=== PATIENT | female | born 1975 | race Caucasian/White ===

== ENCOUNTER → 2020-04-04 09:30 | Outpatient (BNVA) | payer MEDICAID, SELFPAY | PROVIDERS: Family Provider Family Medicine; Visit Provider Counselor Professional | DX: F41.1 Generalized anxiety disorder (principal); F33.2 Major depressive disorder, recurrent severe without psychotic features | CPT/HCPCS: 90834 ==

== ENCOUNTER → 2020-04-22 14:00 | Outpatient (BNVA) | payer MEDICAID, SELFPAY | PROVIDERS: Family Provider Family Medicine; Visit Provider Counselor Professional | DX: F41.1 Generalized anxiety disorder (principal); F43.12 Post-traumatic stress disorder, chronic; F33.2 Major depressive disorder, recurrent severe without psychotic features | CPT/HCPCS: 90834 ==

== ENCOUNTER → 2020-05-13 08:14 | Outpatient (BNVA) | payer MEDICAID, SELFPAY | PROVIDERS: Family Provider Family Medicine; Visit Provider Counselor Professional | DX: F41.1 Generalized anxiety disorder (principal); F43.12 Post-traumatic stress disorder, chronic; F33.2 Major depressive disorder, recurrent severe without psychotic features | CPT/HCPCS: 90834 ==

== ENCOUNTER 2020-05-15 14:03 | Outpatient (CLI) | payer MEDICAID, SELFPAY ==
--- NOTE | 2020-05-15 19:47 | ONC FU_ITS ---
Dr. Díaz Patient Follow-Up Note Patient: Carmen Richards Unit #: [id number]: 1975 Dicatated By: Pj Díaz M.D.Date of Visit:May 15, 2020 Onc Med Follow-up/Prog Note Chief Complaint: Suspected lung cancer. History of Present Illness: This is a 43-year-old woman who was referred from the [facility] because of suspected lung cancer. She had been incarcerated at the correctional facility in [place], [place] from August 2018 until December 2018. She had reported that while she was there she had undergone medical evaluation at a hospital in [place], and that she had been found to have lung cancer. She described having had CT scans and bronchoscopy, but she did not recall whether she may have had a PET/CT, and she did not recall the name of the hospital in [place]. I had seen her initially on 07/18/2019. At that time I did have a chest x-ray available for review, and I could see no evidence of the lung mass on that study. Following the visit, we did a fairly exhaustive search for medical information, now only from the correctional facility but also from hospitals in [place]. We could find no documentation of any evaluation or any suggestion of her having suspected lung cancer. She does have multiple medical illnesses including hypertension, dyslipidemia, type II diabetes, asthma/COPD, and depression. She also has known hepatitis C, diagnosed in 2014 and as yet not treated. She has a history of smoking for approximately 35 years, usually in the range of 1-1/2 pack of cigarettes daily. At time she had smoked up to his much as 4 packs/day. She has cut down, and she currently smokes about 5 cigarettes/day. She comes in now for a follow-up visit. She continues to complain that she is short of breath and that she has cough and wheezing. She brings up brown or green-colored sputum. She has pain in the chest area which is sometimes dull, but she also sometimes has sharp pain in the substernal area. She also has been having pain in her right side and she complains of being nauseated every day. Her energy level fluctuates. She is able to do some light work. Appetite also is variable. She has gained weight since her initial visit here. She does not have fever. She does report having hot flashes and sweating. She has been having a lot of heartburn. Bowel and bladder function have been okay. She reports having pain in her legs and in her right shoulder. She also complains of having a lot of swelling in her hands and feet. She has frequent headaches. She has neuropathy in her feet. Medications: hydrOXYzine HCl 1 Tablet (of 25 mg) Oral four times a day, Levothyroxine Sodium 1 Tablet (of 75 mcg) Oral daily, Lisinopril 1 Tablet (of 2.5 mg) Oral daily, ProAir HFA 1 puff(s) (of 108 (90 base) mcg/act) Aerosol, solution Inhalation four times a day PRN, Propranolol HCl 1 Tablet (of 20 mg) Oral t.i.d., PROzac 1 Capsule (of 40 mg) Oral daily, Symbicort 1 puff(s) (of 160-4.5 mcg/act) Aerosol Inhalation b.i.d. Allergies: No Known Allergies. Review of Systems: Constitutional - Her energy comes and goes. She is able to do light housework. Her appetite also comes and goes. Her weight is up about 8 pounds from last visit. No fevers. She is having frequent hot flahses with sweating. ECOG score is 1, ENMT - She has sinus congestion/drainage. No mouth sores. No sore throat or difficulty swallowing, Hematologic/Lymphatic - She bruises easily, Respiratory - She has shortness of breath and wheezing. She is using Pro-Air and Symbicort. She has a persistent cough, this produces green or dark colored sputum. No pleuritic pain or hemoptysis, Cardiovascular - No angina pain. No palpitations, Gastrointestinal - She has nausea, and she has been having pain in her right side. No vomiting. No heartburn or acid reflux. No diarrhea or constipation. No blood in the stool or black stools, Genitourinary (F) - No dysuria or hematuria. No urinary frequency. No urgency or incontinence, Musculoskeletal - She has pain in her legs, feet, hands, and shoulders, Integumentary - No skin complications, Neurologic - She reports constant headaches, this occurs weekly. No dizziness. She has neuropathy in her feet. No other focal neurologic symptoms, Psychiatric - She is taking ProZAC and hydroXYine foe her anxiety and depression. This is working well. No insomnia. Vital Signs: Performed on May 15, 2020 14:32 Height - 62.00 in Weight - 239.8 lbs (HIGH) BSA - 2.06 sq.m BMI - 43.86 (HIGH) Temperature - 97.9 F (LOW) Pulse - 78 /min Respiration - 22 /min O2 Sat - 98 % Pain - 0 Physical Examination: Constitutional - She does not appear acutely ill, Eyes - Sclerae nonicteric. Conjunctivae clear, ENMT - No lesions noted in the oral cavity, Hematologic/Lymphatic - No cervical, clavicular, or axillary adenopathy, Respiratory - Lungs sound clear with diminished air movement bilaterally, Cardiovascular - Heart rhythm is regular. There is no murmur, gallop, or rub noted, Abdomen - Moderately distended. Liver and spleen are not enlarged. There is no abdominal mass or ascites noted and there is no inguinal adenopathy, Extremities - No edema, Neurologic - No focal neurologic deficits noted. Impression: 1. Patient with self reported history of lung cancer. However, there was no identifiable mass on her chest x-ray, and we were not able to find documentation of any prior medical evaluation. 2. She has persistent cough and she has ongoing complaints of shortness of breath and wheezing. 3. She has persistent nausea and she also complains of pain in her right side. 4. She has untreated hepatitis C. Her other medical illnesses include: 5. Hypertension. 6. Dyslipidemia. 7. Type II diabetes. 8. Asthma/COPD. 9. Chronic headache. 10. Anxiety/depression. 11. She has history of IV drug use. Plan: She had recent laboratory studies with Dr. Mobley, and I will obtain those results. As she continues to have significant complaints, she will be scheduled for CT scans of the chest, abdomen, and pelvis. In the absence of any evidence of malignancy by CT scan, I think we can close the case on her suspected lung cancer, and in that case she can be referred for treatment of her hepatitis C. Signed By: Pj Díaz M.D. <<Signature on File>>
== END 2020-05-15 14:04 | disposition home or self-care (01) ==
LOC: ONCMED 14:06
PROVIDERS: PCP Family Medicine; Visit Provider Internal Medicine Medical Oncology
DX: R06.02 Shortness of breath (principal); R05 Cough; R06.2 Wheezing; R11.0 Nausea; B19.20 Unspecified viral hepatitis C without hepatic coma; I10 Essential (primary) hypertension; E78.5 Hyperlipidemia, unspecified; E11.9 Type 2 diabetes mellitus without complications; J44.9 Chronic obstructive pulmonary disease, unspecified; R51 Headache; F41.8 Other specified anxiety disorders; F19.21 Other psychoactive substance dependence, in remission
CPT/HCPCS: 99214

== ENCOUNTER → 2020-06-03 08:27 | Outpatient (BNVA) | payer MEDICAID, SELFPAY | PROVIDERS: PCP Family Medicine; Visit Provider Counselor Professional | DX: F33.2 Major depressive disorder, recurrent severe without psychotic features (principal) | CPT/HCPCS: 90832 ==

== ENCOUNTER 2020-06-04 11:11 | Outpatient (CLI) | payer MEDICAID, SELFPAY ==
--- NOTE | 2020-06-04 11:21 | CT_ITS ---
WS: [id number] CT scan of the chest With IV contrast, CT scan of the abdomen and pelvis with IV contrast and with oral contrast. Additional two-dimensional coronal and sagittal reconstruction was performed. 0 Clinical Data: SHORTNESS OF BREATH, COUGH, CHEST PAIN, NAUSEA, VOMITING Comparison: None. DLP: 2599.[address] scans at [facility] use at least one of these dose optimization techniques: automat ed exposure control; mA and/or kV adjustment per patient size (includes targeted exams where dose is matched to clinical indication); or iterative reconstruction. Findings: Chest: No nodules, masses or effusions are seen. The heart size is normal with no pericardial effusion. No pneumonia or pneumothorax is seen. The pulmonary arterial system and thoracic aorta demonstrate no abnormalities or dilatations. The tra ingrid bifurcates normally into the bronchi. The thyroid gland shows a probable cyst in the right lobe. There is no axillary or significant mediastinal adenopathy. Abdomen/pelvis: . The liver, gallbladder, spleen, adrenal glands and pancreas are normal. The kidneys show equal bilateral contrast excretion with no cyst or masses. No renal calculi or hydro nephrosis is noted. The abdominal aorta is normal in size with minimal calcification in the wall.. No appendicitis or diverticulitis is seen. Oral contrast is in the colon and there is no bowel dilata tion. No abscess, adenopathy, ascites, mass, obstruction or free air is seen. There is a small fat-co ntaining umbilical hernia. The bladder is unremarkable. The uterus is absent. No inguinal hernia is seen. The bones of the thorax, lumbar spine, pelvis and hips show only moderate vertebral body osteoarthrit is. CT/CT chest abd pel w con* Impression: 1. Negative for lung nodules or masses. 2. Negative for acute cardiopulmonary disease. 3. Negative for acute intra-abdominal or pelvic abnormalities.
[2020-06-04] MEDS: iohexol 300 mg/mL 50 mL Btl PO (13:48)
[2020-06-04] MEDS: iohexol 300 mg/mL 100 mL Btl IV (13:48)
== END 2020-06-04 11:12 | disposition home or self-care (01) ==
LOC: RADWPI 11:14
PROVIDERS: Family Provider Family Medicine; PCP Family Medicine; Visit Provider Internal Medicine Medical Oncology
DX: R06.02 Shortness of breath (principal); R07.9 Chest pain, unspecified; R05 Cough; R11.2 Nausea with vomiting, unspecified
CPT/HCPCS: 71260; 74177; Q9967

== ENCOUNTER → 2020-06-05 14:34 | Outpatient (BNVA) | payer MEDICAID, SELFPAY | PROVIDERS: Family Provider Family Medicine; PCP Family Medicine; Visit Provider Psychiatry & Neurology Psychiatry | DX: F33.2 Major depressive disorder, recurrent severe without psychotic features (principal) | CPT/HCPCS: 80061; 83036 ==

== ENCOUNTER 2020-09-23 10:33 | Outpatient (CLI) | payer OTHER, SELFPAY ==
[2020-07-26 15:54] VITALS: BP 129/79; BMI 43.1
--- NOTE | 2020-09-23 | XR_ITS ---
WS: [id number] LUMBAR SPINE TECHNIQUE: 3 views of the lumbar spine CLINICAL INFORMATION: CHRONIC LOW BACK PAIN, DISABILITY DETERMINATION COMPARISON: None. FINDINGS: Mild lumbar curve. Slight retrolisthesis L2 on L3 and L3 on L4. Mild disc space narrowing worse at L3 -4 and L4-5. Moderate facet arthropathy L4-L5 and L5-S1. Aortic calcification. XR/XR lumbar spine 2-3V* [id number] IMPRESSION: 1. Mild spondylitic changes lumbar spine. 2. Mild lumbar curve. No acute compression fractures. 3. Slight retrolisthesis L2 on L3 and L3 on L4. 4. Mild disc space narrowing L3-L4 L4-L5. 5. Moderate facet arthropathy L5-S1.
== END 2020-09-23 10:34 | disposition home or self-care (01) ==
LOC: RAD 10:36
PROVIDERS: PCP Family Medicine; Visit Provider Dermatology
DX: G89.29 Other chronic pain (principal); M47.817 Spondylosis without myelopathy or radiculopathy, lumbosacral region
CPT/HCPCS: 72100

== ENCOUNTER 2020-12-02 10:03 | Outpatient (CLI) | payer MEDICAID, SELFPAY ==
[2020-07-26 15:54] VITALS: BP 129/79; BMI 43.1
--- NOTE | 2020-12-02 10:12 | MR_ITS ---
WS: [id number] MRI LUMBAR SPINE NONCONTRAST HISTORY: CHRONIC LOW BACK PAIN COMPARISON: None available. TECHNIQUE: Sagittal and axial multisequence imaging is submitted. Mild spondylitic changes in the cervical spine. Suspect mild stenosis at C5-6. Increase in the thorac ic kyphosis without cord compression. 2 mm anterolisthesis of L4. No marrow edema or fracture. Disc space narrowing and mild desiccation from L3-4 to L5-S1. Conus terminates normally at L1-2 disc level. L1-L2: Mild facet arthritis. Very mild LEFT foraminal narrowing. L2-L3: Mild bilateral ligamentum flavum and facet joint arthritis. No significant stenosis. Very mild narrowing of the LEFT foramen. L3-L4: Mild annular disc bulging and osteophytic ridging. Mild to moderate bilateral facet joint arth ritis. No significant stenosis is appreciated. Very slight narrowing of the RIGHT foramen. L4-L5: Mild annular disc bulging and osteophytic ridging. Moderate to severe bilateral facet joint ar thritis. No significant stenosis. L5-S1: Very shallow central disc protrusion. Small disc osteophyte complex with very minimal contact on the RIGHT S1 nerve root does not appear to be displacing the nerve roots. Mass in the RIGHT adnexa measures 4.0 cm. Incompletely visualized. This may be a dermoid as the signa l decreases on the STIR sequence. On a prior CT from 06/04/2020 with a fat-containing mass in the RIGH T adnexa. MR/MR lumbar spine wo con* [id number] IMPRESSION: 1. No severe central or foraminal stenosis. 2. Very small disc osteophyte complex on the RIGHT with minimal contact and no displacement of the S1 nerve root. 3. Bilateral facet joint arthritis as described above. Most significant at the L4-5 level. No foraminal stenosis. 4. Fat-containing mass probably a dermoid in the RIGHT adnexa. Incompletely vi sualized. If further evaluation is clinically thought necessary consider follow -up with transvaginal ultrasound.
== END 2020-12-02 10:04 | disposition home or self-care (01) ==
LOC: RADWPI 10:06
PROVIDERS: PCP Family Medicine; Visit Provider Family Medicine
DX: M54.5 Low back pain (principal); M25.78 Osteophyte, vertebrae; M47.816 Spondylosis without myelopathy or radiculopathy, lumbar region
CPT/HCPCS: 72148

== ENCOUNTER 2022-06-11 13:32 | Inpatient (IN) | payer MEDICAID, SELFPAY ==
[2020-07-26 15:54] VITALS: BP 129/79; BMI 43.1
[2022-06-11 14:33] VITALS: BP 214/117; PULSE 90; RESP 16; TEMP 36.4; O2SAT 97; BMI 36.6
--- NOTE | 2022-06-11 18:28 | CTR_ITS ---
PROCEDURE INFORMATION: Exam: CT Head Without Contrast Exam date and time: 06/11/2022 7:25 PM Age: 46 years old Clinical indication: Dizziness and weakness, extremity; Patient HX: C/O dizziness with left sided weakness. ; Additional info: L sided weakness, sensory changes, dizzy 4 days TECHNIQUE: Imaging protocol: Computed tomography of the head without contrast. Sagittal and coronal reformatted images were created and reviewed. Radiation optimization: All CT scans at this facility use at least one of these dose optimization techniques: automated exposure control; mA and/or kV adjustment per patient size (includes targeted exams where dose is matched to clinical indication); or iterative reconstruction. COMPARISON: No relevant prior studies available. RADIATION DOSE METRICS: Total DLP (mGy-cm): 1009.68 FINDINGS: Brain: No acute intracranial hemorrhage. There is an area of decreased density extending from the right frontal lobe centrum semiovale extending inferiorly along the posterior limb of the right internal capsule to the right thalamus (series 3, images 20-29). No mass effect. No intra-axial or extra-axial masses. No midline shift. No extra-axial fluid collections. Hinds-white matter differentiation is unremarkable. Cerebral ventricles: No hydrocephalus. Mild asymmetry of the lateral ventricles. This is likely congenital in nature. Paranasal sinuses: Mild mucoperiosteal thickening in the posterior right ethmoid sinuses. Other visualized paranasal sinuses are clear. Mastoid air cells: Visualized mastoid air cells are clear. Orbital cavities: No acute abnormality in the visualized orbits. Dental: The patient is edentulous. Bones/joints: No acute fracture. Soft tissues: No acute abnormality of the extracranial soft tissues. CT/CT head wo con* [id number] IMPRESSION: Findings suspicious for an acute infarct extending from the right frontal lobe centrum semiovale extending inferiorly along the posterior limb of the right internal capsule to the right thalamus. No mass effect. No midline shift. No hydrocephalus. Further evaluation with MRI of the brain is recommended, if the patient has no contraindications. ASSESSMENT: ASPECTS ([place] Stroke Program Early CT Score) Score is 8.
--- NOTE | 2022-06-11 18:54 | XRR_ITS ---
PROCEDURE INFORMATION: Exam: XR Chest Exam date and time: 06/11/2022 7:01 PM Age: 46 years old Clinical indication: Chest wall pain; Additional info: Chest pain TECHNIQUE: Imaging protocol: Radiologic exam of the chest. Views: 1 view. COMPARISON: CT chest abd pel w con* 06/04/2020 1:44 PM FINDINGS: Lungs: Unremarkable. No consolidation. Pleural spaces: Unremarkable. No pleural effusion. No pneumothorax. Heart/Mediastinum: Unremarkable. No cardiomegaly. Bones/joints: Unremarkable. XR/XR chest 1V portable [id number] IMPRESSION: No acute findings.
--- NOTE | 2022-06-11 18:54 | ECG_ITS ---
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 Measurements Intervals [place] Rate: 88 P: 67 MI: 171 QRS: 42 QRSD: 93 T: 76 QT: 376 QTc: 455 Interpretive Statements SINUS RHYTHM No previous ECG available for comparison Electronically Signed On 06-11-2022 21:17:44 CDT by Jean-Paul Santana M.D. [email or web address]
--- NOTE | 2022-06-11 19:30 | W.ED.WEAKNES ---
HPI - Weakness General: Chief complaint: Weakness Stated complaint: Dizziness, numbness in left side Time Seen by Provider: 06/11/22 18:42 PFS ED PFSH: Family History (Updated 06/05/20 @ 11:04 by Latha Liriano RN) Other CAD (coronary artery disease) Cancer Diabetes Family history of premature coronary artery disease Hypertension Lung disease Stroke Social History (Updated 06/05/20 @ 11:42 by Latha Liriano RN) Smoking and tobacco status: current every day smoker cigarettes Packs smoked per day: 0.5 Years cigarettes smoked: 32 Second hand smoke exposure: No Smoking risk assessment/counseling performed?: Yes (No desire to quit at this time.) Tobacco counseling given: counseling >3 minutes Alcohol intake: former Desire information about alcohol rehabilitation?: No Desire information about substance/drug rehabilitation?: No Adopted: No Caregiver/support person: No Lives independently: Yes Household members: none Housing: Manufactured/Mobile home Marital status: Single Number of children: 2 Number of grandchildren: 4 Highest education level completed: GED or Equivalent service: No Current occupational status: disabled Current occupational exposures/hazards: No Pets and animals: Yes Pets & animals: dog(s) History of recent travel: No Leisure activites: exercise, art, music and reading Sexually active: No Current gender identity: Female Linda/Hinduism: Congregational Special linda needs: No Agree to transfusion: Yes Financial difficulty paying for basics: Hard Female Reproductive History: Para: 2 Spontaneous abortions: No Course Vital Signs: Vital signs: Vital Signs Temperature 97.6 F 06/11/22 14:33 Pulse Rate 90 06/11/22 14:33 Respiratory Rate 16 06/11/22 14:33 Blood Pressure 214/117 06/11/22 14:33 Pulse Oximetry 97 06/11/22 14:33 MDM - Weakness Lab Data : 06/11/22 19:20 06/11/22 19:20 Radiology Impressions Chest X-Ray 06/11/22 18:54 IMPRESSION: No acute findings. Discharge Plan Discharge Condition: Stable Prescriptions: No Action Symbicort 160-4.5 mcg/actuation HFA aerosol inhaler 2 puff INHALATION BID PRN0RF aspirin [Adult Low Dose Aspirin] 81 mg tablet,delayed release (DR/EC) 81 mg PO DAILY 0RF lisinopril 20 mg tablet 20 mg PO QDAY 0RF metformin 500 mg tablet 500 mg PO QDAY 0RF albuterol sulfate [ProAir HFA] 90 mcg/actuation HFA aerosol inhaler 2 puff INHALATION Q6H PRN0RF propranolol 20 mg tablet 20 mg PO TID PRN (Reason: anxiety) Qty: 90 2RF fluoxetine [Prozac] 40 mg capsule 40 mg PO DAILY Qty: 30 2RF hydroxyzine HCl 50 mg tablet 50 mg PO QID PRN (Reason: anxiety) Qty: 120 2RF Referrals: Sushil Mobley MD [Primary Care Provider] - Coding Level of Care Code ED Camera Technician for Chg Mary
[2022-06-11 19:35] LABS: Basophils # 0.1 10^3/uL (0.0-0.1); Basophils % 0.4 %; Eosinophils # 0.2 10^3/uL (0.0-0.8); Eosinophils % 1.8 %; Hematocrit 48.7 % (37.0-47.0); Hemoglobin 16.2 g/dL (11.5-15.3); Lymphocytes # 5.6 10^3/uL (0.8-4.8); Lymphocytes % 42.8 %; Mean Corpuscular HGB Conc 33.3 g/dL (30.0-36.0); Mean Corpuscular Hemoglobin 31.8 pg (28.0-34.0); Mean Corpuscular Volume 95.5 fl (81-99); Mean Platelet Volume 10.5 fL (7.4-10.4); Monocytes # 0.7 10^3/uL (0.2-0.9); Neutrophils # 6.46 10^3/uL (1.8-7.7); Neutrophils % 49.8 %; Nucleated Red Blood Cells % 0 %; Platelet Count 250 10^3/cmm (130-400); Red Cell Distribution Width 11.9 % (12.1-15.1)
[2022-06-11 19:41] LABS: INR 0.97 (0.8-1.2)
[2022-06-11 19:42] LABS: Partial Thromboplastin Time 34.5 SECONDS (23.9-36.7)
--- NOTE | 2022-06-11 19:47 | W.ED.GENADLT ---
HPI - General Adult General: Chief complaint: Weakness Stated complaint: Dizziness, numbness in left side Time Seen by Provider: 06/11/22 18:42 History of Present Illness: Patient is a 46-year-old female with history of COPD, hypertension, smoking presenting to the emergency room with left-sided numbness and weakness since 4 days ago. Patient was at rest when she noticed all the symptoms. Patient denies any chest pain, shortness with palpitation or nausea or vomiting, diarrhea, gait instability, vertigo, diplopia, double vision. Patient states that symptoms started all at once and has not improved. No prior history of strokes. Onset: 4 days ago Duration:4 days Location:home Severity:moderate/severe Associated symptoms: Deny chest pain, dyspnea, nausea, rash, palpitations or vomiting Review of Systems Const: Denies: fever(s) or chills Eyes: Denies: change in vision ENMT: Denies: mouth pain Card: Denies: chest pain or palpitations Resp: Denies: dyspnea or non-productive cough GI: Denies: abdominal pain, nausea, vomiting or diarrhea : Denies: dysuria Musc: Denies: extremity pain Skin/Breast: Denies: rash or new lesions Neuro: Reports: weakness in extremities (+L sided weakness x 4 days) and sensory changes (+L sided numbness x 4 days) Psych: Reports: other (Normal mood) Dick/Lymph: Denies: easy bruising PFSH ED PFSH: Medical History COPD (chronic obstructive pulmonary disease) Hypertension Smoking Family History Other CAD (coronary artery disease) Cancer Diabetes Family history of premature coronary artery disease Hypertension Lung disease Stroke Social History Smoking and tobacco status: current every day smoker cigarettes Packs smoked per day: 0.5 Years cigarettes smoked: 32 Second hand smoke exposure: No Smoking risk assessment/counseling performed?: Yes (No desire to quit at this time.) Tobacco counseling given: counseling >3 minutes Alcohol intake: former Desire information about alcohol rehabilitation?: No Desire information about substance/drug rehabilitation?: No Adopted: No Caregiver/support person: No Lives independently: Yes Household members: none Housing: Manufactured/Mobile home Marital status: Single Number of children: 2 Number of grandchildren: 4 Highest education level completed: GED or Equivalent service: No Current occupational status: disabled Current occupational exposures/hazards: No Pets and animals: Yes Pets & animals: dog(s) History of recent travel: No Leisure activites: exercise, art, music and reading Sexually active: No Current gender identity: Female Linda/Confucianist: Baptist Special linda needs: No Agree to transfusion: Yes Financial difficulty paying for basics: Hard Female Reproductive History: Para: 2 Spontaneous abortions: No Physical Exam Const: COMMON NORMALS: alert HENMT: COMMON NORMALS: atraumatic HEAD & SCALP: atraumatic MOUTH: moist mucous membranes not abnormal Eye: COMMON NORMALS: EOMs intact bilaterally and conjunctivae normal CONJUNCTIVA: Yes conjunctivae normal Neck/C-Spine: COMMON NORMALS: full ROM and supple Resp: COMMON NORMALS: normal respiratory effort and clear to auscultation bilaterally AUSCULTATION: clear to auscultation bilaterally Cardio: COMMON NORMALS: regular rate RATE: regular rate GI: COMMON NORMALS: Soft to palpation and non-tender PALPATION: Yes Soft to palpation Extremity: COMMON NORMALS: full ROM Neuro: SENSORIUM/ORIENTATION: Yes alert MOTOR EXAM: No Abnormal motor strength present and Other motor observations present (no focal motor deficits) OTHER: Mental status? Awake, alert, and oriented to self, year, month, location, and situation.? Following simple axial and appendicular commands.? Has appropriate fund of knowledge, comprehension, and insight.? Able to recall and understands pertinent aspects of medical history and current treatment status.? ? Language? Speech is fluent without word-finding difficulties.? Intact naming, expression, reception manager, and repetition.? ? Cranial nerves? 2,3,4,6: PERRL, EOMI with no nystagmus. 5: Intact sensation to light touch, symmetric? 7: Smile symmetrical, no facial droop.? 8: Hearing grossly intact.? 9,10: Normal palate movement.? 11: Normal strength in trapezius bilaterally 12: Tongue protrudes midline.? ? Motor examination? Normal bulk & tone. Strength as follows (R/L): Delts (5/4-5), Biceps (5/4-5), Triceps (5/4-5), Wrist ext (5/4-5), hip flexors (5/4-5), plantarflexors (5/4-5), dorsiflexors (5/4-5). ? Sensation? Light Touch: Mildly diminished strength in the L compared to R side Romberg: Negative.? Distal joint position sense intact ? Coordination? Zyxqzd-ap-aqum-finger movements intact without dysmetria or past-pointing.? Rapid fingertaps: preserved amplitude without decriment.? No tremor, myoclonus or truncal ataxia.? ? Gait/stance? Steady, normal narrow base gait with appropriate arm swing and turning.? Tandem gait without hesitation or loss of balance. Psych: COMMON NORMALS: speech normal SPEECH: Yes normal speech MOOD & AFFECT: Yes euthymic mood Course Vital Signs: Vital signs: Vital Signs Temperature 97.6 F 06/11/22 14:33 Pulse Rate 90 06/11/22 14:33 Respiratory Rate 16 06/11/22 14:33 Blood Pressure 214/117 06/11/22 14:33 Pulse Oximetry 97 06/11/22 14:33 MDM - General Adult Medical Decision Making 46-year-old female history of hypertension, smoking, COPD presents the emergency room with concerns of left-sided weakness and numbness. Symptoms been going on for 4 days. On neurological exam, patient may have minor left-sided weakness with mildly diminished left-sided sensation. CT scans showed a subacute stroke. Patient is currently outside of tPA or mechanical thrombectomy windows. Patient admitted to hospital for further subacute stroke work-up. Disposition: admisison Lab Data : 06/11/22 19:20 06/11/22 19:[address] 06/11/22 18:28 IMPRESSION: Findings suspicious for an acute infarct extending from the right frontal lobe centrum semiovale extending inferiorly along the posterior limb of the right internal capsule to the right thalamus. No mass effect. No midline shift. No hydrocephalus. Further evaluation with MRI of the brain is recommended, if the patient has no contraindications. ASSESSMENT: ASPECTS ([place] Stroke Program Early CT Score) Score is 8. ADDENDUM: 06/11/222022 THIS REPORT CONTAINS FINDINGS THAT MAY BE CRITICAL TO PATIENT CARE. The findings were verbally communicated via telephone conference with Vic Tubbs at 8:21 PM CDT on 06/11/2022. The findings were acknowledged and understood. Chest X-Ray 06/11/22 18:54 IMPRESSION: No acute findings. Laboratory Results WBC 13.0 10^3/uL (4.0-10.0) H 06/11/22 19:20 RBC 5.10 10^6/uL (4.1-5.3) 06/11/22 19:20 Hgb 16.2 g/dL (11.5-15.3) H 06/11/22 19:20 Hct 48.7 % (37.0-47.0) H 06/11/22 19:20 MCV 95.5 fl (81-99) 06/11/22 19:20 MCH 31.8 pg (28.0-34.0) 06/11/22 19:20 MCHC 33.3 g/dL (30.0-36.0) 06/11/22 19:20 RDW 11.9 % (12.1-15.1) L 06/11/22 19:20 Plt Count 250 10^3/cmm (130-400) 06/11/22 19:20 MPV 10.5 fL (7.4-10.4) H 06/11/22 19:20 Neut % (Auto) 49.8 % 06/11/22 19:20 Lymph % (Auto) 42.8 % 06/11/22 19:20 [place] % (Auto) 5.0 % 06/11/22 19:20 Eos % (Auto) 1.8 % 06/11/22 19:20 Baso % (Auto) 0.4 % 06/11/22 19:20 Neut # (Auto) 6.46 10^3/uL (1.8-7.7) 06/11/22 19:20 Lymph # (Auto) 5.6 10^3/uL (0.8-4.8) H 06/11/22 19:20 [place] # (Auto) 0.7 10^3/uL (0.2-0.9) 06/11/22 19:20 Eos # (Auto) 0.2 10^3/uL (0.0-0.8) 06/11/22 19:20 Baso # (Auto) 0.1 10^3/uL (0.0-0.1) 06/11/22 19:20 Nucleated RBC % (auto) 0 % 06/11/22 19:20 Nucleated RBCs # 0.0 /100WBC 06/11/22 19:20 PT 13.20 SECONDS (12.1-14.9) 06/11/22 19:20 INR 0.97 (0.8-1.2) 06/11/22 19:20 APTT 34.5 SECONDS (23.9-36.7) 06/11/22 19:20 Sodium 134 mmol/L (136-145) L 06/11/22 19:20 Potassium 4.4 mmol/L (3.5-5.1) 06/11/22 19:20 Chloride 97 mmol/L (98-107) L 06/11/22 19:20 Carbon Dioxide 25 mmol/L (22-29) 06/11/22 19:20 Anion Gap 16.4 (5-19) 06/11/22 19:20 BUN 7 mg/dL (6-20) 06/11/22 19:20 Creatinine 0.6 mg/dL (0.5-0.9) 06/11/22 19:20 GFR Calculation 106.7 mL/min (90-130) 06/11/22 19:20 Glucose 232 mg/dL (65-115) H 06/11/22 19:20 Calculated Osmolality 283 mOsm/kg (285-295) L 06/11/22 19:20 Calcium 10.0 mg/dL (8.5-10.5) 06/11/22 19:20 Total Bilirubin 0.5 mg/dL (0.15-1.2) 06/11/22 19:20 AST 29 U/L (0-32) 06/11/22 19:20 ALT 29 U/L (0-33) 06/11/22 19:20 Alkaline Phosphatase 101 IU/L (35-105) 06/11/22 19:20 Troponin T Baseline 10 ng/L (0-10) 06/11/22 19:20 Total Protein 8.0 g/dL (6.6-8.7) 06/11/22 19:20 Albumin 4.3 g/dL (3.5-5.2) 06/11/22 19:20 Globulin 3.7 g/dL (1.3-4.6) 06/11/22 19:20 Imaging Data Other Imaging: Radiologist's impression: [email or web address] [address] XRay Report Signed Patient: Carmen Richards Unit #: [id number] : 1975 Age/Sex: 46 / F ADM Date: 06/11/22 Loc: ER Room/Bed: Attending Dr: Ordering Provider/Ordering MD: Alex Velásquez MD Date of Service: 06/11/22 Procedure(s): XR chest 1V portable [id number] Accession Number(s): [id number] Report Number: [id number] PROCEDURE INFORMATION: Exam: XR Chest Exam date and time: 06/11/2022 7:01 PM Age: 46 years old Clinical indication: Chest wall pain; Additional info: Chest pain TECHNIQUE: Imaging protocol: Radiologic exam of the chest. Views: 1 view. COMPARISON: CT chest abd pel w con* 06/04/2020 1:44 PM FINDINGS: Lungs: Unremarkable. No consolidation. Pleural spaces: Unremarkable. No pleural effusion. No pneumothorax. Heart/Mediastinum: Unremarkable. No cardiomegaly. Bones/joints: Unremarkable. XR/XR chest 1V portable [id number] IMPRESSION: No acute findings. ? Dictated By: Murphy Paz DO Signed By: Murphy Paz DO Signed Date/Time: 06/11/221920 DD/ 00 Launch?[place] [address] CT Scan Report Signed with Addenda Patient: Carmen Richards Unit #: [id number] : 1975 Age/Sex: 46 / F ADM Date: 06/11/22 Loc: ER Room/Bed: Attending Dr: Ordering Provider/Ordering MD: Vic Eldridge MD Date of Service: 06/11/22 Procedure(s): CT head wo con* [id number] Accession Number(s): [id number] Report Number: [id number]/CT head wo con* [id number] THIS REPORT CONTAINS FINDINGS THAT MAY BE CRITICAL TO PATIENT CARE. The findings were verbally communicated via telephone conference with Vic Tubbs at 8:21 PM CDT on 06/11/2022. The findings were acknowledged and understood. ? Addendum Dictated By: ?Katie Louise MD Addendum Signed By: ?Katie Louise MD Signed Date/Time: 06/11/222022 Addendum Cosigned By: ? PROCEDURE INFORMATION: Exam: CT Head Without Contrast Exam date and time: 06/11/2022 7:25 PM Age: 46 years old Clinical indication: Dizziness and weakness, extremity; Patient HX: C/O dizziness with left sided weakness. ; Additional info: L sided weakness, sensory changes, dizzy 4 days TECHNIQUE: Imaging protocol: Computed tomography of the head without contrast. Sagittal and coronal reformatted images were created and reviewed. Radiation optimization: All CT scans at this facility use at least one of these dose optimization techniques: automated exposure control; mA and/or kV adjustment per patient size (includes targeted exams where dose is matched to clinical indication); or iterative reconstruction. COMPARISON: No relevant prior studies available. RADIATION DOSE METRICS: Total DLP (mGy-cm): 1009.68 FINDINGS: Brain: No acute intracranial hemorrhage. There is an area of decreased density extending from the right frontal lobe centrum semiovale extending inferiorly along the posterior limb of the right internal capsule to the right thalamus (series 3, images 20-29). No mass effect. No intra-axial or extra-axial masses. No midline shift. No extra-axial fluid collections. Hinds-white matter differentiation is unremarkable. Cerebral ventricles: No hydrocephalus. Mild asymmetry of the lateral ventricles. This is likely congenital in nature. Paranasal sinuses: Mild mucoperiosteal thickening in the posterior right ethmoid sinuses. Other visualized paranasal sinuses are clear. Mastoid air cells: Visualized mastoid air cells are clear. Orbital cavities: No acute abnormality in the visualized orbits. Dental: The patient is edentulous. Bones/joints: No acute fracture. Soft tissues: No acute abnormality of the extracranial soft tissues. CT/CT head wo con* [id number] IMPRESSION: Findings suspicious for an acute infarct extending from the right frontal lobe centrum semiovale extending inferiorly along the posterior limb of the right internal capsule to the right thalamus. No mass effect. No midline shift. No hydrocephalus. Further evaluation with MRI of the brain is recommended, if the patient has no contraindications. ? ASSESSMENT: ASPECTS ([place] Stroke Program Early CT Score) Score is 8. ? Dictated By: Katie Louise MD Signed By: Katie Louise MD Signed Date/Time: 06/11/222015 DD/ 24 Discharge Plan Discharge Patient Disposition: Admitted As Inpatient Clinical Impression: Left-sided weakness, Arm paresthesia, left, Left leg paresthesias, Acute ischemic stroke Condition: Stable Coding Level of Care Code ED After School Teacher for Chg Fwd Exam Comprehensive
[2022-06-11 20:11] LABS: Troponin(5th) Baseline 10 ng/L (0-10)
[2022-06-11 20:14] LABS: Alanine Aminotransferase 29 U/L (0-33); Albumin Level 4.3 g/dL (3.5-5.2); Alkaline Phosphatase 101 IU/L (35-105); Aspartate Amino Transferase 29 U/L (0-32); Blood Urea Nitrogen 7 mg/dL (6-20); Carbon Dioxide 25 mmol/L (22-29); Chloride 97 mmol/L (98-107); Globulin 3.7 g/dL (1.3-4.6); Glomerular Filtration Rate 106.7 mL/min (90-130); Glucose 232 mg/dL (65-115); Osmolality Calculated 283 mOsm/kg (285-295); Sodium 134 mmol/L (136-145); Total Bilirubin 0.5 mg/dL (0.15-1.2)
[2022-06-11 20:15] LABS: Anion Gap 16.4 (5-19); Potassium 4.4 mmol/L (3.5-5.1)
[2022-06-11 20:16] VITALS: BP 196/74; PULSE 0; PULSE 87; RESP 18; O2SAT 96
--- NOTE | 2022-06-11 20:54 | ECG_ITS ---
[facility] Test Date: 2022-06-11 Pat Name: Carmen Richards Department: Room: 250 Gender: Female Epic Manager: : 1975 Requested By: Alex Velásquez Order Number: [id number] Jeanine MD: Giovanni Rosas M.D. Measurements Intervals [place] Rate: 88 P: 70 TN: 185 QRS: 54 QRSD: 84 T: 75 QT: 366 QTc: 444 Interpretive Statements SINUS RHYTHM Compared to ECG 06/11/2022 19:37:18 No significant changes Electronically Signed On 06-12-2022 20:48:15 CDT by Giovanni Rosas M.D. [id number]
[2022-06-11 21:03] LABS: Add Urine Microscopic? YES; Bilirubin Urine Neg (Negative); Blood Urine 3+ (Negative); Glucose Urine UA Norm (Normal); Ketones Urine Negative (Negative); Leukocyte Esterase Urine 1+ (Negative); Nitrate Urine Positive (Negative); Protein Urine Trace (Negative); RBC Urine 0-4 /hpf (0-2); Specific Gravity, Urine 1.005 (1.005-1.030); Urine Appearance SL Hazy (CLEAR); Urine Color Yellow (Yellow); Urobilinogen Urine Norm (Negative); pH Urine 7 (5-7)
[2022-06-11 21:04] LABS: Add Urine Culture? Yes; Bacteria Urine 2+ /hpf; Fine Granular Casts Urine 0-4 /lpf
[2022-06-11 21:36] VITALS: BP 140/72; PULSE 90; RESP 18; O2SAT 94
[2022-06-11 21:49] VITALS: BP 140/72; PULSE 90; RESP 18; O2SAT 94
[2022-06-11 22:31] VITALS: BP 142/91; PULSE 96; RESP 18; TEMP 36.7; O2SAT 95
--- NOTE | 2022-06-11 23:26 | PM.HP ---
Providers/Chief Complaint Admitting Physician: Abdon Ace Primary Care Provider: Sushil Mobley MD Chief Complaint: Dizziness, numbness in left side History of Present Illness Pleasant 46-year-old lady with history of smoking, HTN, DM2, HLD, other comorbidities, presented due to starting about 4 days ago numbness of left side of the face, as well as upper and lower extremity, left side facial droop, as well as loss of coordination of left upper and lower extremity which are new. Denies any prior history of stroke. CT head in ER showed findings suspicious for acute infarct standing from right frontal lobe centrum semiovale extending inferiorly along the posterior limb of the right internal capsule to the right thalamus. No mass-effect. No midline shift. No hydrocephalus. Review of Systems Const: Denies: fever(s), chills, body aches or malaise Eyes: Denies: change in vision, eye discomfort or eye redness ENMT: Denies: throat pain, oral sores or ear or mastoid pain Card: Denies: chest pain, edema, pre-syncope or dyspnea on exertion Resp: Denies: dyspnea, productive cough, change in phlegm color or hemoptysis GI: Denies: abdominal pain, nausea, vomiting, diarrhea, constipation, hematochezia or melena : Denies: flank pain, urinary frequency or hematuria Musc: Reports: extremity pain (Chronic L shoulder/neck pain); Denies: back pain, joint swelling or joint redness Skin/Breast: Denies: rash or new lesions Neuro: Reports: numbness in extremities, weakness in extremities, lack of coordination and difficulty walking; Denies: headache(s), dizziness, vertigo, confusion or seizure-like activity Endo: Denies: polyuria or polydipsia Dick/Lymph: Denies: easy bleeding or tender lymph nodes All/Imm: Denies: urticaria or tongue swelling Medications/Allergies Home Medications Medication Instructions Recorded Confirmed Last Taken Type albuterol sulfate 90 mcg/actuation 2 puff INHALATION Q6H PRN 12/22/19 03/17/21 Unknown History aerosol inhaler (ProAir HFA) lisinopril 20 mg tablet 20 mg PO QDAY 12/22/19 03/17/21 Unknown History metformin 500 mg tablet 500 mg PO QDAY PRN 12/22/19 03/17/21 Unknown History aspirin 81 mg tablet,delayed 81 mg PO DAILY 02/16/20 03/17/21 Unknown History release (Adult Low Dose Aspirin) budesonide-formoterol HFA 160 2 puff INHALATION BID PRN 02/16/20 03/17/21 Unknown History mcg-4.5 mcg/actuation aerosol inhaler (Symbicort) fluoxetine 40 mg capsule (Prozac) 40 mg PO DAILY #30 cap 03/27/20 03/17/21 Unknown Rx hydroxyzine HCl 50 mg tablet 50 mg PO QID PRN #120 tab 03/27/20 03/17/21 Unknown Rx propranolol 20 mg tablet 20 mg PO TID PRN #90 tab 03/27/20 03/17/21 Unknown Rx levothyroxine 75 mcg tablet 75 mcg PO DAILY 06/11/22 06/11/22 06/11/22 History oxycodone 5 mg tablet 5 mg PO Q6H PRN 06/11/22 06/11/22 Unknown History Allergies Allergy/AdvReac Type Severity Reaction Status Date / Time No Known Allergies Allergy Verified 07/23/20 09:48 PFSH Acute PFSH: Medical History (Updated 06/11/22 @ 23:41 by Abdon Ace MD) Asthma COPD (chronic obstructive pulmonary disease) COPD (chronic obstructive pulmonary disease) Hepatitis C Hyperlipidemia Hypertension Hypertension Major depressive disorder, 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, recurrent severe without psychotic features Smoking Type II diabetes mellitus Surgical History (Updated 06/11/22 @ 23:37 by Abdon Ace MD) H/O: hysterectomy 1997 History of tonsillectomy Family History Other CAD (coronary artery disease) Cancer Diabetes Family history of premature coronary artery disease Hypertension Lung disease Stroke Social History Smoking and tobacco status: current every day smoker cigarettes Packs smoked per day: 0.5 Years cigarettes smoked: 32 Second hand smoke exposure: No Smoking risk assessment/counseling performed?: Yes (No desire to quit at this time.) Tobacco counseling given: counseling >3 minutes Alcohol intake: former Desire information about alcohol rehabilitation?: No Desire information about substance/drug rehabilitation?: No Adopted: No Caregiver/support person: No Lives independently: Yes Household members: none Housing: Manufactured/Mobile home Marital status: Single Number of children: 2 Number of grandchildren: 4 Highest education level completed: GED or Equivalent service: No Current occupational status: disabled Current occupational exposures/hazards: No Pets and animals: Yes Pets & animals: dog(s) History of recent travel: No Leisure activites: exercise, art, music and reading Sexually active: No Current gender identity: Female Linda/Jew: Denominational Special linda needs: No Agree to transfusion: Yes Financial difficulty paying for basics: Hard Female Reproductive History: Para: 2 Spontaneous abortions: No Vitals/I&O/Wt Last Vital Signs Temp 98.1 F 06/11/22 22:31 Pulse 96 06/11/22 22:31 Resp 18 06/11/22 22:31 BP 142/91 06/11/22 22:31 Pulse Ox 95 06/11/22 22:31 Weight last 48 hrs Weight 90.718 kg Physical Exam Const: COMMON NORMALS: alert GENERAL APPEARANCE: cooperative NUTRITIONAL APPEARANCE: obese ORIENTATION/CONSCIOUSNESS: Yes awake HENMT: COMMON NORMALS: normocephalic, EAC's normal, Normal external nose present and moist oral mucous membranes HEAD & SCALP: normocephalic NOSE: Normal external nose present EXTERNAL AUDITORY CANAL: EAC's normal Neck/C-Spine: COMMON NORMALS: no meningeal signs Chest: CHEST: Yes Symmetrical chest wall rise Resp: COMMON NORMALS: clear to auscultation bilaterally AUSCULTATION: clear to auscultation bilaterally Cardio: COMMON NORMALS: regular rate, regular rhythm and No murmurs present (Cardio) RATE: regular rate RHYTHM: regular rhythm GI: COMMON NORMALS: Normal to inspection, nondistended, normoactive bowel sounds present, Soft to palpation and non-tender PALPATION: Yes Soft to palpation Extremity: COMMON NORMALS: no pedal edema Neuro: COMMON NORMALS: moves all extremities SENSORIUM/ORIENTATION: Yes alert MENINGEAL SIGNS: Yes no meningeal signs COORDINATION/BALANCE: [id number] test normal SPEECH: speech normal and Other neuro speech findings (L side facial droop) SENSORY EXAM: Yes extremities (mod-sev diminished sensation L side) and Normal double simultaneous stimulation for sensation MOTOR EXAM: Pronator motor function not present and Other motor observations present (/5 L side) OTHER: She is awake, alert, following directions. Ultra tracking. Visual stokes full to confrontation. Psych: COMMON NORMALS: mental status grossly normal Skin: COMMON NORMALS: no wounds RASHES: no rashes Data : 06/11/22 19:20 06/11/22 19:20 A&P Assessment and plan (1) CVA (cerebral vascular accident): Subacute CVA, symptoms were restarted on 4 days ago, possibly some worsening yesterday which prompted her to go to ER. Noted infarction, reported) acute on CT head extending from right frontal lobe centrum semiovale extending inferiorly along the posterior limb of the right internal capsule to the right thalamus. Presented outside the window for intervention. Start aspirin, high intensity statin. Check A1c, lipid profile. Monitor on telemetry, consider cardiac monitoring. TTE with bubble study. Carotid Doppler. PT, OT, ST. Fall precautions. Bedside swallow evaluation. For now we will not treat blood pressures, monitor. Keep below 220/120. Will need control of risk factors for secondary prevention. Discussed with her need for smoking cessation, please encourage again. Will need optimization of blood pressure control, does not have a cuff. Encourage weight loss. Activity. Follow-up with PCP and neurology. Status: Acute (2) UTI (urinary tract infection): Possible UTI with 5-10 WBC, nitrate positive in urine. Ceftriaxone. Follow-up urine culture. Status: Acute (3) Smoking addiction: Discussed with her smoking cessation for 4 minutes, she understands she needs to quit. Discussed continued placement, she Giurgius COVID-19 patches. Lozenges as needed. Status: Acute Plan DM2 HTN Obesity Chronic back pain Attestations Medical Necessity Statement*: Admission of over 2 midnights is anticipated assessment of management of new CVA. Coding Level of Care Code Acute Set Up Mechanic Coating Machines for Isabel Hernandez Diagnoses CVA (cerebral vascular accident) I63.9 UTI (urinary tract infection) N39.0 Smoking addiction F17.200
[2022-06-11 23:58] LABS: Estmated Average Glucose 246; Hemoglobin A1C 10.2 % (4.0-6.0)
[2022-06-11 23:59] VITALS: BP 109/66; PULSE 88; RESP 15; TEMP 36.9; O2SAT 92
[2022-06-12] VITALS (11 sets, daily range): BP systolic 116–155; BP diastolic 78–94; PULSE 0–98; RESP 12–18; TEMP 36.5–36.8; O2SAT 91–95
[2022-06-12] MEDS: nicotine 4 mg lozenge MUCOUS MEM (00:07)
[2022-06-12] MEDS: nicotine 21 mg Patch 1 PATCH TRANSDERMA ×2 (00:07→10:14)
[2022-06-12] MEDS: heparin 5,000 unit/mL INJ 1 mL 5000 UNIT SUBCUT (00:09)
[2022-06-12] MEDS: oxyCODONE 5 mg IR Tab/Cap PO (00:12)
[2022-06-12] MEDS: aspirin 81 mg EC Tablet 162 MG PO ×2 (00:12→10:12)
[2022-06-12] MEDS: atorvastatin 40 mg Tablet 80 MG PO (00:15)
[2022-06-12] MEDS: cefTRIAXone 1,000 MG in sodium chloride 0.9% (plus) 50 ML 100 MG IV (00:16)
--- NOTE | 2022-06-12 00:54 | ECG_ITS ---
[facility] Test Date: 2022-06-12 Pat Name: Carmen Richards Department: Room: 251 Gender: Female Ending Machine Operator: : 1975 Requested By: Alex Velásquez Order Number: [id number] Jeanine MD: Giovanni Rosas M.D. Measurements Intervals [place] Rate: 86 P: 66 [place]: 185 QRS: 45 QRSD: 90 T: 70 QT: 376 QTc: 451 Interpretive Statements SINUS RHYTHM Compared to ECG 06/11/2022 22:11:37 No significant changes Electronically Signed On 06-12-2022 20:47:22 CDT by Giovanni Rosas M.D. [id number]
[2022-06-12] MEDS: albuterol 8 gm MDI 2 PUFF INHALATION ×2 (01:15→09:14)
[2022-06-12 02:34] LABS: Basophils # 0.1 10^3/uL (0.0-0.1); Basophils % 0.4 %; Eosinophils # 0.2 10^3/uL (0.0-0.8); Eosinophils % 1.8 %; Hematocrit 45.3 % (37.0-47.0); Hemoglobin 14.6 g/dL (11.5-15.3); Lymphocytes # 5.3 10^3/uL (0.8-4.8); Lymphocytes % 40.7 %; Mean Corpuscular HGB Conc 32.2 g/dL (30.0-36.0); Mean Corpuscular Hemoglobin 31.3 pg (28.0-34.0); Mean Corpuscular Volume 97.2 fl (81-99); Mean Platelet Volume 11.3 fL (7.4-10.4); Monocytes # 0.7 10^3/uL (0.2-0.9); Monocytes % 5.3 %; Neutrophils # 6.74 10^3/uL (1.8-7.7); Neutrophils % 51.5 %; Nucleated Red Blood Cells % 0 %; Platelet Count 209 10^3/cmm (130-400); Red Blood Count 4.66 10^6/uL (4.1-5.3); Red Cell Distribution Width 12.1 % (12.1-15.1); White Blood Count 13.1 10^3/uL (4.0-10.0)
[2022-06-12 02:59] LABS: Troponin 5 6HR 11.36 ng/L (0-10)
[2022-06-12 03:00] LABS: Alanine Aminotransferase 24 U/L (0-33); Albumin Level 3.4 g/dL (3.5-5.2); Alkaline Phosphatase 86 IU/L (35-105); Anion Gap 13.9 (5-19); Aspartate Amino Transferase 26 U/L (0-32); Blood Urea Nitrogen 9 mg/dL (6-20); Calcium 9.7 mg/dL (8.5-10.5); Carbon Dioxide 26 mmol/L (22-29); Chloride 101 mmol/L (98-107); Chol HDL Ratio 6.17 mg/dL (0.0-4.40); Cholesterol 185 mg/dL (0-200); Globulin 3.4 g/dL (1.3-4.6); Glomerular Filtration Rate 76.6 mL/min (90-130); Glucose 272 mg/dL (65-115); HDL Cholesterol 30 mg/dL (60-100); LDL Cholesterol Calculated 107 mg/dL (50-129); LDL HDL Ratio 3.57 RATIO (0.00-3.22); Osmolality Calculated 292 mOsm/kg (285-295); Potassium 3.9 mmol/L (3.5-5.1); Sodium 137 mmol/L (136-145); Total Bilirubin 0.3 mg/dL (0.15-1.2); Total Protein 6.8 g/dL (6.6-8.7); Triglycerides 241 mg/dL (0-150)
[2022-06-12 03:15] LABS: Troponin 5 6HR Delta 1.36 ng/L (0-12)
[2022-06-12 03:37] LABS: Slide Review Slide Review Perform
--- NOTE | 2022-06-12 06:00 | USCV_ITS ---
Richards Carmen Age: 46 Gender: F : 1975 Exam Date: 06/12/2022 01:46 Ordering Phys: Abdon Ace MD Technologist: SUZI Exam Location: [facility] Indication: CVA - LEFT hemiparesis and dysphasia. DM2. Long- term smoker, continues smoking. Risk Factors: CVA - LEFT hemiparesis and dysphasia. DM2. Long-term smoker, continues smoking. Previous Vascular Surgery: None Right Brachial BP: / Left Brachial BP: / Right Left Velocity (cm/s) Spectral Plaque Velocity (cm/s) Spectral Plaque Syst/Diast Broadening Syst/Diast Broadening 99.20/ 22.10 None Homo Prox CCA 78.60 / 18.80 None Homo 93.70/ 20.90 None Homo Mid CCA 90.60 / 24.80 None Homo 89.30/ 26.50 None Homo Distal CCA 94.80 / 29.10 None Homo 59.80/ 21.70 Min Homo Prox ICA 130.10/ 36.80 Min Homo 70.30/ 34.80 Min Homo Mid ICA 121.30/ 37.50 Min Homo 65.10/ 26.30 Min Homo Distal ICA 129.00/ 52.90 Min Homo 122.40 None Homo ECA 135.40 None Homo 0.71 ICA/CCA 1.37 Antegrade Vertebral Antegrade 46.00/ 21.00 cm/s 41.00/ 17.00 cm/s Tri Subclavian Tri 94.80 98.30 CONCLUSIONS Right ICA stenosis <50%. Mild atheromatous plaque right carotid bulb/ICA. Left ICA stenosis 50-69% at the lower end of the range. Moderate atheromatous plaque left carotid bulb/ICA. Normal antegrade Doppler flow noted in the right vertebral artery. Normal antegrade Doppler flow noted in the left vertebral artery. Maikol Cisse MD (Electronically Signed) Final Date: 12 June 2022 11:47 S
[2022-06-12 06:24] LABS: Glucose Point of Care 225 mg/dL (70-110)
[2022-06-12 06:30] LABS: Glucose Point of Care 237 mg/dL (70-110)
--- NOTE | 2022-06-12 09:00 | MR_ITS ---
WS: [id number] MRI BRAIN WITHOUT CONTRAST HISTORY: cva COMPARISON: Noncontrast CT 06/11/2022 TECHNIQUE: Diffusion imaging, multiplanar T1, T2 and FLAIR imaging obtained. Acute diffusion-weighted abnormality in the posterior RIGHT centrum semiovale and patton radiata. Inf arct abuts the RIGHT lateral ventricle. No additional diffusion-weighted abnormality. Prior lacunar infarct versus perivascular space along the inferior RIGHT basal ganglia. No hemorrhage . No mass effect. Ventricles and extra-axial spaces are normal. No inferior displacement of cerebellar tonsils. The sella turcica and pituitary gland are unremarkabl e. Dural venous sinuses and [place] of [place] demonstrate no abnormality on this unenhanced studies. Paranasal sinuses: Small amount mucoperiosteal thickening in the posterior RIGHT ethmoid air cell. Mastoid air cells: Normal. Calvarium and scalp: Intact. MR/MR head wo con* [id number] IMPRESSION: 1. Acute RIGHT cerebral infarct involving the centrum semiovale and patton rad iata. No hemorrhage. 2. Prior small lacunar infarct versus perivascular space along the inferior RI GHT basal ganglia.
[2022-06-12] MEDS: fluoxetine 20 mg Capsule 40 MG PO (10:13)
[2022-06-12] MEDS: levothyroxine 75 mcg Tablet PO (10:14)
--- NOTE | 2022-06-12 10:24 | P.DS_ITS ---
Discharge Providers Date of Admission: 06/11/22 20:33 Date of Discharge: June 12, 2022 Attending Provider at Admission: Abdon Ace Attending Provider at Discharge: Keven Davis MD Primary Care Provider: Sushil Mobley MD Diagnoses at Discharge Discharge Diagnosis (1) CVA (cerebral vascular accident): Status: Acute (2) UTI (urinary tract infection): Status: Resolved (3) Smoking addiction: Status: Acute Reason for Visit Reason for Visit: Dizziness, numbness in left side Hospital Course Hospital Course 46-year-old female who presented to the hospital after 4 days of left arm numbness, left leg paresthesia, she carries history of type 2 diabetes, hypertension and dyslipidemia, she decided to come to the hospital for worsening of left-sided facial droop and lack of coordination, CT head in the ER showed acute infarct right frontal lobe extending inferiorly along posterior limb of right internal capsule of right thalamic. At the time my evaluation patient was able to walk on her own she is eating without any difficulty. She does have good strength of upper and lower extremities no significant slurring of speech, she has mild dysarthria. No visual changes. Patient is wanted to go home, I will prescribe her event monitor, aspirin, Plavix, atorvastatin, continue lisinopril, add metformin plus Lantus, give her glucometer, her hemoglobin A1c is 10 She has remained in sinus rhythm. I will also give her outpatient physical therapy referral For her carotid artery disease we will give her a referral to see Dr. Forrester within next 4 to 7 days. MRI IMPRESSION: ? 1.? Acute RIGHT cerebral infarct involving the centrum semiovale and patton radiata. No hemorrhage. 2.? Prior small lacunar infarct versus perivascular space along the inferior RI GHT basal ganglia. Physical Exam Narrative: Patient is laying flat Awake and alert No visual deficit Good upper extremity strength Is able to eat on her own Able to walk independently Mild slurring of speech Able to comprehend and communicate appropriately Morbidly obese Sinus rhythm, satting well on room air Discharge Data Studies Completed and Pending Completed Studies During Hospitalization Category Date Time Status CT head wo con* [id number] Stat Cat Scan 06/11/22 18:28 Completed XR chest 1V portable [id number] Stat Exams 06/11/22 18:54 Completed Pending at discharge Category Date Time Status LILY Screen w/ Reflex Routine Lab 06/12/22 07:36 Ordered Anti Double Stranded DNA AB Routine Lab 06/12/22 07:36 Ordered PROTEIN C, ACTIVITY Routine Lab 06/12/22 07:36 Ordered PROTEIN S, ACTIVITY Routine Lab 06/12/22 07:36 Ordered Urine Culture Stat Lab 06/11/22 19:20 Received MR head wo con* [id number] Routine MRI 06/12/22 09:00 Ordered CV carotid duplex BI* [id number] Routine Ultrasound 06/12/22 06:00 Taken CV. echo w/w bubble cont [id number] Routine Ultrasound 06/12/22 23:29 Taken Radiology Impressions Head CT 06/11/22 18:28 IMPRESSION: Findings suspicious for an acute infarct extending from the right frontal lobe centrum semiovale extending inferiorly along the posterior limb of the right internal capsule to the right thalamus. No mass effect. No midline shift. No hydrocephalus. Further evaluation with MRI of the brain is recommended, if the patient has no contraindications. ASSESSMENT: ASPECTS (Margi Stroke Program Early CT Score) Score is 8. ADDENDUM: 06/11/222022 THIS REPORT CONTAINS FINDINGS THAT MAY BE CRITICAL TO PATIENT CARE. The findings were verbally communicated via telephone conference with Vic Tubbs at 8:21 PM CDT on 06/11/2022. The findings were acknowledged and understood. Chest X-Ray 06/11/22 18:54 IMPRESSION: No acute findings. Laboratory Results WBC 13.1 10^3/uL (4.0-10.0) H 06/12/22 01:19 RBC 4.66 10^6/uL (4.1-5.3) 06/12/22 01:19 Hgb 14.6 g/dL (11.5-15.3) 06/12/22 01:19 Hct 45.3 % (37.0-47.0) 06/12/22 01:19 MCV 97.2 fl (81-99) 06/12/22 01:19 MCH 31.3 pg (28.0-34.0) 06/12/22 01:19 MCHC 32.2 g/dL (30.0-36.0) 06/12/22 01:19 RDW 12.1 % (12.1-15.1) 06/12/22 01:19 Plt Count 209 10^3/cmm (130-400) 06/12/22 01:19 MPV 11.3 fL (7.4-10.4) H 06/12/22 01:19 Neut % (Auto) 51.5 % 06/12/22 01:19 Lymph % (Auto) 40.7 % 06/12/22 01:19 [place] % (Auto) 5.3 % 06/12/22 01:19 Eos % (Auto) 1.8 % 06/12/22 01:19 Baso % (Auto) 0.4 % 06/12/22 01:19 Neut # (Auto) 6.74 10^3/uL (1.8-7.7) 06/12/22 01:19 Lymph # (Auto) 5.3 10^3/uL (0.8-4.8) H 06/12/22 01:19 [place] # (Auto) 0.7 10^3/uL (0.2-0.9) 06/12/22 01:19 Eos # (Auto) 0.2 10^3/uL (0.0-0.8) 06/12/22 01:19 Baso # (Auto) 0.1 10^3/uL (0.0-0.1) 06/12/22 01:19 Nucleated RBC % (auto) 0 % 06/12/22 01:19 Nucleated RBCs # 0.0 /100WBC 06/12/22 01:19 PT 13.20 SECONDS (12.1-14.9) 06/11/22 19:20 INR 0.97 (0.8-1.2) 06/11/22 19:20 APTT 34.5 SECONDS (23.9-36.7) 06/11/22 19:20 Sodium 137 mmol/L (136-145) 06/12/22 01:19 Potassium 3.9 mmol/L (3.5-5.1) 06/12/22 01:19 Chloride 101 mmol/L (98-107) 06/12/22 01:19 Carbon Dioxide 26 mmol/L (22-29) 06/12/22 01:19 Anion Gap 13.9 (5-19) 06/12/22 01:19 BUN 9 mg/dL (6-20) 06/12/22 01:19 Creatinine 0.8 mg/dL (0.5-0.9) 06/12/22 01:19 GFR Calculation 76.6 mL/min (90-130) L 06/12/22 01:19 Glucose 272 mg/dL (65-115) H 06/12/22 01:19 POC Glucose 237 mg/dL (70-110) H 06/12/22 06:07 Estimat Average Glucose Cancelled 06/12/22 01:19 Hemoglobin A1c Cancelled 06/12/22 01:19 Calculated Osmolality 292 mOsm/kg (285-295) 06/12/22 01:19 Calcium 9.7 mg/dL (8.5-10.5) 06/12/22 01:19 Total Bilirubin 0.3 mg/dL (0.15-1.2) 06/12/22 01:19 AST 26 U/L (0-32) 06/12/22 01:19 ALT 24 U/L (0-33) 06/12/22 01:19 Alkaline Phosphatase 86 IU/L (35-105) 06/12/22 01:19 Troponin T Baseline 10 ng/L (0-10) 06/11/22 19:20 Troponin T Hi Sens 6Hr 11.36 ng/L (0-10) H 06/12/22 01:19 Troponin T Hi Sens 6Hr Delta 1.36 ng/L (0-12) 06/12/22 01:19 Total Protein 6.8 g/dL (6.6-8.7) 06/12/22 01:19 Albumin 3.4 g/dL (3.5-5.2) L 06/12/22 01:19 Globulin 3.4 g/dL (1.3-4.6) 06/12/22 01:19 Triglycerides 241 mg/dL (0-150) H 06/12/22 01:19 Cholesterol 185 mg/dL (0-200) 06/12/22 01:19 LDL Cholesterol, Calc 107 mg/dL (50-129) 06/12/22 01:19 HDL Cholesterol 30 mg/dL (60-100) L 06/12/22 01:19 LDL/HDL Ratio 3.57 RATIO (0.00-3.22) H 06/12/22 01:19 Cholesterol/HDL Ratio 6.17 mg/dL (0.0-4.40) H 06/12/22 01:19 Urine Color Yellow (Yellow) 06/11/22 19:20 Urine Appearance Sl hazy (CLEAR) 06/11/22 19:20 Urine pH 7 (5-7) 06/11/22 19:20 Ur Specific [place] 1.005 (1.005-1.030) 06/11/22 19:20 Urine Protein Trace (Negative) 06/11/22 19:20 Urine Glucose (UA) Norm (Normal) 06/11/22 19:20 Urine Ketones Negative (Negative) 06/11/22 19:20 Urine Blood 3+ (Negative) H 06/11/22 19:20 Urine Nitrate Positive (Negative) H 06/11/22 19:20 Urine Bilirubin Neg (Negative) 06/11/22 19:20 Urine Urobilinogen Norm mg/dL (Negative) 06/11/22 19:20 Ur Leukocyte Esterase 1+ (Negative) H 06/11/22 19:20 Urine RBC 0-4 /hpf (0-2) H 06/11/22 19:20 Urine WBC 5-10 /hpf (0-5) H 06/11/22 19:20 Ur Squamous Epith Cells 5-10 /hpf (0-5) H 06/11/22 19:20 Amorphous Sediment Not Reportable 06/11/22 19:20 Urine Bacteria 2+ /hpf (NONE) H 06/11/22 19:20 Fine Granular Casts 0-4 /lpf H 06/11/22 19:20 Vitals Last Vital Signs Temp 97.7 F 06/12/22 08:28 Pulse 95 06/12/22 08:28 Resp 18 06/12/22 08:28 BP 155/94 06/12/22 08:28 Pulse Ox 94 06/12/22 08:28 Discharge Plan Discharge Patient Disposition: Home Condition: Stable Prescriptions: New atorvastatin 40 mg Tablet 80 mg PO BEDTIME Qty: 90 2RF nicotine 21 mg/24 hr Patch 24 Hour 1 patch transdermal DAILY Qty: 42 0RF Plavix 75 mg tablet 75 mg PO DAILY Qty: 20 0RF Nicoderm CQ 14 mg/24 hr patch 24 hour 1 patch transdermal DAILY Qty: 14 0RF Rx Instructions: after 21 mg 6 wks 14-mg patch for 2 weeks, then 7-mg patch once daily for 2 weeks Nicoderm CQ 7 mg/24 hr patch 24 hour 1 patch transdermal DAILY Qty: 14 0RF Rx Instructions: after 14mg 2 wks take 7mg for 2 wks Lantus Solostar U-100 Insulin 100 unit/mL (3 mL) insulin pen 10 unit SUBCUT QPM Qty: 15 3RF metformin 500 mg tablet 500 mg PO DAILY Qty: 90 2RF (DME) Accu-Chek Christina Plus Meter Misc See Rx Instructions .Route Qty: 1 0RF Rx Instructions: As directed (DME) Accu-Chek Fastclix Lancet Drum Misc See Rx Instructions .Route Qty: 200 2RF Rx Instructions: As directed (DME) Accu-Chek Guide test strips Strip See Rx Instructions .Route Qty: 100 2RF Rx Instructions: As directed Continued Symbicort 160-4.5 mcg/actuation HFA aerosol inhaler 2 puff INHALATION BID PRN (Reason: Shortness Of Breath) 0RF lisinopril 20 mg tablet 20 mg PO QDAY 0RF metformin 500 mg tablet 500 mg PO QDAY PRN (Reason: blood sugar) 0RF albuterol sulfate [ProAir HFA] 90 mcg/actuation HFA aerosol inhaler 2 puff INHALATION Q6H PRN (Reason: Shortness Of Breath) 0RF propranolol 20 mg tablet 20 mg PO TID PRN (Reason: anxiety) Qty: 90 2RF fluoxetine [Prozac] 40 mg capsule 40 mg PO DAILY Qty: 30 2RF hydroxyzine HCl 50 mg tablet 50 mg PO QID PRN (Reason: anxiety) Qty: 120 2RF levothyroxine 75 mcg Tablet 75 mcg PO DAILY 0RF oxycodone 5 mg Tablet 5 mg PO Q6H PRN (Reason: Pain) 0RF Adult Low Dose Aspirin 81 mg tablet,delayed release (DR/EC) 81 mg PO DAILY Qty: 90 3RF Discharge Orders: Discharge Order (Routine); Ordered 06/12/22 Ordered By: Keven Davis Other Ambulatory Orders: MCT/Event Monitor 14 Days (Routine) Timeframe: 14 Day Facility: [facility] - Location: Radiology Ordered By: Keven Davis Physical Therapy Outpatient in Home Eval and Treat Other (Order) Timeframe: 2 Months Facility: [facility] - Location: Physical Therapy Ordered By: Keven Davis Referrals: Sushil Mobley MD [Primary Care Provider] - 06/22/22 2:00 pm Rigoberto Forrester MD [Physician] - 4-7 days Johanna Rodriguez FNP [Nurse Practitioner] - 06/22/22 10:45 am (For event monitor) Discharge Diet: Cardiac Discharge Activity: Increase activity as tolerated Patient Instructions: How to Stop Smoking (DC), Urinary Tract Infection in Women (DC), Stroke (DC), Opioid Safety Discharge Attestations Time Spent in Discharge Care*: less than 30 min Quality Metrics Clinical Quality Measures [ No reported AMI, CVA or VTE this stay] Coding Level of Care Code Acute Chg FW DC note Diagnoses CVA (cerebral vascular accident) I63.9 UTI (urinary tract infection) N39.0 Smoking addiction F17.200
[2022-06-12] MEDS: lisinopril 20 mg Tablet PO (12:44)
--- NOTE | 2022-06-12 12:53 | PC.CHAP ---
Pastoral Care Encounter/Spiritual Assessment Type of Contact [] Declined water treatment technician visit [] Patient/Family/Request visit [] Outpatient visit [] Follow-up visit [] Physician referral [] Code/Alert [x] Routine visit [] Staff referral [] Actively dying [] Patient sleeping [] Family support [] [] Out of room [] Palliative care [] [] Receiving care in room [] Pre-surgical visit [] Trauma [] Long length of stay [] ICU visit [] Other: Relational/Emotional Strength [x] Patient feels connected with others/family/visitors/staff [] Distress [] Loneliness/isolation [] Abandonment Spirituality of Patient [x] Person of Linda [x] Attends Amish of their Linda [x] Believes in Prayer [] Reads Bible or Confucianist materials [] There are Spiritual issues to be addressed Seam Taper Machine Interventions x] Prayer [x] Active listening [x] Non-anxious presence [] Spiritual/emotional support [] Crisis/trauma care [] Spiritual counseling [] Bereavement support [] Provided bereavement packet [] Provided Bible/devotional materials [] Provided toy/stuffed animal, coloring book to patient or family member [] Provided Communion [] Anointing/[place] [] Salvation [x] Completed spiritual assessment [] Other: Impact on Illness or Injury [] Angry [] Fearful [] Anxious [] Often cries [] Exhaustion [] Unable to work [] Unable to attend oriental orthodox [] Unable to walk/stand [] Unable to read [] Unable to drive [] Unable to eat/drink [] Unable to sleep [] Unable to be with family [] Patient intubated [] Other: Summary Time spent with patient 10 min
--- NOTE | 2022-06-12 23:29 | USCV_ITS ---
Carmen Richards Age: 46 Gender: F : 1975 Exam Date: 06/12/2022 02:16 Ordering Phys: Abdon Ace MD Technologist: SUZI [place] [facility] [place]: CVA -- LEFT hemiparesis and dysphasia. DM2. Long- term smoker, continues smoking. BUBBLE STUDY IS ORDERED. BP: 109 / 66 HR: 84 Rhythm: Sinus Technical Quality: Adequate MEASUREMENTS (Male / Female) Normal Values 2D ECHO LV Diastolic Diameter PLAX 3.7 cm 4.2 - 5.9 / 3.9 - 5.3 cm LV Systolic Diameter PLAX 2.6 cm IVS Diastolic Thickness 1.2 cm 0.6 - 1.0 / 0.6 - 0.9 cm IVS Systolic Thickness 1.4 cm LVPW Diastolic Thickness 1.3 cm 0.6 - 1.0 / 0.6 - 0.9 cm LVPW Systolic Thickness 1.6 cm LVOT Diameter 2.1 cm LV Ejection Fraction 2D Teich 59.7 % LV Ejection Fraction MOD 2C 68.3 % LV Ejection Fraction 2C AL 69.6 % LA Diameter 3.1 cm LA Width 2.5 cm LA Height 4.7 cm RA Width 2.6 cm RA Height 3.3 cm Aorta at Sinotubular Diameter 2.9 cm IVC Diameter 0.8 cm M-MODE Aortic Annulus Diameter 3.0 cm LA Ao Ratio MM 1.2 MV E Point Septal Separation 0.5 cm DOPPLER AV Peak Velocity 132.0 cm/s LVOT Peak Velocity 82.0 cm/s AV Area Cont Eq vti 2.6 cm squared AV Area Cont Eq pk 2.2 cm squared MV Peak Velocity 99.0 cm/s MV Area PHT 2.5 cm squared Mitral E to A Ratio 0.8 MV E' Velocity 35.5 cm/s Mitral E to MV E' Ratio 11.0 Mitral E to LV E' Lateral Ratio 10.3 Mitral E to LV E' Septal Ratio 12.0 TV Peak E Velocity 47.0 cm/s PV Peak Velocity 89.0 cm/s RV Acceleration Time 0.1 s RV Ejection Time 0.3 s RV AcT/ET 0.2 FINDINGS Left Ventricle Normal left ventricular size. LV systolic function is normal with EF of 55-60%. No regional wall motion abnormalities. Right Ventricle The right ventricle is normal in size and function. Right Atrium The right atrium is normal in size. Left Atrium The left atrium is normal in size. No intracardiac shunting noted on the bubble study Mitral Valve Structurally normal mitral valve without significant stenosis or prolapse. There is no mitral regurgitation. Aortic Valve Grossly normal. No significant stenosis. There is no aortic regurgitation. Tricuspid Valve Structurally normal tricuspid valve without significant stenosis. Trace tricuspid regurgitation. Insufficient TR jet to calculate RVSP Pulmonic Valve Not well visualized Pericardium Normal pericardium without effusion. Aorta Normal ascending aorta dimension. IVC CONCLUSIONS LV systolic function is normal with EF of 55-60% Trace tricuspid regurgitation No intracardiac shunting is seen No comparison studies are available Giovanni Rosas MD (Electronically Signed) Final Date: 12 June 2022 14:37 S
== END 2022-06-12 17:26 | disposition home or self-care (01) | DRG 65 ==
LOC: ER 19:42 → MEDSURG 21:23
PROVIDERS: Admitting Provider Internal Medicine; Emergency Provider Emergency Medicine; PCP Family Medicine; Visit Provider Internal Medicine
DX: I63.9 Cerebral infarction, unspecified (principal); G81.94 Hemiplegia, unspecified affecting left nondominant side; N39.0 Urinary tract infection, site not specified; R29.810 Facial weakness; R47.1 Dysarthria and anarthria; R29.701 NIHSS score 1; J44.9 Chronic obstructive pulmonary disease, unspecified; I10 Essential (primary) hypertension; F17.210 Nicotine dependence, cigarettes, uncomplicated; E11.9 Type 2 diabetes mellitus without complications; E78.5 Hyperlipidemia, unspecified; Z86.19 Personal history of other infectious and parasitic diseases; F32.9 Major depressive disorder, single episode, unspecified; Z79.51 Long term (current) use of inhaled steroids; Z79.891 Long term (current) use of opiate analgesic; Z79.82 Long term (current) use of aspirin
CPT/HCPCS: 36415; 36416; 70450; 70551; 71045; 80053; 80061; 81001; 82962; 83036; 84484; 85025; 85610; 85730; 87077; 87086; 87186; 92523; 92610; 93005; 93306; 93880; 94640; 96372; 97110; 97161; 97166; 99285; C8929; J0696; J1644; J3535; Q9956

== ENCOUNTER 2022-06-14 18:14 | Observation (INO) | payer MEDICAID, SELFPAY ==
[2020-07-26 15:54] VITALS: BP 129/79; BMI 43.1
[2022-06-14] VITALS (7 sets, daily range): BP systolic 122–211; BP diastolic 70–143; PULSE 74–98; RESP 16–22; TEMP 36.2–36.8; O2SAT 95–97; BMI 36.6
--- NOTE | 2022-06-14 18:19 | ECG_ITS ---
[facility] Test Date: 2022-06-14 Pat Name: Carmen Richards Department: Room: Gender: Female Medical Support Assistant: : 1975 Requested By: Armida Cadet Order Number: [id number] Jeanine MD: Jean-Paul Santana M.D. Measurements Intervals [place] Rate: 93 P: 67 PA: 186 QRS: 44 QRSD: 95 T: 69 QT: 369 QTc: 460 Interpretive Statements SINUS RHYTHM NONSPECIFIC T-WAVE ABNORMALITY Compared to ECG 06/12/2022 01:10:57 T-wave abnormality now present Electronically Signed On 06-14-2022 21:00:50 CDT by Jean-Paul Santana M.D. [email or web address]
--- NOTE | 2022-06-14 18:19 | CTR_ITS ---
PROCEDURE INFORMATION: Exam: CT Head Without Contrast Exam date and time: 06/14/2022 6:18 PM Age: 46 years old Clinical indication: Stroke-like symptoms; Speech disturbance and other: Chest pains, stuttering, shaking; Additional info: Symptoms of acute stroke TECHNIQUE: Imaging protocol: Computed tomography of the head without contrast. Radiation optimization: All CT scans at this facility use at least one of these dose optimization techniques: automated exposure control; mA and/or kV adjustment per patient size (includes targeted exams where dose is matched to clinical indication); or iterative reconstruction. Other technique: STROKE PROTOCOL was implemented. COMPARISON: MR head wo con* [id number] 06/12/2022 3:12 PM RADIATION DOSE METRICS: Total DLP (mGy-cm): 100.58 FINDINGS: Brain: Normal. No hemorrhage. Unremarkable white matter. No mass effect. Cerebral ventricles: No ventriculomegaly. Paranasal sinuses: Visualized sinuses are unremarkable. No fluid levels. Mastoid air cells: Visualized mastoid air cells are well aerated. Bones/joints: Unremarkable. No acute fracture. Soft tissues: Unremarkable. CT/CT head wo con* [id number] IMPRESSION: No acute intracranial abnormality. ASSESSMENT: ASPECTS (Margi Stroke Program Early CT Score) is 10.
--- NOTE | 2022-06-14 18:22 | ED_ITS ---
HPI - General Adult General: Chief complaint: Neuro Symptoms/Deficit Stated complaint: SLURRED SPEECH Time Seen by Provider: 06/14/22 18:19 Source: patient and EMS Mode of arrival: EMS Limitations: no limitations History of Present Illness: 46-year-old female who was admitted here earlier this week and had a CT that did show a right-sided stroke. Patient was discharged 2 days ago she states that today at 5 PM started to feel dizzy having had a mild headache states that she was having difficulty finding words and having some expressive aphasia. Patient states that improved she is able to talk clearly to me with some periods of some stuttering she denies any weakness denies any facial droop no vision changes Associated symptoms: Deny chest pain, dyspnea, nausea, rash or vomiting Review of Systems Const: Denies: fever(s), chills, body aches or change in appetite Eyes: Denies: blurry vision or eye discomfort ENMT: Denies: throat pain or dental pain Card: Denies: chest pain Resp: Denies: dyspnea GI: Denies: abdominal pain, nausea, vomiting or diarrhea : Denies: dysuria Musc: Denies: neck pain or back pain Skin/Breast: Denies: rash Neuro: Reports: Slurred speech present Psych: Denies: depression Dick/Lymph: Denies: easy bruising All/Imm: Denies: urticaria PFSH ED PFSH: Medical History Acute ischemic stroke Arm paresthesia, left Asthma COPD (chronic obstructive pulmonary disease) COPD (chronic obstructive pulmonary disease) Hepatitis C Hyperlipidemia Hypertension Hypertension Left leg paresthesias Left-sided weakness Major depressive disorder, 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, recurrent severe without psychotic features Smoking Type II diabetes mellitus Surgical History H/O: hysterectomy 1997 History of tonsillectomy Family History Other CAD (coronary artery disease) Cancer Diabetes Family history of premature coronary artery disease Hypertension Lung disease Stroke Social History Smoking and tobacco status: current every day smoker cigarettes Packs smoked per day: 0.5 Years cigarettes smoked: 32 Second hand smoke exposure: No Smoking risk assessment/counseling performed?: Yes (No desire to quit at this time.) Tobacco counseling given: counseling >3 minutes Alcohol intake: former Desire information about alcohol rehabilitation?: No Desire information about substance/drug rehabilitation?: No Adopted: No Caregiver/support person: No Lives independently: Yes Household members: none Housing: Manufactured/Mobile home Marital status: Single Number of children: 2 Number of grandchildren: 4 Highest education level completed: GED or Equivalent service: No Current occupational status: disabled Current occupational exposures/hazards: No Pets and animals: Yes Pets & animals: dog(s) History of recent travel: No Leisure activites: exercise, art, music and reading Sexually active: No Current gender identity: Female Linda/Advent: Restorationist Special linda needs: No Agree to transfusion: Yes Financial difficulty paying for basics: Hard Female Reproductive History: Para: 2 Spontaneous abortions: No Physical Exam Const: COMMON NORMALS: no acute distress, patient oriented x3 and healthy appearing HENMT: COMMON NORMALS: normocephalic and atraumatic HEAD & SCALP: normoc ephalic and atraumatic Eye: COMMON NORMALS: Equal, round and reactive pupils present and EOMs intact bilaterally PUPIL: Yes Equal, round and reactive pupils present Neck/C-Spine: COMMON NORMALS: full ROM and supple Chest: COMMONS NORMALS: normal inspection of the chest and normal palpation of entire chest wall Resp: COMMON NORMALS: normal respiratory effort, No retractions, No use of accessory muscles and clear to auscultation bilaterally AUSCULTATION: clear to auscultation bilaterally Cardio: COMMON NORMALS: regular rate, regular rhythm and No murmurs present (Cardio) RATE: regular rate RHYTHM: regular rhythm GI: COMMON NORMALS: Normal to inspection, nondistended, normoactive bowel sounds present, Soft to palpation, non-tender and no masses PALPATION: Yes Soft to palpation Extremity: COMMON NORMALS: normal to inspection and full ROM Neuro: COMMON NORMALS: patient oriented x3, moves all extremities and no focal motor deficits CRANIAL NERVES: Yes CN normal except as noted GAIT: Yes Normal gait present MOTOR EXAM: 5/5 motor strength present throughout Psych: COMMON NORMALS: mental status grossly normal, Normal thought process present and cooperative THOUGHT PROCESS: Normal thought process present Skin: COMMON NORMALS: no rashes or lesions noted and no wounds GENERAL SKIN EXAM: no rashes or lesions noted Course Vital Signs: Vital signs: Vital Signs Temperature 98.2 F 06/14/22 18:30 Pulse Rate 83 06/14/22 19:09 Respiratory Rate 19 H 06/14/22 19:09 Blood Pressure 160/92 06/14/22 19:09 Pulse Oximetry 95 06/14/22 19:09 MDM - General Adult Medical Decision Making Patient presents here with hypertension along with TIA-like symptoms. Her aphasia has completely resolved she is not a tPA candidate head CT here shows no acute abnormalities her blood pressure is improved after labetalol to 174/91 I spoke to hospitalist will admit for observation at this time. Lab Data : 06/14/22 18:25 06/14/22 18:[address] 06/14/22 18:19 IMPRESSION: No acute intracranial abnormality. ASSESSMENT: ASPECTS ([place] Stroke Program Early CT Score) is 10. Laboratory Results WBC 13.0 10^3/uL (4.0-10.0) H 06/14/22 18:25 RBC 4.83 10^6/uL (4.1-5.3) 06/14/22 18:25 Hgb 15.1 g/dL (11.5-15.3) 06/14/22 18:25 Hct 44.9 % (37.0-47.0) 06/14/22 18:25 MCV 93.0 fl (81-99) 06/14/22 18:25 MCH 31.3 pg (28.0-34.0) 06/14/22 18:25 MCHC 33.6 g/dL (30.0-36.0) 06/14/22 18:25 RDW 11.9 % (12.1-15.1) L 06/14/22 18:25 Plt Count 234 10^3/cmm (130-400) 06/14/22 18:25 MPV 10.8 fL (7.4-10.4) H 06/14/22 18:25 Neut % (Auto) 46.7 % 06/14/22 18:25 Lymph % (Auto) 45.0 % 06/14/22 18:25 [place] % (Auto) 5.9 % 06/14/22 18:25 Eos % (Auto) 1.7 % 06/14/22 18:25 Baso % (Auto) 0.4 % 06/14/22 18:25 Neut # (Auto) 6.08 10^3/uL (1.8-7.7) 06/14/22 18:25 Lymph # (Auto) 5.9 10^3/uL (0.8-4.8) H 06/14/22 18:25 [place] # (Auto) 0.8 10^3/uL (0.2-0.9) 06/14/22 18:25 Eos # (Auto) 0.2 10^3/uL (0.0-0.8) 06/14/22 18:25 Baso # (Auto) 0.1 10^3/uL (0.0-0.1) 06/14/22 18:25 Nucleated RBC % (auto) 0 % 06/14/22 18: Nucleated RBCs # 0.0 /100WBC 06/14/22 18:25 PT 13.40 SECONDS (12.1-14.9) 06/14/22 18:25 INR 0.99 (0.8-1.2) 06/14/22 18:25 APTT 31.3 SECONDS (23.9-36.7) 06/14/22 18:25 Sodium 134 mmol/L (136-145) L 06/14/22 18:25 Potassium 3.9 mmol/L (3.5-5.1) 06/14/22 18:25 Chloride 97 mmol/L (98-107) L 06/14/22 18:25 Carbon Dioxide 26 mmol/L (22-29) 06/14/22 18:25 Anion Gap 14.9 (5-19) 06/14/22 18:25 BUN 10 mg/dL (6-20) 06/14/22 18:25 Creatinine 0.7 mg/dL (0.5-0.9) 06/14/22 18:25 GFR Calculation 89.3 mL/min (90-130) L 06/14/22 18:25 Glucose 284 mg/dL (65-115) H 06/14/22 18:25 POC Glucose 305 mg/dL (70-110) H 06/14/22 18:40 Calculated Osmolality 287 mOsm/kg (285-295) 06/14/22 18:25 Calcium 9.5 mg/dL (8.5-10.5) 06/14/22 18:25 Total Bilirubin 0.2 mg/dL (0.15-1.2) 06/14/22 18:25 AST 32 U/L (0-32) 06/14/22 18:25 ALT 26 U/L (0-33) 06/14/22 18:25 Alkaline Phosphatase 95 IU/L (35-105) 06/14/22 18:25 Total Protein 7.8 g/dL (6.6-8.7) 06/14/22 18:25 Albumin 4.0 g/dL (3.5-5.2) 06/14/22 18:25 Globulin 3.8 g/dL (1.3-4.6) 06/14/22 18:25 EKG Data EKG 1: I personally reviewed and interpreted this EKG as follows: EKG interpretation date: 06/14/22 EKG interpretation time: 18:46 Interpretation: nsr hr [address] or t wave abnormalities qrs 95 qtc 420 Computer generated interpretation: Head CT 06/14/22 18:19 IMPRESSION: No acute intracranial abnormality. ASSESSMENT: ASPECTS ([place] Stroke Program Early CT Score) is 10. Discharge Plan Discharge Patient Disposition: Placed in Observation Clinical Impression: Transient cerebral ischemia, Hypertension Condition: Stable Prescriptions: No Action Symbicort 160-4.5 mcg/actuation HFA aerosol inhaler 2 puff INHALATION BID PRN (Reason: Shortness Of Breath) 0RF lisinopril 20 mg tablet 20 mg PO QDAY 0RF metformin 500 mg tablet 500 mg PO QDAY PRN (Reason: blood sugar) 0RF albuterol sulfate [ProAir HFA] 90 mcg/actuation HFA aerosol inhaler 2 puff INHALATION Q6H PRN (Reason: Shortness Of Breath) 0RF propranolol 20 mg tablet 20 mg PO TID PRN (Reason: anxiety) Qty: 90 2RF fluoxetine [Prozac] 40 mg capsule 40 mg PO DAILY Qty: 30 2RF hydroxyzine HCl 50 mg tablet 50 mg PO QID PRN (Reason: anxiety) Qty: 120 2RF levothyroxine 75 mcg Tablet 75 mcg PO DAILY 0RF oxycodone 5 mg Tablet 5 mg PO Q6H PRN (Reason: Pain) 0RF atorvastatin 40 mg Tablet 80 mg PO BEDTIME Qty: 90 2RF nicotine 21 mg/24 hr Patch 24 Hour 1 patch transdermal DAILY Qty: 42 0RF Plavix 75 mg tablet 75 mg PO DAILY Qty: 20 0RF Nicoderm CQ 14 mg/24 hr patch 24 hour 1 patch transdermal DAILY Qty: 14 0RF Rx Instructions: after 21 mg 6 wks 14-mg patch for 2 weeks, then 7-mg patch once daily for 2 weeks Nicoderm CQ 7 mg/24 hr patch 24 hour 1 patch transdermal DAILY Qty: 14 0RF Rx Instructions: after 14mg 2 wks take 7mg for 2 wks Adult Low Dose Aspirin 81 mg tablet,delayed release (DR/EC) 81 mg PO DAILY Qty: 90 3RF Lantus Solostar U-100 Insulin 100 unit/mL (3 mL) insulin pen 10 unit SUBCUT QPM Qty: 15 3RF metformin 500 mg tablet 500 mg PO DAILY Qty: 90 2RF (DME) Accu-Chek Christina Plus Meter Misc See Rx Instructions .Route Qty: 1 0RF Rx Instructions: As directed (DME) Accu-Chek Fastclix Lancet Drum Misc See Rx Instructions .Route Qty: 200 2RF Rx Instructions: As directed (DME) Accu-Chek Guide test strips Strip See Rx Instructions .Route Qty: 100 2RF Rx Instructions: As directed Referrals: Sushil Mobley MD [Primary Care Provider] - Coding Level of Care Code ED Supervisor Lace Tearing for g Fwd Exam Comprehensive NIH stroke score NIHSS Level Of Consciousness - 1a: 0 Level Of Consciousness Questions - 1b: Both Correct Level Of Consciousness Commands - 1c: Both Correct Best Gaze - 2: Normal Visual Reece - 3: No Visual Loss Facial Palsy - 4: Normal Motor Arm Right - 5: No Drift Motor Arm Left - 5: No Drift Motor Leg Right - 6: No Drift Motor Leg Left - 6: No Drift Limb Ataxia - 7: Absent Sensory - 8: Normal Best Language - 9: Mild/Moderate Aphasia Dysarthia - 10: Normal Extinction And Inattention - 11: 0 Score Total Score: 1
[2022-06-14 18:31] LABS: Basophils # 0.1 10^3/uL (0.0-0.1); Basophils % 0.4 %; Eosinophils # 0.2 10^3/uL (0.0-0.8); Eosinophils % 1.7 %; Hematocrit 44.9 % (37.0-47.0); Hemoglobin 15.1 g/dL (11.5-15.3); Lymphocytes # 5.9 10^3/uL (0.8-4.8); Mean Corpuscular HGB Conc 33.6 g/dL (30.0-36.0); Mean Corpuscular Hemoglobin 31.3 pg (28.0-34.0); Mean Platelet Volume 10.8 fL (7.4-10.4); Monocytes # 0.8 10^3/uL (0.2-0.9); Monocytes % 5.9 %; Neutrophils # 6.08 10^3/uL (1.8-7.7); Neutrophils % 46.7 %; Nucleated Red Blood Cells % 0 %; Platelet Count 234 10^3/cmm (130-400); Red Blood Count 4.83 10^6/uL (4.1-5.3); Red Cell Distribution Width 11.9 % (12.1-15.1)
[2022-06-14 18:45] LABS: INR 0.99 (0.8-1.2)
[2022-06-14 18:46] LABS: Partial Thromboplastin Time 31.3 SECONDS (23.9-36.7)
[2022-06-14 18:52] LABS: Alanine Aminotransferase 26 U/L (0-33); Alkaline Phosphatase 95 IU/L (35-105); Anion Gap 14.9 (5-19); Aspartate Amino Transferase 32 U/L (0-32); Blood Urea Nitrogen 10 mg/dL (6-20); Calcium 9.5 mg/dL (8.5-10.5); Carbon Dioxide 26 mmol/L (22-29); Chloride 97 mmol/L (98-107); Globulin 3.8 g/dL (1.3-4.6); Glomerular Filtration Rate 89.3 mL/min (90-130); Glucose 284 mg/dL (65-115); Osmolality Calculated 287 mOsm/kg (285-295); Potassium 3.9 mmol/L (3.5-5.1); Sodium 134 mmol/L (136-145); Total Bilirubin 0.2 mg/dL (0.15-1.2); Total Protein 7.8 g/dL (6.6-8.7)
[2022-06-14] MEDS: labetalol 5 mg/mL SDV 20mL 10 MG IVP (18:56)
--- NOTE | 2022-06-14 19:01 | PC.NURSE ---
PT PLACED ON CONTINUOUS NIBP, SPO2, AND CM
[2022-06-14 19:04] LABS: Glucose Point of Care 305 mg/dL (70-110)
--- NOTE | 2022-06-14 19:54 | P.HP_ITS ---
Providers/Chief Complaint Admitting Physician: Abdon Ace Primary Care Provider: Sushil Mobley MD Chief Complaint: SLURRED SPEECH History of Present Illness Pleasant 46-year-old lady recently admitted here for CVA, discharged on aspirin Plavix, and referral to cardiovascular surgery for carotid stenosis among other risk factors, returns to the hospital due to episode of aphasia, and she says her friend noticed that she was slurring his speech as well at home shortly a fter 5 PM. She tells me that after discharge from the hospital her blood pressure was good here, she otherwise has taken her medications, and has avoided salt apart from having some olives, however, she states that she had had her daughter staying with her, and there has been quite a bit of stress to the point that they had gotten into a shouting argument earlier. She reports that her symptoms were accompanied by a posterior headache. She felt like her head was bouncing . And she had a copper taste in her mouth. She was not sure if she was having a new stroke, so decided to come in. She also notes that at the same time she had some pain in the left shoulder radiating to the left upper arm. She was not sure if it was some arthritis or heart pain. She denies any other new developments. She was evaluated in ER, including with telestroke [facility] team. On presentation her blood pressure was measured to be 211/143. Her symptoms had begun improving already on the way to the hospital. In ER she additionally received 10 mg IV push labetalol. CT of the head showed no acute abnormality. She was not found to be a candidate for tPA. Monitoring in the hospital was recommended with permissive hypertension, but maintaining MAP under 120 mmHg. Review of Systems Const: Denies: fever(s), chills, body aches or malaise Eyes: Denies: change in vision, eye discomfort or eye redness ENMT: Denies: throat pain, oral sores or ear or mastoid pain Card: Reports: other (L arm pain); Denies: chest pain, edema, pre-syncope or dyspnea on exertion Resp: Denies: dyspnea, productive cough, change in phlegm color or hemoptysis GI: Denies: abdominal pain, nausea, vomiting, diarrhea, constipation, hematochezia or melena : Denies: flank pain, urinary frequency or hematuria Musc: Denies: back pain, joint swelling or joint redness Skin/Breast: Denies: rash or new lesions Neuro: Reports: headache(s), Slurred speech present and difficulty communicating thoughts; Denies: numbness in extremities, weakness in extremities, dizziness, confusion or seizure-like activity Endo: Denies: polyuria or polydipsia Dick/Lymph: Denies: easy bleeding or tender lymph nodes All/Imm: Denies: urticaria or tongue swelling Medications/Allergies Home Medications Medication Instructions Recorded Confirmed Last Taken Type albuterol sulfate 90 mcg/actuation 2 puff INHALATION Q6H PRN 12/22/19 06/11/22 Unknown History aerosol inhaler (ProAir HFA) lisinopril 20 mg tablet 20 mg PO QDAY 12/22/19 06/11/22 06/11/22 History metformin 500 mg tablet 500 mg PO QDAY PRN 12/22/19 06/11/22 06/11/22 History budesonide-formoterol HFA 160 2 puff INHALATION BID PRN 02/16/20 06/11/22 Unknown History mcg-4.5 mcg/actuation aerosol inhaler (Symbicort) fluoxetine 40 mg capsule (Prozac) 40 mg PO DAILY #30 cap 03/27/20 06/11/22 06/11/22 Rx hydroxyzine HCl 50 mg tablet 50 mg PO QID PRN #120 tab 03/27/20 06/11/22 Unknown Rx propranolol 20 mg tablet 20 mg PO TID PRN #90 tab 03/27/20 06/11/22 Unknown Rx levothyroxine 75 mcg tablet 75 mcg PO DAILY 06/11/22 06/11/22 06/11/22 History oxycodone 5 mg tablet 5 mg PO Q6H PRN 06/11/22 06/11/22 Unknown History aspirin 81 mg tablet,delayed 81 mg PO DAILY #90 tab 06/12/22 06/11/22 06/11/22 Rx release (Adult Low Dose Aspirin) atorvastatin 40 mg tablet 80 mg PO BEDTIME #90 tab 06/12/22 Unknown Rx blood sugar diagnostic (Accu-Chek #100 ea 06/12/22 Unknown Rx Guide test strips) blood-glucose meter (Accu-Chek #1 ea 06/12/22 Unknown Rx Christina Plus Meter) clopidogrel 75 mg tablet (Plavix) 75 mg PO DAILY #20 tab 06/12/22 Unknown Rx insulin glargine 100 unit/mL (3 10 unit (0.1 mL) SUBCUT QPM #15 ml 06/12/22 Unknown Rx mL) subcutaneous pen (Lantus Solostar U-100 Insulin) lancets (Accu-Chek Fastclix Lancet #200 ea 06/12/22 Unknown Rx Drum) metformin 500 mg tablet 500 mg PO DAILY #90 tab 06/12/22 Unknown Rx nicotine 14 mg/24 hr daily 1 patch TRANSDERMAL DAILY #14 ea 06/12/22 Unknown Rx transdermal patch (Nicoderm CQ) nicotine 21 mg/24 hr daily 1 patch TRANSDERMAL DAILY #42 ea 06/12/22 Unknown Rx transdermal patch nicotine 7 mg/24 hr daily 1 patch TRANSDERMAL DAILY #14 ea 06/12/22 Unknown Rx transdermal patch (Nicoderm CQ) Allergies Allergy/AdvReac Type Severity Reaction Status Date / Time No Known Allergies Allergy Verified 07/23/20 09:48 PFSH Acute PFSH: Medical History Acute ischemic stroke Arm paresthesia, left Asthma COPD (chronic obstructive pulmonary disease) COPD (chronic obstructive pulmonary disease) Hepatitis C Hyperlipidemia Hypertension Hypertension Left leg paresthesias Left-sided weakness Major depressive disorder, 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, recurrent severe without psychotic features Smoking Type II diabetes mellitus Surgical History H/O: hysterectomy 1997 History of tonsillectomy Family History Other CAD (coronary artery disease) Cancer Diabetes Family history of premature coronary artery disease Hypertension Lung disease Stroke Social History Smoking and tobacco status: current every day smoker cigarettes Packs smoked per day: 0.5 Years cigarettes smoked: 32 Second hand smoke exposure: No Smoking risk assessment/counseling performed?: Yes (No desire to quit at this time.) Tobacco counseling given: counseling >3 minutes Alcohol intake: former Desire information about alcohol rehabilitation?: No Desire information about substance/drug rehabilitation?: No Adopted: No Caregiver/support person: No Lives independently: Yes Household members: none Housing: Manufactured/Mobile home Marital status: Single Number of children: 2 Number of grandchildren: 4 Highest education level completed: GED or Equivalent service: No Current occupational status: disabled Current occupational exposures/hazards: No Pets and animals: Yes Pets & animals: dog(s) History of recent travel: No Leisure activites: exercise, art, music and reading Sexually active: No Current gender identity: Female Linda/Adventism: Pentecostalism Special linda needs: No Agree to transfusion: Yes Financial difficulty paying for basics: Hard Female Reproductive History: Para: 2 Spontaneous abortions: No Vitals/I&O/Wt Last Vital Signs Temp 98.2 F 06/14/22 18:30 Pulse 83 06/14/22 19:09 Resp 19 H 06/14/22 19:09 BP 160/92 06/14/22 19:09 Pulse Ox 95 06/14/22 19:09 Weight last 48 hrs Weight 90.718 kg Physical Exam Const: COMMON NORMALS: alert GENERAL APPEARANCE: cooperative NUTRITIONAL APPEARANCE: obese ORIENTATION/CONSCIOUSNESS: Yes awake HENMT: COMMON NORMALS: normocephalic, EAC's normal, Normal external nose present and moist oral mucous membranes HEAD & SCALP: normocephalic NOSE: Normal external nose present EXTERNAL AUDITORY CANAL: EAC's normal Neck/C-Spine: COMMON NORMALS: no meningeal signs Chest: CHEST: Yes Symmetrical chest wall rise Resp: COMMON NORMALS: clear to auscultation bilaterally AUSCULTATION: clear to auscultation bilaterally Cardio: COMMON NORMALS: regular rate, regular rhythm and No murmurs present (Cardio) RATE: regular rate RHYTHM: regular rhythm GI: COMMON NORMALS: Normal to inspection, nondistended, normoactive bowel sounds present, Soft to palpation and non-tender PALPATION: Yes Soft to palpation Extremity: COMMON NORMALS: no pedal edema Neuro: COMMON NORMALS: moves all extremities SENSORIUM/ORIENTATION: Yes alert MENINGEAL SIGNS: Yes no meningeal signs COORDINATION/BALANCE: [id number] test normal and other (Mild ataxia LLE) SPEECH: speech normal SENSORY EXAM: Yes extremities (diminished sensation L side) and Normal double simultaneous stimulation for sensation OTHER: Keenly alert and responsive. No trouble with horizontal tracking. Visual stokes full to confrontation. Psych: COMMON NORMALS: mental status grossly normal Skin: COMMON NORMALS: no wounds RASHES: no rashes Data : 06/14/22 18:25 06/14/22 18:25 A&P Assessment and plan (1) Transient cerebral ischemia: Shortly after 5 PM trouble speaking and her friend noticed slurred speech. Blood pressure noted very elevated on presentation. Symptoms started resolving on the way to the hospital, and the new symptoms now have resolved. She continues to have residual symptoms from prior CVA with diminished sensation in the left side, mild ataxia of left lower extremity, minute if any ataxia in the left upper arm as she did well on FNF. Was not found a candidate for tPA. Recommendation is for additional observation in hospital. Permissive hypertension for now but only up to MAP 120 mmHg. Long-term will need optimization of blood pressure control. Stress management strategies will be helpful as well. Please also refer her for follow-up with neurology. Status: Acute (2) Hypertension: She reports blood pressure was well controlled at discharge, and she had taken her medications, try to avoid salt, although did have some always, but seems stress has been a major contributing factor. Attention at home with her daughter, to the point of getting a shouting argument earlier today. Subsequently progressive symptoms including headache, and focal neurologic symptoms as above. Possible hypertensive emergency. Symptoms improving on the way here, so far have resolved. Has received 1 dose of 10 mg IV push labetalol. Continue to monitor blood pressures. Permissive hypertension for now but up to only 120 mmHg as per telestroke neurology. At discharge consider additional as needed antihypertensive she could take in case of blood pressure elevation at home. Discussed with her about please remind her again to make sure to measure blood pressures often, and to proceed to ER in case blood pressure remains uncontrolled despite taking medications. Status: Acute (3) Left arm pain: Reports during episode also was having left arm pain. Was not sure if it was arthritis or heart pain. He did not radiate anywhere. He did not really feel it getting worse with movement. With cardiovascular risk factors we will additionally assess troponin and EKG series. Echocardiogram during prior admission showed normal ejection fraction no RWMA. EKG currently with some nonspecific T wave abnormalities. Monitor on telemetry. Monitor for changes in symptoms, follow-up troponin EKG trend. In case remains asymptomatic and without suggestion of acute NM, consider additional risk stratification with stress testing after discharge. Status: Acute (4) CVA (cerebral vascular accident): Recent CVA, discharged on aspirin and Plavix, with follow-up with cardiovascular surgery due to carotid disease. Additional risk factors including hypertension, diabetes, A1c was 10. Metabolic syndrome and smoking addiction. Continue to optimize risk factors, follow-up as per previous discharge. Please also refer her for follow-up with neurology. Status: Acute Plan DM2 HTN Obesity Chronic back pain Hepatitis C Attestations Medical Necessity Statement*: Place in observation for additional assessment and management after transient focal neurologic abnormalities, transient TIA, possible hypertensive emergency, permissive hypertension for now and then optimization of blood pressure control. Coding Level of Care Code Acute Supervisor Special Effects for Isabel Hernandez Diagnoses Transient cerebral ischemia G45.9 Hypertension I10 CVA (cerebral vascular accident) I63.9 Left arm pain M79.602
--- NOTE | 2022-06-14 19:56 | ECG_ITS ---
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 Measurements Intervals [place] Rate: 76 P: 65 PA: 190 QRS: 45 QRSD: 98 T: 71 QT: 390 QTc: 441 Interpretive Statements SINUS RHYTHM NONSPECIFIC T-WAVE ABNORMALITY Compared to ECG 06/14/2022 18:46:32 No significant changes Electronically Signed On 06-15-2022 20:44:13 CDT by Jean-Paul Santana M.D. [email or web address]
[2022-06-14 20:39] LABS: Troponin(5th) Baseline 10 ng/L (0-10)
[2022-06-14 21:35] LABS: Troponin 5 2HR 10.26 ng/L (0-10); Troponin 5 2HR Delta 0.26 ABS# (0-10)
[2022-06-14 21:38] LABS: Add Urine Microscopic? YES; Bilirubin Urine Neg (Negative); Blood Urine 2+ (Negative); Glucose Urine UA 4+ (Normal); Ketones Urine Negative (Negative); Leukocyte Esterase Urine Negative (Negative); Nitrate Urine Negative (Negative); Protein Urine Neg (Negative); Specific Gravity, Urine 1.015 (1.005-1.030); Squamous Epithelial Cell Urine 0-4 /hpf (0-5); Urine Appearance Clear (CLEAR); Urine Color Yellow (Yellow); Urobilinogen Urine Neg (Negative); WBC Urine 0-4 /hpf (0-5); pH Urine 6.5 (5-7)
[2022-06-14 21:39] LABS: Add Urine Culture? Yes; Bacteria Urine TRACE /hpf
[2022-06-14 21:43] LABS: Amphetamines Screen Urine Negative (Negative); Barbiturates Screen Urine Negative (Negative); Benzodiazepines Screen Urine Negative (Negative); Cocaine Screen Urine Negative (Negative); Opiate Screen Urine Negative (Negative); PCP Screen Urine Negative (Negative); THC Screen Urine Negative (Negative)
--- NOTE | 2022-06-14 21:56 | ECG_ITS ---
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 Measurements Intervals [place] Rate: 77 P: 62 ID: [id number] QRS: 40 QRSD: 94 T: 64 QT: 406 QTc: 460 Interpretive Statements SINUS RHYTHM Compared to ECG 06/14/2022 20:02:35 T-wave abnormality no longer present Electronically Signed On 06-15-2022 21:01:12 CDT by Jean-Paul Santana M.D. [id number]
[2022-06-14 22:02] LABS: Glucose Point of Care 216 mg/dL (70-110)
[2022-06-14] MEDS: heparin 5,000 unit/mL INJ 1 mL 5000 UNIT SUBCUT (22:07)
[2022-06-14] MEDS: insulin lispro 100 unit/1 mL SUBCUT (22:08)
[2022-06-14] MEDS: atorvastatin 40 mg Tablet 80 MG PO (22:08)
[2022-06-14] MEDS: oxyCODONE 5 mg IR Tab/Cap PO (22:11)
[2022-06-15 01:46] LABS: Chol HDL Ratio 4.36 mg/dL (0.0-4.40); Cholesterol 144 mg/dL (0-200); Estmated Average Glucose 255; HDL Cholesterol 33 mg/dL (60-100); Hemoglobin A1C 10.5 % (4.0-6.0); LDL Cholesterol Calculated 84 mg/dL (50-129); LDL HDL Ratio 2.55 RATIO (0.00-3.22); Triglycerides 137 mg/dL (0-150)
[2022-06-15 01:47] LABS: Troponin 5 6HR 11.65 ng/L (0-10)
[2022-06-15 01:51] LABS: Troponin 5 6HR Delta 1.65 ng/L (0-12)
--- NOTE | 2022-06-15 01:56 | ECG_ITS ---
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 Measurements Intervals [place] Rate: 74 P: 68 AR: 194 QRS: 43 QRSD: 94 T: 65 QT: 413 QTc: 459 Interpretive Statements SINUS RHYTHM Compared to ECG 06/15/2022 00:02:38 No significant changes Electronically Signed On 06-15-2022 21:02:01 CDT by Jean-Paul Santana M.D. [id number]
[2022-06-15 04:00] VITALS: BP 144/84; PULSE 84; RESP 17; TEMP 36.1; O2SAT 97
[2022-06-15 06:28] LABS: Glucose Point of Care 187 mg/dL (70-110)
--- NOTE | 2022-06-15 07:49 | PC.NURSE ---
Patient called me to her room from the hallway. Patient states, I accidentally pulled this IV out and I have no patience so just take it out. This nurse would have been able to save the IV but the patient states, I want you to take it out and if you don't I will. IV removed intact at patient's request.
[2022-06-15 07:55] VITALS: BP 142/88; PULSE 83; RESP 15; TEMP 36.7; O2SAT 96
[2022-06-15] MEDS: clopidogrel 75 mg Tablet PO (08:08)
[2022-06-15] MEDS: aspirin 81 mg EC Tablet PO (08:08)
[2022-06-15] MEDS: fluoxetine 20 mg Capsule 40 MG PO (08:09)
[2022-06-15] MEDS: levothyroxine 75 mcg Tablet PO (08:10)
[2022-06-15] MEDS: nicotine 14 mg Patch 1 PATCH TRANSDERMA (08:11)
[2022-06-15] MEDS: heparin 5,000 unit/mL INJ 1 mL 5000 UNIT SUBCUT (08:12)
[2022-06-15 08:32] VITALS: PULSE 84; RESP 18; O2SAT 95
[2022-06-15] MEDS: lisinopril 20 mg Tablet PO (09:11)
--- NOTE | 2022-06-15 09:52 | PC.CHAP ---
Pastoral Care Encounter/Spiritual Assessment Type of Contact [] Declined operations lead visit [] Patient/Family/Request visit [] Outpatient visit [] Follow-up visit [] Physician referral [] Code/Alert [x] Routine visit [] Staff referral [] Actively dying [] Patient sleeping [] Family support [] [] Out of room [] Palliative care [] [] Receiving care in room [] Pre-surgical visit [] Trauma [] Long length of stay [] ICU visit [] Other: Relational/Emotional Strength [x] Patient feels connected with others/family/visitors/staff [] Distress [] Loneliness/isolation [] Abandonment Spirituality of Patient [x] Person of Linda [] Attends Muslim of their Linda [x] Believes in Prayer [] Reads Bible or Judaism materials [] There are Spiritual issues to be addressed Employee Communications Specialist Interventions [x] Prayer [x] Active listening [] Non-anxious presence [] Spiritual/emotional support [] Crisis/trauma care [] Spiritual counseling [] Bereavement support [] Provided bereavement packet [] Provided Bible/devotional materials [] Provided toy/stuffed animal, coloring book to patient or family member [] Provided Communion [] Anointing/Loop [] Salvation [x Impact on Illness or Injury [] Angry [] Fearful [] Anxious [] Often cries [] Exhaustion [] Unable to work [] Unable to attend roman catholic [] Unable to walk/stand [] Unable to read [] Unable to drive [] Unable to eat/drink [] Unable to sleep [] Unable to be with family [] Patient intubated [] Other: Summary Time spent with patient 10 min
[2022-06-15 10:34] VITALS: BP 142/88; PULSE 84; RESP 18; TEMP 36.7
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
[2022-06-15 12:51] VITALS: BP 142/88; PULSE 84; RESP 18; TEMP 36.7; O2SAT 100
[2022-06-15 13:11] LABS: Glucose Point of Care 313 mg/dL (70-110)
== END 2022-06-15 13:06 | disposition home or self-care (01) ==
LOC: ER 19:21 → MEDSURG 19:46
PROVIDERS: Admitting Provider Internal Medicine; Emergency Provider Emergency Medicine; PCP Family Medicine; Visit Provider Internal Medicine
DX: G45.9 Transient cerebral ischemic attack, unspecified (principal); I63.9 Cerebral infarction, unspecified; R29.701 NIHSS score 1; I10 Essential (primary) hypertension; M79.602 Pain in left arm; Z79.82 Long term (current) use of aspirin; J44.9 Chronic obstructive pulmonary disease, unspecified; Z86.19 Personal history of other infectious and parasitic diseases; E78.5 Hyperlipidemia, unspecified; E11.9 Type 2 diabetes mellitus without complications; Z79.84 Long term (current) use of oral hypoglycemic drugs; Z79.4 Long term (current) use of insulin; E66.9 Obesity, unspecified; Z68.36 Body mass index [BMI] 36.0-36.9, adult
CPT/HCPCS: 36415; 36416; 70450; 80053; 80061; 80306; 81001; 82962; 83036; 84484; 85025; 85610; 85730; 87086; 92523; 92610; 93005; 94760; 96372; 96374; 97161; 97165; 99285; G0378; J1644; J1815; J3490

== ENCOUNTER → 2022-06-22 10:49 | Outpatient (BNVA) | payer MEDICAID, SELFPAY ==
[2020-07-26 15:54] VITALS: BP 129/79; BMI 43.1
== END ==
PROVIDERS: PCP Family Medicine; Visit Provider Internal Medicine Cardiovascular Disease
DX: I63.9 Cerebral infarction, unspecified (principal)
CPT/HCPCS: 93270

== ENCOUNTER → 2022-07-10 10:24 | Outpatient (BNVA) | payer MEDICAID, SELFPAY ==
[2020-07-26 15:54] VITALS: BP 129/79; BMI 43.1
== END ==
PROVIDERS: PCP Family Medicine; Referring Provider Internal Medicine; Visit Provider Specialist
DX: I69.322 Dysarthria following cerebral infarction (principal); I69.398 Other sequelae of cerebral infarction; R26.89 Other abnormalities of gait and mobility; E11.65 Type 2 diabetes mellitus with hyperglycemia; Z79.4 Long term (current) use of insulin; F17.210 Nicotine dependence, cigarettes, uncomplicated; J44.9 Chronic obstructive pulmonary disease, unspecified
CPT/HCPCS: 99205

== ENCOUNTER 2022-09-23 07:52 | Outpatient (CLI) | payer MEDICAID, SELFPAY ==
[2020-07-26 15:54] VITALS: BP 129/79; BMI 43.1
--- NOTE | 2022-09-23 08:00 | CT_ITS ---
WS: [id number] CTA HEAD AND NECK TECHNIQUE: Contrast enhanced CTA of the head and neck with coronal and sagittal reformatted images an d maximum intensity projection (MIP) images. NASCET criteria utilized. CLINICAL INFORMATION: I63.9 - Cerebral infarction, unspecified COMPARISON: None. DLP: 585.[address] scans at [facility] use at least one of these dose optimization techniques: automated e xposure control; mA and/or kV adjustment per patient size (includes targeted exams where dose is matc hed to clinical indication); or iterative reconstruction. FINDINGS: RIGHT: RIGHT common carotid artery is patent. Mild atheromatous plaque RIGHT carotid bulb extending i nto the ICA. No significant RIGHT ICA stenosis. RIGHT ICA is patent to the skull base. Retropharyngea l course to the cervical ICA. LEFT: LEFT common carotid artery is patent. Calcified atheromatous plaque LEFT carotid bulb extending into the ICA. LEFT ICA stenosis measures 71%. LEFT ICA is patent to the skull base. Retropharyngeal course to the cervical ICA. Codominant and patent vertebral arteries bilaterally. RIGHT dominant vertebral artery. Vertebral gabriella senthil patent to the basilar junction. Basilar artery is patent. Normal vascularity to the FINE PATCHER territor y bilaterally. Both ICAs are patent at the skull base. Mild cavernous carotid calcification. Small RIGHT A1 segment. Normal vascularity to the [place] territory. Normal vascularity to the MCA territories bilaterally. Chronic infarct with encephalomalacia in the RIGHT posterior patton radiata. Chronic lacunar infarcts in the RIGHT internal capsule and RIGHT thalamus as seen on the prior head CT. Mastoid air cells and paranasal sinuses are well aerated. Normal posterior nasopharynx. Normal parapharyngeal fat. No evid ence of supraglottic or glottic mass. Moderate chronic emphysematous changes in the lung apices. No c ervical lymphadenopathy. Mild spondylitic changes cervical spine. Moderate central canal stenosis C5- C6 with RIGHT pericentral disc osteophyte complex and slight indentation on the RIGHT ventral cervica l cord.. INTRACRANIAL CTA: CT/CT angio headneck* [id number] IMPRESSION: 1. No significant RIGHT ICA stenosis. 2. Calcified atheromatous plaque LEFT carotid bulb extending into the ICA with 71% stenosis. 3. RIGHT dominant vertebral artery. Both vertebral arteries are patent. 4. No flow-limiting intracranial stenosis. 5. Chronic infarcts described above. 6. Retropharyngeal course noted to both cervical ICAs. 7. Moderate central canal stenosis C5-C6 with RIGHT pericentral disc osteophyt e complex and slight indentation on the RIGHT ventral cervical cord. Recommend MRI in further evaluation.
[2022-09-23] MEDS: iohexol 350 mg/mL 100 mL Btl IV (08:30)
== END 2022-09-23 07:53 | disposition home or self-care (01) ==
LOC: RAD 07:53
PROVIDERS: PCP Family Medicine; Visit Provider Specialist
DX: I65.22 Occlusion and stenosis of left carotid artery (principal); I63.89 Other cerebral infarction
CPT/HCPCS: 70496; 70498

== ENCOUNTER → 2022-12-10 08:21 | Outpatient (BNVA) | payer MEDICAID, SELFPAY ==
[2020-07-26 15:54] VITALS: BP 129/79; BMI 43.1
== END ==
PROVIDERS: PCP Family Medicine; Visit Provider Thoracic Surgery (Cardiothoracic Vascular Surgery)
DX: I65.22 Occlusion and stenosis of left carotid artery (principal); F17.210 Nicotine dependence, cigarettes, uncomplicated; I10 Essential (primary) hypertension
CPT/HCPCS: 99203

== ENCOUNTER → 2023-05-03 08:23 | Outpatient (BNVA) | payer MEDICAID, SELFPAY ==
[2020-07-26 15:54] VITALS: BP 129/79; BMI 43.1
== END ==
PROVIDERS: PCP Family Medicine; Visit Provider Specialist
DX: I65.22 Occlusion and stenosis of left carotid artery (principal); E11.9 Type 2 diabetes mellitus without complications; J44.9 Chronic obstructive pulmonary disease, unspecified; I10 Essential (primary) hypertension; Z86.73 Personal history of transient ischemic attack (TIA), and cerebral infarction without residual deficits; Z79.84 Long term (current) use of oral hypoglycemic drugs; F17.210 Nicotine dependence, cigarettes, uncomplicated
CPT/HCPCS: 99214

== ENCOUNTER 2023-06-08 06:58 | Outpatient (CLI) | payer MEDICAID, SELFPAY ==
[2020-07-26 15:54] VITALS: BP 129/79; BMI 43.1
--- NOTE | 2023-06-08 07:09 | CT_ITS ---
WS: [id number] CTA NECK TECHNIQUE: Contrast enhanced CTA of the neck with coronal and sagittal reformatted images and maximum intensity projection (MIP) images. NASCET criteria utilized. CLINICAL INFORMATION: CAROTID STENOSIS COMPARISON: None. DLP: 773.[address] scans at [facility] use at least one of these dose optimization techniques: automated e xposure control; mA and/or kV adjustment per patient size (includes targeted exams where dose is matc hed to clinical indication); or iterative reconstruction. FINDINGS: RIGHT: RIGHT common carotid artery is patent. Retropharyngeal course RIGHT cervical ICA. No significa nt RIGHT ICA stenosis. ICA is patent to the skull base. Mild carotid bulb calcification. LEFT: LEFT common carotid artery is patent. Moderate calcified atheromatous plaque LEFT carotid bulb extending into the ICA. LEFT proximal ICA stenosis measures 85% slightly progressed compared to previ ous. Retropharyngeal course to the LEFT cervical ICA. LEFT ICA is patent to the skull base. RIGHT dominant vertebral artery is patent. Smaller and patent LEFT vertebral artery. Mastoid air cells are well aerated. Mild mucosal thickening in the paranasal sinuses. Normal paraphar yngeal fat. Prominent lymphoid tissue in the posterior nasopharynx likely reactive. Moderate chronic emphysematous changes in the lung apices. Straightening of the normal cervical lordosis. Moderate spo ndylitic changes cervical spine. CT/CT angio neck [id number] IMPRESSION: 1. No significant RIGHT ICA stenosis. 2. LEFT ICA stenosis measures 85% slightly progressed compared to previous wit h calcified atheromatous plaque. 3. RIGHT dominant vertebral artery. Both vertebral arteries are patent. 4. Retropharyngeal course to both cervical ICAs.
[2023-06-08] MEDS: iohexol 350 mg/mL 500 mL Btl (per mL) IV (07:43)
== END 2023-06-08 06:59 | disposition home or self-care (01) ==
LOC: RAD 07:00
PROVIDERS: PCP Family Medicine; Visit Provider Specialist
DX: I65.22 Occlusion and stenosis of left carotid artery (principal)
CPT/HCPCS: 70498; Q9967

== ENCOUNTER → 2024-07-26 11:00 | Outpatient (BNVA) | payer MEDICAID, SELFPAY ==
[2024-07-26 12:01] VITALS: BP 129/79; BMI 43.1
== END ==
PROVIDERS: PCP Family Medicine; Visit Provider Internal Medicine
DX: E11.9 Type 2 diabetes mellitus without complications (principal); E78.5 Hyperlipidemia, unspecified; Z79.84 Long term (current) use of oral hypoglycemic drugs; Z79.4 Long term (current) use of insulin
CPT/HCPCS: 99204

== ENCOUNTER → 2024-10-17 13:11 | Outpatient (BNVA) | payer MEDICAID, SELFPAY ==
[2024-07-26 12:01] VITALS: BP 129/79; BMI 43.1
== END ==
PROVIDERS: PCP Family Medicine
DX: J44.9 Chronic obstructive pulmonary disease, unspecified (principal)
CPT/HCPCS: 71046

== ENCOUNTER 2024-11-17 21:04 | Emergency (ER) | payer MEDICAID, SELFPAY ==
[2024-07-26 12:01] VITALS: BP 129/79; BMI 43.1
[2024-11-17 21:38] VITALS: BP 164/94; PULSE 99; RESP 24; TEMP 36.7; O2SAT 90; BMI 25.2
--- NOTE | 2024-11-17 21:48 | XRR_ITS ---
PROCEDURE INFORMATION: Exam: XR Chest Exam date and time: 11/17/2024 10:36 PM Age: 49 years old Clinical indication: Shortness of breath; Patient HX: SOB; Pleuritic pain TECHNIQUE: Imaging protocol: Radiologic exam of the chest. Views: 1 view. COMPARISON: CR XR chest 2V* [id number] 10/17/2024 1:14 PM FINDINGS: Lungs: Nonspecific prominence of the interstitium. This may be related to edema versus infectious/inflammatory. No lobar consolidation. Pleural spaces: Unremarkable. No pleural effusion. No pneumothorax. Heart/Mediastinum: Unremarkable. No cardiomegaly. Bones/joints: Unremarkable. XR/XR chest 1V portable [id number] IMPRESSION: As above.
--- NOTE | 2024-11-17 21:54 | W.ED.SOB ---
HPI - SOB/Dyspnea General: Chief Complaint: Shortness of Breath/Dyspnea Stated Complaint: cant Breathe Time Seen by Provider: 11/17/24 21:47 History of Present Illness: HPI Narrative: Patient presents to the ER with complaints of shortness of breath over the last month. Patient says has been on 3 rounds of antibiotics and 1 round of steroids with no relief. She says she has had an x-ray that showed fluid around her heart and fluid around her lungs. Patient is not currently on any diuretics. Patient had does have diuretics and potassium at home but she has been off of them for about 2 months. Patient denies any fevers. Does use inhalers as directed which they usually help but they have not been helping very much here lately. Patient does admit to having some bilateral lower extremity edema. Related Data Home Medications Medication Instructions Recorded Confirmed albuterol sulfate 90 mcg/actuation 2 puff inhalation Q6H PRN 12/22/19 10/27/24 aerosol inhaler (ProAir HFA) Shortness Of Breath budesonide-formoterol HFA 160 2 puff inhalation BID 02/16/20 10/27/24 mcg-4.5 mcg/actuation aerosol inhaler (Symbicort) levothyroxine 75 mcg tablet 75 mcg PO DAILY 06/11/22 10/27/24 oxycodone 5 mg tablet 5 mg PO Q6H PRN Pain 06/11/22 10/27/24 omeprazole 20 mg capsule,delayed 20 mg PO BID 05/03/23 10/27/24 release potassium chloride 10 mEq 10 meq PO DAILY 05/03/23 10/27/24 tablet,extended release tiotropium bromide 2.5 1 inh inhalation DAILY 05/03/23 10/27/24 mcg/actuation mist for inhalation (Spiriva Respimat) venlafaxine 150 mg 150 mg PO ONCE 05/03/23 10/27/24 capsule,extended release 24 hr lisinopril 40 mg tablet 40 mg PO DAILY 10/17/24 10/27/24 Previous Rx's Medication Instructions Recorded fluoxetine 40 mg capsule (Prozac) 40 mg PO DAILY #30 caps 03/27/20 aspirin 81 mg tablet,delayed 81 mg PO DAILY #90 tabs 06/12/22 release (Adult Low Dose Aspirin) atorvastatin 40 mg tablet 80 mg (2 x 40 mg) PO BEDTIME #90 06/12/22 tabs blood sugar diagnostic (Accu-Chek #100 ea 06/12/22 Guide test strips) blood-glucose meter (Accu-Chek #1 ea 06/12/22 Christina Plus Meter) lancets (Accu-Chek Fastclix Lancet #200 ea 06/12/22 Drum) varenicline 1 mg tablet 1 mg PO BID #56 tabs 07/10/22 blood-glucose meter,continuous #1 ea 07/26/24 (Dexcom G7 Evaluator) blood-glucose sensor (Dexcom G7 #3 ea 07/26/24 Sensor device) insulin glargine 100 unit/mL (3 60 unit (0.6 mL) SUBCUT QAM #60 mL 07/26/24 mL) subcutaneous pen (Lantus Solostar U-100 Insulin) levofloxacin 500 mg tablet 500 mg PO Q24H 10 days #10 tabs 10/17/24 Allergies Allergy/AdvReac Type Severity Reaction Status Date / Time No Known Allergies Allergy Verified 10/27/24 07:36 Review of Systems General: Reports: 10 or more systems reviewed and unremarkable except in HPI and below PFSH ED PFSH: Medical History Left arm pain Hypertension Transient cerebral ischemia Smoking addiction CVA (cerebral vascular accident) Major depressive disorder, 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, recurrent severe without psychotic features Hyperlipidemia Hypertension Type II diabetes mellitus Asthma COPD (chronic obstructive pulmonary disease) Hepatitis C Acute ischemic stroke COPD (chronic obstructive pulmonary disease) Smoking Hypertension Left leg paresthesias Arm paresthesia, left Left-sided weakness Surgical History H/O: hysterectomy 1996 History of tonsillectomy Family History Other CAD (coronary artery disease) Cancer Diabetes Family history of premature coronary artery disease Hypertension Lung disease Stroke Social History Smoking and tobacco/nicotine status: never used tobacco/nicotine Second hand smoke exposure: No Alcohol intake: former Substance/Drug Use: former Date of last use: 20 years ago Adopted: No Caregiver/support person: No Lives independently: Yes Household members: none Housing: Manufactured/Mobile home Marital status: Single Number of children: 2 Number of grandchildren: 4 Highest education level completed: GED or Equivalent service: No Current occupational status: disabled Current occupational exposures/hazards: No Pets and animals: Yes Pets & animals: dog(s) Leisure activites: exercise, art, music and reading Sexually active: No Do you think of yourself as: Straight/Heterosexual Current gender identity: Female Linda/Adventism: Taoism Special linda needs: No Agree to transfusion: Yes Female Reproductive History: Para: 2 Spontaneous abortions: No Physical Exam Const: COMMON NORMALS: no acute distress, average body habitus, patient oriented x3, no limitations, healthy appearing, alert and well nourished HENMT: COMMON NORMALS: normocephalic, atraumatic, hearing grossly normal bilaterally, external ears normal, Normal external nose present and moist oral mucous membranes HEAD & SCALP: normocephalic and atraumatic NOSE: Normal external nose present EXTERNAL EAR: Yes external ears normal Neck/C-Spine: COMMON NORMALS: no JVD Chest: COMMONS NORMALS: normal inspection of the chest and normal palpation of entire chest wall Resp: COMMON NORMALS: normal respiratory effort, No retractions and No use of accessory muscles; negative for clear to auscultation bilaterally (Decreased breath sounds bilaterally) AUSCULTATION: not clear to auscultation bilaterally (Decreased breath sounds bilaterally) Cardio: COMMON NORMALS: no JVD, regular rate, regular rhythm, S1 normal heart sound present, S2 normal heart sound present, No gallops present (Cardio), No clicks present (Cardio), No murmurs present (Cardio) and No rub (Cardio) RATE: regular rate RHYTHM: regular rhythm HEART SOUNDS: S1 normal heart sound present and S2 normal heart sound present GI: COMMON NORMALS: Normal to inspection, nondistended, normoactive bowel sounds present, Soft to palpation, non-tender, No hepatosplenomegaly present and no masses PALPATION: Yes Soft to palpation and Yes No hepatosplenomegaly present Extremity: NARRATIVE EXTREMITY EXAM: 1+ bilateral lower extremity pitting edema Neuro: COMMON NORMALS: patient oriented x3 SENSORIUM/ORIENTATION: Yes alert Course Vital Signs: Vital signs: Vital Signs Temperature 98.1 F 11/17/24 21:38 Pulse Rate 99 11/17/24 21:38 Respiratory Rate 24 H 11/17/24 21:38 Blood Pressure 164/94 11/17/24 21:38 Pulse Oximetry 90 11/17/24 21:38 Oxygen Delivery Me thod Room Air 11/17/24 21:38 MDM - SOB/Dyspnea Medical Decision Making Chest x-ray showed mild pulmonary edema, elevated BNP, patient given the option given 40 Lasix tonight or starting in the morning. Patient shows started the morning. Patient should be already on Lasix 40 mg a day but stopped taking it about 2 months ago. Patient restarted back for at least the next 5 days. Patient is to keep her appointment with a education spec on November 27. Medical Records I reviewed the patient's medical records. Lab Data I reviewed the patient's lab results. 11/17/24 22:11 11/17/24 22:11 Labs/Radiology: Laboratory Results WBC 10.15 10^3/uL (3.29-11.43) 11/17/24 22:11 RBC 4.62 10^6/uL (3.85-5.65) 11/17/24 22:11 Hgb 14.70 g/dL (11.27-16.99) 11/17/24 22:11 Hct 46.0 % (36-47) 11/17/24 22:11 MCV 99.6 fl (85-98) H 11/17/24 22:11 MCH 31.8 pg (27-33) 11/17/24 22:11 MCHC 32.0 g/dL (30-55) 11/17/24 22:11 RDW 12.3 % (12.1-15.1) 11/17/24 22:11 Plt Count 176 10^3/cmm (157-399) 11/17/24 22:11 MPV 10.9 fL (7.4-10.4) H 11/17/24 22:11 Neut % (Auto) 59.7 % 11/17/24 22:11 Lymph % (Auto) 31.8 % 11/17/24 22:11 Dooly % (Auto) 6.0 % 11/17/24 22:11 Eos % (Auto) 1.6 % 11/17/24 22:11 Baso % (Auto) 0.7 % 11/17/24 22:11 Neut # (Auto) 6.06 10^3/uL (1.8-7.7) 11/17/24 22:11 Lymph # (Auto) 3.2 10^3/uL (0.8-4.8) 11/17/24 22:11 [place]y # (Auto) 0.6 10^3/uL (0.2-0.9) 11/17/24 22:11 Eos # (Auto) 0.2 10^3/uL (0.0-0.8) 11/17/24 22:11 Baso # (Auto) 0.1 10^3/uL (0.0-0.1) 11/17/24 22:11 Nucleated RBC % (auto) 0 % 11/17/24 22:11 Nucleated RBCs # 0.0 /100WBC 11/17/24 22:11 Sodium 135 mmol/L (136-145) L 11/17/24 22:11 Potassium 4.0 mmol/L (3.5-5.1) 11/17/24 22:11 Chloride 100 mmol/L (98-107) 11/17/24 22:11 Carbon Dioxide 27 mmol/L (22-29) 11/17/24 22:11 Anion Gap 12.0 (5-19) 11/17/24 22:11 BUN 9 mg/dL (6-20) 11/17/24 22:11 Creatinine 0.7 mg/dL (0.5-0.9) 11/17/24 22:11 GFR Calculation 88.2 mL/min (90-130) L 11/17/24 22:11 Glucose 308 mg/dL (65-115) H 11/17/24 22:11 Calculated Osmolality 290 mOsm/kg (285-295) 11/17/24 22:11 Calcium 9.2 mg/dL (8.5-10.5) 11/17/24 22:11 Total Bilirubin 0.3 mg/dL (0.15-1.2) 11/17/24 22:11 AST 22 U/L (0-32) 11/17/24 22:11 ALT 21 U/L (0-33) 11/17/24 22:11 Alkaline Phosphatase 112 U/L (35-105) H 11/17/24 22:11 NT-Pro-B Natriuret Pep 2271 pg/mL (0-125) H 11/17/24 22:11 Total Protein 6.8 g/dL (6.6-8.7) 11/17/24 22:11 Albumin 3.3 g/dL (3.5-5.2) L 11/17/24 22:11 Globulin 3.5 g/dL (1.3-4.6) 11/17/24 22:11 Coronavirus (PCR) Negative (Negative) 11/17/24 22:20 Influenza A (PCR) Negative (Negative) 11/17/24 22:20 Influenza Type B (PCR) Negative (Negative) 11/17/24 22:20 RSV (PCR) Negative (Negative) 11/17/24 22:20 All radiology interpretation(s) finalized by discharge Discharge Plan Discharge Patient Disposition: Home Clinical Impression: Congestive heart failure Qualifiers: Heart failure type: unspecified Heart failure chronicity: unspecified Qualified Code(s): I50.9 - Heart failure, unspecified Condition: Stable Prescriptions: No Action Symbicort 160-4.5 mcg/actuation HFA aerosol inhaler 2 puff INHALATION BID albuterol sulfate [ProAir HFA] 90 mcg/actuation HFA aerosol inhaler 2 puff INHALATION Q6H PRN (Reason: Shortness Of Breath) fluoxetine [Prozac] 40 mg capsule 40 mg PO DAILY Qty: 30 2RF insulin glargine [Lantus Solostar U-100 Insulin] 100 unit/mL (3 mL) insulin pen 60 unit SUBCUT QAM Qty: 60 1RF (DME) Dexcom G7 Sensor Device See Rx Instructions .Route Qty: 3 3RF Rx Instructions: As directed (DME) Dexcom G7 Evaluator Misc See Rx Instructions .Route Qty: 1 0RF Rx Instructions: As directed lisinopril 40 mg tablet 40 mg PO DAILY levofloxacin 500 mg tablet 500 mg PO Q24H 10 Days Qty: 10 0RF varenicline 1 mg tablet 1 mg PO BID Qty: 56 0RF Rx Instructions: Take 1/2 tab with breakfast for 7 days, then 1 tab with breakfast for 7 days, then 1 tab with breakfast & 1 tab in the evening thereafter. venlafaxine 150 mg capsule,extended release 24hr 150 mg PO ONCE potassium chloride 10 mEq tablet extended release 10 meq PO DAILY omeprazole 20 mg capsule,delayed release(DR/EC) 20 mg PO BID Spiriva Respimat 2.5 mcg/actuation mist 1 inh inhalation DAILY levothyroxine 75 mcg Tablet 75 mcg PO DAILY oxycodone 5 mg Tablet 5 mg PO Q6H PRN (Reason: Pain) atorvastatin 40 mg Tablet 80 mg PO BEDTIME Qty: 90 2RF aspirin [Adult Low Dose Aspirin] 81 mg tablet,delayed release (DR/EC) 81 mg PO DAILY Qty: 90 3RF (DME) blood-glucose meter [Accu-Chek Christina Plus Meter] Misc See Rx Instructions .Route Qty: 1 0RF Rx Instructions: As directed (DME) lancets [Accu-Chek Fastclix Lancet Drum] Misc See Rx Instructions .Route Qty: 200 2RF Rx Instructions: As directed (DME) Accu-Chek Guide test strips Strip See Rx Instructions .Route Qty: 100 2RF Rx Instructions: As directed Discharge Orders: Discharge ED (Routine); Ordered 11/17/24 Ordered By: Ar Alcantara Referrals: Sushil Mobley MD [Primary Care Provider] - 1 week Patient Instructions: Heart Failure (ED) Activity Restrictions/Additional Instructions: Please restart back on your Lasix 40 mg daily for at least the next 5 days then reassess. Please follow-up with your family practitioner within the next 7 days for further evaluation treatment. Please keep your cardiology appointment on November 27 as previously scheduled. If your symptoms worsen please feel free to return to the ER. Coding Level of Care Code ED Staff [employer] Officer for Isabel Hernandez
[2024-11-17 22:18] LABS: Basophils # 0.1 10^3/uL (0.0-0.1); Basophils % 0.7 %; Eosinophils # 0.2 10^3/uL (0.0-0.8); Eosinophils % 1.6 %; Lymphocytes # 3.2 10^3/uL (0.8-4.8); Lymphocytes % 31.8 %; Mean Corpuscular Hemoglobin 31.8 pg (27-33); Mean Corpuscular Volume 99.6 fl (85-98); Mean Platelet Volume 10.9 fL (7.4-10.4); Monocytes # 0.6 10^3/uL (0.2-0.9); Neutrophils # 6.06 10^3/uL (1.8-7.7); Neutrophils % 59.7 %; Nucleated Red Blood Cells % 0 %; Platelet Count 176 10^3/cmm (157-399); Red Blood Count 4.62 10^6/uL (3.85-5.65); Red Cell Distribution Width 12.3 % (12.1-15.1); White Blood Count 10.15 10^3/uL (3.29-11.43)
[2024-11-17 22:41] LABS: Alanine Aminotransferase 21 U/L (0-33); Albumin Level 3.3 g/dL (3.5-5.2); Alkaline Phosphatase 112 U/L (35-105); Aspartate Amino Transferase 22 U/L (0-32); Blood Urea Nitrogen 9 mg/dL (6-20); Calcium 9.2 mg/dL (8.5-10.5); Carbon Dioxide 27 mmol/L (22-29); Chloride 100 mmol/L (98-107); Creatinine Clr Calc Pharmacy 82.7023; Globulin 3.5 g/dL (1.3-4.6); Glomerular Filtration Rate 88.2 mL/min (90-130); Glucose 308 mg/dL (65-115); Osmolality Calculated 290 mOsm/kg (285-295); Sodium 135 mmol/L (136-145); Total Bilirubin 0.3 mg/dL (0.15-1.2); Total Protein 6.8 g/dL (6.6-8.7)
[2024-11-17 22:50] LABS: NT Pro B Type Natriuretic Pept 2271 pg/mL (0-125)
[2024-11-17 23:03] LABS: Covid PCR NEGATIVE (Negative); Influenza A NEGATIVE (Negative); Influenza B NEGATIVE (Negative); Respiratory Syncytial Virus Ce NEGATIVE (Negative)
[2024-11-17 23:26] VITALS: BP 150/84; PULSE 95; RESP 24; O2SAT 93
== END 2024-11-17 23:27 | disposition home or self-care (01) ==
PROVIDERS: Emergency Provider Emergency Medicine; PCP Family Medicine
DX: I11.0 Hypertensive heart disease with heart failure (principal); I50.9 Heart failure, unspecified; E11.9 Type 2 diabetes mellitus without complications; Z11.52 Encounter for screening for COVID-19; Z79.82 Long term (current) use of aspirin; Z86.73 Personal history of transient ischemic attack (TIA), and cerebral infarction without residual deficits; E78.5 Hyperlipidemia, unspecified; J44.9 Chronic obstructive pulmonary disease, unspecified
CPT/HCPCS: 36415; 71045; 80053; 83880; 85025; 87637; 99284

== ENCOUNTER → 2024-11-27 13:38 | Outpatient (BNVA) | payer MEDICAID, SELFPAY ==
[2024-07-26 12:01] VITALS: BP 129/79; BMI 43.1
== END ==
PROVIDERS: PCP Family Medicine; Visit Provider Internal Medicine
DX: R07.9 Chest pain, unspecified (principal)
CPT/HCPCS: 93005; 99204

== ENCOUNTER 2024-12-02 19:15 | Emergency (ER) | payer MEDICAID, SELFPAY ==
[2024-07-26 12:01] VITALS: BP 129/79; BMI 43.1
[2024-12-02] VITALS (7 sets, daily range): BP systolic 123–175; BP diastolic 66–105; PULSE 99–121; RESP 16–21; O2SAT 91–98; BMI 36.6
--- NOTE | 2024-12-02 19:30 | XRR_ITS ---
PROCEDURE INFORMATION: Exam: XR Chest Exam date and time: 12/02/2024 7:31 PM Age: 49 years old Clinical indication: Chest pressure; Patient HX: Chest pain; SOB; Pleuritic pain; Additional info: Cp TECHNIQUE: Imaging protocol: Radiologic exam of the chest. Views: 1 view. COMPARISON: CR (CHEST, ) 11/17/2024 10:36 PM FINDINGS: Lungs: Unremarkable. No consolidation. Pleural spaces: Unremarkable. No pleural effusion. No pneumothorax. Heart/Mediastinum: Unremarkable. No cardiomegaly. Bones/joints: Unremarkable. XR/XR chest 1V portable [id number] IMPRESSION: No acute findings.
--- NOTE | 2024-12-02 19:34 | ED_ITS ---
HPI - Chest Pain 2 General: Chief Complaint: Chest Pain Stated Complaint: CP SOB Time Seen by Provider: 12/02/24 19:25 History of Present Illness: 49-year-old female patient with a histor y of COPD, diabetes, and carotid disease. She presents with chest discomfort radiating into her back. Started couple hours prior to arrival, before she got in the shower. She still having some discomfort, she rates it as a 5. No diaphoresis. She is mildly short of breath. She does not use oxygen. She has no history of coronary disease prior. She states she saw cardiology last week, as she has been having discomfort, and they wanted to do a chemical stress test as well as an echo on the patient as an outpatient. She does not have these test scheduled yet. Related Data Home Medications Medication Instructions Recorded Confirmed albuterol sulfate 90 mcg/actuation 2 puff inhalation Q6H PRN 12/22/19 11/27/24 aerosol inhaler (ProAir HFA) Shortness Of Breath budesonide-formoterol HFA 160 2 puff inhalation BID 02/16/20 11/27/24 mcg-4.5 mcg/actuation aerosol inhaler (Symbicort) levothyroxine 75 mcg tablet 75 mcg PO DAILY 06/11/22 11/27/24 oxycodone 5 mg tablet 5 mg PO Q6H PRN Pain 06/11/22 11/27/24 omeprazole 20 mg capsule,delayed 20 mg PO BID 05/03/23 11/27/24 release potassium chloride 10 mEq 10 meq PO DAILY 05/03/23 11/27/24 tablet,extended release tiotropium bromide 2.5 1 inh inhalation DAILY 05/03/23 11/27/24 mcg/actuation mist for inhalation (Spiriva Respimat) furosemide 40 mg tablet 40 mg PO DAILY 11/27/24 11/27/24 losartan 100 mg tablet 100 mg PO DAILY 11/27/24 11/27/24 venlafaxine 150 mg 225 mg PO DAILY 11/27/24 11/27/24 capsule,extended release 24 hr Previous Rx's Medication Instructions Recorded aspirin 81 mg tablet,delayed 81 mg PO DAILY #90 tabs 06/12/22 release (Adult Low Dose Aspirin) atorvastatin 40 mg tablet 80 mg (2 x 40 mg) PO BEDTIME #90 06/12/22 tabs blood sugar diagnostic (Accu-Chek #100 ea 06/12/22 Guide test strips) blood-glucose meter (Accu-Chek #1 ea 06/12/22 Christina Plus Meter) lancets (Accu-Chek Fastclix Lancet #200 ea 06/12/22 Drum) blood-glucose meter,continuous #1 ea 07/26/24 (Dexcom G7 Registered Respiratory Therapist) insulin glargine 100 unit/mL (3 60 unit (0.6 mL) SUBCUT QAM #60 mL 07/26/24 mL) subcutaneous pen (Lantus Solostar U-100 Insulin) blood-glucose sensor (Dexcom G7 #3 ea 11/24/24 Sensor device) Allergies Allergy/AdvReac Type Severity Reaction Status Date / Time pregabalin [From Lyrica] Allergy hallucinati Verified 11/27/24 13:50 ons PFSH ED 2 PFSH: Medical History Left arm pain Hypertension Transient cerebral ischemia Smoking addiction CVA (cerebral vascular accident) Major depressive disorder, 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, recurrent severe without psychotic features Hyperlipidemia Hypertension Type II diabetes mellitus Asthma COPD (chronic obstructive pulmonary disease) Hepatitis C Acute ischemic stroke COPD (chronic obstructive pulmonary disease) Smoking Hypertension Left leg paresthesias Arm paresthesia, left Left-sided weakness Surgical History H/O: hysterectomy 1996 History of tonsillectomy Family History Other CAD (coronary artery disease) Cancer Diabetes Family history of premature coronary artery disease Hypertension Lung disease Stroke Social History Smoking and tobacco/nicotine status: current every day tobacco/nicotine user cigarettes Packs smoked per day: 0.5 Years cigarettes smoked: 32 Second hand smoke exposure: No Alcohol intake: former Substance/Drug Use: former Date of last use: 20 years ago Adopted: No Caregiver/support person: No Lives independently: Yes Household members: none Housing: Manufactured/Mobile home Marital status: Single Number of children: 2 Number of grandchildren: 4 Highest education level completed: GED or Equivalent service: No Current occupational status: disabled Current occupational exposures/hazards: No Pets and animals: Yes Pets & animals: dog(s) Leisure activites: exercise, art, music and reading Sexually active: No Do you think of yourself as: Straight/Heterosexual Current gender identity: Female Linda/Yazdanism: Evangelical Special linda needs: No Agree to transfusion: Yes Female Reproductive History: Para: 2 Spontaneous abortions: No Physical Exam 2 Const: GENERAL APPEARANCE: cooperative and ill appearing (Mildly); not frail appearing HENMT: COMMON NORMALS: normocephalic, atraumatic and Normal external nose present HEAD & SCALP: normocephalic and atraumatic FACE & SINUS: normal facial exam and face symmetric NOSE: Normal external nose present Eye: COMMON NORMALS: Equal, round and reactive pupils present and EOMs intact bilaterally PUPIL: Yes Equal, round and reactive pupils present Neck/C-Spine: GENERAL: Yes trachea midline Chest: CHEST: Yes Symmetrical chest wall rise Resp: COMMON NORMALS: normal respiratory effort, No retractions, No use of accessory muscles and clear to auscultation bilaterally AUSCULTATION: clear to auscultation bilaterally Cardio: COMMON NORMALS: regular rhythm RATE: tachycardic RHYTHM: regular rhythm GI: COMMON NORMALS: Normal to inspection, nondistended, normoactive bowel sounds present Extremity: COMMON NORMALS: no pedal edema Neuro: SAMY COMA SCALE: document GCS findings Dawson coma scale eye opening: Spontaneous Dawson coma scale verbal response: Orientated Samy coma scale motor response: Obey commands Dawson coma scale total score: 15 S ENSORY EXAM: Yes extremities (intact) Psych: COMMON NORMALS: speech normal SPEECH: Yes normal speech Skin: COMMON NORMALS: no rashes or lesions noted GENERAL SKIN EXAM: no rashes or lesions noted Course 2 Vital Signs: Vital signs: Vital Signs Pulse Rate 99 12/02/24 21:39 Respiratory Rate 17 12/02/24 21:39 Blood Pressure 123/66 12/02/24 21:39 Pulse Oximetry 96 12/02/24 21:39 Oxygen Delivery Me thod Nasal Cannula 12/02/24 21:00 Oxygen Flow Rate 2 12/02/24 21:00 MDM - Chest Pain Medical Decision Making Consulted cardiology on the patient's arrival, following an EKG initially done here. It shows a large left bundle branch block, with significant ST wave changes including ST depression that is significant in V2 and V3. On reviewing the EKG, cardiology recommendations are to slow the patient's rate using diltiazem, with another EKG. She is having pain, so we will use morphine and Zofran. Her pressures not elevated, so we will not use nitroglycerin at this point due to the inferior EKG changes and risk of hypotension. Diltiazem did slow the rate to 100. Cardiology came to see the patient. R We do not have cardiac Mobile Phone Salesperson availability currently. We are not able to perform PCI. Cardiology's recommendations at the bedside initially are heparin, Plavix, aspirin, nitroglycerin drip at low dosage. Her pain is essentially gone now. Initial recommendation was to transfer the patient emergently because of EKG changes for cardiac catheterization. Helicopter lifted. Because of timely transfer, cardiology recommended that we do not lyse the patient with thrombolytics. Upon helicopter arrival, they have noticed ice on the rotors, and had to go back. We are at least 1.5 hours by ground transfer from a cardiac catheterization facility. At that point, cardiology recommendations, because of increased transfer time, to give tenecteplase at appropriate STEMI dosage, which we did. Blood sugar is 529, with a gap of 25. She is started on insulin drip. She is not bolused with fluid, she is normotensive at this point, and we did not want to increase risk of heart failure. has accepted to their ER as a STEMI. She is going by ground emergently. She is stable at time of transfer currently, awake and talking. Lab Data 12/02/24 19:34 12/02/24 19:34 Radiology Impressions Chest X-Ray 12/02/24 19:30 IMPRESSION: No acute findings. Laboratory Results WBC 10.43 10^3/uL (3.29-11.43) 12/02/24 19:34 RBC 5.60 10^6/uL (3.85-5.65) 12/02/24 19:34 Hgb 18.00 g/dL (11.27-16.99) H 12/02/24 19:34 Hct 56.7 % (36-47) H 12/02/24 19:34 MCV 101.3 fl (85-98) H 12/02/24 19:34 MCH 32.1 pg (27-33) 12/02/24 19:34 MCHC 31.7 g/dL (30-55) 12/02/24 19:34 RDW 12.1 % (12.1-15.1) 12/02/24 19:34 Plt Count 206 10^3/cmm (157-399) 12/02/24 19:34 MPV 11.3 fL (7.4-10.4) H 12/02/24 19:34 Neut % (Auto) 76.5 % 12/02/24 19:34 Lymph % (Auto) 19.4 % 12/02/24 19:34 Ellis % (Auto) 3.2 % 12/02/24 19:34 Eos % (Auto) 0.0 % 12/02/24 19:34 Baso % (Auto) 0.6 % 12/02/24 19:34 Neut # (Auto) 7.99 10^3/uL (1.8-7.7) H 12/02/24 19:34 Lymph # (Auto) 2.0 10^3/uL (0.8-4.8) 12/02/24 19:34 Ellis # (Auto) 0.3 10^3/uL (0.2-0.9) 12/02/24 19:34 Eos # (Auto) 0.0 10^3/uL (0.0-0.8) 12/02/24 19:34 Baso # (Auto) 0.1 10^3/uL (0.0-0.1) 12/02/24 19:34 Nucleated RBC % (auto) 0 % 12/02/24 19:34 Nucleated RBCs # 0.0 /100WBC 12/02/24 19:34 PT 14.50 SECONDS (12.1-14.9) 12/02/24 20:54 INR 1.06 (0.8-1.2) 12/02/24 20:54 APTT 118.1 SECONDS (23.9-36.7) H 12/02/24 20:54 Sodium 128 mmol/L (136-145) L 12/02/24 19:34 Potassium 4.9 mmol/L (3.5-5.1) 12/02/24 19:34 Chloride 92 mmol/L (98-107) L 12/02/24 19:34 Carbon Dioxide 16 mmol/L (22-29) L 12/02/24 19:34 Anion Gap 24.9 (5-19) H 12/02/24 19:34 BUN 15 mg/dL (6-20) 12/02/24 19:34 Creatinine 1.1 mg/dL (0.5-0.9) H 12/02/24 19:34 GFR Calculation 52.4 mL/min (90-130) L 12/02/24 19:34 Glucose 529 mg/dL (65-115) H* 12/02/24 19:34 Calculated Osmolality 291 mOsm/kg (285-295) 12/02/24 19:34 Calcium 10.6 mg/dL (8.5-10.5) H 12/02/24 19:34 Total Bilirubin 0.8 mg/dL (0.15-1.2) 12/02/24 19:34 AST 44 U/L (0-32) H 12/02/24 19:34 ALT 26 U/L (0-33) 12/02/24 19:34 Alkaline Phosphatase 154 U/L (35-105) H 12/02/24 19:34 Creatine Kinase 807 U/L (26-192) H* 12/02/24 20:54 Troponin T Baseline 96 ng/L (0-10) H 12/02/24 19:34 NT-Pro-B Natriuret Pep 1426 pg/mL (0-125) H 12/02/24 19:34 Total Protein 8.6 g/dL (6.6-8.7) 12/02/24 19:34 Albumin 3.7 g/dL (3.5-5.2) 12/02/24 19:34 Globulin 4.9 g/dL (1.3-4.6) H 12/02/24 19:34 All radiology interpretation(s) finalized by discharge Critical Care Time 2 Critical Care Time: Critical Care Time: Yes Total Critical Care Time: 60 Attestation: This case had a high probability of a clinically significant, sudden, or life threatening deterioration of this patient's condition which required my full and direct attention, intervention and personal management. Time is independent of any procedures performed. Discharge Plan Discharge Patient Disposition: Xfer Short-Term Hosp Clinical Impression: ST elevation myocardial infarction (STEMI) Condition: Critical Referrals: Sushil Mobley MD [Primary Care Provider] - Coding Level of Care Code ED Machine Operator Picker for Isabel Hernandez
[2024-12-02] MEDS: dilTIAZem 5 mg/mL SDV 5 mL 10 MG IVP (19:39)
--- NOTE | 2024-12-02 19:41 | ECG_ITS ---
[facility] Test Date: 2024-12-02 Pat Name: Carmen Richards Department: Room: Gender: Female Real Estate Underwriter: : 1975 Requested By: Armida Cadet Order Number: [id number] Jeanine MD: Jean-Paul Santana M.D. Measurements Intervals [place] Rate: 100 P: 58 DE: 192 QRS: 58 QRSD: 170 T: 208 QT: 423 QTc: 547 Interpretive Statements SINUS TACHYCARDIA WITH OCCASIONAL VENTRICULAR PREMATURE COMPLEXES POSSIBLE LEFT ATRIAL ENLARGEMENT [-0.1mV P-WAVE IN V1/V2] LEFT BUNDLE BRANCH BLOCK [120+ ms QRS DURATION, 80+ ms Q/S IN V1/V2, 85+ ms R IN I/aVL/V5/V6]. MARKED ST ELEVATION, CONSIDER INFERIOR INJURY [MARKED ST ELEVATION W/O NORMALLY INFLECTED T-WAVE IN II/aVF] ACUTE PA Compared to ECG 11/27/2024 13:59:09 Ventricular premature complex(es) now present.ST (T wave) deviation now present Myocardial infarct finding now present.Sinus rhythm no longer present Electronically Signed On 12-05-2024 23:46:30 CODING SPEC by Jean-Paul Santana M.D. [email or web address]
[2024-12-02 19:44] LABS: Basophils # 0.1 10^3/uL (0.0-0.1); Basophils % 0.6 %; Hematocrit 56.7 % (36-47); Lymphocytes % 19.4 %; Mean Corpuscular HGB Conc 31.7 g/dL (30-55); Mean Corpuscular Hemoglobin 32.1 pg (27-33); Mean Corpuscular Volume 101.3 fl (85-98); Mean Platelet Volume 11.3 fL (7.4-10.4); Monocytes # 0.3 10^3/uL (0.2-0.9); Monocytes % 3.2 %; Neutrophils # 7.99 10^3/uL (1.8-7.7); Neutrophils % 76.5 %; Nucleated Red Blood Cells % 0 %; Platelet Count 206 10^3/cmm (157-399); Red Cell Distribution Width 12.1 % (12.1-15.1); White Blood Count 10.43 10^3/uL (3.29-11.43)
[2024-12-02] MEDS: ondansetron 2 mg/ML SDV 2 mL 4 MG IVP (19:46)
[2024-12-02] MEDS: morphine 4 mg/mL SDV 1 mL IVP (19:46)
[2024-12-02 20:02] LABS: Troponin(5th) Baseline 96 ng/L (0-10)
[2024-12-02 20:04] LABS: Alanine Aminotransferase 26 U/L (0-33); Albumin Level 3.7 g/dL (3.5-5.2); Alkaline Phosphatase 154 U/L (35-105); Blood Urea Nitrogen 15 mg/dL (6-20); Calcium 10.6 mg/dL (8.5-10.5); Carbon Dioxide 16 mmol/L (22-29); Chloride 92 mmol/L (98-107); Creatinine Clr Calc Pharmacy 63.3733; Globulin 4.9 g/dL (1.3-4.6); Glomerular Filtration Rate 52.4 mL/min (90-130); Osmolality Calculated 291 mOsm/kg (285-295); Sodium 128 mmol/L (136-145); Total Bilirubin 0.8 mg/dL (0.15-1.2); Total Protein 8.6 g/dL (6.6-8.7)
[2024-12-02 20:05] LABS: Anion Gap 24.9 (5-19); Aspartate Amino Transferase 44 U/L (0-32); Glucose 529 mg/dL (65-115); Potassium 4.9 mmol/L (3.5-5.1)
[2024-12-02] MEDS: clopidogrel 300 mg Tablet 600 MG PO (20:12)
[2024-12-02] MEDS: aspirin 81 mg Chew Tablet 324 MG PO (20:13)
[2024-12-02] MEDS: heparin 5,000 unit/mL INJ 1 mL 4000 UNIT IVP (20:14)
[2024-12-02] MEDS: LORazepam 2 mg/mL INJ 1 mL 1 MG IVP (20:15)
[2024-12-02] MEDS: nitroglycerin drip 50 MG/250 ML PREMIX IV (20:22)
[2024-12-02] MEDS: heparin drip 25,000 UNIT/500 ML PREMIX 21.77 UNIT IV (20:24)
[2024-12-02 20:30] LABS: NT Pro B Type Natriuretic Pept 1426 pg/mL (0-125)
--- NOTE | 2024-12-02 20:43 | PC.NURSE ---
PT BP IS 123/82. LET DR KNOW AND THAT NITRO DRIP WAS AT [address], DR SAID TO LEAVE DRIP WHERE IT WAS AND NOT CHANGE DOSAGE.
[2024-12-02] MEDS: insulin regular-human 100 units/1 mL 14 UNIT IVP (20:50)
[2024-12-02] MEDS: tenecteplase 50mg Box (ACUTE MYOCARIDAL INFARCTION) 50 MG IVP (21:04)
--- NOTE | 2024-12-02 21:08 | PC.NURSE ---
When scanning the TNKase for AMI it populates as the TNKase for stroke. Jacquard Loom Weaver Erika PANG and Charge Nurse Fareed PANG both notified of the discrepancy about scanning the medication. The boxed medication removed from the pyxis is labeled AMI use for STEMI.
[2024-12-02 21:13] LABS: INR 1.06 (0.8-1.2)
[2024-12-02 21:24] LABS: Creatine Phosphokinase 807 U/L (26-192); Partial Thromboplastin Time 118.1 SECONDS (23.9-36.7)
== END 2024-12-02 21:10 | disposition short-term general hospital (02) ==
PROVIDERS: Emergency Medicine; Emergency Provider Emergency Medicine; PCP Family Medicine
DX: I21.3 ST elevation (STEMI) myocardial infarction of unspecified site (principal); F17.210 Nicotine dependence, cigarettes, uncomplicated; J44.9 Chronic obstructive pulmonary disease, unspecified; Z86.73 Personal history of transient ischemic attack (TIA), and cerebral infarction without residual deficits; E11.9 Type 2 diabetes mellitus without complications; I10 Essential (primary) hypertension
CPT/HCPCS: 36415; 71045; 80053; 82550; 83880; 84484; 85025; 85610; 85730; 93005; 96374; 96375; 99291; J1644; J1815; J2060; J2270; J2405; J3101; J3490

== ENCOUNTER 2024-12-13 15:29 | Emergency (ER) | payer MEDICAID, SELFPAY ==
[2024-07-26 12:01] VITALS: BP 129/79; BMI 43.1
--- NOTE | 2024-12-13 15:30 | XR_ITS ---
WS: [id number] Portable AP upright chest, 12/13/2024 Clinical Data: sob Comparison: Portable chest, 12/02/2024 Findings: No nodules, masses or effusions are seen. The heart is normal. The pulmonary vascularity is not increased. No pneumonia or pneumothorax is seen. XR/XR chest 1V portable [id number] Impression: Negative chest.
[2024-12-13 15:33] VITALS: BP 128/80; PULSE 104; RESP 20; TEMP 36.6; O2SAT 96; BMI 34.0
--- NOTE | 2024-12-13 15:35 | ECG_ITS ---
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 Measurements Intervals [place] Rate: 104 P: 22 [place]: 128 QRS: 55 QRSD: 157 T: -22 QT: 388 QTc: 513 Interpretive Statements SINUS TACHYCARDIA POSSIBLE LEFT ATRIAL ENLARGEMENT [-0.1mV P-WAVE IN V1/V2] LEFT BUNDLE BRANCH BLOCK [120+ ms QRS DURATION, 80+ ms Q/S IN V1/V2, 85+ ms R IN I/aVL/V5/V6] Compared to ECG 12/02/2024 19:41:36 Ventricular premature complex(es) no longer present ST (T wave) deviation no longer present Myocardial infarct finding no longer present Electronically Signed On 12-16-2024 23:13:19 NURSE ORTHO by Giovanni Rosas M.D. [id number]
[2024-12-13 15:55] LABS: Basophils % 0.4 %; Eosinophils # 0.2 10^3/uL (0.0-0.8); Eosinophils % 1.6 %; Hematocrit 43.6 % (36-47); Lymphocytes # 2.6 10^3/uL (0.8-4.8); Lymphocytes % 26.2 %; Mean Corpuscular HGB Conc 32.1 g/dL (30-55); Mean Corpuscular Hemoglobin 31.3 pg (27-33); Mean Corpuscular Volume 97.5 fl (85-98); Mean Platelet Volume 10.5 fL (7.4-10.4); Monocytes # 0.6 10^3/uL (0.2-0.9); Monocytes % 6.1 %; Neutrophils # 6.41 10^3/uL (1.8-7.7); Neutrophils % 65.4 %; Nucleated Red Blood Cells % 0 %; Platelet Count 264 10^3/cmm (157-399); Red Blood Count 4.47 10^6/uL (3.85-5.65); Red Cell Distribution Width 12.1 % (12.1-15.1); White Blood Count 9.81 10^3/uL (3.29-11.43)
[2024-12-13 16:22] LABS: Alanine Aminotransferase 30 U/L (0-33); Albumin Level 3.2 g/dL (3.5-5.2); Alkaline Phosphatase 128 U/L (35-105); Anion Gap 14.1 (5-19); Aspartate Amino Transferase 39 U/L (0-32); Blood Urea Nitrogen 9 mg/dL (6-20); Calcium 9.5 mg/dL (8.5-10.5); Carbon Dioxide 29 mmol/L (22-29); Chloride 94 mmol/L (98-107); Creatinine Clr Calc Pharmacy 67.0419; Glomerular Filtration Rate 58.5 mL/min (90-130); Glucose 415 mg/dL (65-115); NT Pro B Type Natriuretic Pept 7663 pg/mL (0-125); Osmolality Calculated 292 mOsm/kg (285-295); Potassium 4.1 mmol/L (3.5-5.1); Sodium 133 mmol/L (136-145); Total Bilirubin 0.3 mg/dL (0.15-1.2); Total Protein 7.2 g/dL (6.6-8.7)
== END 2024-12-13 17:24 | disposition left against medical advice (07) ==
LOC: ER 15:32
PROVIDERS: Emergency Medicine; Emergency Provider Family Medicine; PCP Family Medicine
DX: Z53.21 Procedure and treatment not carried out due to patient leaving prior to being seen by health care provider (principal)
CPT/HCPCS: 71045; 80053; 83880; 85025; 93005; 99285

== ENCOUNTER 2024-12-14 15:58 | Emergency (ER) | payer MEDICAID, SELFPAY ==
[2024-07-26 12:01] VITALS: BP 129/79; BMI 43.1
--- NOTE | 2024-12-14 15:59 | XRR_ITS ---
PROCEDURE INFORMATION: Exam: XR Chest Exam date and time: 12/14/2024 4:16 PM Age: 49 years old Clinical indication: Shortness of breath; Additional info: SOB TECHNIQUE: Imaging protocol: Radiologic exam of the chest. Views: 1 view. COMPARISON: CR XR chest 1V portable [id number] 12/13/2024 3:38 PM FINDINGS: Lungs: Unremarkable. No consolidation. Pleural spaces: Unremarkable. No pleural effusion. No pneumothorax. Heart/Mediastinum: Unremarkable. No cardiomegaly. Bones/joints: Unremarkable. XR/XR chest 1V portable [id number] IMPRESSION: No acute findings.
[2024-12-14 16:06] VITALS: BP 147/88; PULSE 104; RESP 30; TEMP 36.6; O2SAT 91; BMI 34.0
--- NOTE | 2024-12-14 16:14 | ECG_ITS ---
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 Measurements Intervals [place] Rate: 101 P: 68 [place]: 176 QRS: 34 QRSD: 163 T: -60 QT: 360 QTc: 468 Interpretive Statements SINUS TACHYCARDIA WITH FREQUENT VENTRICULAR PREMATURE COMPLEXES POSSIBLE LEFT ATRIAL ENLARGEMENT [-0.1mV P-WAVE IN V1/V2] LEFT BUNDLE BRANCH BLOCK [120+ ms QRS DURATION, 80+ ms Q/S IN V1/V2, 85+ ms R IN I/aVL/V5/V6] Compared to ECG 12/13/2024 15:35:17 Ventricular premature complex(es) now present Electronically Signed On 12-15-2024 08:59:58 MACHINE MAINTENANCE MECHANIC by Giovanni Rosas M.D. [id number]
--- NOTE | 2024-12-14 17:00 | ED_ITS ---
HPI - SOB/Dyspnea 2 General: Chief Complaint: Shortness of Breath/Dyspnea Stated Complaint: sob Time Seen by Provider: 12/14/24 16:26 History of Present Illness: HPI Narrative: 49-year-old female presents with chronic shortness of breath and cough has been going on since September. She reports that she feels like she got something going on with her CHF. She was recently seen at [facility] and had stents placed. She went to her primary care provider yesterday who told her she would like her to come to the ER and get checked out. She came in yesterday but left because she was tired of waiting. She does not have any chest pain at this time. She continues to have kind of a wet cough. Associated symptoms: Deny abdominal pain, chest pain, fever(s), nausea, palpitations or vomiting Related Data Home Medications Medication Instructions Recorded Confirmed budesonide-formoterol HFA 160 2 puff inhalation BID 02/16/20 12/14/24 mcg-4.5 mcg/actuation aerosol inhaler (Symbicort) levothyroxine 75 mcg tablet 75 mcg PO DAILY 06/11/22 12/14/24 potassium chloride 10 mEq 10 meq PO DAILY 05/03/23 12/14/24 tablet,extended release tiotropium bromide 2.5 1 inh inhalation DAILY 05/03/23 12/14/24 mcg/actuation mist for inhalation (Spiriva Respimat) losartan 100 mg tablet 100 mg PO DAILY 11/27/24 12/14/24 venlafaxine 150 mg 225 mg PO DAILY 11/27/24 12/14/24 capsule,extended release 24 hr acyclovir 400 mg tablet 400 mg PO BID 12/14/24 12/14/24 albuterol sulfate 2.5 mg/3 mL 2.5 mg continuous nebulization QID 12/14/24 12/14/24 (0.083 %) solution for nebulization albuterol sulfate 90 mcg/actuation 2 puff inhalation QID 12/14/24 12/14/24 aerosol inhaler (Ventolin HFA) atorvastatin 40 mg tablet 40 mg PO BEDTIME 12/14/24 12/14/24 clopidogrel 75 mg tablet 75 mg PO DAILY 12/14/24 12/14/24 furosemide 20 mg tablet 20 mg PO DAILY 12/14/24 12/14/24 nitroglycerin 0.4 mg sublingual 0.4 mg sublingual PRN PRN Chest 12/14/24 12/14/24 tablet Pain oxycodone 10 mg tablet 10 mg PO TID 12/14/24 12/14/24 pantoprazole 40 mg tablet,delayed 40 mg PO DAILY 12/14/24 12/14/24 release prednisone 10 mg tablet See Rx Instructions .Route .COMPLEX 12/14/24 12/14/24 spironolactone 50 mg tablet 50 mg PO DAILY 12/14/24 12/14/24 venlafaxine 75 mg capsule,extended 75 mg PO DAILY 12/14/24 12/14/24 release 24 hr Previous Rx's Medication Instructions Recorded aspirin 81 mg tablet,delayed 81 mg PO DAILY #90 tabs 06/12/22 release (Adult Low Dose Aspirin) insulin glargine 100 unit/mL (3 60 unit (0.6 mL) SUBCUT QAM #60 mL 07/26/24 mL) subcutaneous pen (Lantus Solostar U-100 Insulin) Allergies Allergy/AdvReac Type Severity Reaction Status Date / Time pregabalin [From Lyrica] Allergy hallucinati Verified 12/14/24 16:12 ons Review of Systems 2 Const: Denies: fever(s) or chills Card: Denies: chest pain or palpitations Resp: Reports: dyspnea and productive cough; Denies: wheezing GI: Denies: abdominal pain, nausea or vomiting : Denies: flank pain Skin/Breast: Denies: rash or pruritus PFSH ED 2 PFSH: Medical History Left arm pain Hypertension Transient cerebral ischemia Smoking addiction CVA (cerebral vascular accident) Major depressive disorder, 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, recurrent severe without psychotic features Hyperlipidemia Hypertension Type II diabetes mellitus Asthma COPD (chronic obstructive pulmonary disease) Hepatitis C Acute ischemic stroke COPD (chronic obstructive pulmonary disease) Smoking Hypertension Left leg paresthesias Arm paresthesia, left Left-sided weakness Surgical History H/O: hysterectomy 1996 History of tonsillectomy Family History Other CAD (coronary artery disease) Cancer Diabetes Family history of premature coronary artery disease Hypertension Lung disease Stroke Social History Smoking and tobacco/nicotine status: current every day tobacco/nicotine user cigarettes Packs smoked per day: 0.5 Years cigarettes smoked: 32 Second hand smoke exposure: No Alcohol intake: former Substance/Drug Use: former Date of last use: 20 years ago Adopted: No Caregiver/support person: No Lives independently: Yes Household members: none Housing: Manufactured/Mobile home Marital status: Single Number of children: 2 Number of grandchildren: 4 Highest education level completed: GED or Equivalent service: No Current occupational status: disabled Current occupational exposures/hazards: No Pets and animals: Yes Pets & animals: dog(s) Leisure activites: exercise, art, music and reading Sexually active: No Do you think of yourself as: Straight/Heterosexual Current gender identity: Female Linda/Gnosticism: Jehovah'S Witness Special linda needs: No Agree to transfusion: Yes Female Reproductive History: Para: 2 Spontaneous abortions: No Physical Exam 2 Const: COMMON NORMALS: no acute distress and patient oriented x3 Resp: COMMON NORMALS: normal respiratory effort AUSCULTATION: rales (Minimal) and diminished lung sounds Cardio: COMMON NORMALS: regular rhythm RATE: tachycardic RHYTHM: regular rhythm Neuro: COMMON NORMALS: patient oriented x3, moves all extremities and no focal motor deficits Psych: APPEARANCE: Yes grossly normal Course 2 Vital Signs: Vital signs: Vital Signs Temperature 97.9 F 12/14/24 16:06 Pulse Rate 105 H 12/14/24 17:30 Respiratory Rate 19 H 12/14/24 17:30 Blood Pressure 130/91 12/14/24 17:30 Pulse Oximetry 94 12/14/24 17:30 Oxygen Delivery Me thod Room Air 12/14/24 17:30 MDM - SOB/Dyspnea Medical Decision Making Patient left AMA. Patient with significantly elevated blood sugar as well as BNP. I went to discussed findings with patient and told her labs and give her some insulin to help bring her blood sugar down and was still awaiting some results. Patient seems to be little bit anxious and short of breath so I did offer her a DuoNeb which she said would be good if she takes them at home. I walked out and put in orders and then nurses say patient got up screamed and yelled and ran out of the ER leaving AMA. She did not provide a reason why. I did discuss with patient that there was a good possibility I might need to admit her based on her blood sugars and I am not sure if this made her distressed. Patient is at significant increased morbidity and mortality based on her underlying medical conditions as well as her untreated diabetes. Lab Data 12/14/24 16:56 12/14/24 16:56 Labs/Radiology: Radiology Impressions Chest X-Ray 12/14/24 15:59 IMPRESSION: No acute findings. Laboratory Results WBC 9.60 10^3/uL (3.29-11.43) 12/14/24 16:56 RBC 4.26 10^6/uL (3.85-5.65) 12/14/24 16:56 Hgb 13.50 g/dL (11.27-16.99) 12/14/24 16:56 Hct 41.7 % (36-47) 12/14/24 16:56 MCV 97.9 fl (85-98) 12/14/24 16:56 MCH 31.7 pg (27-33) 12/14/24 16:56 MCHC 32.4 g/dL (30-55) 12/14/24 16:56 RDW 12.3 % (12.1-15.1) 12/14/24 16:56 Plt Count 260 10^3/cmm (157-399) 12/14/24 16:56 MPV 10.8 fL (7.4-10.4) H 12/14/24 16:56 Neut % (Auto) 88.2 % 12/14/24 16:56 Lymph % (Auto) 9.0 % 12/14/24 16:56 Collin % (Auto) 2.1 % 12/14/24 16:56 Eos % (Auto) 0.2 % 12/14/24 16:56 Baso % (Auto) 0.2 % 12/14/24 16:56 Neut # (Auto) 8.47 10^3/uL (1.8-7.7) H 12/14/24 16:56 Lymph # (Auto) 0.9 10^3/uL (0.8-4.8) 12/14/24 16:56 Collin # (Auto) 0.2 10^3/uL (0.2-0.9) 12/14/24 16:56 Eos # (Auto) 0.0 10^3/uL (0.0-0.8) 12/14/24 16:56 Baso # (Auto) 0.0 10^3/uL (0.0-0.1) 12/14/24 16:56 Nucleated RBC % (auto) 0 % 12/14/24 16:56 Nucleated RBCs # 0.0 /100WBC 12/14/24 16:56 PT 13.50 SECONDS (12.1-14.9) 12/14/24 16:56 INR 0.96 (0.8-1.2) 12/14/24 16:56 Sodium 131 mmol/L (136-145) L 12/14/24 16:56 Potassium 4.1 mmol/L (3.5-5.1) 12/14/24 16:56 Chloride 92 mmol/L (98-107) L 12/14/24 16:56 Carbon Dioxide 27 mmol/L (22-29) 12/14/24 16:56 Anion Gap 16.1 (5-19) 12/14/24 16:56 BUN 9 mg/dL (6-20) 12/14/24 16:56 Creatinine 0.8 mg/dL (0.5-0.9) 12/14/24 16:56 GFR Calculation 75.6 mL/min (90-130) L 12/14/24 16:56 Glucose 744 mg/dL (65-115) H* 12/14/24 16:56 Calculated Osmolality 307 mOsm/kg (285-295) H 12/14/24 16:56 Calcium 9.2 mg/dL (8.5-10.5) 12/14/24 16:56 Total Bilirubin 0.4 mg/dL (0.15-1.2) 12/14/24 16:56 AST 50 U/L (0-32) H 12/14/24 16:56 ALT 40 U/L (0-33) H 12/14/24 16:56 Alkaline Phosphatase 136 U/L (35-105) H 12/14/24 16:56 NT-Pro-B Natriuret Pep 8171 pg/mL (0-125) H 12/14/24 16:56 Total Protein 7.9 g/dL (6.6-8.7) 12/14/24 16:56 Albumin 3.4 g/dL (3.5-5.2) L 12/14/24 16:56 Globulin 4.5 g/dL (1.3-4.6) 12/14/24 16:56 All radiology interpretation(s) finalized by discharge Discharge Plan Discharge Patient Disposition: Left Against Medical Advice Clinical Impression: Dyspnea on exertion, Congestive heart failure, Hyperglycemia due to diabetes mellitus Condition: Stable Prescriptions: No Action Symbicort 160-4.5 mcg/actuation HFA aerosol inhaler 2 puff INHALATION BID insulin glargine [Lantus Solostar U-100 Insulin] 100 unit/mL (3 mL) insulin pen 60 unit SUBCUT QAM Qty: 60 1RF losartan 100 mg tablet 100 mg PO DAILY potassium chloride 10 mEq tablet extended release 10 meq PO DAILY Spiriva Respimat 2.5 mcg/actuation mist 1 inh inhalation DAILY venlafaxine 150 mg capsule,extended release 24hr 225 mg PO DAILY levothyroxine 75 mcg Tablet 75 mcg PO DAILY aspirin [Adult Low Dose Aspirin] 81 mg tablet,delayed release (DR/EC) 81 mg PO DAILY Qty: 90 3RF prednisone 10 mg tablet See Rx Instructions .ROUTE .COMPLEX Rx Instructions: TAKE 2 TABLETS BY MOUTH EVERY DAY FOR SEVEN DAYS THEN ONE tab daily venlafaxine 75 mg capsule,extended release 24hr 75 mg PO DAILY clopidogrel 75 mg tablet 75 mg PO DAILY pantoprazole 40 mg tablet,delayed release (DR/EC) 40 mg PO DAILY nitroglycerin 0.4 mg tablet, sublingual 0.4 mg sublingual PRN PRN (Reason: Chest Pain) furosemide 20 mg tablet 20 mg PO DAILY spironolactone 50 mg tablet 50 mg PO DAILY oxycodone 10 mg tablet 10 mg PO TID atorvastatin 40 mg tablet 40 mg PO BEDTIME albuterol sulfate 2.5 mg /3 mL (0.083 %) solution for nebulization 2.5 mg continuous nebulization QID acyclovir 400 mg tablet 400 mg PO BID albuterol sulfate [Ventolin HFA] 90 mcg/actuation HFA aerosol inhaler 2 puff INHALATION QID Referrals: Sushil Mobley MD [Primary Care Provider] - Coding Level of Care Code ED Medical Radiation Dosimetrist for Chg Fwd
[2024-12-14 17:17] LABS: Basophils % 0.2 %; Eosinophils % 0.2 %; Hematocrit 41.7 % (36-47); Lymphocytes # 0.9 10^3/uL (0.8-4.8); Mean Corpuscular HGB Conc 32.4 g/dL (30-55); Mean Corpuscular Hemoglobin 31.7 pg (27-33); Mean Corpuscular Volume 97.9 fl (85-98); Mean Platelet Volume 10.8 fL (7.4-10.4); Monocytes # 0.2 10^3/uL (0.2-0.9); Monocytes % 2.1 %; Neutrophils # 8.47 10^3/uL (1.8-7.7); Neutrophils % 88.2 %; Nucleated Red Blood Cells % 0 %; Platelet Count 260 10^3/cmm (157-399); Red Blood Count 4.26 10^6/uL (3.85-5.65); Red Cell Distribution Width 12.3 % (12.1-15.1)
[2024-12-14 17:29] LABS: INR 0.96 (0.8-1.2)
[2024-12-14 17:30] VITALS: BP 130/91; PULSE 105; RESP 19; O2SAT 94
[2024-12-14 17:47] LABS: Alanine Aminotransferase 40 U/L (0-33); Albumin Level 3.4 g/dL (3.5-5.2); Alkaline Phosphatase 136 U/L (35-105); Anion Gap 16.1 (5-19); Aspartate Amino Transferase 50 U/L (0-32); Blood Urea Nitrogen 9 mg/dL (6-20); Calcium 9.2 mg/dL (8.5-10.5); Carbon Dioxide 27 mmol/L (22-29); Chloride 92 mmol/L (98-107); Creatinine Clr Calc Pharmacy 83.8023; Globulin 4.5 g/dL (1.3-4.6); Glomerular Filtration Rate 75.6 mL/min (90-130); NT Pro B Type Natriuretic Pept 8171 pg/mL (0-125); Osmolality Calculated 307 mOsm/kg (285-295); Potassium 4.1 mmol/L (3.5-5.1); Sodium 131 mmol/L (136-145); Total Bilirubin 0.4 mg/dL (0.15-1.2); Total Protein 7.9 g/dL (6.6-8.7)
[2024-12-14 17:49] LABS: Glucose 744 mg/dL (65-115)
[2024-12-14 18:19] LABS: Covid PCR NEGATIVE (Negative); Influenza A NEGATIVE (Negative); Influenza B NEGATIVE (Negative); Respiratory Syncytial Virus Ce NEGATIVE (Negative)
== END 2024-12-14 18:10 | disposition left against medical advice (07) ==
PROVIDERS: Emergency Medicine; Emergency Provider Student in an Organized Health Care Education/Training Program; PCP Family Medicine
DX: R06.09 Other forms of dyspnea (principal); I11.0 Hypertensive heart disease with heart failure; I50.9 Heart failure, unspecified; E11.65 Type 2 diabetes mellitus with hyperglycemia; J44.9 Chronic obstructive pulmonary disease, unspecified; E78.5 Hyperlipidemia, unspecified; Z86.73 Personal history of transient ischemic attack (TIA), and cerebral infarction without residual deficits
CPT/HCPCS: 36415; 71045; 80053; 83880; 85025; 85610; 87637; 93005; 99285

== ENCOUNTER 2024-12-17 16:28 | Inpatient (IN) | payer MEDICAID, SELFPAY ==
[2024-07-26 12:01] VITALS: BP 129/79; BMI 43.1
[2024-12-17] VITALS (11 sets, daily range): BP systolic 91–146; BP diastolic 59–87; PULSE 88–113; RESP 18–26; TEMP 36.5; O2SAT 85–96; BMI 34.0
--- NOTE | 2024-12-17 16:36 | ECG_ITS ---
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 Measurements Intervals [place] Rate: 102 P: 55 [place]: 189 QRS: 48 QRSD: 148 T: -29 QT: 384 QTc: 500 Interpretive Statements SINUS TACHYCARDIA LEFT BUNDLE BRANCH BLOCK [120+ ms QRS DURATION, 80+ ms Q/S IN V1/V2, 85+ ms R IN I/aVL/V5/V6] Compared to ECG 12/14/2024 16:14:46 Ventricular premature complex(es) no longer present Electronically Signed On 12-23-2024 13:24:41 WOOL BRUSHER by Giovanni Rosas M.D. [id number]
--- NOTE | 2024-12-17 16:43 | XRR_ITS ---
PROCEDURE INFORMATION: Exam: XR Chest Exam date and time: 12/17/2024 4:47 PM Age: 49 years old Clinical indication: Shortness of breath; Prior surgery; Surgery date: <1 month; Patient HX: Chf; Hypoxia; Fluid retention; Stemi with cardiac stent placement x 2 weeks ago; Additional info: Heart failure, hypoxia TECHNIQUE: Imaging protocol: Radiologic exam of the chest. Views: 1 view. COMPARISON: CR XR chest 1V portable [id number] 12/14/2024 4:16 PM FINDINGS: Lungs: Mild prominence of the interstitium. No focal consolidation. Pleural spaces: Unremarkable. No pleural effusion. No pneumothorax. Heart/Mediastinum: Cardiomegaly. Bones/joints: Unremarkable. XR/XR chest 1V portable [id number] IMPRESSION: Interstitial edema in the cardiomegaly.
--- NOTE | 2024-12-17 16:46 | ED_ITS ---
HPI - SOB/Dyspnea 2 General: Chief Complaint: Shortness of Breath/Dyspnea Stated Complaint: sob Time Seen by Provider: 12/17/24 16:32 History of Present Illness: HPI Narrative: 49-year-old female presents emergency de partment with shortness of breath. The patient was found to have a STEMI on December 02. Interventional cardiology was not available here at that time. Patient was transferred to [facility] in [place]. She reports she had 3 stents placed. She was in the hospital for 4 days. She was discharged with 20 mg of Lasix daily. She reports she has been short of breath ever since she left the hospital. It is particularly bad with exertion or with laying flat. She has had to prop her head up. Patient reports that her doctor knew about this and put her on 40 mg of Lasix daily. Patient reports she has been taking that as well as some spironolactone and is still short of breath. She came in by ambulance today requiring 2 L of oxygen by nasal cannula. She was hypoxic without it. She does have a history of obstructive lung disease and uses albuterol and budesonide with formoterol. Patient reports a whitish sort of bubbly sputum production. No fever or chills. She has felt a little bit of swelling in her ankles and face. Associated symptoms: Deny abdominal pain, chest pain, extremity pain, fever(s), nausea, syncope or vomiting Related Data Home Medications Medication Instructions Recorded Confirmed budesonide-formoterol HFA 160 2 puff inhalation BID 02/16/20 12/14/24 mcg-4.5 mcg/actuation aerosol inhaler (Symbicort) levothyroxine 75 mcg tablet 75 mcg PO DAILY 06/11/22 12/14/24 potassium chloride 10 mEq 10 meq PO DAILY 05/03/23 12/14/24 tablet,extended release tiotropium bromide 2.5 1 inh inhalation DAILY 05/03/23 12/14/24 mcg/actuation mist for inhalation (Spiriva Respimat) losartan 100 mg tablet 100 mg PO DAILY 11/27/24 12/14/24 venlafaxine 150 mg 225 mg PO DAILY 11/27/24 12/14/24 capsule,extended release 24 hr acyclovir 400 mg tablet 400 mg PO BID 12/14/24 12/14/24 albuterol sulfate 2.5 mg/3 mL 2.5 mg continuous nebulization QID 12/14/24 12/14/24 (0.083 %) solution for nebulization albuterol sulfate 90 mcg/actuation 2 puff inhalation QID 12/14/24 12/14/24 aerosol inhaler (Ventolin HFA) atorvastatin 40 mg tablet 40 mg PO BEDTIME 12/14/24 12/14/24 clopidogrel 75 mg tablet 75 mg PO DAILY 12/14/24 12/14/24 furosemide 20 mg tablet 20 mg PO DAILY 12/14/24 12/14/24 nitroglycerin 0.4 mg sublingual 0.4 mg sublingual PRN PRN Chest 12/14/24 12/14/24 tablet Pain oxycodone 10 mg tablet 10 mg PO TID 12/14/24 12/14/24 pantoprazole 40 mg tablet,delayed 40 mg PO DAILY 12/14/24 12/14/24 release prednisone 10 mg tablet See Rx Instructions .Route .COMPLEX 12/14/24 12/14/24 spironolactone 50 mg tablet 50 mg PO DAILY 12/14/24 12/14/24 venlafaxine 75 mg capsule,extended 75 mg PO DAILY 12/14/24 12/14/24 release 24 hr Previous Rx's Medication Instructions Recorded aspirin 81 mg tablet,delayed 81 mg PO DAILY #90 tabs 06/12/22 release (Adult Low Dose Aspirin) insulin glargine 100 unit/mL (3 60 unit (0.6 mL) SUBCUT QAM #60 mL 07/26/24 mL) subcutaneous pen (Lantus Solostar U-100 Insulin) Allergies Allergy/AdvReac Type Severity Reaction Status Date / Time pregabalin [From Lyrica] Allergy hallucinati Verified 12/14/24 16:12 ons Review of Systems 2 General: Reports: 10 or more systems reviewed and unremarkable except in HPI and below Const: Denies: fever(s), chills or body aches Eyes: Denies: change in vision ENMT: Denies: throat pain Card: Denies: chest pain or syncope GI: Denies: abdominal pain, nausea, vomiting or diarrhea : Denies: flank pain, dysuria or urinary frequency Musc: Denies: neck pain, back pain or extremity pain Skin/Breast: Denies: rash or erythema Neuro: Denies: headache(s), numbness in extremities, weakness in extremities, lack of coordination or difficulty walking PFSH ED 2 PFSH: Medical History (Updated 12/17/24 @ 18:50 by Shiv Barry MD) Left arm pain Transient cerebral ischemia Smoking addiction CVA (cerebral vascular accident) Major depressive disorder, 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, recurrent severe without psychotic features Hyperlipidemia Hypertension Type II diabetes mellitus Asthma COPD (chronic obstructive pulmonary disease) Hepatitis C Acute ischemic stroke COPD (chronic obstructive pulmonary disease) Smoking Left leg paresthesias Arm paresthesia, left Left-sided weakness Surgical History H/O: hysterectomy 1996 History of tonsillectomy Family History Other CAD (coronary artery disease) Cancer Diabetes Family history of premature coronary artery disease Hypertension Lung disease Stroke Social History Smoking and tobacco/nicotine status: current every day tobacco/nicotine user cigarettes Packs smoked per day: 0.5 Years cigarettes smoked: 32 Second hand smoke exposure: No Alcohol intake: former Substance/Drug Use: former Date of last use: 20 years ago Adopted: No Caregiver/support person: No Lives independently: Yes Household members: none Housing: Manufactured/Mobile home Marital status: Single Number of children: 2 Number of grandchildren: 4 Highest education level completed: GED or Equivalent service: No Current occupational status: disabled Current occupational exposures/hazards: No Pets and animals: Yes Pets & animals: dog(s) Leisure activites: exercise, art, music and reading Sexually active: No Do you think of yourself as: Straight/Heterosexual Current gender identity: Female Linda/Restorationist: Taoism Special linda needs: No Agree to transfusion: Yes Female Reproductive History: Para: 2 Spontaneous abortions: No Physical Exam 2 Narrative: EXAM NARRATIVE: Patient is tachypneic, rales are present, decreased breath sounds also. She is using some accessory muscles. Slight end expiratory wheezes present. Her heart rate is around 100 bpm. Radial pulses 2+. She is using 2 L of oxygen by nasal cannula which is new. Chest pain is not present with palpation. She has trace edema in her ankles. No calf asymmetry or tenderness. Const: COMMON NORMALS: no limitations, alert and well nourished EXAM LIMITATIONS: no altered mental status HENMT: COMMON NORMALS: normocephalic, atraumatic and external ears normal H EAD & SCALP: normocephalic and atraumatic EXTERNAL EAR: Yes external ears normal MOUTH: no muffled voice Eye: COMMON NORMALS: EOMs intact bilaterally, conjunctivae normal and no scleral icterus CONJUNCTIVA: Yes conjunctivae normal Neck/C-Spine: GENERAL: Yes normal visual inspection and Yes trachea midline GI: COMMON NORMALS: Soft to palpation and non-tender PALPATION: Yes Soft to palpation and No Guarding due to palpation present (GI) Neuro: COMMON NORMALS: moves all extremities, no focal motor deficits and no sensory deficits noted SENSORIUM/ORIENTATION: Yes alert SPEECH: speech normal Psych: COMMON NORMALS: mental status grossly normal, Normal thought process present, cooperative, normal affect and speech normal SPEECH: Yes normal speech THOUGHT PROCESS: Normal thought process present Skin: COMMON NORMALS: no rashes or lesions noted, turgor normal and no jaundice GENERAL SKIN EXAM: no rashes or lesions noted and turgor normal Course 2 Vital Signs: Vital signs: Vital Signs Temperature 97.7 F 12/17/24 16:31 Pulse Rate 102 H 12/17/24 18:31 Respiratory Rate 20 H 12/17/24 18:25 Blood Pressure 91/76 12/17/24 18:13 Pulse Oximetry 92 12/17/24 18:25 Oxygen Delivery Me thod Nasal Cannula 12/17/24 18:25 Oxygen Flow Rate 2 12/17/24 18:25 MDM - SOB/Dyspnea Medical Decision Making Suspected congestive heart failure. Patient reports she has not had an echocardiogram since her myocardial infarction. She was seen in the emergency department and diagnosed with suspected heart failure but reports that she was under a lot of stress and her monitor was ringing and tingling incessantly. She got upset that it could not be turned off despite asking for help and left AGAINST MEDICAL ADVICE. Now, several days later, she is continue to experience the symptoms and they seem to be slightly worse. She is not endorsing any infectious symptoms such as fever or chills or discolored sputum. Update Chest x-ray 1 view. EP interpretation Patient has interstitial infiltrate on her chest x-ray consistent with suspected pulmonary edema. Troponin is significantly elevated. It is unclear whether this is coming down or not because her coronary care was provided at [facility]. We are going to get records for this. Discussed with Dr. Rosas, cardiology Patient was given 40 mg of Lasix for her congestive heart failure with pulmonary edema. Patient's glucose is elevated without any evidence of DKA. This will be managed by hospitalist EKG was obtained at 1632. Shows a sinus rhythm, rate 102 consistent with tachycardia, QRS duration of 148 ms, left bundle branch block morphology, nonspecific T wave changes, some mild J-point depressions laterally. Some small discordant ST changes in the precordial leads. Lab Data 12/17/24 17:15 12/17/24 17:15 Labs/Radiology: Radiology Impressions Chest X-Ray 12/17/24 16:43 IMPRESSION: Interstitial edema in the cardiomegaly. Laboratory Results WBC 10.82 10^3/uL (3.29-11.43) 12/17/24 17:15 RBC 4.23 10^6/uL (3.85-5.65) 12/17/24 17:15 Hgb 13.30 g/dL (11.27-16.99) 12/17/24 17:15 Hct 41.0 % (36-47) 12/17/24 17:15 MCV 96.9 fl (85-98) 12/17/24 17:15 MCH 31.4 pg (27-33) 12/17/24 17:15 MCHC 32.4 g/dL (30-55) 12/17/24 17:15 RDW 12.6 % (12.1-15.1) 12/17/24 17:15 Plt Count 281 10^3/cmm (157-399) 12/17/24 17:15 MPV 10.4 fL (7.4-10.4) 12/17/24 17:15 Neut % (Auto) 83.7 % 12/17/24 17:15 Lymph % (Auto) 13.3 % 12/17/24 17:15 Andrew % (Auto) 1.6 % 12/17/24 17:15 Eos % (Auto) 0.5 % 12/17/24 17:15 Baso % (Auto) 0.3 % 12/17/24 17:15 Neut # (Auto) 9.07 10^3/uL (1.8-7.7) H 12/17/24 17:15 Lymph # (Auto) 1.4 10^3/uL (0.8-4.8) 12/17/24 17:15 Andrew # (Auto) 0.2 10^3/uL (0.2-0.9) 12/17/24 17:15 Eos # (Auto) 0.1 10^3/uL (0.0-0.8) 12/17/24 17:15 Baso # (Auto) 0.0 10^3/uL (0.0-0.1) 12/17/24 17:15 Nucleated RBC % (auto) 0 % 12/17/24 17:15 Nucleated RBCs # 0.0 /100WBC 12/17/24 17:15 Sodium 132 mmol/L (136-145) L 12/17/24 17:15 Potassium 4.7 mmol/L (3.5-5.1) 12/17/24 17:15 Chloride 95 mmol/L (98-107) L 12/17/24 17:15 Carbon Dioxide 25 mmol/L (22-29) 12/17/24 17:15 Anion Gap 16.7 (5-19) 12/17/24 17:15 BUN 12 mg/dL (6-20) 12/17/24 17:15 Creatinine 0.7 mg/dL (0.5-0.9) 12/17/24 17:15 GFR Calculation 88.2 mL/min (90-130) L 12/17/24 17:15 Glucose 513 mg/dL (65-115) H* 12/17/24 17:15 Estimat Average Glucose 301 12/17/24 17:15 Hemoglobin A1c 12.1 % (4.0-6.0) H 12/17/24 17:15 Calculated Osmolality 297 mOsm/kg (285-295) H 12/17/24 17:15 Lactic Acid 2.2 mmol/L (0.5-2.2) 12/17/24 17:15 Calcium 9.4 mg/dL (8.5-10.5) 12/17/24 17:15 Total Bilirubin 0.4 mg/dL (0.15-1.2) 12/17/24 17:15 AST 57 U/L (0-32) H 12/17/24 17:15 ALT 41 U/L (0-33) H 12/17/24 17:15 Alkaline Phosphatase 130 U/L (35-105) H 12/17/24 17:15 Troponin T Baseline 441 ng/L (0-10) H* 12/17/24 17:15 NT-Pro-B Natriuret Pep 6529 pg/mL (0-125) H 12/17/24 17:15 Total Protein 7.4 g/dL (6.6-8.7) 12/17/24 17:15 Albumin 3.5 g/dL (3.5-5.2) 12/17/24 17:15 Globulin 3.9 g/dL (1.3-4.6) 12/17/24 17:15 XR interpretation done by ED provider, pending radiology final review Discharge Plan Discharge Patient Disposition: Admitted As Inpatient Admit Provider: Delio Lackey Clinical Impression: CHF (congestive heart failure), Elevated troponin, Acute hypoxemic respiratory failure Condition: Stable Coding Level of Care Code ED [employer] Inside for Isabel Hernandez
[2024-12-17] MEDS: ipratropium-albuterol 3 mL Neb INHALATION ×2 (17:15→17:59)
[2024-12-17 17:25] LABS: Basophils % 0.3 %; Eosinophils # 0.1 10^3/uL (0.0-0.8); Eosinophils % 0.5 %; Lymphocytes # 1.4 10^3/uL (0.8-4.8); Lymphocytes % 13.3 %; Mean Corpuscular HGB Conc 32.4 g/dL (30-55); Mean Corpuscular Hemoglobin 31.4 pg (27-33); Mean Corpuscular Volume 96.9 fl (85-98); Mean Platelet Volume 10.4 fL (7.4-10.4); Monocytes # 0.2 10^3/uL (0.2-0.9); Monocytes % 1.6 %; Neutrophils # 9.07 10^3/uL (1.8-7.7); Neutrophils % 83.7 %; Nucleated Red Blood Cells % 0 %; Platelet Count 281 10^3/cmm (157-399); Red Blood Count 4.23 10^6/uL (3.85-5.65); Red Cell Distribution Width 12.6 % (12.1-15.1); White Blood Count 10.82 10^3/uL (3.29-11.43)
[2024-12-17] MEDS: nitroglycerin 1 gm/inch oint Pkt 1 INCH TOPICAL (17:28)
[2024-12-17 17:49] LABS: Troponin(5th) Baseline 441 ng/L (0-10)
[2024-12-17 17:53] LABS: Alanine Aminotransferase 41 U/L (0-33); Albumin Level 3.5 g/dL (3.5-5.2); Alkaline Phosphatase 130 U/L (35-105); Anion Gap 16.7 (5-19); Aspartate Amino Transferase 57 U/L (0-32); Blood Urea Nitrogen 12 mg/dL (6-20); Calcium 9.4 mg/dL (8.5-10.5); Carbon Dioxide 25 mmol/L (22-29); Chloride 95 mmol/L (98-107); Creatinine Clr Calc Pharmacy 95.7741; Globulin 3.9 g/dL (1.3-4.6); Glomerular Filtration Rate 88.2 mL/min (90-130); NT Pro B Type Natriuretic Pept 6529 pg/mL (0-125); Osmolality Calculated 297 mOsm/kg (285-295); Potassium 4.7 mmol/L (3.5-5.1); Sodium 132 mmol/L (136-145); Total Bilirubin 0.4 mg/dL (0.15-1.2); Total Protein 7.4 g/dL (6.6-8.7)
[2024-12-17] MEDS: FUROsemide 10 mg/mL SDV 4mL 40 MG IVP (17:54)
[2024-12-17 17:55] LABS: Glucose 513 mg/dL (65-115)
--- NOTE | 2024-12-17 18:23 | P.HP_ITS ---
Providers/Chief Complaint 2 Primary Care Provider: Sushil Mobley MD Chief Complaint: sob History of Present Illness Carmen Richards is a 49 year old female with past medical history of type 2 diabetes mellitus, hypothyroidism, hypertension, recent history of ST elevation CT for which she was transferred from [facility] to [facility] around 2 weeks ago where apparently she had 3 stents placed. She was told that she possibly has an EF of around 35%(documents from outside hospital currently not available). She was discharged from the hospital and after around 4 days. She been having difficulty in breathing since then but has been getting worse. She has been experiencing chest heaviness, tightness with feeling of elephant sitting on her chest for last 3 to 4 days and she presented to the ER. Difficulty in breathing gets worse on minimal exertion and laying down. Complaining of orthopnea and PND and waking up every night because of difficulty in breathing since then. In the ER she was found to have hypoxia with concerns of congestive heart failure. She received 40 of IV Lasix and a Nitropatch was placed after which her systolic blood pressure dropped from 1 40-90. Nitropatch has so far been removed. On examination she is awake and alert with a systolic blood pressure of 91 complaining of difficulty in breathing on 2 L complaining of chest heaviness. Review of Systems 2 General: Reports: 10 or more systems reviewed and unremarkable except in HPI and below Const: Denies: fever(s), chills, body aches, change in appetite, change in weight, malaise, night sweats, diaphoresis, change in sleep pattern, daytime sleepiness or snoring Eyes: Denies: change in vision, blurry vision, photophobia, eye discomfort or eye discharge ENMT: Denies: throat pain, enlarged tonsils, hoarseness, mouth pain, oral sores, dry mouth, tinnitus, nasal congestion or post nasal drip Card: Denies: chest pain, palpitations, irregular heart rhythm, edema, swelling of feet/ankles, lightheadedness, syncope, pre-syncope, dyspnea on exertion, orthopnea, leg pain with exertion or acrocyanosis Resp: Denies: dyspnea, productive cough, non-productive cough, wheezing, stridor, pain on inspiration, change in phlegm color, hemoptysis or chest congestion GI: Denies: abdominal pain, nausea, vomiting, hematemesis, coffee ground emesis, dysphagia, heartburn, diarrhea, constipation, bloating, GI cramping, change in bowel habits, pain on defecation, hematochezia or melena : Denies: flank pain, dysuria, urinary frequency, urinary urgency, urinary hesitancy, nocturia or hematuria Musc: Denies: neck pain, back pain, extremity pain, joint pain, joint swelling, joint redness, joint stiffness or limited range of motion Neuro: Denies: headache(s), numbness in extremities, weakness in extremities, sensory changes, lack of coordination, difficulty walking, frequent falls, dizziness, vertigo, confusion, Slurred speech present, difficulty communicating thoughts or seizure-like activity Psych: Denies: anxiety, depression, mood swings, panic attacks, hopelessness or irritability Endo: Denies: polyuria, polydipsia, tired all the time, cold intolerance, excessive sweating, flushing or heat intolerance Dick/Lymph: Denies: easy bruising or easy bleeding All/Imm: Denies: tongue swelling, facial swelling or acute wheezing Medications/Allergies Home Medications Medication Instructions Recorded Confirmed Last Taken Type budesonide-formoterol HFA 160 2 puff inhalation BID 02/16/20 12/14/24 Unknown History mcg-4.5 mcg/actuation aerosol inhaler (Symbicort) levothyroxine 75 mcg tablet 75 mcg PO DAILY 06/11/22 12/14/24 06/11/22 History aspirin 81 mg tablet,delayed 81 mg PO DAILY #90 tabs 06/12/22 12/14/24 06/11/22 Rx release (Adult Low Dose Aspirin) potassium chloride 10 mEq 10 meq PO DAILY 05/03/23 12/14/24 Unknown History tablet,extended release tiotropium bromide 2.5 1 inh inhalation DAILY 05/03/23 12/14/24 Unknown History mcg/actuation mist for inhalation (Spiriva Respimat) insulin glargine 100 unit/mL (3 60 unit (0.6 mL) SUBCUT QAM #60 mL 07/26/24 12/14/24 Unknown Rx mL) subcutaneous pen (Lantus Solostar U-100 Insulin) losartan 100 mg tablet 100 mg PO DAILY 11/27/24 12/14/24 Unknown History venlafaxine 150 mg 225 mg PO DAILY 11/27/24 12/14/24 Unknown History capsule,extended release 24 hr acyclovir 400 mg tablet 400 mg PO BID 12/14/24 12/14/24 Unknown History albuterol sulfate 2.5 mg/3 mL 2.5 mg continuous nebulization QID 12/14/24 12/14/24 Unknown History (0.083 %) solution for nebulization albuterol sulfate 90 mcg/actuation 2 puff inhalation QID 12/14/24 12/14/24 Unknown History aerosol inhaler (Ventolin HFA) atorvastatin 40 mg tablet 40 mg PO BEDTIME 12/14/24 12/14/24 Unknown History clopidogrel 75 mg tablet 75 mg PO DAILY 12/14/24 12/14/24 Unknown History furosemide 20 mg tablet 20 mg PO DAILY 12/14/24 12/14/24 Unknown History nitroglycerin 0.4 mg sublingual 0.4 mg sublingual PRN PRN Chest 12/14/24 12/14/24 Unknown History tablet Pain oxycodone 10 mg tablet 10 mg PO TID 12/14/24 12/14/24 Unknown History pantoprazole 40 mg tablet,delayed 40 mg PO DAILY 12/14/24 12/14/24 Unknown History release prednisone 10 mg tablet See Rx Instructions .Route .COMPLEX 12/14/24 12/14/24 Unknown History spironolactone 50 mg tablet 50 mg PO DAILY 12/14/24 12/14/24 Unknown History venlafaxine 75 mg capsule,extended 75 mg PO DAILY 12/14/24 12/14/24 Unknown History release 24 hr Allergies Allergy/AdvReac Type Severity Reaction Status Date / Time pregabalin [From Lyrica] Allergy hallucinati Verified 12/14/24 16:12 ons PFSH Acute 2 PFSH: Medical History (Updated 12/17/24 @ 18:26 by Delio Lackey MD) Left arm pain Transient cerebral ischemia Smoking addiction CVA (cerebral vascular accident) Major depressive disorder, 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, recurrent severe without psychotic features Hyperlipidemia Hypertension Type II diabetes mellitus Asthma COPD (chronic obstructive pulmonary disease) Hepatitis C Acute ischemic stroke COPD (chronic obstructive pulmonary disease) Smoking Left leg paresthesias Arm paresthesia, left Left-sided weakness Surgical History H/O: hysterectomy 1997 History of tonsillectomy Family History Other CAD (coronary artery disease) Cancer Diabetes Family history of premature coronary artery disease Hypertension Lung disease Stroke Social History Smoking and tobacco/nicotine status: current every day tobacco/nicotine user cigarettes Packs smoked per day: 0.5 Years cigarettes smoked: 32 Second hand smoke exposure: No Alcohol intake: former Substance/Drug Use: former Date of last use: 20 years ago Adopted: No Caregiver/support person: No Lives independently: Yes Household members: none Housing: Manufactured/Mobile home Marital status: Single Number of children: 2 Number of grandchildren: 4 Highest education level completed: GED or Equivalent service: No Current occupational status: disabled Current occupational exposures/hazards: No Pets and animals: Yes Pets & animals: dog(s) Leisure activites: exercise, art, music and reading Sexually active: No Do you think of yourself as: Straight/Heterosexual Current gender identity: Female Linda/Faith: Worship Special linda needs: No Agree to transfusion: Yes Female Reproductive History: Para: 2 Spontaneous abortions: No Vitals/I&O/Wt Last Vital Signs Temp 97.7 F 12/17/24 16:31 Pulse 113 H 12/17/24 18:13 Resp 20 H 12/17/24 18:13 BP 91/76 12/17/24 18:13 Pulse Ox 94 12/17/24 18:13 O2 Del Method Nasal Cannula 12/17/24 17:16 O2 Flow Rate 2 12/17/24 17:16 Weight last 48 hrs Weight 84.368 kg Physical Exam 2 Narrative: General: In distress with difficulty in breathing, AO x 3 on nasal cannula, using accessory muscles HEENT: PERRLA, pupils bilaterally equal and reactive Chest: Normal vesicular breath sounds, fine crackles present both lung stokes and mid chest, equal good air entry bilaterally CVS: S1-S2 regular, pansystolic murmur at apex radiating to midaxillary line 2/6, no tachycardia, S3 gallop present, JVD elevated, no rubs Abdomen: Soft, nontender, no organomegaly, bowel sounds present Neuro: No focal deficits, no facial deformity, AO x3, power 5/5 in all limbs Data 12/17/24 17:15 12/17/24 17:15 A&P Assessment and plan (1) Hypoxic respiratory failure: In setting of congestive heart failure. Possible EF of 35% from recent hospitalization at [place]. Oxygen supplementation keeping saturation 90%. BiPAP as tolerated. Check sputum culture, respiratory viral panel, D-dimer. (2) Congestive heart failure: Echocardiogram stat IV Lasix 80 mg one-time. Will try to maintain mean artery pressure between 65-70. Dave catheterization. Fluid restriction to less than 1500 cc. Strict input output charting, daily weights. If needed will start patient on Levophed. (3) CAD (coronary artery disease): Recent PCI for STEMI. Cath results not available from other hospital. Will try to request documents. Complaining of mild chest heaviness. Baseline troponin over 400. Cycle troponins. Cannot rule out type II CT versus non-ST elevation CT. Has baseline LBBB Consult cardiology. Start on heparin drip. Continue with aspirin, Plavix, statin. (4) LBBB (left bundle branch block): (5) Type II diabetes mellitus: Uncontrolled blood sugar on presentation. No concerns for DKA. Lantus 40 units nightly Insulin sliding scale before meals and at bedtime at low-dose protocol. Check A1c. (6) COPD (chronic obstructive pulmonary disease): Start on Pulmicort twice daily, ipratropium, Xopenex every 6 hour. No need for steroids for now. No concerns for COPD exacerbation. Qualifiers: COPD type: COPD with acute exacerbation Qualified Code(s): J44.1 - Chronic obstructive pulmonary disease with (acute) exacerbation Plan CODE STATUS: Patient lives with her granddaughter. Granddaughter currently living with her best friends. DPOA will be her son. Will request for phone number. Full code. N.p.o. for now. Protonix OPD prophylaxis Heparin will be sufficient for DVT prophylaxis Admit to ICU. Guarded prognosis. Attestations 2 Medical Necessity Statement*: Admit for more than 2 midnights for management of congestive heart failure, non- ST elevation CT, hypoxic respiratory failure Critical Care Time: The high probability of a clinically significant, sudden or life threatening deterioration of the patient's cardiac, pulmonary system(s) required my full and direct attention, intervention and personal management. The critical care time is as shown. This time is in addition to time spent performing any reported procedures but includes the following: [x] Data and vital sign review and interpretation [x] Patient assessment, examination and intervention [x] Documentation [x] Medication orders and management Critical Care Time (min): 90 Coding Level of Care Code Critical Care >/= 30 minutes Critical care time (in minutes): 90 The high probability of a clinically significant, sudden or life threatening deterioration, as referenced in this documentation, required my full and direct attention, intervention and personal management. The critical care time shown is in addition to time spent performing any reported separately billable procedures and includes the following: [x] Data and vital sign review and interpretation [x ] Patient assessment, examination and intervention [x] Medication orders and management [x] Patient/Family updates as able [x] Care Coordination and Documentation. Other Coding Information This patient has a high probability of clinically significant, sudden or life threatening deterioration of the patient's (neurological/pulmonary/cardiac/renal/ID/endocrine) systems required my full, direct attention, the highest level of physician preparedness for urgent intervention and personal management. I managed/supervised life or organ supporting interventions that required frequent physician assessment. I devoted my full attention in the ICU to the direct care of this patient for the period of time indicated above. Time I spent with family or surrogate(s) is included only if the patient was incapable of providing necessary information or participating in decision making. This time includes the following services provided: Telemetry review Hemodynamic interpretation, assessment and management Review and interpretation of CXR Review and interpretation of lab values Review and interpretation of microbiologic data and culture results Review of medications and administration Review and interpretation of Nutrition requirements and management Discussion of management with other consultants and services Clinical update to family members Diagnoses Hypoxic respiratory failure J96.91 Congestive heart failure I50.9 CAD (coronary artery disease) I25.10 LBBB (left bundle branch block) I44.7 Type II diabetes mellitus E11.9 Chronic obstructive pulmonary disease with acute exacerbation J44.1 COPD type: COPD with acute exacerbation
--- NOTE | 2024-12-17 18:31 | USCV_ITS ---
Carmen Richards Age: 49 Gender: F : 1975 Exam Date: 12/17/2024 20:29 Ordering Phys: Delio Lackey MD Technologist: Pavel Mcelroy [place] [facility] [place]: chf BP: 91 / 76 HR: 94 Rhythm: Sinus Technical Quality: Adequate MEASUREMENTS (Male / Female) Normal Values 2D ECHO LV Diastolic Diameter PLAX 5.8 cm 4.2 - 5.9 / 3.9 - 5.3 cm IVS Diastolic Thickness 1.2 cm 0.6 - 1.0 / 0.6 - 0.9 cm IVS Systolic Thickness 1.4 cm LVPW Diastolic Thickness 1.5 cm 0.6 - 1.0 / 0.6 - 0.9 cm LVPW Systolic Thickness 2.2 cm LVOT Diameter 2.0 cm LV Ejection Fraction 2D Teich 18.4 % LV Ejection Fraction MOD 4C 21.0 % LV Ejection Fraction MOD 2C 31.7 % LV Ejection Fraction 2C AL 35.1 % LA Diameter 3.5 cm RA Systolic Volume 4C AL 42.8 ml RA Systolic Volume 4C MOD 43.2 ml LA Sys Volume AL 59.3 cm cubed LA Sys Volume Index AL 30.3 cm cubed/m squared Aorta at Sinotubular Diameter 2.1 cm IVC Diameter 1.7 cm M-MODE LA Ao Ratio MM 1.1 AV Cusp Separation MM 1.5 cm DOPPLER AV Peak Velocity 146.0 cm/s LVOT Peak Velocity 88.0 cm/s AV Area Cont Eq vti 2.0 cm squared AV Area Cont Eq pk 1.9 cm squared MV Peak Velocity 135.0 cm/s MV Area PHT 8.5 cm squared Mitral E to A Ratio 1.5 TV Peak Velocity 227.0 cm/s TR Peak Velocity 311.0 cm/s TR Peak Gradient 38.7 mmHg TR Mean Velocity 236.0 cm/s TR Mean Gradient 24.8 mmHg TR Velocity Time Integral 75.6 cm PV Peak Velocity 122.0 cm/s RV Ejection Time 0.3 s FINDINGS Left Ventricle Left ventricle is dilated. LV systolic function is severely reduced with EF of 30-35%. Severe global hypokinesis. Right Ventricle RV is mildly hypokinetic Right Atrium Normal in size Left Atrium Normal in size Mitral Valve Structurally normal. Mild mitral regurgitation Aortic Valve Aortic valve is thickened. No significant stenosis. Tricuspid Valve Mild tricuspid regurgitation. Insufficient TR jet to calculate RVSP Pulmonic Valve Not well visualized Pericardium Normal Aorta Normal in size IVC Appears to be normal CONCLUSIONS Left ventricle is dilated. LV systolic function is severely reduced with EF of 30-35% RV is mildly hypokinetic Mild mitral regurgitation Mild tricuspid regurgitation Compared to prior echocardiogram from 2021, LV systolic function has decreased significantly. Giovanni Rosas MD (Electronically Signed) Final Date: 17 December 2024 22:00 S
[2024-12-17 18:39] LABS: Lactic Sepsis W/Reflex 2.2 mmol/L (0.5-2.2)
[2024-12-17 18:44] LABS: Estmated Average Glucose 301; Hemoglobin A1C 12.1 % (4.0-6.0)
[2024-12-17 18:54] LABS: Procalcitonin 0.05 ng/mL (0-0.5); Thyroid Stimulating Hormone 1.09 uIU/mL (0.27-4.20)
[2024-12-17] MEDS: FUROsemide 10 mg/mL SDV 10mL 80 MG IVP (19:15)
[2024-12-17] MEDS: pantoprazole 40 mg SDV IVP (19:15)
[2024-12-17] MEDS: insulin regular-human 100 units/1 mL 10 UNIT IVP (19:32)
[2024-12-17] MEDS: heparin 5,000 unit/mL INJ 1 mL IVP (19:32)
[2024-12-17] MEDS: heparin drip 25,000 UNIT/500 ML PREMIX 24 UNIT IV (19:32)
[2024-12-17 19:57] LABS: Reflex Lactate Order REFLEX LACTIC ORDERD
[2024-12-17 20:01] LABS: Troponin 5 2HR 407.8 ng/L (0-10); Troponin 5 2HR Delta -33.2 ABS# (0-10)
--- NOTE | 2024-12-17 20:13 | PC.NURSE ---
NOTIFIED DR. CONTE OF PATIENT TAKING BIPAP OFF. PATIENT STATES SHE WILL PUT IT BACK ON WHEN SHE SEES HER GRANDDAUGHTER. DR. CONTE GAVE VERBAL ORDER FOR MORPHINE 2MG IVP ONCE AND XANAX 0.5MG PO Q8H PRN ANXIETY.
[2024-12-17 21:10] LABS: Glucose Point of Care 443 mg/dL (70-110)
[2024-12-17] MEDS: atorvastatin 40 mg Tablet PO (21:14)
[2024-12-17] MEDS: insulin lispro 100 unit/1 mL SUBCUT (21:16)
[2024-12-17] MEDS: insulin glargine 100 units/1 mL 40 UNIT SUBCUT (21:16)
[2024-12-17] MEDS: ALPRAZolam 0.5 mg Tablet PO (23:29)
[2024-12-18] VITALS (52 sets, daily range): BP systolic 93–139; BP diastolic 56–99; PULSE 84–110; RESP 16–26; TEMP 36.3–36.6; O2SAT 88–97; BMI 34.4
[2024-12-18] LABS: Troponin 5 6HR Delta -62.4 ng/L (0-12)
[2024-12-18 00:02] LABS: Troponin 5 6HR 378.6 ng/L (0-10)
[2024-12-18 04:05] LABS: Basophils # 0.1 10^3/uL (0.0-0.1); Basophils % 0.4 %; Eosinophils # 0.1 10^3/uL (0.0-0.8); Eosinophils % 0.5 %; Lymphocytes # 3.5 10^3/uL (0.8-4.8); Lymphocytes % 26.8 %; Mean Corpuscular HGB Conc 32.6 g/dL (30-55); Mean Corpuscular Hemoglobin 31.6 pg (27-33); Mean Platelet Volume 9.9 fL (7.4-10.4); Monocytes # 0.6 10^3/uL (0.2-0.9); Monocytes % 4.9 %; Neutrophils # 8.78 10^3/uL (1.8-7.7); Nucleated Red Blood Cells % 0 %; Platelet Count 264 10^3/cmm (157-399); Red Blood Count 4.02 10^6/uL (3.85-5.65); Red Cell Distribution Width 12.6 % (12.1-15.1); White Blood Count 13.09 10^3/uL (3.29-11.43)
[2024-12-18 04:29] LABS: Partial Thromboplastin Time 54.4 SECONDS (23.9-36.7)
[2024-12-18 04:34] LABS: Alanine Aminotransferase 30 U/L (0-33); Albumin Level 2.9 g/dL (3.5-5.2); Alkaline Phosphatase 107 U/L (35-105); Anion Gap 15.4 (5-19); Aspartate Amino Transferase 25 U/L (0-32); Blood Urea Nitrogen 12 mg/dL (6-20); Calcium 9.1 mg/dL (8.5-10.5); Carbon Dioxide 28 mmol/L (22-29); Chloride 96 mmol/L (98-107); Creatinine Clr Calc Pharmacy 96.4538; Globulin 3.8 g/dL (1.3-4.6); Glomerular Filtration Rate 88.2 mL/min (90-130); Glucose 230 mg/dL (65-115); Magnesium 1.6 mg/dL (1.7-2.3); Osmolality Calculated 289 mOsm/kg (285-295); Phosphorus 3.6 mg/dL (2.5-4.5); Potassium 3.4 mmol/L (3.5-5.1); Sodium 136 mmol/L (136-145); Total Bilirubin 0.5 mg/dL (0.15-1.2); Total Protein 6.7 g/dL (6.6-8.7)
[2024-12-18] MEDS: levothyroxine 75 mcg Tablet PO (05:43)
[2024-12-18 06:44] LABS: Chol HDL Ratio 3.02 mg/dL (0.0-4.40); Cholesterol 142 mg/dL (0-200); HDL Cholesterol 47 mg/dL (60-100); LDL Cholesterol Calculated 82 mg/dL (50-129); LDL HDL Ratio 1.74 RATIO (0.00-3.22); Triglycerides 63 mg/dL (0-150)
[2024-12-18 06:51] LABS: Procalcitonin 0.06 ng/mL (0-0.5)
[2024-12-18 08:26] LABS: Glucose Point of Care 166 mg/dL (70-110)
[2024-12-18] MEDS: budesonide 0.5 mg/2 mL Neb INHALATION ×2 (08:34→19:41)
[2024-12-18] MEDS: ipratropium-albuterol 3 mL Neb INHALATION ×4 (08:34→19:40)
[2024-12-18] MEDS: potassium chloride ER 20 mEq Tablet 40 MEQ PO (09:26)
[2024-12-18] MEDS: insulin lispro 100 unit/1 mL SUBCUT ×4 (09:27→20:44)
[2024-12-18] MEDS: FUROsemide 10 mg/mL SDV 10mL 80 MG IVP (09:27)
[2024-12-18] MEDS: clopidogrel 75 mg Tablet PO (09:31)
[2024-12-18] MEDS: venlafaxine ER (24HR) 75 mg Capsule 225 MG PO (09:31)
[2024-12-18] MEDS: aspirin 81 mg EC Tablet PO (09:31)
[2024-12-18] MEDS: docusate sodium 100 mg Capsule PO ×2 (09:31→18:24)
--- NOTE | 2024-12-18 10:11 | P.CONIM_ITS ---
<Statement entered by Giovanni Rosas M.D - 12/18/24 20:52> Patient was evaluated and cared for in conjunction with an advanced practice practitioner. I personally examined the patient and reviewed the chart and all pertinent data including imaging, telemetry, and laboratory results. I discussed the patient in detail with the advanced practice practitioner. Please see their note for complete consult note, results and agreed upon plan of care for the patient. Patient feeling better. Still short of breath. Getting diuresis. Echo shows LV systolic function is severely reduced with EF of 30-35%. We will continue IV diuresis. Close I and Os. Monitor renal function. GENERAL: Patient is alert and oriented HEART: Regular S1 and S2 LUNGS: Diminished air entry bilaterally EXTREMITIES: Lower extremities with 1+ edema Providers/Reason For Consult 2 Consulting Physician/Specialty*: Dr Rosas, cardiology Reason for Consult*: CHF exacerbation, systolic CHF, recent STEMI Requesting Physician: Dr Barry Attending Physician: Delio Lackey MD Primary Care Provider: Sushil Mobley MD History of Present Illness History of Present Illness Carmen Richards is a 49 year old female with past medical history of COPD, diabetes, carotid disease, presented to this facility 12/02/2024 as a STEMI, transferred to [place] emergently, coronary angiogram on 12/03/24, PCI of prox to mid RCA with 3 stents. LVEF at discharge on 12/05/24 was 36%. She had been developing worsening shortness of breath with orthopnea over the last few days. Echocardiogram obtained yesterday shows LVEF 30 to 35%, severe global hypokinesis, mildly hypokinetic RV, mild mitral regurgitation, mild tricuspid regurgitation. She has been receiving diuresis with Lasix 80 mg twice daily, creatinine this morning 0.7. She still appears somewhat volume overloaded. No chest pain today. Review of Systems 2 Const: Denies: fever(s), chills, change in weight, fatigue or diaphoresis Eyes: Denies: change in vision ENMT: Denies: epistaxis Card: Reports: dyspnea on exertion and orthopnea; Denies: chest pain, palpitations, irregular heart rhythm, edema, syncope, pre- syncope or leg pain with exertion Resp: Denies: dyspnea, productive cough or wheezing GI: Denies: nausea, vomiting, hematemesis, hematochezia or melena : Denies: hematuria Musc: Denies: extremity swelling Dick/Lymph: Denies: easy bruising or easy bleeding Medications/Allergies Home Medications Medication Instructions Recorded Confirmed Last Taken Type budesonide-formoterol HFA 160 2 puff inhalation BID 02/16/20 12/18/24 12/17/24 08:00 History mcg-4.5 mcg/actuation aerosol inhaler (Symbicort) levothyroxine 75 mcg tablet 75 mcg PO DAILY 06/11/22 12/18/24 12/18/24 05:45 History aspirin 81 mg tablet,delayed 81 mg PO DAILY #90 tabs 06/12/22 12/18/24 12/17/24 08:00 Rx release (Adult Low Dose Aspirin) potassium chloride 10 mEq 10 meq PO DAILY 05/03/23 12/18/24 12/18/24 History tablet,extended release tiotropium bromide 2.5 1 inh inhalation DAILY 05/03/23 12/18/24 12/17/24 History mcg/actuation mist for inhalation (Spiriva Respimat) insulin glargine 100 unit/mL (3 60 unit (0.6 mL) SUBCUT QAM #60 mL 07/26/24 12/18/24 12/17/24 Rx mL) subcutaneous pen (Lantus Solostar U-100 Insulin) losartan 100 mg tablet 100 mg PO DAILY 11/27/24 12/18/24 12/17/24 07:00 History venlafaxine 150 mg See Rx Instructions .Route .COMPLEX 11/27/24 12/18/24 12/17/24 History capsule,extended release 24 hr acyclovir 400 mg tablet 400 mg PO BID 12/14/24 12/18/24 12/17/24 08:00 History albuterol sulfate 2.5 mg/3 mL 2.5 mg continuous nebulization QID 12/14/24 12/18/24 Unknown History (0.083 %) solution for nebulization albuterol sulfate 90 mcg/actuation 2 puff inhalation QID 12/14/24 12/18/24 Unknown History aerosol inhaler (Ventolin HFA) atorvastatin 40 mg tablet 40 mg PO BEDTIME 12/14/24 12/18/24 12/17/24 21:10 History clopidogrel 75 mg tablet 75 mg PO DAILY 12/14/24 12/18/2412/17/25 History furosemide 20 mg tablet 20 mg PO DAILY 12/14/24 12/18/24 Unknown History nitroglycerin 0.4 mg sublingual 0.4 mg sublingual PRN PRN Chest 12/14/24 12/18/24 Unknown History tablet Pain oxycodone 10 mg tablet 10 mg PO TID 12/14/24 12/18/24 12/17/24 History pantoprazole 40 mg tablet,delayed 40 mg PO DAILY 12/14/24 12/18/24 12/17/24 History release prednisone 10 mg tablet See Rx Instructions .Route .COMPLEX 12/14/24 12/18/24 12/17/24 History spironolactone 50 mg tablet 50 mg PO DAILY 12/14/24 12/18/24 12/17/24 History venlafaxine 75 mg capsule,extended 75 mg PO DAILY 12/14/24 12/18/24 12/17/24 History release 24 hr acetaminophen 500 mg tablet 1,000 mg PO Q6H PRN Pain 12/18/24 12/18/24 Unknown History (Tylenol Extra Strength) furosemide 40 mg tablet 40 mg PO DAILY 12/18/24 12/18/24 12/17/24 History ibuprofen 200 mg tablet (Advil) 800 mg PO Q6H PRN Fever Or Pain 12/18/24 12/18/24 Unknown History venlafaxine 75 mg capsule,extended See Rx Instructions .Route .COMPLEX 12/18/24 12/18/24 12/17/24 History release 24 hr Allergies Allergy/AdvReac Type Severity Reaction Status Date / Time pregabalin [From Lyrica] Allergy hallucinati Verified 12/14/24 16:12 ons Current Medications Generic Name Dose Route Start Last Admin Trade Name Freq PRN Reason Stop Dose Admin Albuterol/Ipratropium 3 ml 12/18/24 08:00 12/18/24 08:34 Ipratropium-Albuterol 3 Ml Neb INHALATION 3 ml QID.RESPIRATORY ALLISON Administration Alprazolam 0.5 mg 12/17/24 20:14 12/17/24 23:29 Alprazolam 0.5 Mg Tablet PO 0.5 mg TID PRN Administration AGITATION Atorvastatin Calcium 40 mg 12/17/24 21:00 12/17/24 21:14 Atorvastatin 40 Mg Tablet PO 40 mg BEDTIME ALLISON Administration Budesonide 0.5 mg 12/18/24 08:00 12/18/24 08:34 Budesonide 0.5 Mg/2 Ml Neb INHALATION 0.5 mg BID.RESPIRATORY ALLISON Administration Heparin Sodium/Sodium Chloride 25,000 unit in 500 mls @ 0 mls/hr 12/17/24 18:19 12/18/24 05:40 Heparin Drip IV 15.41 unit/kg/hr CONT ALLISON 26 mls/hr Titration Protocol Per Protocol Insulin Glargine 40 unit 12/17/24 21:00 12/17/24 21:16 Insulin Glargine 100 Units/1 Ml SUBCUT 40 unit BEDTIME ALLISON Administration Insulin Human Lispro 0 unit 12/17/24 21:00 12/17/24 21:16 Insulin Lispro 100 Unit/1 Ml SUBCUT 14 unit WM&BEDTIME ALLISON Administration Protocol Levothyroxine Sodium 75 mcg 12/18/24 06:00 12/18/24 05:43 Levothyroxine 75 Mcg Tablet PO 75 mcg DAILY@0600 ALLISON Administration Pantoprazole Sodium 40 mg 12/17/24 18:30 12/17/24 19:15 Pantoprazole 40 Mg Sdv IVP 40 mg Q24H ALLISON Administration PFSH Acute 2 PFSH: Medical History Left arm pain Transient cerebral ischemia Smoking addiction CVA (cerebral vascular accident) Major depressive disorder, 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, recurrent severe without psychotic features Hyperlipidemia Hypertension Type II diabetes mellitus Asthma COPD (chronic obstructive pulmonary disease) Hepatitis C Acute ischemic stroke COPD (chronic obstructive pulmonary disease) Smoking Left leg paresthesias Arm paresthesia, left Left-sided weakness Surgical History H/O: hysterectomy 1997 History of tonsillectomy Family History Other CAD (coronary artery disease) Cancer Diabetes Family history of premature coronary artery disease Hypertension Lung disease Stroke Social History Smoking and tobacco/nicotine status: current every day tobacco/nicotine user cigarettes Packs smoked per day: 0.5 Years cigarettes smoked: 32 Second hand smoke exposure: No Alcohol intake: former Substance/Drug Use: former Date of last use: 20 years ago Adopted: No Caregiver/support person: No Lives independently: Yes Household members: none Housing: Manufactured/Mobile home Marital status: Single Number of children: 2 Number of grandchildren: 4 Highest education level completed: GED or Equivalent service: No Current occupational status: disabled Current occupational exposures/hazards: No Pets and animals: Yes Pets & animals: dog(s) Leisure activites: exercise, art, music and reading Sexually active: No Do you think of yourself as: Straight/Heterosexual Current gender identity: Female Linda/Sikhism: Sikh Special linda needs: No Agree to transfusion: Yes Female Reproductive History: Para: 2 Spontaneous abortions: No Vitals/I&O/Wt Last Vital Signs Temp 97.6 F 12/18/24 02:45 Pulse 88 12/18/24 08:34 Resp 18 12/18/24 08:34 BP 121/79 12/18/24 07:00 Pulse Ox 94 12/18/24 08:34 O2 Del Method Nasal Cannula 12/18/24 08:34 O2 Flow Rate 3 12/18/24 08:34 FiO2 35 12/17/24 19:31 12/17/24 12/18/24 12/18/24 22:59 06:59 14:59 Intake Total 243.2 / 243.2 Output Total 550 / 550 Balance -306.8 / -306.8 Weight last 48 hrs Weight 188 lb 7.924 oz Weight 188 lb 7.924 oz Weight 186 lb Physical Exam 2 Const: COMMON NORMALS: no acute distress and patient oriented x3 GENERAL APPEARANCE: cooperative and comfortable ORIENTATION/CONSCIOUSNESS: Yes awake, Yes oriented to person, Yes oriented to place and Yes oriented to time Chest: COMMONS NORMALS: normal inspection of the chest and normal palpation of entire chest wall CHEST: Yes Symmetrical chest wall rise Resp: COMMON NORMALS: normal respiratory effort, No retractions and No use of accessory muscles EFFORT & INSPECTION: Yes symmetric chest movement A USCULTATION: crackles Laterality: bilateral and posterior Cardio: COMMON NORMALS: regular rate, regular rhythm, S1 normal heart sound present, S2 normal heart sound present, No gallops present (Cardio), No clicks present (Cardio), No murmurs present (Cardio) and No rub (Cardio) RATE: r egular rate RHYTHM: regular rhythm HEART SOUNDS: S1 normal heart sound present and S2 normal heart sound present PERIPHERAL PULSES: radial pulses present Extremity: COMMON NORMALS: no pedal edema Neuro: COMMON NORMALS: patient oriented x3 and moves all extremities S ENSORIUM/ORIENTATION: Yes oriented to person, Yes oriented to place and Yes oriented to time Urinary Catheter Management: Dave: Cath Placed During This Visit: yes Reason for Continuing Indwelling Catheter: Accurate Measurement of Urinary Output in Critically Ill Patients Urinary Catheter Date of Insertion: 12/17/24 Data 12/18/24 03:55 12/18/24 03:55 A&P Assessment and plan (1) CAD (coronary artery disease): (2) CHF (congestive heart failure): (3) Elevated troponin: (4) COPD (chronic obstructive pulmonary disease): Qualifiers: COPD type: COPD with acute exacerbation Qualified Code(s): J44.1 - Chronic obstructive pulmonary disease with (acute) exacerbation Plan Troponin has been trending down, was 4500 when admitted to [facility]. No chest pain. She still appears volume overloaded, will continue Lasix 80 mg IV twice daily for now. Good renal function. Currently 300mL negative. When it is time for discharge will order a LifeVest for her. Coding Level of Care Code Acute Code for [facility] Diagnoses CAD (coronary artery disease) I25.10 CHF (congestive heart failure) I50.9 Elevated troponin R79.89 Chronic obstructive pulmonary disease with acute exacerbation J44.1 COPD type: COPD with acute exacerbation
[2024-12-18 12:00] LABS: Glucose Point of Care 367 mg/dL (70-110)
[2024-12-18] MEDS: magnesium sulfate premix 1 GM/100 ML PIGGYBACK IV (12:00)
[2024-12-18] MEDS: ALPRAZolam 0.5 mg Tablet PO (13:18)
[2024-12-18] MEDS: heparin drip 25,000 UNIT/500 ML PREMIX 31.06 UNIT IV (14:16)
--- NOTE | 2024-12-18 15:29 | P.PN_ITS ---
Subjective 2 Subjective: Acute events overnight. Patient seems very comfortable today morning. On 3 L of oxygen supplementation. Has remained hemodynamically stable and afebrile. Appreciate urine documentation. Seems to be inaccurate as patient did have over 1500 cc of urine output in the ER after Lasix. Denies any chest pain. Vitals/I&O/Wt Last Vital Signs Temp 97.8 F 12/18/24 14:00 Pulse 104 H 12/18/24 15:03 Resp 18 12/18/24 15:03 BP 103/56 12/18/24 14:00 Pulse Ox 94 12/18/24 15:03 O2 Del Method Nasal Cannula 12/18/24 15:03 O2 Flow Rate 3 12/18/24 15:03 FiO2 35 12/17/24 19:31 12/18/24 12/18/24 12/18/24 06:59 14:59 22:59 Intake Total 243.2 / 243.2 230.010 / 230.010 Output Total 550 / 550 Balance -306.8 / -306.8 230.010 / 230.010 Weight last 48 hrs Weight 85.5 kg Weight 85.5 kg Weight 84.368 kg Physical Exam 2 Narrative: General: In no acute distress AO x 3 on nasal cannula, HEENT: PERRLA, pupils bilaterally equal and reactive Chest: Normal vesicular breath sounds, fine crackles present both lung stokes and mid chest, equal good air entry bilaterally CVS: S1-S2 regular, pansystolic murmur at apex radiating to midaxillary line 2/6, no tachycardia, S3 gallop present, JVD elevated, no rubs Abdomen: Soft, nontender, no organomegaly, bowel sounds present Neuro: No focal deficits, no facial deformity, AO x3, power 5/5 in all limbs Urinary Catheter Management: Dave: Cath Placed During This Visit: yes Reason for Continuing Indwelling Catheter: Accurate Measurement of Urinary Output in Critically Ill Patients Urinary Catheter Date of Insertion: 12/17/24 Data 12/18/24 03:55 12/18/24 03:55 A&P Assessment and plan (1) Hypoxic respiratory failure: In setting of congestive heart failure. Oxygen supplementation keeping saturation 90%. BiPAP as tolerated. Check sputum culture, respiratory viral panel, D-dimer. (2) Congestive heart failure: Patient documentation from outside hospital. Repeat echocardiogram done shows EF of 30 to 35%, dilated and hypokinetic RV, mild MR, mild TR. Strict input output charting, daily weights. Fluid restriction to less than 1500 cc. IV Lasix 40 mg twice daily. Appreciate normal appearing IVC on echocardiogram. If needed will start patient on Levophed. (3) CAD (coronary artery disease): Recent PCI for STEMI. Cath results not available from other hospital. Appreciate documentation from recent STEMI. Troponin cycled trending down. For now continue with heparin drip. Baseline LBBB. Continue with DAPT, statin. Appreciate cardiology recommendations. Would most likely need LifeVest at the time of discharge. (4) LBBB (left bundle branch block): (5) Type II diabetes mellitus: Uncontrolled blood sugar on presentation. No concerns for DKA. A1c of 12.1. Lantus 40 units nightly Insulin sliding scale before meals and at bedtime at low-dose protocol. Patient most likely will need to be discharged on Lantus and Humalog. (6) COPD (chronic obstructive pulmonary disease): Start on Pulmicort twice daily, ipratropium, Xopenex every 6 hour. No need for steroids for now. No concerns for COPD exacerbation. Qualifiers: COPD type: COPD with acute exacerbation Qualified Code(s): J44.1 - Chronic obstructive pulmonary disease with (acute) exacerbation Plan CODE STATUS: Confirm DPOA again with the patient today there is a DPOA will be her friend Mr. Vignesh Stacy. Patient would like to remain full code. Carb consistent cardiac diet Protonix OPD prophylaxis Heparin will be sufficient for DVT prophylaxis Patient can be transferred to [facility]. Attestations 2 Medical Necessity Statement*: Requires further hospitalization for management of hypoxic respiratory failure in setting of congestive heart failure in a patient with recent history of STEMI, uncontrolled diabetes, LBBB Diagnoses Hypoxic respiratory failure J96.91 Congestive heart failure I50.9 CAD (coronary artery disease) I25.10 LBBB (left bundle branch block) I44.7 Type II diabetes mellitus E11.9 Chronic obstructive pulmonary disease with acute exacerbation J44.1 COPD type: COPD with acute exacerbation
[2024-12-18 17:35] LABS: Anion Gap 14.1 (5-19); Blood Urea Nitrogen 14 mg/dL (6-20); Calcium 9.3 mg/dL (8.5-10.5); Carbon Dioxide 30 mmol/L (22-29); Chloride 96 mmol/L (98-107); Glomerular Filtration Rate 75.6 mL/min (90-130); Glucose 346 mg/dL (65-115); Osmolality Calculated 296 mOsm/kg (285-295); Potassium 4.1 mmol/L (3.5-5.1); Sodium 136 mmol/L (136-145)
[2024-12-18 17:40] LABS: Glucose Point of Care 289 mg/dL (70-110)
[2024-12-18] MEDS: FUROsemide 10 mg/mL SDV 4mL 40 MG IVP (18:23)
[2024-12-18] MEDS: pantoprazole 40 mg SDV IVP (18:23)
[2024-12-18 19:20] LABS: Adenovirus Not Detected (NOT DETECT); Chlamydia Pneumoniae Not Detected (NOT DETECT); Coronavirus 229E,HKU1,NL63,OC4 Not Detected (NOT DETECT); Human Metapneumovirus Not Detected (NOT DETECT); Human Rhinovirus/Enterovirus Not Detected (NOT DETECT); Influenza A Not Detected (NOT DETECT); Influenza A H1 Not Detected (NOT DETECT); Influenza A H1-2009 Not Detected (NOT DETECT); Influenza A H3 Not Detected (NOT DETECT); Influenza B Not Detected (NOT DETECT); Mycoplasma Pneumoniae Not Detected (NOT DETECT); Parainfluenza Virus Type 1 Not Detected (NOT DETECT); Parainfluenza Virus Type 2 Not Detected (NOT DETECT); Parainfluenza Virus Type 3 Not Detected (NOT DETECT); Parainfluenza Virus Type 4 Not Detected (NOT DETECT); Respiratory Syncytial Virus A Not Detected (NOT DETECT); Respiratory Syncytial Virus B Not Detected (NOT DETECT); SARS-COV-2 Not Detected (NOT DETECT)
[2024-12-18 19:27] LABS: Partial Thromboplastin Time 72.6 SECONDS (23.9-36.7)
[2024-12-18 20:39] LABS: Glucose Point of Care 378 mg/dL (70-110)
[2024-12-18] MEDS: atorvastatin 40 mg Tablet PO (20:44)
[2024-12-18] MEDS: insulin glargine 100 units/1 mL 40 UNIT SUBCUT (20:45)
[2024-12-18 23:29] LABS: Bilirubin Urine Negative (Negative); Blood Urine 2+ (Negative); Glucose Urine UA Negative (Normal); Ketones Urine Negative (Negative); Leukocyte Esterase Urine 1+ (Negative); Nitrate Urine Negative (Negative); Protein Urine Negative (Negative); Specific Gravity, Urine 1.012 (1.005-1.030); Urine Appearance Clear (CLEAR); Urine Color Yellow (Yellow)
[2024-12-18 23:34] LABS: Add Urine Microscopic? YES; Bacteria Urine 4+ /hpf; Hyaline Casts Urine 18.18 /lpf; RBC Urine 21-50 /hpf (0-2); Squamous Epithelial Cell Urine 0-5 /hpf (0-5); WBC Urine 21-50 /hpf (0-5)
[2024-12-18 23:59] LABS: Add Urine Culture? Yes; UA Slide Review UA Slide Review Perf
[2024-12-19] VITALS (34 sets, daily range): BP systolic 84–127; BP diastolic 57–88; PULSE 85–100; RESP 13–23; TEMP 36.3–36.7; O2SAT 87–96; BMI 34.9
[2024-12-19 00:43] LABS: Partial Thromboplastin Time 111.6 SECONDS (23.9-36.7)
[2024-12-19] MEDS: levothyroxine 75 mcg Tablet PO (05:51)
[2024-12-19] MEDS: FUROsemide 10 mg/mL SDV 4mL 40 MG IVP ×2 (05:51→17:37)
--- NOTE | 2024-12-19 06:21 | XRR_ITS ---
PROCEDURE INFORMATION: Exam: XR Chest Exam date and time: 12/19/2024 7:01 AM Age: 49 years old Clinical indication: Device placement; Picc; Additional info: Post picc insertion, vijay placing in icu 5. Should be ready at 0700 TECHNIQUE: Imaging protocol: Radiologic exam of the chest. Views: 1 view. COMPARISON: CR (CHEST, ) 12/17/2024 4:47 PM FINDINGS: Tubes, catheters and devices: The right PICC line terminates near the atriocaval junction. Lungs: Vascular engorgement with interstitial infiltrates, mild congestive heart failure is probably present. Pleural spaces: Unremarkable. No pleural effusion. No pneumothorax. Heart/Mediastinum: See Vasculature finding. Vasculature: Mild cardiomegaly and uncoiling of the thoracic aorta. Bones/joints: Unremarkable. XR/XR chest 1V portable [id number] IMPRESSION: PICC line terminates near the atriocaval junction. Likely mild CHF. Superimposed right lower lobe infiltrate not excluded.
[2024-12-19] MEDS: heparin drip 25,000 UNIT/500 ML PREMIX 26 UNIT IV (07:19)
--- NOTE | 2024-12-19 07:46 | PICC.NOTE ---
Triple lumen PICC placed to right basilic vein. Referred to vascular access nurse for PICC placement due to pt poor access and heparin drip with frequent lab draws. Risks and benefits discussed and informed consent obtained from pt. Right arm assessed with right basilic vein measuring 6.0 mm, straight, and apparent best choice for placement. Using sterile technique and MST, right basilic vein accessed x 1 stick. Mid-arm circumference measured 10 cm from right AC 32 cm. Trimmed cath 38 cm with 0 cm external length noted. CXR shows tip in cavoatrial junction, in good position for use per radiologist. Line secured with stat-lock. Insertion site covered with Biopatch, Secureport IV and TSM. Report given to bedside nurse, POLY Gomez.
[2024-12-19 08:03] LABS: Glucose Point of Care 106 mg/dL (70-110)
[2024-12-19] MEDS: clopidogrel 75 mg Tablet PO (08:04)
[2024-12-19] MEDS: venlafaxine ER (24HR) 75 mg Capsule 225 MG PO (08:04)
[2024-12-19] MEDS: docusate sodium 100 mg Capsule PO ×2 (08:04→17:37)
[2024-12-19] MEDS: cefTRIAXone 1,000 mg SDV 1000 MG IVP (08:04)
[2024-12-19] MEDS: aspirin 81 mg EC Tablet PO (08:04)
[2024-12-19 08:44] LABS: Basophils # 0.1 10^3/uL (0.0-0.1); Basophils % 0.4 %; Eosinophils # 0.1 10^3/uL (0.0-0.8); Eosinophils % 0.8 %; Hematocrit 40.8 % (36-47); Lymphocytes # 2.9 10^3/uL (0.8-4.8); Lymphocytes % 21.4 %; Mean Corpuscular HGB Conc 32.4 g/dL (30-55); Mean Corpuscular Hemoglobin 31.4 pg (27-33); Mean Corpuscular Volume 96.9 fl (85-98); Mean Platelet Volume 10.5 fL (7.4-10.4); Monocytes # 0.8 10^3/uL (0.2-0.9); Monocytes % 5.9 %; Neutrophils # 9.63 10^3/uL (1.8-7.7); Neutrophils % 71.2 %; Nucleated Red Blood Cells % 0 %; Platelet Count 249 10^3/cmm (157-399); Red Blood Count 4.21 10^6/uL (3.85-5.65); White Blood Count 13.53 10^3/uL (3.29-11.43)
[2024-12-19 08:58] LABS: Partial Thromboplastin Time 69.6 SECONDS (23.9-36.7)
[2024-12-19 09:20] LABS: Alanine Aminotransferase 28 U/L (0-33); Albumin Level 3.4 g/dL (3.5-5.2); Alkaline Phosphatase 129 U/L (35-105); Aspartate Amino Transferase 24 U/L (0-32); Blood Urea Nitrogen 14 mg/dL (6-20); Calcium 9.1 mg/dL (8.5-10.5); Carbon Dioxide 32 mmol/L (22-29); Chloride 94 mmol/L (98-107); Creatinine Clr Calc Pharmacy 84.9224; Globulin 3.6 g/dL (1.3-4.6); Glomerular Filtration Rate 75.6 mL/min (90-130); Glucose 103 mg/dL (65-115); Magnesium 1.7 mg/dL (1.7-2.3); Osmolality Calculated 285 mOsm/kg (285-295); Phosphorus 4.7 mg/dL (2.5-4.5); Sodium 137 mmol/L (136-145); Total Bilirubin 0.6 mg/dL (0.15-1.2)
--- NOTE | 2024-12-19 10:47 | P.PN_ITS ---
<Statement entered by Giovanni Rosas M.D - 12/20/24 19:38> Patient was evaluated and cared for in conjunction with an advanced practice practitioner. I personally examined the patient and reviewed the chart and all pertinent data including imaging, telemetry, and laboratory results. I discussed the patient in detail with the advanced practice practitioner. Please see their note for complete progress note, results and agreed upon plan of care for the patient. Patient feeling better. Still short of breath. We will continue IV diuresis. Close I and Os. Monitor renal function GENERAL: Patient is alert and oriented HEART: Regular S1 and S2 LUNGS: Diminished air entry bilterally EXTREMITIES: Lower extremities with 1+ edema Subjective 2 Subjective: She is sleepy this morning but does not have any chest pain or shortness of breath. Labs this morning showed WBC slightly increased 13.5, BUN 14, creatinine 0.8. Blood sugar control better. She is 1 L negative this morning, cumulative she is 1400 mL negative. Lasix was reduced to 40 mg IV twice daily yesterday. Continue diuresis as she still seems slightly volume overloaded. Vitals/I&O/Wt Last Vital Signs Temp 98.0 F 12/19/24 08:00 Pulse 99 12/19/24 10:00 Resp 17 12/19/24 10:00 BP 108/73 12/19/24 10:00 Pulse Ox 92 12/19/24 10:00 O2 Del Method Nasal Cannula 12/19/24 07:49 O2 Flow Rate 3 12/19/24 07:49 FiO2 35 12/17/24 19:31 12/18/24 12/19/24 12/19/24 22:59 06:59 14:59 Intake Total 100 / 662.352 332.342 / 662.352 165.1 / 165.1 Output Total 900 / 900 1100 / 1100 Balance 100 / -237.648 -567.658 / -237.648 -934.9 / -934.9 Weight last 48 hrs Weight 190 lb 11.198 oz Weight 190 lb 11.198 oz Weight 188 lb 7.924 oz Weight 188 lb 7.924 oz Weight 186 lb Physical Exam 2 Const: COMMON NORMALS: no acute distress and patient oriented x3 GENERAL APPEARANCE: cooperative and comfortable ORIENTATION/CONSCIOUSNESS: Yes awake, Yes oriented to person, Yes oriented to place and Yes oriented to time Chest: COMMONS NORMALS: normal inspection of the chest and normal palpation of entire chest wall CHEST: Yes Symmetrical chest wall rise Resp: COMMON NORMALS: normal respiratory effort, No retractions, No use of accessory muscles and clear to auscultation bilaterally EFFORT & INSPECTION: Yes symmetric chest movement AUSCULTATION: clear to auscultation bilaterally Cardio: COMMON NORMALS: regular rate, regular rhythm, S1 normal heart sound present, S2 normal heart sound present, No gallops present (Cardio), No clicks present (Cardio), No murmurs present (Cardio) and No rub (Cardio) RATE: r egular rate RHYTHM: regular rhythm HEART SOUNDS: S1 normal heart sound present and S2 normal heart sound present PERIPHERAL PULSES: radial pulses present Extremity: COMMON NORMALS: no pedal edema Neuro: COMMON NORMALS: patient oriented x3 and moves all extremities S ENSORIUM/ORIENTATION: Yes oriented to person, Yes oriented to place and Yes oriented to time Urinary Catheter Management: Dave: Cath Placed During This Visit: yes Reason for Continuing Indwelling Catheter: Accurate Measurement of Urinary Output in Critically Ill Patients Urinary Catheter Date of Insertion: 12/17/24 Data 12/19/24 08:19 12/19/24 08:19 Micro: Microbiology 12/18/24 23:00 Bacterial Antigens - Final Urine Kidney A&P Assessment and plan (1) CAD (coronary artery disease): (2) CHF (congestive heart failure): (3) Elevated troponin: Plan She is looking much better today. Continue IV diuresis, may be close to euvolemia tomorrow. Plan for LifeVest Attestations 2 Medical Necessity Statement*: Systolic CHF, IV diuresis Coding Level of Care Code Acute Code for [facility] Diagnoses CAD (coronary artery disease) I25.10 CHF (congestive heart failure) I50.9 Elevated troponin R79.89
[2024-12-19] MEDS: ipratropium-albuterol 3 mL Neb INHALATION ×2 (11:08→19:18)
[2024-12-19 11:25] LABS: Glucose Point of Care 238 mg/dL (70-110)
[2024-12-19] MEDS: insulin lispro 100 unit/1 mL SUBCUT ×3 (11:37→20:59)
--- NOTE | 2024-12-19 13:10 | PM.PN ---
Subjective Subjective: Patient reports continued shortness of breath but improved from presentation. She endorses generalized weakness and states that she is only been up to the commode. I encouraged her to start mobilization today with assistance. She denies nausea or vomiting. Reports appetite is okay. Medications: Reviewed: Yes Vitals/I&O/Wt Last Vital Signs Temp 98.0 F 12/19/24 08:00 Pulse 95 12/19/24 12:00 Resp 16 12/19/24 12:00 BP 86/69 12/19/24 12:00 Pulse Ox 93 12/19/24 12:00 O2 Del Method Nasal Cannula 12/19/24 11:08 O2 Flow Rate 3 12/19/24 11:08 FiO2 35 12/17/24 19:31 12/18/24 12/19/24 12/19/24 22:59 06:59 14:59 Intake Total 100 / 330.010 332.342 / 662.352 165.1 / 165.1 Output Total 900 / 900 1100 / 1100 Balance 100 / 330.010 -567.658 / -237.648 -934.9 / -934.9 Weight last 48 hrs Weight 86.5 kg Weight 86.5 kg Weight 85.5 kg Weight 85.5 kg Weight 84.368 kg Physical Exam Narrative: General: Patient is awake. Ill-appearing. Head: Normocephalic. Atraumatic. EOM intact. Neck: No JVD. Cardiovascular: RRR. No gallops. No murmurs. Lungs: Breath sounds are slightly diminished, no use of accessory muscles, no crackles or wheezes. Conversational dyspnea. On supplemental oxygen support. Skin: No jaundice. No rashes. Abdomen: Normal bowel sounds, abdomen soft and nontender. Genito Urinary: Genital exam not performed since complaints not related. Rectal: Rectal exam not performed since no symptoms indicated blood loss. Extremities: No cyanosis or clubbing. Musculoskeletal: No swollen or erythematous joints. Neurological: Moves all 4 extremities. No myoclonus. Urinary Catheter Management: Dave: Cath Placed During This Visit: yes Reason for Continuing Indwelling Catheter: Accurate Measurement of Urinary Output in Critically Ill Patients Urinary Catheter Date of Insertion: 12/17/24 Data 12/19/24 08:19 12/19/24 08:19 Micro: Microbiology 12/18/24 23:00 Bacterial Antigens - Final Urine Kidney A&P Assessment and plan (1) Congestive heart failure: Acute on chronic heart failure with reduced ejection fraction exacerbation Ischemic cardiomyopathy Continuous telemetry monitoring Strict I's and O's Fluid restriction Daily weights Continue IV Lasix for net negative diuresis goal Cardiology team following, appreciate recommendations (2) Acute hypoxemic respiratory failure: Continue diuresing Attempt to wean oxygen, may need home walk study tomorrow Encourage pulmonary toilet Encourage out of bed and mobilization today (3) Elevated troponin: Troponin elevated with recent STEMI requiring PCI and stents at outside hospital Cardiology team following Currently on heparin drip, okay to continue therapeutic anticoagulation 48 hours (4) CAD (coronary artery disease): Continue DAPT with aspirin and Plavix Continue high intensity statin (5) COPD (chronic obstructive pulmonary disease): COPD without current exacerbation Continue current respiratory medications Qualifiers: COPD type: COPD with acute exacerbation Qualified Code(s): J44.1 - Chronic obstructive pulmonary disease with (acute) exacerbation (6) Type II diabetes mellitus: Type 2 diabetes mellitus, uncontrolled with hyperglycemia Continue Lantus 40 units nightly Sliding-scale insulin correction (7) UTI (urinary tract infection): Start ceftriaxone Plan DVT prophylaxis: Lovenox Attestations Medical Necessity Statement*: Patient requires ongoing hospitalization for IV diuresis, IV antibiotics, titration of cardiac medications, supplemental oxygen support, and supportive care. Coding Level of Care Code Acute Code for [facility] Diagnoses Congestive heart failure I50.9 Acute hypoxemic respiratory failure J96.01 Elevated troponin R79.89 CAD (coronary artery disease) I25.10 Chronic obstructive pulmonary disease with acute exacerbation J44.1 COPD type: COPD with acute exacerbation Type II diabetes mellitus E11.9 UTI (urinary tract infection) N39.0
[2024-12-19 16:57] LABS: Glucose Point of Care 278 mg/dL (70-110)
[2024-12-19] MEDS: budesonide 0.5 mg/2 mL Neb INHALATION (19:18)
[2024-12-19] MEDS: enoxaparin 40 mg/0.4 mL Syringe SUBCUT (20:59)
[2024-12-19] MEDS: atorvastatin 40 mg Tablet PO (20:59)
[2024-12-19 21:02] LABS: Glucose Point of Care 157 mg/dL (70-110)
[2024-12-19] MEDS: insulin glargine 100 units/1 mL 40 UNIT SUBCUT (22:02)
[2024-12-20] VITALS (7 sets, daily range): BP systolic 87–95; BP diastolic 64–67; PULSE 85–94; RESP 16–17; TEMP 36.3–36.5; O2SAT 87–96
[2024-12-20] MEDS: FUROsemide 10 mg/mL SDV 4mL 40 MG IVP (05:29)
[2024-12-20] MEDS: levothyroxine 75 mcg Tablet PO (05:29)
[2024-12-20 05:44] LABS: Basophils # 0.1 10^3/uL (0.0-0.1); Basophils % 0.5 %; Eosinophils # 0.2 10^3/uL (0.0-0.8); Eosinophils % 1.7 %; Hematocrit 40.9 % (36-47); Lymphocytes # 2.8 10^3/uL (0.8-4.8); Lymphocytes % 26.1 %; Mean Corpuscular HGB Conc 31.3 g/dL (30-55); Mean Corpuscular Hemoglobin 31.1 pg (27-33); Mean Corpuscular Volume 99.3 fl (85-98); Mean Platelet Volume 10.6 fL (7.4-10.4); Monocytes # 0.7 10^3/uL (0.2-0.9); Monocytes % 6.1 %; Neutrophils # 7.11 10^3/uL (1.8-7.7); Neutrophils % 65.3 %; Nucleated Red Blood Cells % 0 %; Platelet Count 228 10^3/cmm (157-399); Red Blood Count 4.12 10^6/uL (3.85-5.65); Red Cell Distribution Width 13.1 % (12.1-15.1); White Blood Count 10.88 10^3/uL (3.29-11.43)
[2024-12-20 06:13] LABS: Alanine Aminotransferase 21 U/L (0-33); Alkaline Phosphatase 122 U/L (35-105); Anion Gap 12.9 (5-19); Aspartate Amino Transferase 21 U/L (0-32); Blood Urea Nitrogen 16 mg/dL (6-20); Calcium 9.1 mg/dL (8.5-10.5); Carbon Dioxide 32 mmol/L (22-29); Chloride 94 mmol/L (98-107); Creatinine Clr Calc Pharmacy 84.5888; Globulin 3.7 g/dL (1.3-4.6); Glomerular Filtration Rate 75.6 mL/min (90-130); Glucose 87 mg/dL (65-115); Magnesium 1.8 mg/dL (1.7-2.3); Osmolality Calculated 281 mOsm/kg (285-295); Phosphorus 4.5 mg/dL (2.5-4.5); Potassium 3.9 mmol/L (3.5-5.1); Sodium 135 mmol/L (136-145); Total Bilirubin 0.6 mg/dL (0.15-1.2); Total Protein 6.7 g/dL (6.6-8.7)
[2024-12-20 06:35] LABS: Glucose Point of Care 96 mg/dL (70-110)
[2024-12-20] MEDS: ipratropium-albuterol 3 mL Neb INHALATION (07:58)
[2024-12-20] MEDS: budesonide 0.5 mg/2 mL Neb INHALATION (07:58)
[2024-12-20] MEDS: FUROsemide 10 mg/mL SDV 10mL 60 MG IVP (08:42)
--- NOTE | 2024-12-20 09:18 | PC.CHAP ---
Pastoral Care Encounter/Spiritual Assessment Type of Contact [] Declined custom designer visit [] Patient/Family/Request visit [] Outpatient visit [] Follow-up visit [] Physician referral [] Code/Alert [x] Routine visit [] Staff referral [] Actively dying [] Patient sleeping [] Family support [] [] Out of room [] Palliative care [] [] Receiving care in room [] Pre-surgical visit [] Trauma [] Long length of stay [] ICU visit [] Other: Relational/Emotional Strength [x] Patient feels connected with others/family/visitors/staff [] Distress [] Loneliness/isolation [] Abandonment Spirituality of Patient [x] Person of Linda [] Attends Yarsanism of their Linda [x] Believes in Prayer [] Reads Bible or Jainism materials [] There are Spiritual issues to be addressed Music Executive Interventions [x] Prayer [x] Active listening [] Non-anxious presence [x] Spiritual/emotional support [] Crisis/trauma care [] Spiritual counseling [] Bereavement support [] Provided bereavement packet [] Provided Bible/devotional materials [] Provided toy/stuffed animal, coloring book to patient or family member [] Provided Communion [] Anointing/[place] [] Salvation [x] Completed spiritual assessment [] Other: Impact on Illness or Injury [] Angry [] Fearful [] Anxious [] Often cries [] Exhaustion [] Unable to work [] Unable to attend rastafari [] Unable to walk/stand [] Unable to read [] Unable to drive [] Unable to eat/drink [] Unable to sleep [] Unable to be with family [] Patient intubated [] Other: Summary Time spent with patient 5 min
[2024-12-20 09:33] LABS: NT Pro B Type Natriuretic Pept 5425 pg/mL (0-125)
[2024-12-20] MEDS: cefTRIAXone 1,000 mg SDV 1000 MG IVP (09:33)
[2024-12-20] MEDS: clopidogrel 75 mg Tablet PO (09:33)
[2024-12-20] MEDS: aspirin 81 mg EC Tablet PO (09:33)
[2024-12-20] MEDS: venlafaxine ER (24HR) 75 mg Capsule 225 MG PO (09:33)
[2024-12-20] MEDS: pantoprazole DR 40 mg Tablet PO (09:33)
--- NOTE | 2024-12-20 10:43 | P.PN_ITS ---
<Statement entered by Giovanni Rosas M.D - 12/20/24 20:48> Patient was evaluated and cared for in conjunction with an advanced practice practitioner. I personally reviewed the chart and all pertinent data including imaging, telemetry, and laboratory results. I discussed the patient in detail with the advanced practice practitioner. Please see their note for complete progress note, results and agreed upon plan of care for the patient. Subjective 2 Subjective: She was volume overloaded still overnight, was only 1 L negative for entire hospital stay. Received 1 dose of Lasix 60 mg this morning. Will hold off any further doses of Lasix as lungs are now clear and she has orthostatic hypotension. She was able to ambulate with physical therapy this morning however oxygen levels decreased with ambulation. BUN this morning 16, creatinine 0.8 Vitals/I&O/Wt Last Vital Signs Temp 97.6 F 12/20/24 07:54 Pulse 86 12/20/24 07:58 Resp 16 12/20/24 07:58 BP 87/64 12/20/24 07:54 Pulse Ox 87 L 12/20/24 10:26 O2 Del Method Nasal Cannula 12/20/24 07:58 O2 Flow Rate 3 12/20/24 10:26 FiO2 35 12/17/24 19:31 12/19/24 12/20/24 12/20/24 22:59 06:59 14:59 Intake Total 480 / 918.933 120 / 918.933 120 / 120 Output Total 400 / 1800 300 / 1800 2100 / 2100 Balance 80 / -881.067 -180 / -881.067 -1979 / Weight last 48 hrs Weight 189 lb 4.8 oz Weight 190 lb 11.198 oz Weight 190 lb 11.198 oz Physical Exam 2 Const: COMMON NORMALS: no acute distress and patient oriented x3 GENERAL APPEARANCE: cooperative and comfortable ORIENTATION/CONSCIOUSNESS: Yes awake, Yes oriented to person, Yes oriented to place and Yes oriented to time Chest: COMMONS NORMALS: normal inspection of the chest and normal palpation of entire chest wall CHEST: Yes Symmetrical chest wall rise Resp: COMMON NORMALS: normal respiratory effort, No retractions, No use of accessory muscles and clear to auscultation bilaterally EFFORT & INSPECTION: Yes symmetric chest movement AUSCULTATION: clear to auscultation bilaterally Cardio: COMMON NORMALS: regular rate, regular rhythm, S1 normal heart sound present, S2 normal heart sound present, No gallops present (Cardio), No clicks present (Cardio), No murmurs present (Cardio) and No rub (Cardio) RATE: r egular rate RHYTHM: regular rhythm HEART SOUNDS: S1 normal heart sound present and S2 normal heart sound present PERIPHERAL PULSES: radial pulses present Extremity: COMMON NORMALS: no pedal edema Neuro: COMMON NORMALS: patient oriented x3 and moves all extremities S ENSORIUM/ORIENTATION: Yes oriented to person, Yes oriented to place and Yes oriented to time Urinary Catheter Management: Dave: Cath Placed During This Visit: yes Reason for Continuing Indwelling Catheter: Accurate Measurement of Urinary Output in Critically Ill Patients Urinary Catheter Date of Insertion: 12/17/24 Data 12/20/24 04:43 12/20/24 04:43 Micro: Microbiology 12/18/24 23:00 Bacterial Antigens - Final Urine Kidney A&P Assessment and plan (1) CAD (coronary artery disease): (2) Congestive heart failure: (3) Elevated troponin: Plan She now appears euvolemic, will have to observe blood pressures closely due to orthostatic hypotension, advised her to change positions slowly. She was fatigued but otherwise asymptomatic with ambulation. She will need a LifeVest prior to discharge. Continue atorvastatin 40 mg daily, Plavix, aspirin. Will hold off Entresto for now due to soft blood pressures. She was previously on spironolactone-hold for now. We may be able to reintroduce these as an outpatient. She does need a beta-phoebe as well, may be able to add on metoprolol tartrate 12.5 mg twice daily if blood pressure improves over the day. Attestations 2 Medical Necessity Statement*: GDMT for heart failure Coding Level of Care Code Acute Code for [facility] Fwd Diagnoses CAD (coronary artery disease) I25.10 Congestive heart failure I50.9 Elevated troponin R79.89
[2024-12-20 11:30] LABS: Glucose Point of Care 233 mg/dL (70-110)
--- NOTE | 2024-12-20 12:07 | PM.DCS ---
Discharge Providers Date of Admission: 12/17/24 18:05 Date of Discharge: December 20, 2024 Attending Provider at Admission: Delio Lackey MD Attending Provider at Discharge: Jay Lamar MD Primary Care Provider: Sushil Mobley MD Diagnoses at Discharge Discharge Diagnosis (1) CAD (coronary artery disease): Status: Acute (2) Congestive heart failure: Status: Acute (3) Elevated troponin: Status: Acute Reason for Visit Reason for Visit: sob Hospital Course Hospital Course Carmen Richards is a 49-year-old female with a past medical history significant for uncontrolled type 2 diabetes mellitus, hypothyroidism, hypertension, coronary artery disease with recent STEMI, and ischemic cardiomyopathy with left ventricular dysfunction who presented with shortness of breath, found to have acute on chronic heart failure with reduced ejection fraction exacerbation resulting in acute hypoxic respiratory failure and elevated troponins. Cardiology consulted and followed. She was treated with IV diuresis, continued antiplatelet agents, statin, and heparin drip. Her symptoms largely improved. Her volume status improved. She is being rotated to increase home loop diuretic dosing at discharge. She will need continued goal-directed management of congestive heart failure after discharge. Her hemodynamics currently will not tolerate initiation of beta-phoebe or Entresto. She will be discharged on Lasix for volume control. Her ARB and Aldactone are being discontinued as her current hemodynamics will not tolerate. She is to keep a weight and vitals log and follow-up with cardiology clinic in approximately 1 week for review. At that time further goal directed medical therapy may be initiated pending on her hemodynamic. Patient also found to have acute complicated urinary tract infection treated with ceftriaxone and transition to cefdinir at discharge. Physical Exam Narrative: General: Patient is awake. Alert. Appears fatigued but pleasant. Head: Normocephalic. Atraumatic. EOM intact. Neck: No JVD. Cardiovascular: RRR. No gallops. No murmurs. Lungs: Improved breath sounds. No use of accessory muscles, no crackles or wheezes. Skin: No jaundice. No rashes. Abdomen: Normal bowel sounds, abdomen soft and nontender. Extremities: No cyanosis or clubbing. Musculoskeletal: No swollen or erythematous joints. Neurological: Moves all 4 extremities. No myoclonus. Urinary Catheter Management: Dave: Cath Placed During This Visit: yes, but has since been removed by the nurse Reason for Continuing Indwelling Catheter: Decision to DC Catheter Urinary Catheter Date of Insertion: 12/17/24 Date Urinary Catheter Removed: 12/20/24 Time Urinary Catheter Discontinued: 12:04 Discharge Data Studies Completed and Pending Completed Studies During Hospitalization Category Date Time Status CXRP [XR chest 1V portable [id number]] Routine Exams 12/19/24 06:21 Completed XR chest 1V portable [id number] Stat Exams 12/17/24 16:43 Completed CV. echo complete* [id number] Stat Ultrasound 12/17/24 18:31 Completed Pending at discharge Category Date Time Status Sputum Culture and Gram Stain Stat Lab 12/18/24 15:32 Uncollected Urine Culture Stat Lab 12/18/24 23:00 Received Radiology Impressions Chest X-Ray 12/19/24 06:21 IMPRESSION: PICC line terminates near the atriocaval junction. Likely mild CHF. Superimposed right lower lobe infiltrate not excluded. Laboratory Results WBC 10.88 10^3/uL (3.29-11.43) 12/20/24 04:43 RBC 4.12 10^6/uL (3.85-5.65) 12/20/24 04:43 Hgb 12.80 g/dL (11.27-16.99) 12/20/24 04:43 Hct 40.9 % (36-47) 12/20/24 04:43 MCV 99.3 fl (85-98) H 12/20/24 04:43 MCH 31.1 pg (27-33) 12/20/24 04:43 MCHC 31.3 g/dL (30-55) 12/20/24 04:43 RDW 13.1 % (12.1-15.1) 12/20/24 04:43 Plt Count 228 10^3/cmm (157-399) 12/20/24 04:43 MPV 10.6 fL (7.4-10.4) H 12/20/24 04:43 Neut % (Auto) 65.3 % 12/20/24 04:43 Lymph % (Auto) 26.1 % 12/20/24 04:43 [place] % (Auto) 6.1 % 12/20/24 04:43 Eos % (Auto) 1.7 % 12/20/24 04:43 Baso % (Auto) 0.5 % 12/20/24 04:43 Neut # (Auto) 7.11 10^3/uL (1.8-7.7) 12/20/24 04:43 Lymph # (Auto) 2.8 10^3/uL (0.8-4.8) 12/20/24 04:43 [place] # (Auto) 0.7 10^3/uL (0.2-0.9) 12/20/24 04:43 Eos # (Auto) 0.2 10^3/uL (0.0-0.8) 12/20/24 04:43 Baso # (Auto) 0.1 10^3/uL (0.0-0.1) 12/20/24 04:43 Nucleated RBC % (auto) 0 % 12/20/24 04:43 Nucleated RBCs # 0.0 /100WBC 12/20/24 04:43 APTT 69.6 SECONDS (23.9-36.7) H 12/19/24 08:19 D-Dimer 0.60 ug/mLFEU (0-0.59) H 12/18/24 16:20 Sodium 135 mmol/L (136-145) L 12/20/24 04:43 Potassium 3.9 mmol/L (3.5-5.1) 12/20/24 04:43 Chloride 94 mmol/L (98-107) L 12/20/24 04:43 Carbon Dioxide 32 mmol/L (22-29) H 12/20/24 04:43 Anion Gap 12.9 (5-19) 12/20/24 04:43 BUN 16 mg/dL (6-20) 12/20/24 04:43 Creatinine 0.8 mg/dL (0.5-0.9) 12/20/24 04:43 GFR Calculation 75.6 mL/min (90-130) L 12/20/24 04:43 Glucose 87 mg/dL (65-115) 12/20/24 04:43 POC Glucose 233 mg/dL (70-110) H 12/20/24 11:28 Estimat Average Glucose 301 12/17/24 17:15 Hemoglobin A1c 12.1 % (4.0-6.0) H 12/17/24 17:15 Calculated Osmolality 281 mOsm/kg (285-295) L 12/20/24 04:43 Lactic Acid 2.2 mmol/L (0.5-2.2) 12/17/24 17:15 Lactic Acid (Sepsis) 4.0 mmol/L (0.5-2.2) H 12/17/24 23:18 Calcium 9.1 mg/dL (8.5-10.5) 12/20/24 04:43 Phosphorus 4.5 mg/dL (2.5-4.5) 12/20/24 04:43 Magnesium 1.8 mg/dL (1.7-2.3) 12/20/24 04:43 Total Bilirubin 0.6 mg/dL (0.15-1.2) 12/20/24 04:43 AST 21 U/L (0-32) 12/20/24 04:43 ALT 21 U/L (0-33) 12/20/24 04:43 Alkaline Phosphatase 122 U/L (35-105) H 12/20/24 04:43 Troponin T Baseline 441 ng/L (0-10) H* 12/17/24 17:15 Troponin T 120 Minute 407.8 ng/L (0-10) H 12/17/24 19:29 Delta Troponin T -33.2 ABS# (0-10) L 12/17/24 19:29 Troponin T Hi Sens 6Hr 378.6 ng/L (0-10) H 12/17/24 23:18 Troponin T Hi Sens 6Hr Delta -62.4 ng/L (0-12) L 12/17/24 23:18 NT-Pro-B Natriuret Pep 5425 pg/mL (0-125) H 12/20/24 04:43 Total Protein 6.7 g/dL (6.6-8.7) 12/20/24 04:43 Albumin 3.0 g/dL (3.5-5.2) L 12/20/24 04:43 Globulin 3.7 g/dL (1.3-4.6) 12/20/24 04:43 Triglycerides 63 mg/dL (0-150) 12/18/24 03:55 Cholesterol 142 mg/dL (0-200) 12/18/24 03:55 LDL Cholesterol, Calc 82 mg/dL (50-129) 12/18/24 03:55 HDL Cholesterol 47 mg/dL (60-100) L 12/18/24 03:55 LDL/HDL Ratio 1.74 RATIO (0.00-3.22) 12/18/24 03:55 Cholesterol/HDL Ratio 3.02 mg/dL (0.0-4.40) 12/18/24 03:55 Procalcitonin 0.06 ng/mL (0-0.5) 12/18/24 03:55 TSH 1.09 uIU/mL (0.27-4.20) 12/17/24 17:15 Urine Color Yellow (Yellow) 12/18/24 23:00 Urine Appearance Clear (CLEAR) 12/18/24 23:00 Urine pH 5.0 (5-7) 12/18/24 23:00 Ur Specific [place] 1.012 (1.005-1.030) 12/18/24 23:00 Urine Protein Negative (Negative) 12/18/24 23:00 Urine Glucose (UA) Negative (Normal) 12/18/24 23:00 Urine Ketones Negative (Negative) 12/18/24 23:00 Urine Blood 2+ (Negative) A 12/18/24 23:00 Urine Nitrate Negative (Negative) 12/18/24 23:00 Urine Bilirubin Negative (Negative) 12/18/24 23:00 Urine Urobilinogen 1.0 mg/dL (Negative) 12/18/24 23:00 Ur Leukocyte Esterase 1+ (Negative) A 12/18/24 23:00 Urine RBC 21-50 /hpf (0-2) H 12/18/24 23:00 Urine WBC 21-50 /hpf (0-5) H 12/18/24 23:00 Ur Squamous Epith Cells 0-5 /hpf (0-5) 12/18/24 23:00 Amorphous Sediment Not Reportable 12/18/24 23:00 Urine Bacteria 4+ /hpf (NONE) H 12/18/24 23:00 Hyaline Casts 18.18 /lpf 12/18/24 23:00 Adenovirus (PCR) Not detected (NOT DETECT) 12/18/24 16:50 C. pneumoniae DNA (PCR) Not detected (NOT DETECT) 12/18/24 16:50 Coronavirus 229E (PCR) Not detected (NOT DETECT) 12/18/24 16:50 Human Metapneumovir PCR Not detected (NOT DETECT) 12/18/24 16:50 Influenza A (H1) PCR Not detected (NOT DETECT) 12/18/24 16:50 Influ A (H1/09) PCR Not detected (NOT DETECT) 12/18/24 16:50 Influenza A (H3) PCR Not detected (NOT DETECT) 12/18/24 16:50 Influenza Type A (PCR) Not detected (NOT DETECT) 12/18/24 16:50 Influenza Type B (PCR) Not detected (NOT DETECT) 12/18/24 16:50 M. pneumoniae (PCR) Not detected (NOT DETECT) 12/18/24 16:50 Parainfluenza 1 (PCR) Not detected (NOT DETECT) 12/18/24 16:50 Parainfluenza 2 (PCR) Not detected (NOT DETECT) 12/18/24 16:50 Parainfluenza 3 (PCR) Not detected (NOT DETECT) 12/18/24 16:50 Parainfluenza 4 (PCR) Not detected (NOT DETECT) 12/18/24 16:50 RSV Type A (PCR) Not detected (NOT DETECT) 12/18/24 16:50 RSV Type B (PCR) Not detected (NOT DETECT) 12/18/24 16:50 Entero/Rhino (PCR) Not detected (NOT DETECT) 12/18/24 16:50 SARS-CoV-2 (PCR) Not detected (NOT DETECT) 12/18/24 16:50 Vitals Last Vital Signs Temp 97.7 F 12/20/24 11:54 Pulse 94 12/20/24 11:54 Resp 16 12/20/24 11:54 BP 95/67 12/20/24 11:54 Pulse Ox 96 12/20/24 11:54 O2 Del Method Nasal Cannula 12/20/24 11:54 O2 Flow Rate 2 12/20/24 11:10 FiO2 35 12/17/24 19:31 Discharge Plan Discharge Patient Disposition: Home Condition: Stable Prescriptions: New cefdinir 300 mg capsule 300 mg PO BID 5 Days Qty: 10 0RF insulin lispro [Humalog U-100 Insulin] 100 unit/mL Solution 0 unit SUBCUT WM&BEDTIME 30 Days Qty: 12 0RF Continued Symbicort 160-4.5 mcg/actuation HFA aerosol inhaler 2 puff INHALATION BID insulin glargine [Lantus Solostar U-100 Insulin] 100 unit/mL (3 mL) insulin pen 60 unit SUBCUT QAM Qty: 60 1RF potassium chloride 10 mEq tablet extended release 10 meq PO DAILY Spiriva Respimat 2.5 mcg/actuation mist 1 inh inhalation DAILY venlafaxine 150 mg capsule,extended release 24hr See Rx Instructions .ROUTE .COMPLEX Rx Instructions: TAKE ONE CAPSULE BY MOUTH EVERY DAY with 75mg capsule. venlafaxine 75 mg capsule,extended release 24hr See Rx Instructions .ROUTE .COMPLEX Rx Instructions: TAKE ONE CAPSULE BY MOUTH EVERY DAY with 150mg capsule acetaminophen [Tylenol Extra Strength] 500 mg Tablet 1,000 mg PO Q6H PRN (Reason: Pain) nitroglycerin 0.4 mg tablet, sublingual 0.4 mg buccal PRN PRN (Reason: Chest Pain) tiotropium bromide [Spiriva with HandiHaler] 18 mcg Capsule, W/Inhalation Device 1 cap INHALATION DAILY Rx Instructions: puncture 1 cap using device; one dose = 2 inhalations insulin glargine-yfgn 25 100 ml SUBCUT 1XD levothyroxine 75 mcg Tablet 75 mcg PO DAILY aspirin [Adult Low Dose Aspirin] 81 mg tablet,delayed release (DR/EC) 81 mg PO DAILY Qty: 90 3RF prednisone 10 mg tablet See Rx Instructions .ROUTE .COMPLEX Rx Instructions: TAKE 2 TABLETS BY MOUTH EVERY DAY FOR SEVEN DAYS THEN ONE tab daily venlafaxine 75 mg capsule,extended release 24hr 75 mg PO DAILY clopidogrel 75 mg tablet 75 mg PO DAILY pantoprazole 40 mg tablet,delayed release (DR/EC) 40 mg PO DAILY nitroglycerin 0.4 mg tablet, sublingual 0.4 mg sublingual PRN PRN (Reason: Chest Pain) furosemide 20 mg tablet 20 mg PO DAILY oxycodone 10 mg tablet 10 mg PO TID atorvastatin 40 mg tablet 40 mg PO BEDTIME albuterol sulfate 2.5 mg /3 mL (0.083 %) solution for nebulization 2.5 mg continuous nebulization QID acyclovir 400 mg tablet 400 mg PO BID albuterol sulfate [Ventolin HFA] 90 mcg/actuation HFA aerosol inhaler 2 puff INHALATION QID Changed furosemide 40 mg tablet 40 mg PO BIDWMEAL 30 Days Qty: 60 0RF Discontinued losartan 100 mg tablet 100 mg PO DAILY ibuprofen [Advil] 200 mg Tablet 800 mg PO Q6H PRN (Reason: Fever Or Pain) spironolactone 50 mg tablet 50 mg PO DAILY Discharge Orders: Discharge Order (Routine); Ordered 12/20/24 Ordered By: Jay Lamar Other Ambulatory Orders: DME: Oxygen (Order) Location: None Selected Ordered By: Jay Lamar DME: Walker (Order) Location: None Selected Ordered By: Jay Lamar Referrals: Sushil Mobley MD [Primary Care Provider] - 12/26/24 1:00 pm (seeing [employer]ODUCTION MANAGER, Nanda Kendall) Johanna Rodriguez FNP [Nurse Practitioner] - 1 week (We have notified your physician's clinic of the need for a follow-up appointment to be scheduled. If you have not heard from them within the next 2 business days, please call them directly. ) Veronica Still MD [Physician] - 2 weeks (We have notified your physician's clinic of the need for a follow-up appointment to be scheduled. If you have not heard from them within the next 2 business days, please call them directly. ) Discharge Diet: Advance as tolerated, Cardiac, Diabetic and Low Salt Discharge Activity: Resume usual activity and Increase activity as tolerated Patient Instructions: Cefdinir (By mouth), Heart Failure (DC), Urinary Tract Infection in Women (GEN), Using Oxygen at Home (GEN), CHF Stoplight, Opioid Safety Activity Restrictions/Additional Instructions: 1. Increase activity as tolerated 2. Keep daily weights. Recommend weighing yourself after using the restroom every morning and recording. If you gain more than 2 pounds over any 3 days, contact your vehicle sales professional or PCP clinic immediately. 3. Take medications as prescribed. 4. Follow salt restricted diet to low more than 2 g of sodium per day. Recommend fluid restriction of no more than 2 L of total fluid intake per day. 5. Follow-up with your outpatient providers as recommended above. 6. Cardiology managing LifeVest. Low Dose Sliding Scale 141-180 2 units 181-220 4 units 221-260 6 units 261-300 8 units 301-350 10 units 351-400 12 units Greater than 400 14 units. Discharge Attestations Time Spent in Discharge Care*: greater than 30 min Quality Metrics Clinical Quality Measures [ No reported AMI, CVA or VTE this stay] Coding Level of Care Code Acute Code for g Fwd Diagnoses CAD (coronary artery disease) I25.10 Congestive heart failure I50.9 Elevated troponin R79.89
[2024-12-20] MEDS: insulin lispro 100 unit/1 mL SUBCUT (13:16)
--- NOTE | 2024-12-20 16:31 | PC.NURSE ---
brittney child ordered, but unable to apply in the hospital d/t insurance issues. Will work with Anat to get this done outpatient.
--- NOTE | 2024-12-20 16:32 | PC.NURSE ---
Discharge Note Patient discharged to home via private vehicle accompanied by son. Discharge instructions reviewed with patient and/or patient account representative. Mobile pharmacy medications and/or prescriptions provided. Belongings/home medications returned.
== END 2024-12-20 16:36 | disposition home or self-care (01) | DRG 280 ==
LOC: ER 17:39 → ER IP 18:23 → ICU 12-18 01:39 → MEDSURG 12-19 12:31
PROVIDERS: Internal Medicine; Nurse Practitioner Family; Admitting Provider Student in an Organized Health Care Education/Training Program; Emergency Provider Emergency Medicine; PCP Family Medicine; Visit Provider Internal Medicine
DX: I11.0 Hypertensive heart disease with heart failure (principal); I50.23 Acute on chronic systolic (congestive) heart failure; I21.3 ST elevation (STEMI) myocardial infarction of unspecified site; J96.01 Acute respiratory failure with hypoxia; N39.0 Urinary tract infection, site not specified; J44.1 Chronic obstructive pulmonary disease with (acute) exacerbation; F33.9 Major depressive disorder, recurrent, unspecified; I69.954 Hemiplegia and hemiparesis following unspecified cerebrovascular disease affecting left non-dominant side; I25.10 Atherosclerotic heart disease of native coronary artery without angina pectoris; Z95.5 Presence of coronary angioplasty implant and graft; E11.65 Type 2 diabetes mellitus with hyperglycemia; E03.9 Hypothyroidism, unspecified; I25.5 Ischemic cardiomyopathy; R79.89 Other specified abnormal findings of blood chemistry; Z79.51 Long term (current) use of inhaled steroids; Z79.4 Long term (current) use of insulin; Z79.82 Long term (current) use of aspirin; Z79.02 Long term (current) use of antithrombotics/antiplatelets; Z79.891 Long term (current) use of opiate analgesic; I44.7 Left bundle-branch block, unspecified; F17.210 Nicotine dependence, cigarettes, uncomplicated; Z86.19 Personal history of other infectious and parasitic diseases; E78.5 Hyperlipidemia, unspecified
CPT/HCPCS: 36415; 36416; 36573; 36592; 51702; 71045; 80048; 80053; 80061; 81001; 82962; 83036; 83605; 83735; 83880; 84100; 84145; 84443; 84484; 85025; 85378; 85730; 86403; 87077; 87086; 87186; 87486; 87581; 87633; 93005; 93306; 94640; 94660; 94664; 94760; 96372; 96374; 96376; 97110; 97162; 99285; C1751; J0696; J1644; J1650; J1815; J1940; J2470; J3475; J7626

== ENCOUNTER → 2024-12-25 15:02 | Outpatient (BNVA) | payer MEDICAID, SELFPAY ==
[2024-07-26 12:01] VITALS: BP 129/79; BMI 43.1
== END ==
PROVIDERS: PCP Family Medicine; Visit Provider Internal Medicine
DX: R06.02 Shortness of breath (principal)
CPT/HCPCS: 80048; 83880

== ENCOUNTER → 2025-01-25 14:55 | Outpatient (BNVA) | payer MEDICAID, SELFPAY ==
[2024-07-26 12:01] VITALS: BP 129/79; BMI 43.1
== END ==
PROVIDERS: PCP Family Medicine; Visit Provider Nurse Practitioner Family
DX: I11.0 Hypertensive heart disease with heart failure (principal); I50.9 Heart failure, unspecified; E78.5 Hyperlipidemia, unspecified; I65.22 Occlusion and stenosis of left carotid artery; E11.9 Type 2 diabetes mellitus without complications; J44.1 Chronic obstructive pulmonary disease with (acute) exacerbation; R06.09 Other forms of dyspnea; F17.210 Nicotine dependence, cigarettes, uncomplicated; Z79.4 Long term (current) use of insulin
CPT/HCPCS: 99213

== ENCOUNTER 2025-04-27 14:07 | Outpatient (CLI) | payer MEDICAID, SELFPAY ==
[2024-07-26 12:01] VITALS: BP 129/79; BMI 43.1
--- NOTE | 2025-04-27 14:15 | USCV_ITS ---
Maurice Carmen Age: 49 Gender: F : 1975 Exam Date: 04/27/2025 14:25 Ordering Phys: Aimee Sewell NP Technologist: CARLITOS Exam Location: [facility] Indication: CHF BP: 106 / 75 HR: Rhythm: Sinus Technical Quality: Adequate MEASUREMENTS (Male / Female) Normal Values 2D ECHO LV Diastolic Diameter PLAX 5.3 cm 4.2 - 5.9 / 3.9 - 5.3 cm IVS Diastolic Thickness 1.1 cm 0.6 - 1.0 / 0.6 - 0.9 cm IVS Systolic Thickness 1.6 cm LVPW Diastolic Thickness 1.1 cm 0.6 - 1.0 / 0.6 - 0.9 cm LVPW Systolic Thickness 1.9 cm LVOT Diameter 2.0 cm LV Ejection Fraction 2D Teich 40.4 % LV Ejection Fraction MOD 4C 32.1 % LV Ejection Fraction MOD 2C 35.6 % LV Ejection Fraction 2C AL 39.7 % LA Diameter 3.0 cm RA Systolic Volume 4C AL 34.4 ml RA Systolic Volume 4C MOD 33.8 ml LA Sys Volume AL 57.5 cm cubed LA Sys Volume Index AL 28.9 cm cubed/m squared IVC Diameter 2.1 cm M-MODE LA Ao Ratio MM 1.1 AV Cusp Separation MM 1.3 cm FINDINGS Left Ventricle Moderately increased left ventricular cavity size. Severely decreased left ventricular systolic function. Left ventricular ejection fraction is estimated at 32 %. Global left ventricular hypokinesis. Right Ventricle Right Atrium Left Atrium Mitral Valve Aortic Valve Tricuspid Valve Pulmonic Valve Pericardium Aorta IVC CONCLUSIONS Limited echocardiogram Moderately increased left ventricular cavity size. Severely decreased left ventricular systolic function. Left ventricular ejection fraction is estimated at 32 %. Global left ventricular hypokinesis. There is no pericardial effusion. Keven Gonzalez MD (Electronically Signed) Final Date: 30 April 2025 22:43 S
== END 2025-04-27 14:08 | disposition home or self-care (01) ==
PROVIDERS: PCP Family Medicine; Visit Provider Nurse Practitioner Family
DX: I50.9 Heart failure, unspecified (principal); I51.7 Cardiomegaly; R93.1 Abnormal findings on diagnostic imaging of heart and coronary circulation
CPT/HCPCS: 93308

== ENCOUNTER 2025-06-16 16:28 | Emergency (ER) | payer MEDICAID, SELFPAY ==
[2024-07-26 12:01] VITALS: BP 129/79; BMI 43.1
[2025-06-16 16:32] VITALS: BP 108/67; PULSE 112; RESP 18; TEMP 36.6; O2SAT 94; BMI 35.5
--- NOTE | 2025-06-16 16:33 | XRR_ITS ---
PROCEDURE INFORMATION: Exam: XR Chest Exam date and time: 06/16/2025 4:57 PM Age: 49 years old Clinical indication: Pain; Chest pressure; Prior surgery; Surgery date: 6+ months; Surgery type: Coronary stent; Additional info: Cp TECHNIQUE: Imaging protocol: Radiologic exam of the chest. Views: 1 view. COMPARISON: CR XR chest 1V portable [id number] 12/19/2024 7:01 AM FINDINGS: Lungs: Ground-glass opacities in the lung bases, right greater than left. Pleural spaces: Small right pleural effusion. Trace left pleural effusion. No pneumothorax. Heart/Mediastinum: Mild cardiomegaly. Bones/joints: Unremarkable. XR/XR chest 1V portable [id number] IMPRESSION: Bibasilar opacities are most likely pulmonary edema and less likely pneumonia.
--- OUTSIDE RECORDS SUMMARY | 2025-06-16 16:33 | XMS_ITS | Encounter Summary ---
Author Organization [facility] Address [address] [place] [address] Care Team Providers Care Wool Washer Name Role Phone Sushil Mobley MD Primary Care Provider [phone] Encounter Details Date Type Department Care Team (Late st Contact Info) Description 09/10/2014 Ancillary Orders [facility] Laboratory Services [place] [address] [place] [phone] Sick Social History Tobacco Use Types Packs/Day Years Used Date Smoking Tobacco: Never Assessed Comments Unknown Sex and Gender Information Value Date Recorded Sex Assigned at Not on file Legal Sex Female 9:04 PM CDT Gender Identity Not on file Sexual Orientation Not on file documented as of this encounter Plan of Treatment Not on file documented as of this encounter Procedures Procedure Name Priority Date/Time Associated Diagnosis Comments TSH Routine 09/10/2014 9:04 PM CDT Sick [ICD-9-CM] HEMOGLOBIN A1C Routine 09/10/2014 9:04 PM CDT Sick [ICD-9-CM] COMPREHENSIVE METABOLIC PANEL Routine 09/10/2014 9:04 PM CDT Sick [ICD-9-CM] documented in this encounter Results * TSH (09/10/2014 9:04 PM CDT) TSH 3.62 0.30 - 4.80 uIU/mL 09/10/2014 9:45 PM CDT [facility] LABORATORY SERVICES [facility] Blood Collection / Unknown 09/10/2014 9:04 PM CDT 09/10/2014 9:04 PM CDT Mega Mcelroy DO CHEMISTRY ORDERABLES Final Resu lt Performing Organization Address City/[facility]/ZIP Co de Phone Number [facility] CLIA # [id number] [address] [place] [address] * (ABNORMAL) HEMOGLOBIN A1C (09/10/2014 9:04 PM CDT) HEMOGLOBIN A1C 8.0(H) 4.5 - 6.2 % 09/10/2014 9:45 PM CDT [facility] [place] EST. AVG GLUCOSE, A1C 183 mg/dL 09/10/2014 9:45 PM CDT [facility] [place] Blood Collection / Unknown 09/10/2014 9:04 PM CDT 09/10/2014 9:04 PM CDT Mega Mcelroy DO CHEMISTRY ORDERABLES Final Resu lt Performing Organization Address [facility]/ZIP Co de Phone Number [facility] CLIA # [id number] [address] [place] [address] * (ABNORMAL) COMPREHENSIVE METABOLIC PANEL (09/10/2014 9:04 PM CDT) SODIUM 134(L) 136 - 145 mmol/L 09/10/2014 9:45 PM CDT [facility] [place] POTASSIUM 4.0 3.5 - 5.1 mmol/L 09/10/2014 9:45 PM CDT [facility] [place] CHLORIDE 98 98 - 107 mmol/L 09/10/2014 9:45 PM CDT [facility] [place] CO2 28 21 - 32 mmol/L 09/10/2014 9:45 PM CDT [facility] [place] CALCIUM 9.1 8.5 - 10.1 mg/dL 09/10/2014 9:45 PM CDT [facility] [place] BUN 12 7 - 18 mg/dL 09/10/2014 9:45 PM CDT [facility] [place] CREATININE 0.90 0.60 - 1.30 mg/dL 09/10/2014 9:45 PM CDT [facility] [place] GLUCOSE 358(H) 74 - 106 mg/dL 09/10/2014 9:45 PM [facility] TOTAL PROTEIN 8.2 6.4 - 8.2 g/dL 09/10/2014 9:45 PM [facility] ALBUMIN 2.8(L) 3.4 - 5.0 g/dL 09/10/2014 9:45 PM [facility] BILIRUBIN TOTAL 1.5(H) 0.2 - 1.0 mg/dL 09/10/2014 9:45 PM [facility] ALKALINE PHOSPHATASE 134(H) 46 - 116 U/L 09/10/2014 9:45 PM [facility] AST 110(H) 15 - 37 U/L 09/10/2014 9:45 PM [facility] ALT 106(H) 30 - 65 U/L 09/10/2014 9:45 PM [facility] GFR >60 >=60 mL/min/1.7 3 sq meter 09/10/2014 9:45 PM [facility] Comment: eGFR has not been validated for use in the elderly (> 70 years of age), women, patients with serious co-morbid conditions, or persons with extremes of body size or muscle mass and should also be interpreted with caution in patients with acute kidney failure, dialysis dependent patients, patients reporting exceptional dietary intake (e.g. vegetarian diet, high protein diets, creatine supplementation), and patients with severe liver disease. Based on National Kidney Disease Education Program If patient is , please refer to the GFR result. GFR, >60 >=60 mL/min/1.7 3 sq meter 09/10/2014 9:45 PM [facility] ANION GAP 8(L) 12 - 20 mmol/L 09/10/2014 9:45 PM [facility] Blood Collection / Unknown 09/10/2014 9:04 PM CDT 09/10/2014 9:04 PM CDT [facility] - 09/10/2014 9:45 PM CDT Effective 07/26/2014, the Alkaline Phosphatase test method and reference range have changed. Please take this into consideration when interpreting results prior to or after this date. us Mega Mcelroy DO CHEMISTRY ORDERABLES Final Resu lt [facility] [place] CLIA # [id number] [address] [facility] [address] [place] [address] documented in this encounter Visit Diagnoses Diagnosis Sick Other unknown and unspecified cause of morbidity or mortality documented in this encounter Care Teams Wool Washer Relationship Specialty Start Date End Date Sushil Mobley MD [address] [place] [address] PCP - General Family Practice 08/22/20 documented as of this encounter
--- OUTSIDE RECORDS SUMMARY | 2025-06-16 16:33 | XMS_ITS | Clinical Summary ---
Author Organization [facility] Address [address] [facility] Attn: Epic Prelude ADT [place] [address] Care Team Providers Care Tactical Response Group Officer Name Role Phone Sushil Mobley MD Primary Care Provider [phone] Allergies Active Allergy Reactions Criticality Noted Date Comments Pregabalin Hallucination Low 12/03/2024 Auditory hallucinations Medications budesonide-form oteroL (SYMBICORT) 160-4.5 mcg/actuation HFA Aerosol Inhaler Take 2 Puffs by inhalation 2 times daily. Active tiotropium (SPIRIVA) 18 mcg capsule Take 18 mcg by inhalation daily. Active levothyroxine 75 mcg tablet Take 75 mcg by mouth daily in the morning. Active aspirin (RL CHEWABLE) 81 mg Tablet, Chewable Take 1 Tablet (81 mg) by mouth daily with breakfast. 30 Tablet 2 12/05/2024 3:18 PM PREP PERSON 5 Active atorvastatin (LIPITOR) 40 mg tablet Take 1 Tablet (40 mg) by mouth daily at bedtime. 30 Tablet 2 12/05/2024 3:18 PM PREP PERSON 5 Active clopidogreL (PLAVIX) 75 mg Tablet Take 1 Tablet (75 mg) by mouth daily. 30 Tablet 2 12/05/2024 3:18 PM PREP PERSON 5 Active furosemide (LASIX) 20 mg tablet Take 1 Tablet (20 mg) by mouth daily. 30 Tablet 12/05/2024 3:18 PM PREP PERSON 5 Active insulin glargine (LANTUS) 100 unit/mL pen syringe Inject 25 Units by subcutaneous injection daily with breakfast. 15 mL 5 Active nitroglycerin (NITROSTAT) 0.[address], [address] 1 Tablet (0.4 mg) under tongue every 5 minutes as needed for Chest Pain (Do NOT take more than 3 pills in a row, if chest pain not relived contact your PCP/Car Repossessor ERVIN). 25 Tablet 1 12/05/2024 3:18 PM PREP PERSON Active pantoprazole (PROTONIX) 40 mg Tablet, Delayed Release (E.C.) Take 1 Tablet (40 mg) by mouth daily before breakfast. 30 Tablet 12/05/2024 3:18 PM PREP PERSON Active Active Problems Problem Noted Date Diagnosed Date S/P coronary artery stent placement 12/05/2024 ST elevation myocardial infa rction involving right coronary artery 12/04/2024 Type 2 diabetes mellitus wit h hyperglycemia, with long-term current use of insulin 12/04/2024 Acute cystitis without hematuria 12/04/2024 Status post insertion of drug eluting coronary a rtery stent 12/04/2024 COPD (chronic obstructive pulmonary disease) 10/2025 Hypothyroidism 12/03/2024 Chest pain 12/03/2024 Elevated troponin 12/03/2024 Received intravenous tissue plasminogen activator (tPA) in emergency department 12/03/2024 Acute coronary syndrome 12/02/2024 Tobacco use 12/02/2024 Essential hypertension 12/02/2024 Dyslipidemia 12/02/2024 Encounters Date Type Department Care Team Description 05/15/2025 External Device Data ST[facility] ABSTRACTION Provider, Abstract 04/17/2025 External Device Data [facility] ABSTRACTION Provider, Abstract 04/03/2025 External Device Data [facility] ABSTRACTION Provider, Abstract 04/03/2025 External Device Data [facility] ABSTRACTION Provider, Abstract 03/20/2025 External Device Data [facility] ABSTRACTION Provider, Abstract from Last 3 Months Social History Tobacco Use Types Packs/Day Years Used Date Smoking Tobacco: Never Assessed Comments Unknown Sex and Gender Information Value Date Recorded Sex Assigned at Not on file Legal Sex Female 2:08 AM PREP PERSON Gender Identity Not on file Sexual Orientation Not on file Last Filed Vital Signs Vital Sign Reading Time Taken Comments Blood Pressure 104/70 12/05/2024 8:28 AM PREP PERSON Pulse 81 12/05/2024 8:28 AM PREP PERSON Temperature 36.5 C (97.7 F) 12/05/2024 8:28 AM PREP PERSON Respiratory Rate 18 12/05/2024 8:28 AM PREP PERSON Oxygen Saturation 93% 12/05/2024 8:28 AM PREP PERSON Inhaled Oxygen Concentration - - Weight 82.6 kg (182 lb 3.2 oz) 12/04/2024 5:00 A M PREP PERSON Height 157.5 cm (5' 2 ) 12/02/2024 11:11 PM PREP PERSON Body Mass Index 33.32 12/02/2024 11:11 PM PREP PERSON Plan of Treatment Health Maintenance Due Date Last Done Comments DIABETES ANNUAL FOOT EXAM 1991 DIABETES ANNUAL RETINAL EXAM 1991 DIABETES MICROALBUMIN ANNUAL SCREEN 1991 LDL CHOLESTEROL ANNUAL 1991 DTAP/TDAP/TD VACCINES (1 - Tdap) 1992 HEPATITIS B VACCINES (1 of 3 - 19+ 3-dose series) 09/22 HPV/Cotest (21-29) 1994 CERVICAL CANCER SCREENING 2003 HPV/Cotest (30-65) 2003 PAP SMEAR 2003 BREAST CANCER SCREENING 2013 COLORECTAL SCREENING 2018 Colorectal Cancer Screening 2018 FIT-DNA Q 3 years 2018 FIT/FOBT Q 1 year 2018 Flex Sig/CT Colonography Q 5 years 2018 ZOSTER VACCINE (1 of 2) 2023 DIABETES HBA1C Q 6 MONTHS 06/02/2025 12/03/2024 INFLUENZA VACCINE (#1) 2025 Medical Devices Implanted Type Area Ict Support Technicians Device Identifier Shelf Expiration Date Model / Serial / Lot Stent [place] Bayard Jose 3.0x15mm Rx [id number] - [id number] Implanted:Qty: 1 on 12/03/2024 by Prince Funes MD at [facility] Stent N/A: Coronary [employer] [id number] 07/31/2027 [id number] 15UX / / [id number] Stent Ronny Bayard Jose 4.0x12mm Rx [id number] - [id number] Implanted:Qty: 1 on 12/03/2024 by Prince Funes MD at [facility] Stent N/A: Coronary [employer] [id number] 05/10/2027 [id number] 12UX / / [id number] Stent [place] Bayard Jose 4.0x8mm Rx [id number] - [id number] Implanted:Qty: 1 on 12/03/2024 by Prince Funes MD at [facility] Stent N/A: Coronary [employer] [id number] 04/23/2027 [id number] 08UX / / [id number] Procedures Procedure Name Priority Date/Time Associated Diagnosis Comments HEMOGLOBIN A1C Routine 12/03/2024 2:49 AM PREP PERSON from Last 3 Months or Most Recently Relevant to Health Maintenance Results * (ABNORMAL) HEMOGLOBIN A1C (12/03/2024 2:49 AM PREP PERSON) HEMOGLOBIN A1C 12.1(H) <=5.6 % 12/04/2024 8:55 AM PREP PERSON [facility] EST. AVG GLUCOSE, A1C 301 mg/dL 12/04/2024 8:55 AM PREP PERSON [facility] Blood Venipuncture / Unknown 12/03/2024 2:49 AM PREP PERSON 12/03/2024 3:04 AM PREP PERSON Narrative [facility] - 12/04/2024 8:55 AM PREP PERSON HGB A1C INTERPRETATION NORMAL: <5.7% PRE-DIABETES: 5.7 - 6.4% DIABETES: 6.5% OR GREATER us Alvarado Persaud DO CHEMISTRY ORDERABLES Final Resu lt [facility] CLIA # [id number] [address] [place] [address] from Last 3 Months or Most Recently Relevant to Health Maintenance Insurance MEDICAID [place] [employer] Advance Directives For more information, please contact: [phone] * Full Code (Latest Code Status on File) Date Activated Date Inactivated Comments 12/03/2024 2:06 AM 12/05/2024 5:37 PM Care Teams Tactical Response Group Officer Relationship Specialty Start Date End Date Sushil Mobley MD [address] [address] PCP - General Family Practice 08/22/20
--- OUTSIDE RECORDS SUMMARY | 2025-06-16 16:33 | XMS_ITS | Clinical Summary ---
Author Organization [facility] Address [address] [facility] [address] [place] [address] Phone Care Team Providers Care Athletic Coordinator Name Role Phone Sushil Mobley MD Primary Care Provider [phone] Social History Tobacco Use Types Packs/Day Years Used Date Smoking Tobacco: Never Assessed Comments Unknown Sex and Gender Information Value Date Recorded Sex Assigned at Not on file Legal Sex Female 9:04 PM CDT Gender Identity Not on file Sexual Orientation Not on file Last Filed Vital Signs Vital Sign Reading Time Taken Comments Blood Pressure - - Pulse 71 11/20/2019 10:47 AM BEEF KILLER Temperature - - Respiratory Rate 20 11/20/2019 10:47 AM BEEF KILLER Oxygen Saturation 99% 11/20/2019 10:46 AM BEEF KILLER Inhaled Oxygen Concentration - - Weight - - Height - - Body Mass Index - - Plan of Treatment Health Maintenance Due Date Last Done Comments DTAP/TDAP/TD VACCINES (1 - Tdap) 1992 HEPATITIS [...] 2018 ZOSTER VACCINE (1 of 2) 2023 INFLUENZA VACCINE (#1) [address] [place] [address] Care Teams Athletic Coordinator Relationship Specialty Start Date End Date Sushil Mobley MD [address] [id number] PCP - General Family Practice 08/22/20
--- OUTSIDE RECORDS SUMMARY | 2025-06-16 16:33 | XMS_ITS | Encounter Summary ---
Author Organization [facility] Address [address] [place] [address] Care Team Providers Care Harnessmaker Apprentice Name Role Phone Sushil Mobley MD Primary Care Provider [phone] Encounter Details Date Type Department Care Team (Late st Contact Info) Description 09/27/2019 Ancillary Orders [facility] Centralized Scheduling [address] [place] [phone] Determinations, Dis Kim Durán [address] [place] [address] COPD (chronic obstructive pulmonary disease) ([facility]) Social History Tobacco Use Types Packs/Day Years Used Date Smoking Tobacco: Never Assessed Comments Unknown Sex and Gender Information Value Date Recorded Sex Assigned at Not on file Legal Sex Female 9:04 PM CDT Gender Identity Not on file Sexual Orientation Not on file documented as of this encounter Plan of Treatment Not on file documented as of this encounter Results * XR CHEST PA AND LATERAL 2 VW (11/20/2019 9:22 AM SUPERVISOR GARAGE) Anatomical Region Laterality Modality Chest Computed Radiogr aphy 11/20/2019 9:22 AM SUPERVISOR GARAGE Impressions 11/20/2019 3:50 PM SUPERVISOR GARAGE IMPRESSION: Please see below. Exam: XR CHEST PA AND LATERAL 2 VW Date/Time of Exam: 11/20/2019 9:22 AM Reason For Exam: See Diagnosis. Diagnosis: COPD (chronic obstructive pulmonary disease). Comparison: None Findings: The heart size is normal. No infiltrates or pleural fluid. Retrosternal calcified granuloma. Thoracic spine degenerative changes. IMPRESSION: 1. No infiltrates. [id number] Narrative Procedure Note Jose G Marquez MD - 11/20/2019 IMPRESSION: Please see below. Exam: XR CHEST PA AND LATERAL 2 VW Date/Time of Exam: 11/20/2019 9:22 AM Reason For Exam: See Diagnosis. Diagnosis: COPD (chronic obstructive pulmonary disease). Comparison: None Findings: The heart size is normal. No infiltrates or pleural fluid. Retrosternal calcified granuloma. Thoracic spine degenerative changes. IMPRESSION: 1. No infiltrates. [id number] us External Provider [facility] DIAGNOSTIC IMAGING ORDERA BLES Final Result documented in this encounter Visit Diagnoses Diagnosis COPD (chronic obstructive pulmonary disease) (CMS/HCC) Chronic airway obstruction, not elsewhere classified COPD (chronic obstructive pulmonary disease) (CMS/HCC) Chronic airway obstruction, not elsewhere classified documented in this encounter Care Teams Harnessmaker Apprentice Relationship Specialty Start Date End Date Sushil Mobley MD [address] [address] PCP - General Family Practice 08/22/20 documented as of this encounter
--- OUTSIDE RECORDS SUMMARY | 2025-06-16 16:33 | XMS_ITS | Encounter Summary ---
Author Organization [facility] Address [address] [place] [address] Care Team Providers Care Front End Loader Driver Name Role Phone Sushil Mobley MD Primary Care Provider [phone] Encounter Details Date Type Department Care Team (Late st Contact Info) Description 09/27/2019 Ancillary Orders [facility] Centralized Scheduling [address] [place] [phone] Mtnv, External Provider [address] [facility] [address] [place] [address] Social History Tobacco Use Types Packs/Day Years Used Date Smoking Tobacco: Never Assessed Comments Unknown Sex and Gender Information Value Date Recorded Sex Assigned at Not on file Legal Sex Female 9:04 PM CDT Gender Identity Not on file Sexual Orientation Not on file documented as of this encounter Plan of Treatment Not on file documented as of this encounter Visit Diagnoses Not on filedocumented in this encounter Care Teams Front End Loader Driver Relationship Specialty Start Date End Date Sushil Mobley MD [address] [place] [id number] PCP - General Family Practice 08/22/20 documented as of this encounter
--- OUTSIDE RECORDS SUMMARY | 2025-06-16 16:33 | XMS_ITS | Encounter Summary ---
Author Organization [facility] Address [address] [place] [address] Care Team Providers Care Print Room Worker Name Role Phone Sushil Mobley MD Primary Care Provider [phone] Encounter Details Date Type Department Care Team (Late st Contact Info) Description 09/17/2014 Ancillary Orders [facility] Laboratory Services [place] [address] [place] [phone] Social History Tobacco Use Types Packs/Day Years [...] on filedocumented in this encounter Care Teams Print Room Worker Relationship Specialty Start Date End Date Sushil Mobley MD [address] [phone] PCP - General Family Practice 08/22/20 documented as of this encounter
[2025-06-16 17:07] LABS: Hematocrit 51.3 % (36-47); Hemoglobin 16.40 g/dL (11.27-16.99); Mean Corpuscular HGB Conc 32.0 g/dL (30-55); Mean Corpuscular Hemoglobin 31.7 pg (27-33); Mean Corpuscular Volume 99.0 fl (85-98); Nucleated Red Blood Cells % 0 %; Platelet Count 154 10^3/cmm (157-399); Red Blood Count 5.18 10^6/uL (3.85-5.65); White Blood Count 14.37 10^3/uL (3.29-11.43)
[2025-06-16 17:27] LABS: Troponin(5th) Baseline 43 ng/L (0-10)
--- NOTE | 2025-06-16 17:28 | W.ED.CHESTPA ---
HPI - Chest Pain General: Chief Complaint: Chest Pain Stated Complaint: chest pain Time Seen by Provider: 06/16/25 17:23 Source: patient Mode of arrival: ambulatory Limitations: no limitations History of Present Illness: 49-year-old female history of coronary disease along with CHF states she woke up this morning is having some slight chest pain he took a nitro states her pain at then came back in the afternoon took another nitro she is currently pain-free states she went to get checked out she had some slight increased ankle swelling she denies any increased shortness of breath she denies any fever denies any vomiting or diarrhea. Associated symptoms: Deny abdominal pain, dyspnea, fever(s), nausea or vomiting Related Data Home Medications ?Medication ?Instructions ?Recorded ?Confirmed budesonide-formoterol HFA 160 2 puff inhalation BID 02/16/20 03/27/25 mcg-4.5 mcg/actuation aerosol inhaler (Symbicort) levothyroxine 75 mcg tablet 75 mcg PO DAILY 06/11/22 03/27/25 potassium chloride 10 mEq 10 meq PO DAILY 05/03/23 03/27/25 tablet,extended release tiotropium bromide 2.5 1 inh inhalation DAILY 05/03/23 03/27/25 mcg/actuation mist for inhalation (Spiriva Respimat) venlafaxine 150 mg See Rx Instructions .Route .COMPLEX 11/27/24 03/27/25 capsule,extended release 24 hr albuterol sulfate 2.5 mg/3 mL 2.5 mg continuous nebulization QID 12/14/24 03/27/25 (0.083 %) solution for nebulization albuterol sulfate 90 mcg/actuation 2 puff inhalation QID 12/14/24 03/27/25 aerosol inhaler (Ventolin HFA) atorvastatin 40 mg tablet 40 mg PO BEDTIME 12/14/24 03/27/25 clopidogrel 75 mg tablet 75 mg PO DAILY 12/14/24 03/27/25 nitroglycerin 0.4 mg sublingual 0.4 mg sublingual PRN PRN Chest 12/14/24 03/27/25 tablet Pain oxycodone 10 mg tablet 10 mg PO TID 12/14/24 03/27/25 pantoprazole 40 mg tablet,delayed 40 mg PO DAILY 12/14/24 03/27/25 release venlafaxine 75 mg capsule,extended 75 mg PO DAILY 12/14/24 03/27/25 release 24 hr acetaminophen 500 mg tablet 1,000 mg PO Q6H PRN Pain 12/18/24 03/27/25 (Tylenol Extra Strength) insulin glargine-yfgn 25 100 ml SUBCUT 1XD 12/18/24 03/27/25 nitroglycerin 0.4 mg sublingual 0.4 mg buccal PRN PRN Chest Pain 12/18/24 03/27/25 tablet tiotropium bromide 18 mcg capsule 1 cap inhalation DAILY 12/18/24 03/27/25 with inhalation device (Spiriva with HandiHaler) venlafaxine 75 mg capsule,extended See Rx Instructions .Route .COMPLEX 12/18/24 03/27/25 release 24 hr Previous Rx's ?Medication ?Instructions ?Recorded aspirin 81 mg tablet,delayed 81 mg PO DAILY #90 tabs 06/12/22 release (Adult Low Dose Aspirin) insulin glargine 100 unit/mL (3 60 unit (0.6 mL) SUBCUT QAM #60 mL 07/26/24 mL) subcutaneous pen (Lantus Solostar U-100 Insulin) furosemide 40 mg tablet 40 mg PO DAILY 30 days #30 tabs 01/25/25 doxycycline hyclate 100 mg capsule 100 mg PO BID 10 days #20 caps 02/08/25 blood-glucose sensor (Dexcom G7 #3 ea 03/20/25 Sensor device) Allergies Allergy/AdvReac Type Severity Reaction Status Date / Time pregabalin (From Lyrica) Allergy hallucinati Verified 03/27/25 17:17 ons Review of Systems Const: Denies: fever(s), chills, body aches or change in appetite ENMT: Denies: throat pain or dental pain Card: Reports: chest pain Resp: Denies: dyspnea GI: Denies: abdominal pain, nausea, vomiting or diarrhea Musc: Denies: neck pain or back pain Skin/Breast: Denies: rash Neuro: Denies: headache(s) PFSH ED PFSH: Medical History Congestive heart failure LBBB (left bundle branch block) CAD (coronary artery disease) Hypoxic respiratory failure CHF (congestive heart failure) Chest pain Dyspnea on exertion Right middle cerebral artery stroke Staph skin infection Left arm pain Transient cerebral ischemia Smoking addiction CVA (cerebral vascular accident) Major depressive disorder, 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, recurrent severe without psychotic features Hyperlipidemia Hypertension Type II diabetes mellitus Asthma COPD (chronic obstructive pulmonary disease) Hepatitis C Acute ischemic stroke COPD (chronic obstructive pulmonary disease) Smoking Left leg paresthesias Arm paresthesia, left Left-sided weakness Surgical History H/O: hysterectomy 1997 History of tonsillectomy Family History Other CAD (coronary artery disease) Cancer Diabetes Family history of premature coronary artery disease Hypertension Lung disease Stroke Social History Smoking and tobacco/nicotine status: never used tobacco/nicotine Second hand smoke exposure: No Alcohol intake: former Substance/Drug Use: former Date of last use: 20 years ago Adopted: No Caregiver/support person: No Lives independently: Yes Household members: none Housing: Manufactured/Mobile home Marital status: Single Number of children: 2 Number of grandchildren: 4 Highest education level completed: GED or Equivalent service: No Current occupational status: disabled Current occupational exposures/hazards: No Pets and animals: Yes Pets & animals: dog(s) Leisure activites: exercise, art, music and reading Sexually active: No Do you think of yourself as: Straight/Heterosexual Current gender identity: Female Linda/Uatsdin: Christianity Special linda needs: No Agree to transfusion: Yes Female Reproductive History: Para: 2 Spontaneous abortions: No Physical Exam Const: COMMON NORMALS: no acute distress, patient oriented x3 and healthy appearing HENMT: COMMON NORMALS: normocephalic and atraumatic HEAD & SCALP: normocephalic and atraumatic Eye: COMMON NORMALS: Equal, round and reactive pupils present and EOMs intact bilaterally PUPIL: Yes Equal, round and reactive pupils present Neck/C-Spine: COMMON NORMALS: full ROM and supple Chest: COMMONS NORMALS: normal inspection of the chest and normal palpation of entire chest wall Resp: COMMON NORMALS: normal respiratory effort, No retractions, No use of accessory muscles and clear to auscultation bilaterally AUSCULTATION: clear to auscultation bilaterally Cardio: COMMON NORMALS: regular rate, regular rhythm and No murmurs present (Cardio) RATE: regular rate RHYTHM: regular rhythm GI: COMMON NORMALS: Normal to inspection, nondistended, normoactive bowel sounds present, Soft to palpation, non-tender and no masses PALPATION: Yes Soft to palpation Extremity: COMMON NORMALS: normal to inspection and full ROM Neuro: COMMON NORMALS: patient oriented x3, moves all extremities and no focal motor deficits Psych: COMMON NORMALS: mental status grossly normal, Normal thought process present and cooperative THOUGHT PROCESS: Normal thought process present Skin: COMMON NORMALS: no rashes or lesions noted and no wounds GENERAL SKIN EXAM: no rashes or lesions noted Course Vital Signs: Vital signs: Vital Signs Temperature 97.9 F 06/16/25 16:32 Pulse Rate 115 H 06/16/25 19:00 Respiratory Rate 16 06/16/25 19:00 Blood Pressure 128/80 06/16/25 19:00 Pulse Oximetry 93 06/16/25 19:00 Oxygen Delivery Me thod Room Air 06/16/25 19:00 MDM - Chest Pain Medical Decision Making Patient presents for chest pain atypical in nature repeat troponin had a negative delta no signs of ACS patient has no signs of pulmonary embolism or dissection patient stable for discharge follow-up PCP return if worsening. Medical Records I reviewed the patient's medical records. Lab Data I reviewed the patient's lab results. 06/16/25 17:00 06/16/25 17:00 Radiology Impressions Chest X-Ray 06/16/25 16:33 IMPRESSION: Bibasilar opacities are most likely pulmonary edema and less likely pneumonia. Laboratory Results WBC 14.37 10^3/uL (3.29-11.43) H 06/16/25 17:00 RBC 5.18 10^6/uL (3.85-5.65) 06/16/25 17:00 Hgb 16.40 g/dL (11.27-16.99) 06/16/25 17:00 Hct 51.3 % (36-47) H 06/16/25 17:00 MCV 99.0 fl (85-98) H 06/16/25 17:00 MCH 31.7 pg (27-33) 06/16/25 17:00 MCHC 32.0 g/dL (30-55) 06/16/25 17:00 RDW 14.6 % (12.1-15.1) 06/16/25 17:00 Plt Count 154 10^3/cmm (157-399) L 06/16/25 17:00 MPV 10.9 fL (7.4-10.4) H 06/16/25 17:00 Neut % (Auto) 81.6 % 06/16/25 17:00 Lymph % (Auto) 9.5 % 06/16/25 17:00 [place] % (Auto) 8.1 % 06/16/25 17:00 Eos % (Auto) 0.1 % 06/16/25 17:00 Baso % (Auto) 0.5 % 06/16/25 17:00 Neut # (Auto) 11.73 10^3/uL (1.8-7.7) H 06/16/25 17:00 Lymph # (Auto) 1.4 10^3/uL (0.8-4.8) 06/16/25 17:00 [place] # (Auto) 1.2 10^3/uL (0.2-0.9) H 06/16/25 17:00 Eos # (Auto) 0.0 10^3/uL (0.0-0.8) 06/16/25 17:00 Baso # (Auto) 0.1 10^3/uL (0.0-0.1) 06/16/25 17:00 Nucleated RBC % (auto) 0 % 06/16/25 17:00 Nucleated RBCs # 0.0 /100WBC 06/16/25 17:00 PT 15.80 SECONDS (12.1-14.9) H 06/16/25 19:21 INR 1.18 (0.8-1.2) 06/16/25 19:21 Sodium 130 mmol/L (136-145) L 06/16/25 17:00 Potassium 3.9 mmol/L (3.5-5.1) 06/16/25 17:00 Chloride 91 mmol/L (98-107) L 06/16/25 17:00 Carbon Dioxide 22 mmol/L (22-29) 06/16/25 17:00 Anion Gap 21.9 (5-19) H 06/16/25 17:00 BUN 15 mg/dL (6-20) 06/16/25 17:00 Creatinine 1.0 mg/dL (0.5-0.9) H 06/16/25 17:00 GFR Calculation 58.5 mL/min (90-130) L 06/16/25 17:00 Glucose 227 mg/dL (65-115) H 06/16/25 17:00 Calculated Osmolality 278 mOsm/kg (285-295) L 06/16/25 17:00 Calcium 9.3 mg/dL (8.5-10.5) 06/16/25 17:00 Total Bilirubin 2.5 mg/dL (0.15-1.2) H 06/16/25 17:00 AST 22 U/L (0-32) 06/16/25 17:00 ALT 11 U/L (0-33) 06/16/25 17:00 Alkaline Phosphatase 106 U/L (35-105) H 06/16/25 17:00 Troponin T Baseline 43 ng/L (0-10) H 06/16/25 17:00 Troponin T 120 Minute 43.24 ng/L (0-10) H 06/16/25 19:21 Delta Troponin T 0.24 ABS# (0-10) 06/16/25 19:21 NT-Pro-B Natriuret Pep 4863 pg/mL (0-125) H 06/16/25 17:00 Total Protein 7.1 g/dL (6.6-8.7) 06/16/25 17:00 Albumin 3.1 g/dL (3.5-5.2) L 06/16/25 17:00 Globulin 4.0 g/dL (1.3-4.6) 06/16/25 17:00 Lipase 10 U/L (13-60) L 06/16/25 17:00 All radiology interpretation(s) finalized by discharge Discharge Plan Discharge Patient Disposition: Home Clinical Impression: Chest pain Condition: Stable Prescriptions: No Action Symbicort 160-4.5 mcg/actuation HFA aerosol inhaler 2 puff INHALATION BID insulin glargine [Lantus Solostar U-100 Insulin] 100 unit/mL (3 mL) insulin pen 60 unit SUBCUT QAM Qty: 60 1RF furosemide 40 mg tablet 40 mg PO DAILY 30 Days Qty: 30 0RF potassium chloride 10 mEq tablet extended release 10 meq PO DAILY Spiriva Respimat 2.5 mcg/actuation mist 1 inh inhalation DAILY venlafaxine 150 mg capsule,extended release 24hr See Rx Instructions .ROUTE .COMPLEX Rx Instructions: TAKE ONE CAPSULE BY MOUTH EVERY DAY with 75mg capsule. doxycycline hyclate 100 mg capsule 100 mg PO BID 10 Days Qty: 20 0RF (DME) Dexcom G7 Sensor Device See Rx Instructions .ROUTE .COMPLEX Qty: 3 3RF Dose Instruction: CHANGE every 10 DAYS DIRECTED Rx Instructions: CHANGE every 10 DAYS DIRECTED venlafaxine 75 mg capsule,extended release 24hr See Rx Instructions .ROUTE .COMPLEX Rx Instructions: TAKE ONE CAPSULE BY MOUTH EVERY DAY with 150mg capsule acetaminophen [Tylenol Extra Strength] 500 mg Tablet 1,000 mg PO Q6H PRN (Reason: Pain) nitroglycerin 0.4 mg tablet, sublingual 0.4 mg buccal PRN PRN (Reason: Chest Pain) tiotropium bromide [Spiriva with HandiHaler] 18 mcg Capsule, W/Inhalation Device 1 cap INHALATION DAILY Rx Instructions: puncture 1 cap using device; one dose = 2 inhalations insulin glargine-yfgn 25 100 ml SUBCUT 1XD levothyroxine 75 mcg Tablet 75 mcg PO DAILY aspirin [Adult Low Dose Aspirin] 81 mg tablet,delayed release (DR/EC) 81 mg PO DAILY Qty: 90 3RF venlafaxine 75 mg capsule,extended release 24hr 75 mg PO DAILY clopidogrel 75 mg tablet 75 mg PO DAILY pantoprazole 40 mg tablet,delayed release (DR/EC) 40 mg PO DAILY nitroglycerin 0.4 mg tablet, sublingual 0.4 mg sublingual PRN PRN (Reason: Chest Pain) oxycodone 10 mg tablet 10 mg PO TID atorvastatin 40 mg tablet 40 mg PO BEDTIME albuterol sulfate 2.5 mg /3 mL (0.083 %) solution for nebulization 2.5 mg continuous nebulization QID albuterol sulfate [Ventolin HFA] 90 mcg/actuation HFA aerosol inhaler 2 puff INHALATION QID Discharge Orders: Discharge ED (Routine); Ordered 06/16/25 Ordered By: Armida Cadet Referrals: Sushil Mobley MD [Primary Care Provider, Family Practice] - 4-7 days Discharge Diet: Advance as tolerated Discharge Activity: Resume usual activity Patient Instructions: Chest Pain (ED) Print Language: Nepali Coding Level of Care Code ED Repairer Veneer Sheet for Isabel Hernandez
[2025-06-16 17:38] LABS: Alanine Aminotransferase 11 U/L (0-33); Albumin Level 3.1 g/dL (3.5-5.2); Alkaline Phosphatase 106 U/L (35-105); Aspartate Amino Transferase 22 U/L (0-32); Blood Urea Nitrogen 15 mg/dL (6-20); Calcium 9.3 mg/dL (8.5-10.5); Carbon Dioxide 22 mmol/L (22-29); Chloride 91 mmol/L (98-107); Creatinine Clr Calc Pharmacy 65.9731; Globulin 4.0 g/dL (1.3-4.6); Glucose 227 mg/dL (65-115); Lipase 10 U/L (13-60); Osmolality Calculated 278 mOsm/kg (285-295); Sodium 130 mmol/L (136-145); Total Protein 7.1 g/dL (6.6-8.7)
[2025-06-16 17:52] LABS: NT Pro B Type Natriuretic Pept 4863 pg/mL (0-125)
[2025-06-16 18:15] LABS: Anion Gap 21.9 (5-19); Potassium 3.9 mmol/L (3.5-5.1)
[2025-06-16 18:18] VITALS: BP 125/82; PULSE 105; RESP 16; O2SAT 90
[2025-06-16 18:34] VITALS: BP 124/82; PULSE 103; RESP 18; O2SAT 91
[2025-06-16 19:00] VITALS: BP 128/80; PULSE 115; RESP 16; O2SAT 93
[2025-06-16] MEDS: FUROsemide 10 mg/mL SDV 10mL 60 MG IVP (19:45)
[2025-06-16 19:46] LABS: INR 1.18 (0.8-1.2); Prothrombin Time 15.80 SECONDS (12.1-14.9)
[2025-06-16 19:51] LABS: Troponin 5 2HR 43.24 ng/L (0-10); Troponin 5 2HR Delta 0.24 ABS# (0-10)
[2025-06-16 20:14] VITALS: BP 92/79; PULSE 107; RESP 18; O2SAT 92
--- NOTE | 2025-06-16 22:33 | ECG_ITS ---
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
== END 2025-06-16 20:14 | disposition home or self-care (01) ==
PROVIDERS: Emergency Provider Emergency Medicine; PCP Family Medicine
DX: R07.9 Chest pain, unspecified (principal); Z79.4 Long term (current) use of insulin; Z79.82 Long term (current) use of aspirin; Z79.02 Long term (current) use of antithrombotics/antiplatelets; I25.10 Atherosclerotic heart disease of native coronary artery without angina pectoris; Z86.73 Personal history of transient ischemic attack (TIA), and cerebral infarction without residual deficits; J44.9 Chronic obstructive pulmonary disease, unspecified; E11.9 Type 2 diabetes mellitus without complications; E78.5 Hyperlipidemia, unspecified; I11.0 Hypertensive heart disease with heart failure; I50.20 Unspecified systolic (congestive) heart failure
CPT/HCPCS: 36415; 71045; 80053; 83690; 83880; 84484; 85025; 85610; 93005; 96374; 99285; J1938

== ENCOUNTER 2025-06-21 13:05 | Inpatient (IN) | payer MEDICAID, SELFPAY ==
[2024-07-26 12:01] VITALS: BP 129/79; BMI 43.1
[2025-06-21] VITALS (11 sets, daily range): BP systolic 108–133; BP diastolic 46–95; PULSE 102–118; RESP 16–24; TEMP 36.6–36.7; O2SAT 92–99; BMI 34.7
--- NOTE | 2025-06-21 13:55 | XR_ITS ---
WS: [id number] Portable AP upright chest, 06/21/2025 Clinical Data: short of breath Comparison: Portable chest, 06/16/2025 Findings: There are bilateral basilar pulmonary opacities probably represent atelectasis, consolidation and/or effusion no nodules or masses are seen. The heart is slightly enlarged. The pulmonary vascularity is not increased. No pneumothorax is seen. The aortic arch shows mild tortuosity. Monitor leads are on the chest wall. XR/XR chest 1V portable [id number] Impression: 1. No change in bibasilar pulmonary opacities. 2. Cardiomegaly and atherosclerosis.
--- NOTE | 2025-06-21 13:55 | ECG_ITS ---
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1975 Requested By: Martina Escobar Order Number: [id number] Jeanine MD: EVANGELIST GARAY Measurements Intervals [place] Rate: 113 P: 72 TN: 156 QRS: 227 QRSD: 151 T: 57 QT: 377 QTc: 519 Interpretive Statements SINUS TACHYCARDIA POSSIBLE LEFT ATRIAL ENLARGEMENT [-0.1mV P-WAVE IN V1/V2] RIGHT AXIS DEVIATION [QRS AXIS > 100] INTRAVENTRICULAR CONDUCTION DELAY [130+ ms QRS DURATION] Compared to ECG 06/16/2025 16:34:18 Right-axis deviation now present Myocardial infarct finding no longer present Electronically Signed On 06-21-2025 22:18:06 CDT by EVANGELIST GARAY [id number]
--- NOTE | 2025-06-21 13:56 | W.ED.SOB ---
Documented by User: CONNOR Drake 06/21/25 18:07 HPI - SOB/Dyspnea General: Chief Complaint: Shortness of Breath/Dyspnea Stated Complaint: Can't breath N/V History of Present Illness: HPI Narrative: Patient is 49-year-old female with history of O2 dependent COPD, history of TIA, history of STEMI 11/2024 on Plavix and aspirin, presents today with increasing shortness of breath. This has been occurring the last 4 days. She states she has basically been in bed the last 4 days. She has been laying on her right side with pillows. She does have lower extremity edema. She states compliance to her Lasix 80 mg p.o. twice daily. She denies smoking for 1 week. She denies any fevers. She admits to nonproductive cough. She admits to rhinorrhea, upper respiratory congestion. 12/18/24: Carmen Richards is a 49 year old female with past medical history of COPD, diabetes, carotid disease, presented to this facility 12/02/2024 as a STEMI, transferred to [place] emergently, coronary angiogram on 12/03/24, PCI of prox to mid RCA with 3 stents. LVEF at discharge on 12/05/24 was 36%. She had been developing worsening shortness of breath with orthopnea over the last few days. Echocardiogram obtained yesterday shows LVEF 30 to 35%, severe global hypokinesis, mildly hypokinetic RV, mild mitral regurgitation, mild tricuspid regurgitation. She has been receiving diuresis with Lasix 80 mg twice daily, creatinine this morning 0.7. She still appears somewhat volume overloaded. No chest pain today. Associated symptoms: Reports chest pain; Deny abdominal pain, fever(s), nausea, palpitations or vomiting Related Data Home Medications ?Medication ?Instructions ?Recorded ?Confirmed budesonide-formoterol HFA 160 2 puff inhalation BID 02/16/20 06/21/25 mcg-4.5 mcg/actuation aerosol inhaler (Symbicort) levothyroxine 75 mcg tablet 75 mcg PO DAILY 06/11/22 06/21/25 potassium chloride 10 mEq 10 meq PO DAILY 05/03/23 06/21/25 tablet,extended release tiotropium bromide 2.5 1 inh inhalation DAILY 05/03/23 06/21/25 mcg/actuation mist for inhalation (Spiriva Respimat) venlafaxine 150 mg 150 mg PO DAILY 11/27/24 06/21/25 capsule,extended release 24 hr albuterol sulfate 2.5 mg/3 mL 2.5 mg continuous nebulization QID 12/14/24 06/21/25 (0.083 %) solution for nebulization PRN Shortness Of Breath albuterol sulfate 90 mcg/actuation 2 puff inhalation QID 12/14/24 06/21/25 aerosol inhaler (Ventolin HFA) clopidogrel 75 mg tablet 75 mg PO DAILY 12/14/24 06/21/25 nitroglycerin 0.4 mg sublingual 0.4 mg sublingual PRN PRN Chest 12/14/24 06/21/25 tablet Pain oxycodone 10 mg tablet 10 mg PO TID PRN Pain 12/14/24 06/21/25 pantoprazole 40 mg tablet,delayed 40 mg PO DAILY 12/14/24 06/21/25 release acetaminophen 500 mg tablet 1,000 mg PO Q6H PRN Pain 12/18/24 06/21/25 (Tylenol Extra Strength) tiotropium bromide 18 mcg capsule 1 cap inhalation DAILY 12/18/24 06/21/25 with inhalation device (Spiriva with HandiHaler) venlafaxine 75 mg capsule,extended 75 mg PO DAILY 12/18/24 06/21/25 release 24 hr acyclovir 400 mg tablet 400 mg PO BID 06/21/25 06/21/25 atorvastatin 80 mg tablet 80 mg PO BEDTIME 06/21/25 06/21/25 escitalopram oxalate 20 mg tablet 20 mg PO DAILY 06/21/25 06/21/25 losartan 100 mg tablet 100 mg PO DAILY 06/21/25 06/21/25 spironolactone 50 mg tablet 50 mg PO DAILY PRN Edema 06/21/25 06/21/25 Previous Rx's ?Medication ?Instructions ?Recorded aspirin 81 mg tablet,delayed 81 mg PO DAILY #90 tabs 06/12/22 release (Adult Low Dose Aspirin) insulin glargine 100 unit/mL (3 60 unit (0.6 mL) SUBCUT QAM #60 mL 07/26/24 mL) subcutaneous pen (Lantus Solostar U-100 Insulin) furosemide 40 mg tablet 40 mg PO DAILY 30 days #30 tabs 01/25/25 blood-glucose sensor (Dexcom G7 #3 ea 03/20/25 Sensor device) Allergies Allergy/AdvReac Type Severity Reaction Status Date / Time pregabalin (From Lyrica) Allergy hallucinati Verified 03/27/25 17:17 ons Review of Systems General: Reports: 10 or more systems reviewed and unremarkable except in HPI and below Const: Denies: fever(s) or chills Eyes: Denies: change in vision or blurry vision ENMT: Reports: nasal congestion and post nasal drip; Denies: throat pain, uvular edema or ear discharge Card: Reports: chest pain, edema and dyspnea on exertion; Denies: palpitations Resp: Reports: dyspnea and non-productive cough GI: Denies: abdominal pain, nausea or vomiting : Denies: flank pain or difficulty voiding Musc: Denies: neck pain or back pain Skin/Breast: Denies: rash or pruritus Neuro: Denies: headache(s) or numbness in extremities Psych: Reports: anxiety and mood swings; Denies: depression PFSH ED PFSH: Medical History (Updated 06/21/25 @ 17:03 by CONNOR Drake) Congestive heart failure LBBB (left bundle branch block) CAD (coronary artery disease) Hypoxic respiratory failure CHF (congestive heart failure) Chest pain Dyspnea on exertion Right middle cerebral artery stroke Staph skin infection Left arm pain Transient cerebral ischemia Smoking addiction CVA (cerebral vascular accident) Major depressive disorder, 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, recurrent severe without psychotic features Hyperlipidemia Hypertension Type II diabetes mellitus Asthma COPD (chronic obstructive pulmonary disease) Hepatitis C Acute ischemic stroke COPD (chronic obstructive pulmonary disease) Smoking Left leg paresthesias Arm paresthesia, left Left-sided weakness Surgical History H/O: hysterectomy 1996 History of tonsillectomy Family History Other CAD (coronary artery disease) Cancer Diabetes Family history of premature coronary artery disease Hypertension Lung disease Stroke Social History (Updated 06/21/25 @ 18:42 by Maikol Garzon MD) Smoking and tobacco/nicotine status: former use of tobacco/nicotine Quit status (tobacco/nicotine): has quit using Year quit tobacco: 2024 Former quit date comment: Was smoking a pack and a half a day till 2 weeks ago Second hand smoke exposure: No Alcohol intake: former Substance/Drug Use: former Date of last use: 20 years ago Additional social history: Patient states she is on disability she thinks from medical problem but does not know which one. 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 Pets and animals: Yes Pets & animals: dog(s) Leisure activites: exercise, art, music and reading Sexually active: No Do you think of yourself as: Straight/Heterosexual Current gender identity: Female Linda/Pentecostal: Muslim Special linda needs: No Agree to transfusion: Yes Female Reproductive History: Para: 2 Spontaneous abortions: No Physical Exam Const: COMMON NORMALS: no acute distress, average body habitus, patient oriented x3 and alert HENMT: COMMON NORMALS: normocephalic, atraumatic, moist oral mucous membranes and oropharynx normal HEAD & SCALP: normocephalic and atraumatic FACE & SINUS: normal facial exam THROAT: no uvular edema Neck/C-Spine: COMMON NORMALS: full ROM and no lymphadenopathy Lymph: LYMPHATIC: no lymphadenopathy noted Chest: COMMONS NORMALS: normal inspection of the chest and normal palpation of entire chest wall Resp: EFFORT & INSPECTION: Yes respiratory distress AUSCULTATION: crackles Laterality: bilateral, rhonchi throughout, wheezes scattered wheezes and bronchovesicular breath sounds Cardio: COMMON NORMALS: regular rate and regular rhythm RATE: regular rate RHYTHM: regular rhythm GI: COMMON NORMALS: Normal to inspection, nondistended, normoactive bowel sounds present : COMMON NORMALS: Yes no CVA tenderness BLADDER/KIDNEY EXAM: Yes no CVA tenderness Back/Pelvis: COMMON NORMALS: no CVA tenderness Extremity: COMMON NORMALS: normal to inspection, full ROM and capillary refill normal Neuro: COMMON NORMALS: patient oriented x3 SENSORIUM/ORIENTATION: Yes alert Psych: COMMON NORMALS: mental status grossly normal Skin: COMMON NORMALS: no rashes or lesions noted, no wounds and turgor normal GENERAL SKIN EXAM: no rashes or lesions noted and turgor normal Course Reevaluation(s): Reevaluation #1: no improvement Reevaluation #2: some improved per patient Consultations: Consultation #1: D/w Dr. Garzon, accepted admission to [facility], [facility] Vital Signs: Vital signs: Vital Signs Temperature 98.6 F 06/22/25 03:57 Pulse Rate 72 06/22/25 03:57 Respiratory Rate 17 06/22/25 03:57 Blood Pressure 118/80 06/22/25 03:57 Pulse Oximetry 95 06/22/25 03:57 Oxygen Delivery Me thod Nasal Cannula 06/22/25 03:57 Oxygen Flow Rate 2 06/22/25 03:57 MDM - SOB/Dyspnea Medical Decision Making Patient presented with increasing short breaths over the last 4 days. She was initially seen here on 06/16 with chest discomfort, was ruled out, and sent home. Since that time she has had increasing shortness of breath. Troponin is flat from previous evaluation on 06/16, however showing worsening interstitial infiltrates consistent with CHF with pleural effusion on the right. She was given 80 mg of Lasix prior to her sodium reported at 129. Magnesium is also low at 1.5, and will be replaced. She was given 40 mill equivalents of potassium with her initial potassium of 3.5 with obtaining Lasix. Her procalcitonin is not elevated at 0.14, not indicating infectious in nature, however given her bilateral opacities, blood cultures were obtained, empiric antibiotics were ordered with doxycycline and Rocephin. She did have mild leukocytosis at 12.6 with neutrophilia, otherwise CBC was fairly benign. Her VBG did not indicate a abnormality or acid-base, and showed hyperventilation. There was not concern of respiratory failure at this time. She has association of hyperglycemia at 308 with history of diabetes mellitus, on Lantus. Will give regular insulin times 10 units x 1. She did receive Solu-Medrol as she was wheezing. Suspect component of acute exacerbation of COPD as well. Lactic acidosis was not corrected with IV fluids given her acute CHF. She has component of systolic failure with her STEMI that she had in November 2024 for which she states she is compliant to her clopidogrel. Medical Records I reviewed the patient's medical records. Lab Data I reviewed the patient's lab results. 06/22/25 04:16 06/22/25 04:16 Labs/Radiology: Radiology Impressions Chest X-Ray 06/21/25 13:55 Impression: 1. No change in bibasilar pulmonary opacities. 2. Cardiomegaly and atherosclerosis. Laboratory Results WBC 12.61 10^3/uL (3.29-11.43) H 06/21/25 14:50 RBC 5.40 10^6/uL (3.85-5.65) 06/21/25 14:50 Hgb 16.90 g/dL (11.27-16.99) 06/21/25 14:50 Hct 51.3 % (36-47) H 06/21/25 14:50 MCV 95.0 fl (85-98) 06/21/25 14:50 MCH 31.3 pg (27-33) 06/21/25 14:50 MCHC 32.9 g/dL (30-55) 06/21/25 14:50 RDW 14.6 % (12.1-15.1) 06/21/25 14:50 Plt Count 201 10^3/cmm (157-399) 06/21/25 14:50 MPV 10.4 fL (7.4-10.4) 06/21/25 14:50 Neut % (Auto) 79.0 % 06/21/25 14:50 Lymph % (Auto) 10.4 % 06/21/25 14:50 Y[place] % (Auto) 8.9 % 06/21/25 14:50 Eos % (Auto) 1.0 % 06/21/25 14:50 Baso % (Auto) 0.5 % 06/21/25 14:50 Neut # (Auto) 9.96 10^3/uL (1.8-7.7) H 06/21/25 14:50 Lymph # (Auto) 1.3 10^3/uL (0.8-4.8) 06/21/25 14:50 [place] # (Auto) 1.1 10^3/uL (0.2-0.9) H 06/21/25 14:50 Eos # (Auto) 0.1 10^3/uL (0.0-0.8) 06/21/25 14:50 Baso # (Auto) 0.1 10^3/uL (0.0-0.1) 06/21/25 14:50 Nucleated RBC % (auto) 0 % 06/21/25 14:50 Nucleated RBCs # 0.0 /100WBC 06/21/25 14:50 Specimen Type Venous 06/21/25 15:33 Sample Site Na 06/21/25 15:33 ABG pH 7.51 (7.35-7.45) H 06/21/25 14:18 ABG pCO2 36.8 mmHg (35-45) 06/21/25 14:18 ABG pO2 54.2 mmHg (80.0-100.0) L 06/21/25 14:18 ABG PO2/FiO2 Ratio 258 06/21/25 14:18 ABG HCO3 29.5 mmol/L (22-26) H 06/21/25 14:18 ABG O2 Saturation 91.3 06/21/25 14:18 ABG Base Excess 6.3 mmol/L (-2.0-2.0) H 06/21/25 14:18 Malvin Test N/a 06/21/25 15:33 VBG pH 7.44 (7.32-7.42) H 06/21/25 15:33 VBG pCO2 41.8 mmHg (41-51) 06/21/25 15:33 VBG pO2 90.4 mmHg (25-40) H 06/21/25 15:33 VBG HCO3 28.6 mmol/L (24-28) H 06/21/25 15:33 VBG Base Excess 4.0 mmol/L (-3.0-3.0) H 06/21/25 15:33 VBG Hematocrit 54.5 % (37-47) H 06/21/25 15:33 A-a O2 Gradient 6.5 mmHg (5-10) 06/21/25 14:18 Hematocrit 53.0 % (37-47) H 06/21/25 14:18 Hgb O2 Saturation 88.4 % (95-100) L 06/21/25 14:18 Carboxyhemoglobin 2.6 %THgb (0.4-20.1) 06/21/25 14:18 Methemoglobin 0.6 % (0.4-1.5) 06/21/25 14:18 Total Hemoglobin 17.3 g/dL (12-16) H 06/21/25 14:18 Sodium 130.0 mmol/L (131-143) L 06/21/25 14:18 Potassium 3.4 mmol/L (3.5-5.0) L 06/21/25 14:18 Glucose 285.0 mg/dL (70-115) H 06/21/25 14:18 Ionized Calcium 1.2 mmol/L (1.1-1.4) 06/21/25 14:18 O2 Delivery Device Nc 06/21/25 15:33 O2 Liters/Min 2.0 % 06/21/25 15:33 FiO2 28.0 % 06/21/25 15:33 Spray Machine Loader ID Cak 06/21/25 15:33 Sodium 129 mmol/L (136-145) L 06/21/25 14:50 Potassium 3.5 mmol/L (3.5-5.1) 06/21/25 14:50 Chloride 89 mmol/L (98-107) L 06/21/25 14:50 Carbon Dioxide 28 mmol/L (22-29) 06/21/25 14:50 Anion Gap 15.5 (5-19) 06/21/25 14:50 BUN 9 mg/dL (6-20) 06/21/25 14:50 Creatinine 0.8 mg/dL (0.5-0.9) 06/21/25 14:50 GFR Calculation 75.6 mL/min (90-130) L 06/21/25 14:50 Glucose 308 mg/dL (65-115) H 06/21/25 14:50 Calculated Osmolality 278 mOsm/kg (285-295) L 06/21/25 14:50 Lactic Acid 2.5 mmol/L (0.5-2.2) H 06/21/25 15:33 Calcium 9.2 mg/dL (8.5-10.5) 06/21/25 14:50 Magnesium 1.5 mg/dL (1.7-2.3) L 06/21/25 14:50 Total Bilirubin 2.8 mg/dL (0.15-1.2) H 06/21/25 14:50 AST 19 U/L (0-32) 06/21/25 14:50 ALT 14 U/L (0-33) 06/21/25 14:50 Alkaline Phosphatase 130 U/L (35-105) H 06/21/25 14:50 Troponin T Baseline 44 ng/L (0-10) H 06/21/25 14:50 Troponin T 120 Minute 38.97 ng/L (0-10) H 06/21/25 16:50 Delta Troponin T -5.03 ABS# (0-10) L 06/21/25 16:50 NT-Pro-B Natriuret Pep 9915 pg/mL (0-125) H 06/21/25 14:50 Total Protein 7.5 g/dL (6.6-8.7) 06/21/25 14:50 Albumin 3.1 g/dL (3.5-5.2) L 06/21/25 14:50 Globulin 4.4 g/dL (1.3-4.6) 06/21/25 14:50 Procalcitonin 0.14 ng/mL (0-0.5) 06/21/25 14:50 Influenza A (PCR) Negative (Negative) 06/21/25 15:09 Influenza Type B (PCR) Negative (Negative) 06/21/25 15:09 RSV (PCR) Negative (Negative) 06/21/25 15:09 SARS-CoV-2 (PCR) Negative (Negative) 06/21/25 15:09 All radiology interpretation(s) finalized by discharge ED provider radiology interpretation(s): CHF, pleural effusion, moderate right, infiltrate EKG Data EKG 1: Interpretation: Sinus tachycardia, incomplete left bundle branch block, left axis, QTc 452 Discharge Plan Discharge Patient Disposition: Admitted As Inpatient Admit Provider: Maikol Garzon Clinical Impression: Acute on chronic systolic CHF (congestive heart failure), Acidosis, lactic, Acute hyponatremia, COPD with acute exacerbation, Hypomagnesemia, Hyperglycemia due to diabetes mellitus Condition: Stable Discharge Diet: Usual diet Discharge Activity: Resume usual activity Coding Level of Care Code ED Rabbler for Chg Fwd Documented by User: Colton Perez DO 06/22/25 07:17 HPI - SOB/Dyspnea General: Chief Complaint: Shortness of Breath/Dyspnea Stated Complaint: Can't breath N/V Related Data Home Medications ?Medication ?Instructions ?Recorded ?Confirmed budesonide-formoterol HFA 160 2 puff inhalation BID 02/16/20 06/21/25 mcg-4.5 mcg/actuation aerosol inhaler (Symbicort) levothyroxine 75 mcg tablet 75 mcg PO DAILY 06/11/22 06/21/25 potassium chloride 10 mEq 10 meq PO DAILY 05/03/23 06/21/25 tablet,extended release tiotropium bromide 2.5 1 inh inhalation DAILY 05/03/23 06/21/25 mcg/actuation mist for inhalation (Spiriva Respimat) venlafaxine 150 mg 150 mg PO DAILY 11/27/24 06/21/25 capsule,extended release 24 hr albuterol sulfate 2.5 mg/3 mL 2.5 mg continuous nebulization QID 12/14/24 06/21/25 (0.083 %) solution for nebulization PRN Shortness Of Breath albuterol sulfate 90 mcg/actuation 2 puff inhalation QID 12/14/24 06/21/25 aerosol inhaler (Ventolin HFA) clopidogrel 75 mg tablet 75 mg PO DAILY 12/14/24 06/21/25 nitroglycerin 0.4 mg sublingual 0.4 mg sublingual PRN PRN Chest 12/14/24 06/21/25 tablet Pain oxycodone 10 mg tablet 10 mg PO TID PRN Pain 12/14/24 06/21/25 pantoprazole 40 mg tablet,delayed 40 mg PO DAILY 12/14/24 06/21/25 release acetaminophen 500 mg tablet 1,000 mg PO Q6H PRN Pain 12/18/24 06/21/25 (Tylenol Extra Strength) tiotropium bromide 18 mcg capsule 1 cap inhalation DAILY 12/18/24 06/21/25 with inhalation device (Spiriva with HandiHaler) venlafaxine 75 mg capsule,extended 75 mg PO DAILY 12/18/24 06/21/25 release 24 hr acyclovir 400 mg tablet 400 mg PO BID 06/21/25 06/21/25 atorvastatin 80 mg tablet 80 mg PO BEDTIME 06/21/25 06/21/25 escitalopram oxalate 20 mg tablet 20 mg PO DAILY 06/21/25 06/21/25 losartan 100 mg tablet 100 mg PO DAILY 06/21/25 06/21/25 spironolactone 50 mg tablet 50 mg PO DAILY PRN Edema 06/21/25 06/21/25 Previous Rx's ?Medication ?Instructions ?Recorded aspirin 81 mg tablet,delayed 81 mg PO DAILY #90 tabs 06/12/22 release (Adult Low Dose Aspirin) insulin glargine 100 unit/mL (3 60 unit (0.6 mL) SUBCUT QAM #60 mL 07/26/24 mL) subcutaneous pen (Lantus Solostar U-100 Insulin) furosemide 40 mg tablet 40 mg PO DAILY 30 days #30 tabs 01/25/25 blood-glucose sensor (Dexcom G7 #3 ea 03/20/25 Sensor device) Allergies Allergy/AdvReac Type Severity Reaction Status Date / Time pregabalin (From Lyrica) Allergy hallucinati Verified 03/27/25 17:17 ons PFSH ED PFSH: Medical History (Updated 06/21/25 @ 17:03 by CONNOR Drake) Congestive heart failure LBBB (left bundle branch block) CAD (coronary artery disease) Hypoxic respiratory failure CHF (congestive heart failure) Chest pain Dyspnea on exertion Right middle cerebral artery stroke Staph skin infection Left arm pain Transient cerebral ischemia Smoking addiction CVA (cerebral vascular accident) Major depressive disorder, 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, recurrent severe without psychotic features Hyperlipidemia Hypertension Type II diabetes mellitus Asthma COPD (chronic obstructive pulmonary disease) Hepatitis C Acute ischemic stroke COPD (chronic obstructive pulmonary disease) Smoking Left leg paresthesias Arm paresthesia, left Left-sided weakness Surgical History H/O: hysterectomy 1996 History of tonsillectomy Family History Other CAD (coronary artery disease) Cancer Diabetes Family history of premature coronary artery disease Hypertension Lung disease Stroke Social History (Updated 06/21/25 @ 18:42 by Maikol Garzon MD) Smoking and tobacco/nicotine status: former use of tobacco/nicotine Quit status (tobacco/nicotine): has quit using Year quit tobacco: 2024 Former quit date comment: Was smoking a pack and a half a day till 2 weeks ago Second hand smoke exposure: No Alcohol intake: former Substance/Drug Use: former Date of last use: 20 years ago Additional social history: Patient states she is on disability she thinks from medical problem but does not know which one. 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 Pets and animals: Yes Pets & animals: dog(s) Leisure activites: exercise, art, music and reading Sexually active: No Do you think of yourself as: Straight/Heterosexual Current gender identity: Female Linda/Pentecostal: Muslim Special linda needs: No Agree to transfusion: Yes Course Vital Signs: Vital signs: Vital Signs Temperature 98.6 F 06/22/25 03:57 Pulse Rate 72 06/22/25 03:57 Respiratory Rate 17 06/22/25 03:57 Blood Pressure 118/80 06/22/25 03:57 Pulse Oximetry 95 06/22/25 03:57 Oxygen Delivery Me thod Nasal Cannula 06/22/25 03:57 Oxygen Flow Rate 2 06/22/25 03:57 MDM - SOB/Dyspnea Medical Decision Making Patient presented with increasing short breaths over the last 4 days. She was initially seen here on 06/16 with chest discomfort, was ruled out, and sent home. Since that time she has had increasing shortness of breath. Troponin is flat from previous evaluation on 06/16, however showing worsening interstitial infiltrates consistent with CHF with pleural effusion on the right. She was given 80 mg of Lasix prior to her sodium reported at 129. Magnesium is also low at 1.5, and will be replaced. She was given 40 mill equivalents of potassium with her initial potassium of 3.5 with obtaining Lasix. Her procalcitonin is not elevated at 0.14, not indicating infectious in nature, however given her bilateral opacities, blood cultures were obtained, empiric antibiotics were ordered with doxycycline and Rocephin. She did have mild leukocytosis at 12.6 with neutrophilia, otherwise CBC was fairly benign. Her VBG did not indicate a abnormality or acid-base, and showed hyperventilation. There was not concern of respiratory failure at this time. She has association of hyperglycemia at 308 with history of diabetes mellitus, on Lantus. Will give regular insulin times 10 units x 1. She did receive Solu-Medrol as she was wheezing. Suspect component of acute exacerbation of COPD as well. Lactic acidosis was not corrected with IV fluids given her acute CHF. She has component of systolic failure with her STEMI that she had in November 2024 for which she states she is compliant to her clopidogrel. Chart reviewed and patient discussed with midlevel. Agree with assessment and plan. Lab Data 06/22/25 04:16 06/22/25 04:16 Labs/Radiology: Radiology Impressions Chest X-Ray 06/21/25 13:55 Impression: 1. No change in bibasilar pulmonary opacities. 2. Cardiomegaly and atherosclerosis. Laboratory Results WBC 12.61 10^3/uL (3.29-11.43) H 06/21/25 14:50 RBC 5.40 10^6/uL (3.85-5.65) 06/21/25 14:50 Hgb 16.90 g/dL (11.27-16.99) 06/21/25 14:50 Hct 51.3 % (36-47) H 06/21/25 14:50 MCV 95.0 fl (85-98) 06/21/25 14:50 MCH 31.3 pg (27-33) 06/21/25 14:50 MCHC 32.9 g/dL (30-55) 06/21/25 14:50 RDW 14.6 % (12.1-15.1) 06/21/25 14:50 Plt Count 201 10^3/cmm (157-399) 06/21/25 14:50 MPV 10.4 fL (7.4-10.4) 06/21/25 14:50 Neut % (Auto) 79.0 % 06/21/25 14:50 Lymph % (Auto) 10.4 % 06/21/25 14:50 [place] % (Auto) 8.9 % 06/21/25 14:50 Eos % (Auto) 1.0 % 06/21/25 14:50 Baso % (Auto) 0.5 % 06/21/25 14:50 Neut # (Auto) 9.96 10^3/uL (1.8-7.7) H 06/21/25 14:50 Lymph # (Auto) 1.3 10^3/uL (0.8-4.8) 06/21/25 14:50 [place] # (Auto) 1.1 10^3/uL (0.2-0.9) H 06/21/25 14:50 Eos # (Auto) 0.1 10^3/uL (0.0-0.8) 06/21/25 14:50 Baso # (Auto) 0.1 10^3/uL (0.0-0.1) 06/21/25 14:50 Nucleated RBC % (auto) 0 % 06/21/25 14:50 Nucleated RBCs # 0.0 /100WBC 06/21/25 14:50 Specimen Type Venous 06/21/25 15:33 Sample Site Na 06/21/25 15:33 ABG pH 7.51 (7.35-7.45) H 06/21/25 14:18 ABG pCO2 36.8 mmHg (35-45) 06/21/25 14:18 ABG pO2 54.2 mmHg (80.0-100.0) L 06/21/25 14:18 ABG PO2/FiO2 Ratio 258 06/21/25 14:18 ABG HCO3 29.5 mmol/L (22-26) H 06/21/25 14:18 ABG O2 Saturation 91.3 06/21/25 14:18 ABG Base Excess 6.3 mmol/L (-2.0-2.0) H 06/21/25 14:18 Malvin Test N/a 06/21/25 15:33 VBG pH 7.44 (7.32-7.42) H 06/21/25 15:33 VBG pCO2 41.8 mmHg (41-51) 06/21/25 15:33 VBG pO2 90.4 mmHg (25-40) H 06/21/25 15:33 VBG HCO3 28.6 mmol/L (24-28) H 06/21/25 15:33 VBG Base Excess 4.0 mmol/L (-3.0-3.0) H 06/21/25 15:33 VBG Hematocrit 54.5 % (37-47) H 06/21/25 15:33 A-a O2 Gradient 6.5 mmHg (5-10) 06/21/25 14:18 Hematocrit 53.0 % (37-47) H 06/21/25 14:18 Hgb O2 Saturation 88.4 % (95-100) L 06/21/25 14:18 Carboxyhemoglobin 2.6 %THgb (0.4-20.1) 06/21/25 14:18 Methemoglobin 0.6 % (0.4-1.5) 06/21/25 14:18 Total Hemoglobin 17.3 g/dL (12-16) H 06/21/25 14:18 Sodium 130.0 mmol/L (131-143) L 06/21/25 14:18 Potassium 3.4 mmol/L (3.5-5.0) L 06/21/25 14:18 Glucose 285.0 mg/dL (70-115) H 06/21/25 14:18 Ionized Calcium 1.2 mmol/L (1.1-1.4) 06/21/25 14:18 O2 Delivery Device Nc 06/21/25 15:33 O2 Liters/Min 2.0 % 06/21/25 15:33 FiO2 28.0 % 06/21/25 15:33 Spray Machine Loader ID Cak 06/21/25 15:33 Sodium 129 mmol/L (136-145) L 06/21/25 14:50 Potassium 3.5 mmol/L (3.5-5.1) 06/21/25 14:50 Chloride 89 mmol/L (98-107) L 06/21/25 14:50 Carbon Dioxide 28 mmol/L (22-29) 06/21/25 14:50 Anion Gap 15.5 (5-19) 06/21/25 14:50 BUN 9 mg/dL (6-20) 06/21/25 14:50 Creatinine 0.8 mg/dL (0.5-0.9) 06/21/25 14:50 GFR Calculation 75.6 mL/min (90-130) L 06/21/25 14:50 Glucose 308 mg/dL (65-115) H 06/21/25 14:50 Calculated Osmolality 278 mOsm/kg (285-295) L 06/21/25 14:50 Lactic Acid 2.5 mmol/L (0.5-2.2) H 06/21/25 15:33 Calcium 9.2 mg/dL (8.5-10.5) 06/21/25 14:50 Magnesium 1.5 mg/dL (1.7-2.3) L 06/21/25 14:50 Total Bilirubin 2.8 mg/dL (0.15-1.2) H 06/21/25 14:50 AST 19 U/L (0-32) 06/21/25 14:50 ALT 14 U/L (0-33) 06/21/25 14:50 Alkaline Phosphatase 130 U/L (35-105) H 06/21/25 14:50 Troponin T Baseline 44 ng/L (0-10) H 06/21/25 14:50 Troponin T 120 Minute 38.97 ng/L (0-10) H 06/21/25 16:50 Delta Troponin T -5.03 ABS# (0-10) L 06/21/25 16:50 NT-Pro-B Natriuret Pep 9915 pg/mL (0-125) H 06/21/25 14:50 Total Protein 7.5 g/dL (6.6-8.7) 06/21/25 14:50 Albumin 3.1 g/dL (3.5-5.2) L 06/21/25 14:50 Globulin 4.4 g/dL (1.3-4.6) 06/21/25 14:50 Procalcitonin 0.14 ng/mL (0-0.5) 06/21/25 14:50 Influenza A (PCR) Negative (Negative) 06/21/25 15:09 Influenza Type B (PCR) Negative (Negative) 06/21/25 15:09 RSV (PCR) Negative (Negative) 06/21/25 15:09 SARS-CoV-2 (PCR) Negative (Negative) 06/21/25 15:09 Discharge Plan Discharge Patient Disposition: Admitted As Inpatient Admit Provider: Maikol Garzon Clinical Impression: Acute on chronic systolic CHF (congestive heart failure), Acidosis, lactic, Acute hyponatremia, COPD with acute exacerbation, Hypomagnesemia, Hyperglycemia due to diabetes mellitus Condition: Stable Discharge Diet: Usual diet Discharge Activity: Resume usual activity Coding Level of Care Code ED Rabbler for Isabel Hernandez
--- NOTE | 2025-06-21 14:03 | PC.NURSE ---
PT began to be very agitated and anxious with her nurse. This nurse entered room and PT was clearly agitated yelling at nurse and stating she wanted to go home. This nurse was able to verbally de-escalate PT. PT agreed to take IM ativan and try to relax before any more interventions
[2025-06-21 14:29] LABS: ABG PCO2 36.8 mmHg (35-45); ABG PH Result 7.51 (7.35-7.45); Alveolar-Arterial Oxygen Gradi 6.5 mmHg (5-10); Arterial Blood Gas Hematocrit 53.0 % (37-47); Blood Gas Allen Test Pos; Blood Gas Operator Identificat CAK; Blood Gas Sample Site Radial, left; Blood Gas Sample Type Arterial; Carboxyhemoglobin 2.6 %THgb (0.4-20.1); Glucose Level-ABG 285.0 mg/dL (70-115); HCO3 ABG 29.5 mmol/L (22-26); Ionized Calcium Level - ABG 1.2 mmol/L (1.1-1.4); Methemoglobin 0.6 % (0.4-1.5); Oxygen Saturation ABG 91.3; PO2 ABG 54.2 mmHg (80.0-100.0); PO2 FiO2 Ratio Arterial Blood 258; Potassium Level - ABG 3.4 mmol/L (3.5-5.0); Sodium Level - ABG 130.0 mmol/L (131-143)
[2025-06-21] MEDS: LORazepam 1 MG/0.5 ML injection 2 MG IM (14:56)
[2025-06-21] MEDS: methylPREDNISolone sod succ 125 mg/2 mL INJ 80 MG IV (14:56)
[2025-06-21 15:03] LABS: Hematocrit 51.3 % (36-47); Hemoglobin 16.90 g/dL (11.27-16.99); Mean Corpuscular HGB Conc 32.9 g/dL (30-55); Mean Corpuscular Hemoglobin 31.3 pg (27-33); Mean Corpuscular Volume 95.0 fl (85-98); Nucleated Red Blood Cells % 0 %; Platelet Count 201 10^3/cmm (157-399); Red Blood Count 5.40 10^6/uL (3.85-5.65); White Blood Count 12.61 10^3/uL (3.29-11.43)
[2025-06-21 15:19] LABS: Troponin(5th) Baseline 44 ng/L (0-10)
[2025-06-21 15:35] LABS: Alanine Aminotransferase 14 U/L (0-33); Albumin Level 3.1 g/dL (3.5-5.2); Alkaline Phosphatase 130 U/L (35-105); Anion Gap 15.5 (5-19); Aspartate Amino Transferase 19 U/L (0-32); Blood Urea Nitrogen 9 mg/dL (6-20); Calcium 9.2 mg/dL (8.5-10.5); Carbon Dioxide 28 mmol/L (22-29); Chloride 89 mmol/L (98-107); Creatinine Clr Calc Pharmacy 84.7558; Globulin 4.4 g/dL (1.3-4.6); Glucose 308 mg/dL (65-115); Magnesium 1.5 mg/dL (1.7-2.3); NT Pro B Type Natriuretic Pept 9915 pg/mL (0-125); Osmolality Calculated 278 mOsm/kg (285-295); Potassium 3.5 mmol/L (3.5-5.1); Sodium 129 mmol/L (136-145); Total Protein 7.5 g/dL (6.6-8.7)
[2025-06-21] MEDS: doxycycline 100 MG in sodium chloride 0.9% (plus) 100 ML IV (15:38)
[2025-06-21] MEDS: cefTRIAXone 2,000 mg SDV 2000 MG IVP (15:38)
[2025-06-21] MEDS: FUROsemide 10 mg/mL SDV 10mL 80 MG IVP (15:38)
[2025-06-21 15:52] LABS: Respiratory Syncytial Virus Ce NEGATIVE (Negative); SARS-CoV-2 PCR NEGATIVE (Negative)
[2025-06-21 15:54] LABS: Base Excess VBG 4.0 mmol/L (-3.0-3.0); Blood Gas LPM 2.0 %; Blood Gas Operator Identificat CAK; Blood Gas Sample Type Venous; HCO3 VBG 28.6 mmol/L (24-28); PCO2 VBG 41.8 mmHg (41-51); PO2 VBG 90.4 mmHg (25-40); Venous Blood Gas Hematocrit 54.5 % (37-47); pH VBG 7.44 (7.32-7.42)
[2025-06-21 16:02] LABS: Lactic Sepsis W/Reflex 2.5 mmol/L (0.5-2.2)
--- NOTE | 2025-06-21 16:02 | ECG_ITS ---
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1975 Requested By: Martina Escobar Order Number: [id number] Reading MD: EVANGELIST GARAY Measurements Intervals [place] Rate: 114 P: 60 MS: 151 QRS: -82 QRSD: 152 T: 68 QT: 385 QTc: 530 Interpretive Statements SINUS TACHYCARDIA LEFT ATRIAL ENLARGEMENT [-0.15mV P-WAVE IN V1/V2] LEFT AXIS DEVIATION [QRS AXIS < -30] INTRAVENTRICULAR CONDUCTION DELAY [130+ ms QRS DURATION] Compared to ECG 06/21/2025 13:11:28 Left-axis deviation now present Right-axis deviation no longer present Electronically Signed On 06-21-2025 22:21:20 CDT by EVANGELIST GARAY [email or web address]
[2025-06-21 16:04] LABS: Procalcitonin 0.14 ng/mL (0-0.5)
--- NOTE | 2025-06-21 16:13 | PC.PHAR ---
Pt states she just couldn't take any medications this morning, it took everything she had, just to get here.
[2025-06-21] MEDS: magnesium sulfate premix 4 GM/100 ML PREMIX IV (17:18)
[2025-06-21 17:25] LABS: Reflex Lactate Order REFLEX LACTIC ORDERD
[2025-06-21] MEDS: insulin regular-human 100 units/1 mL 10 UNIT IVP (17:25)
[2025-06-21 17:33] LABS: Troponin 5 2HR 38.97 ng/L (0-10)
[2025-06-21 17:36] LABS: Troponin 5 2HR Delta -5.03 ABS# (0-10)
--- NOTE | 2025-06-21 18:38 | PM.HP ---
Providers/Chief Complaint Admitting Physician: Maikol Garzon MD Primary Care Provider: Sushil Mobley MD Chief Complaint: Can't breath N/V History of Present Illness Carmen Richards is a 49 year old female came in with 4 days of shortness of breath. She states that she was already short of breath at home on oxygen but reports quitting smoking 2 weeks ago cold turkey from a pack and a half a day. She states she stopped taking her diuretic every day because she got tired peeing a lot. Swelling in the legs worsened and she became short of breath presenting to the ER and seen by Martina RYAN. Patient was diagnosed with acute congestive heart failure exacerbation given 80 of Lasix and is voiding urine now referred for admission. Notably chest x-ray shows pulmonary edema, B natruretic peptide double her baseline and she is requiring more oxygen Review of Systems Narrative: General Patient is unsure on weight gain or weight loss but says her legs are swelling. 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 Medications/Allergies Home Medications ?Medication ?Instructions ?Recorded ?Confirmed ?Last Taken ?Type budesonide-formoterol HFA 160 2 puff inhalation BID 02/16/20 06/21/25 06/20/25 History mcg-4.5 mcg/actuation aerosol inhaler (Symbicort) levothyroxine 75 mcg tablet 75 mcg PO DAILY 06/11/22 06/21/25 06/20/25 History aspirin 81 mg tablet,delayed 81 mg PO DAILY #90 tabs 06/12/22 06/21/25 06/20/25 Rx release (Adult Low Dose Aspirin) potassium chloride 10 mEq 10 meq PO DAILY 05/03/23 06/21/25 06/20/25 History tablet,extended release tiotropium bromide 2.5 1 inh inhalation DAILY 05/03/23 06/21/25 06/20/25 History mcg/actuation mist for inhalation (Spiriva Respimat) insulin glargine 100 unit/mL (3 60 unit (0.6 mL) SUBCUT QAM #60 mL 07/26/24 06/21/25 06/20/25 Rx mL) subcutaneous pen (Lantus Solostar U-100 Insulin) venlafaxine 150 mg 150 mg PO DAILY 11/27/24 06/21/25 06/20/25 History capsule,extended release 24 hr albuterol sulfate 2.5 mg/3 mL 2.5 mg continuous nebulization QID 12/14/24 06/21/25 Unknown History (0.083 %) solution for nebulization PRN Shortness Of Breath albuterol sulfate 90 mcg/actuation 2 puff inhalation QID 12/14/24 06/21/25 06/20/25 History aerosol inhaler (Ventolin HFA) clopidogrel 75 mg tablet 75 mg PO DAILY 12/14/24 06/21/25 06/20/25 History nitroglycerin 0.4 mg sublingual 0.4 mg sublingual PRN PRN Chest 12/14/24 06/21/25 Unknown History tablet Pain oxycodone 10 mg tablet 10 mg PO TID PRN Pain 12/14/24 06/21/25 12/17/24 History pantoprazole 40 mg tablet,delayed 40 mg PO DAILY 12/14/24 06/21/25 06/20/25 History release acetaminophen 500 mg tablet 1,000 mg PO Q6H PRN Pain 12/18/24 06/21/25 Unknown History (Tylenol Extra Strength) tiotropium bromide 18 mcg capsule 1 cap inhalation DAILY 12/18/24 06/21/25 06/20/25 History with inhalation device (Spiriva with HandiHaler) venlafaxine 75 mg capsule,extended 75 mg PO DAILY 12/18/24 06/21/25 06/20/25 History release 24 hr furosemide 40 mg tablet 40 mg PO DAILY 30 days #30 tabs 01/25/25 06/21/25 06/20/25 Rx blood-glucose sensor (Dexcom G7 #3 ea 03/20/25 06/21/25 Unknown Rx Sensor device) acyclovir 400 mg tablet 400 mg PO BID 06/21/25 06/21/25 06/20/25 History atorvastatin 80 mg tablet 80 mg PO BEDTIME 06/21/25 06/21/25 06/20/25 History escitalopram oxalate 20 mg tablet 20 mg PO DAILY 06/21/25 06/21/25 06/20/25 History losartan 100 mg tablet 100 mg PO DAILY 06/21/25 06/21/25 06/20/25 History spironolactone 50 mg tablet 50 mg PO DAILY PRN Edema 06/21/25 06/21/25 Unknown History Allergies Allergy/AdvReac Type Severity Reaction Status Date / Time pregabalin (From Lyrica) Allergy hallucinati Verified 03/27/25 17:17 ons PFSH Acute PFSH: Medical History (Updated 06/21/25 @ 17:03 by CONNOR Drake) Congestive heart failure LBBB (left bundle branch block) CAD (coronary artery disease) Hypoxic respiratory failure CHF (congestive heart failure) Chest pain Dyspnea on exertion Right middle cerebral artery stroke Staph skin infection Left arm pain Transient cerebral ischemia Smoking addiction CVA (cerebral vascular accident) Major depressive disorder, 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, recurrent severe without psychotic features Hyperlipidemia Hypertension Type II diabetes mellitus Asthma COPD (chronic obstructive pulmonary disease) Hepatitis C Acute ischemic stroke COPD (chronic obstructive pulmonary disease) Smoking Left leg paresthesias Arm paresthesia, left Left-sided weakness Surgical History H/O: hysterectomy 1996 History of tonsillectomy Family History Other CAD (coronary artery disease) Cancer Diabetes Family history of premature coronary artery disease Hypertension Lung disease Stroke Social History (Updated 06/21/25 @ 18:42 by Maikol Garzon MD) Smoking and tobacco/nicotine status: former use of tobacco/nicotine Quit status (tobacco/nicotine): has quit using Year quit tobacco: 2024 Former quit date comment: Was smoking a pack and a half a day till 2 weeks ago Second hand smoke exposure: No Alcohol intake: former Substance/Drug Use: former Date of last use: 20 years ago Additional social history: Patient states she is on disability she thinks from medical problem but does not know which one. 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 Pets and animals: Yes Pets & animals: dog(s) Leisure activites: exercise, art, music and reading Sexually active: No Do you think of yourself as: Straight/Heterosexual Current gender identity: Female Linda/Quaker: Caodaism Special linda needs: No Agree to transfusion: Yes Female Reproductive History: Para: 2 Spontaneous abortions: No Vitals/I&O/Wt Last Vital Signs Temp 98.0 F 06/21/25 13:08 Pulse 102 H 06/21/25 18:36 Resp 22 H 06/21/25 14:39 BP 112/62 06/21/25 18:36 Pulse Ox 95 06/21/25 18:36 O2 Del Method Nasal Cannula 06/21/25 17:30 O2 Flow Rate 2 06/21/25 17:30 06/21/25 06/21/25 06/21/25 06:59 14:59 22:59 Intake Total 100 / 100 Balance 100 / 100 Weight last 48 hrs Weight 86.183 kg Physical Exam Narrative: General well-developed well-nourished obese female tachypneic CV regular tachycardic rhythm Lungs mild prolonged respiratory phase there is crackles heard both bases Abdomen positive bowel tones soft obese nontender Calves 2+ bilateral pretibial edema Feet 2+ to 3 bilateral dorsal pedal edema Speech she has slurred speech. She attributes this to past stroke Data 06/21/25 14:50 06/21/25 14:50 Micro: Microbiology 06/21/25 15:35 Blood Culture - Preliminary Blood SPECIMEN COLLECTED 06/21/25 15:33 Blood Culture - Preliminary Blood SPECIMEN COLLECTED A&P Assessment and plan 1. Acute on chronic systolic CHF (congestive heart failure): Echocardiogram from 04/2025 showed EF 32% and patient has not been taking her diuretic. Echo from November 2024 EF also 30 to 35% 2. Hyperglycemia due to diabetes mellitus: Start 1500-calorie ADA diet Lantus and medium scale insulin 3. Hypomagnesemia: Will replace 4. COPD with acute exacerbation: Will give dexamethasone 4 mg IV twice daily. Patient quit smoking 2 weeks ago. 5. Acute hyponatremia: Start steroids monitor sodium with diuresis 6. Major depressive disorder, recurrent severe without psychotic features: Home medications continued but will need to monitor for possible SIADH PDMP PDMP Reviewed: Not Reviewed Attestations Medical Necessity Statement*: Patient is admitted to hospital with acute congestive heart failure and will require greater than 2 midnights in hospital Coding Level of Care Code 58797 Diagnoses Acute on chronic systolic CHF (congestive heart failure) I50.23 Hyperglycemia due to diabetes mellitus E11.65 Hypomagnesemia E83.42 COPD with acute exacerbation J44.1 Acute hyponatremia E87.1 Major depressive disorder, recurrent severe without psychotic features F33.2 Time Spent (min) 70
[2025-06-21 18:39] LABS: Lactic Acid level (Lactate) 3.3 mmol/L (0.5-2.2)
[2025-06-21] MEDS: magnesium sulfate premix 2 GM/50 ML PIGGYBACK IV (19:37)
[2025-06-22 01:12] VITALS: PULSE 100; RESP 18; O2SAT 91
[2025-06-22 01:25] LABS: Glucose Urine UA Trace (Normal); Nitrate Urine Negative (Negative); Specific Gravity, Urine 1.010 (1.005-1.030)
[2025-06-22 01:38] LABS: UA Slide Review UA Slide Review Perf
[2025-06-22 03:57] VITALS: BP 118/80; PULSE 72; RESP 17; TEMP 37; O2SAT 95
[2025-06-22 05:04] LABS: Hematocrit 47.4 % (36-47); Hemoglobin 15.90 g/dL (11.27-16.99); Mean Corpuscular HGB Conc 33.5 g/dL (30-55); Mean Corpuscular Hemoglobin 32.1 pg (27-33); Mean Corpuscular Volume 95.6 fl (85-98); Nucleated Red Blood Cells % 0 %; Platelet Count 207 10^3/cmm (157-399); Red Blood Count 4.96 10^6/uL (3.85-5.65); White Blood Count 14.24 10^3/uL (3.29-11.43)
[2025-06-22 05:33] LABS: Cholesterol 117 mg/dL (0-200); HDL Cholesterol 18 mg/dL (60-100); Triglycerides 79 mg/dL (0-150)
[2025-06-22 05:53] LABS: Estmated Average Glucose 278; Hemoglobin A1C 11.3 % (4.0-6.0)
--- OUTSIDE RECORDS SUMMARY | 2025-06-22 05:55 | XMS_ITS | Encounter Summary ---
[facility] Organization [facility] Address [address] [place] [address] Care Team Providers Care Property Adjuster Name Role Phone Sushil Mobley MD Primary Care Provider [phone] Encounter Details Date Type Department Care Team (Late st Contact Info) Description 09/17/2014 Ancillary Orders [facility] [place] [address] [place] [id number] Social History Tobacco Use Types Packs/Day Years [...] on filedocumented in this encounter Care Teams Property Adjuster Relationship Specialty Start Date End Date Sushil Mobley MD [address] [address] PCP - General Family Practice 08/22/20 documented as of this encounter
--- OUTSIDE RECORDS SUMMARY | 2025-06-22 05:55 | XMS_ITS | Clinical Summary ---
Author Organization [facility] Address [address] [address] Phone Care Team Providers Care Pattern Drum Maker Name Role Phone Sushil Mobley MD Primary Care Provider [phone] Social History Tobacco Use Types Packs/Day Years Used Date Smoking Tobacco: Never Assessed Comments Unknown Sex and Gender Information Value Date Recorded Sex Assigned at Not on file Legal Sex Female 9:04 PM CDT Gender Identity Not on file Sexual Orientation Not on file Last Filed Vital Signs Vital Sign Reading Time Taken Comments Blood Pressure - - Pulse 71 11/20/2019 10:47 AM [facility] Temperature - - Respiratory Rate 20 11/20/2019 10:47 AM [facility] Oxygen Saturation 99% 11/20/2019 10:46 AM [facility] Inhaled Oxygen Concentration - - Weight - [...] (#1) [address] [place] [address] Care Teams Pattern Drum Maker Relationship Specialty Start Date End Date Sushil Mobley MD [address] [id number] PCP - General Family Practice 08/22/20
--- OUTSIDE RECORDS SUMMARY | 2025-06-22 05:55 | XMS_ITS | Encounter Summary ---
Author Organization [facility] Address [address] [place] [address] Care Team Providers Care 3D Specialist Name Role Phone Sushil Mobley MD Primary Care Provider [phone] Encounter Details Date Type Department Care Team (Late st Contact Info) Description 09/27/2019 Ancillary Orders [facility] Centralized Scheduling [address] [place] [phone] Mtnv, External Provider [address] [facility] [address] [place] [address] Social History Tobacco Use Types Packs/Day Years [...] on filedocumented in this encounter Care Teams 3D Specialist Relationship Specialty Start Date End Date Sushil Mobley MD [address] [id number] PCP - General Family Practice 08/22/20 documented as of this encounter
--- OUTSIDE RECORDS SUMMARY | 2025-06-22 05:55 | XMS_ITS | Clinical Summary ---
Author Organization [employer] Address [address] [facility] Attn: Epic Prelude ADT [place] [address] Care Team Providers Care Drafter Name Role Phone Sushil Mobley MD Primary Care Provider [phone] Allergies Active Allergy Reactions Criticality Noted Date [...] breakfast. 30 Tablet 2 12/05/2024 3:18 PM [facility] 5 Active atorvastatin (LIPITOR) 40 mg tablet Take 1 Tablet (40 mg) by mouth daily at bedtime. 30 Tablet 2 12/05/2024 3:18 PM [facility] 5 Active clopidogreL (PLAVIX) 75 mg Tablet Take 1 Tablet (75 mg) by mouth daily. 30 Tablet 2 12/05/2024 3:18 PM [facility] 5 Active furosemide (LASIX) 20 mg tablet Take 1 Tablet (20 mg) by mouth daily. 30 Tablet 12/05/2024 3:18 PM [facility] 5 Active insulin glargine (LANTUS) 100 unit/mL pen syringe Inject 25 Units by subcutaneous injection daily with breakfast. 15 mL 5 Active nitroglycerin (NITROSTAT) 0.4 mg Tablet, Sublingual Place 1 Tablet (0.4 mg) under tongue every 5 minutes as needed for Chest Pain (Do NOT take more than 3 pills in a row, if chest pain not relived contact your PCP/Gerontological Nurse Practitioner ERVIN). 25 Tablet 1 12/05/2024 3:18 PM [facility] Active pantoprazole (PROTONIX) 40 mg Tablet, Delayed Release (E.C.) Take 1 Tablet (40 mg) by mouth daily before breakfast. 30 Tablet 12/05/2024 3:18 PM [facility] Active Active Problems Problem Noted Date Diagnosed [...] on file Legal Sex Female 2:08 AM [facility] Gender Identity Not on file Sexual Orientation Not on file Last Filed Vital Signs Vital Sign Reading Time Taken Comments Blood Pressure 104/70 12/05/2024 8:28 AM [facility] Pulse 81 12/05/2024 8:28 AM [facility] Temperature 36.5 C (97.7 F) 12/05/2024 8:28 AM [facility] Respiratory Rate 18 12/05/2024 8:28 AM [facility] Oxygen Saturation 93% 12/05/2024 8:28 AM [facility] Inhaled Oxygen Concentration - - Weight 82.6 kg (182 lb 3.2 oz) 12/04/2024 5:00 A M [facility] Height 157.5 cm (5' 2 ) 12/02/2024 11:11 PM [facility] Body Mass Index 33.32 12/02/2024 11:11 PM [facility] Plan of Treatment Health Maintenance Due Date [...] (#1) 2025 Medical Devices Implanted Type Area Military Pay Technician Device Identifier Shelf Expiration Date Model / Serial / Lot Stent Ronny Bunkie Jose 3.0x15mm Rx [id number] - [id number] Implanted:Qty: 1 on 12/03/2024 by Prince Funes MD at [facility] Stent N/A: Coronary [employer] [id number] 07/31/2027 [id number] 15UX / / [id number] Stent Ronny Bunkie Jose 4.0x12mm Rx [id number] - [id number] Implanted:Qty: 1 on 12/03/2024 by Prince Funes MD at [facility] Stent N/A: Coronary [employer] [id number] 05/10/2027 [id number] 12UX / / [id number] Stent Ronny Bunkie Jose 4.0x8mm Rx [id number] - [id number] Implanted:Qty: 1 on 12/03/2024 by Prince Funes MD at [facility] Stent N/A: Coronary [employer] [id number] 04/23/2027 [id number] 08UX / / [id number] Procedures Procedure Name Priority Date/Time Associated Diagnosis Comments HEMOGLOBIN A1C Routine 12/03/2024 2:49 AM [facility] from Last 3 Months or Most Recently Relevant to Health Maintenance Results * (ABNORMAL) HEMOGLOBIN A1C (12/03/2024 2:49 AM [facility]) HEMOGLOBIN A1C 12.1(H) <=5.6 % 12/04/2024 8:55 AM [facility] EST. AVG GLUCOSE, A1C 301 mg/dL 12/04/2024 8:55 AM [facility] Blood Venipuncture / Unknown 12/03/2024 2:49 AM [facility] 12/03/2024 3:04 AM [facility] Narrative [facility] - 12/04/2024 8:55 AM [facility] HGB A1C INTERPRETATION NORMAL: <5.7% PRE-DIABETES: 5.7 - 6.4% DIABETES: 6.5% OR GREATER Alvarado Persaud DO CHEMISTRY ORDERABLES Final Resu lt [facility] CLIA # [id number] [address] [place] [id number] from Last 3 Months or Most Recently Relevant to Health Maintenance Insurance MEDICAID [place] [employer] Advance Directives For more information, please contact: [phone] * Full Code (Latest Code Status on File) Date Activated Date Inactivated Comments 12/03/2024 2:06 AM 12/05/2024 5:37 PM Care Teams Drafter Relationship Specialty Start Date End Date Sushil Mobley MD [address] [place] [id number] PCP - General Family Practice 08/22/20
--- OUTSIDE RECORDS SUMMARY | 2025-06-22 05:55 | XMS_ITS | Encounter Summary ---
Author Organization [facility] Address [address] [place] [address] Care Team Providers Care Bankruptcy Attorney Name Role Phone Sushil Mobley MD Primary Care Provider [phone] Encounter Details Date Type Department Care Team (Late st Contact Info) Description 09/27/2019 Ancillary Orders [facility] Centralized Scheduling [address] [place] [phone] Determinations, Dis Kim Durán [address] [place] [address] COPD (chronic obstructive pulmonary disease) ([facility]) Social History Tobacco Use Types Packs/Day Years [...] AND LATERAL 2 VW (11/20/2019 9:22 AM ACCOUNTS RECEIVABLE ANALYST) Anatomical Region Laterality Modality Chest Computed Radiogr aphy 11/20/2019 9:22 AM ACCOUNTS RECEIVABLE ANALYST Impressions 11/20/2019 3:50 PM ACCOUNTS RECEIVABLE ANALYST IMPRESSION: Please see below. Exam: XR CHEST PA AND LATERAL 2 VW Date/Time of Exam: 11/20/2019 9:22 AM Reason For Exam: See Diagnosis. Diagnosis: COPD (chronic obstructive pulmonary disease). Comparison: None Findings: The heart size is normal. No infiltrates or pleural fluid. Retrosternal calcified granuloma. Thoracic spine degenerative changes. IMPRESSION: 1. No infiltrates. [id number] Narrative Procedure Note Jose G Marquez MD - 11/20/2019 IMPRESSION: Please see below. Exam: XR CHEST PA AND LATERAL 2 VW Date/Time of Exam: 11/20/2019 9:22 AM Reason For Exam: See Diagnosis. Diagnosis: COPD (chronic obstructive pulmonary disease). Comparison: None Findings: The heart size is normal. No infiltrates or pleural fluid. Retrosternal calcified granuloma. Thoracic spine degenerative changes. IMPRESSION: 1. No infiltrates. [id number] us External Provider Mtnv DIAGNOSTIC IMAGING ORDERA BLES Final Result documented in this encounter Visit Diagnoses Diagnosis COPD (chronic obstructive pulmonary disease) (CMS/HCC) Chronic airway obstruction, not elsewhere classified COPD (chronic obstructive pulmonary disease) (CMS/HCC) Chronic airway obstruction, not elsewhere classified documented in this encounter Care Teams Bankruptcy Attorney Relationship Specialty Start Date End Date Sushil Mobley MD [address] [address] PCP - General Family Practice 08/22/20 documented as of this encounter
--- OUTSIDE RECORDS SUMMARY | 2025-06-22 05:55 | XMS_ITS | Encounter Summary ---
Author Organization [facility] Address [address] [place] [address] Care Team Providers Care Cleat Thrower Name Role Phone Sushil Mobley MD Primary Care Provider [phone] Encounter Details Date Type Department Care Team (Late st Contact Info) Description 09/10/2014 Ancillary Orders [facility] Laboratory Services [place] [address] [place] [id number] Sick Social History Tobacco Use Types Packs/Day [...] - 4.80 uIU/mL 09/10/2014 9:45 PM CDT [facility] LABORATORY SERVICES [facility] Blood Collection / Unknown 09/10/2014 9:04 PM CDT 09/10/2014 9:04 PM CDT Mega Mcelroy DO CHEMISTRY ORDERABLES Final Resu lt Performing Organization Address City/[facility]/ZIP Co de Phone Number [facility] CLIA # [id number] [address] [place] [address] * (ABNORMAL) HEMOGLOBIN A1C (09/10/2014 9:04 PM CDT) HEMOGLOBIN A1C 8.0(H) 4.5 - 6.2 % 09/10/2014 9:45 PM CDT [facility] [place] EST. AVG GLUCOSE, A1C 183 mg/dL 09/10/2014 9:45 PM CDT [facility] [place] Blood Collection / Unknown 09/10/2014 9:04 PM CDT 09/10/2014 9:04 PM CDT Mega Mcelroy DO CHEMISTRY ORDERABLES Final Resu lt Performing Organization Address [facility]/ZIP Co de Phone Number [facility] [employer] [facility] CLIA # [id number] [address] [place] [phone] * (ABNORMAL) COMPREHENSIVE METABOLIC PANEL (09/10/2014 9:04 PM CDT) SODIUM 134(L) 136 - 145 mmol/L 09/10/2014 9:45 PM CDT [facility] [place] POTASSIUM 4.0 3.5 - 5.1 mmol/L 09/10/2014 9:45 PM CDT [facility] [place] CHLORIDE 98 98 - 107 mmol/L 09/10/2014 9:45 PM CDT [facility] [place] CO2 28 21 - 32 mmol/L 09/10/2014 9:45 PM CDT [facility] [place] CALCIUM 9.1 8.5 - 10.1 mg/dL 09/10/2014 9:45 PM CDT [facility] [place] BUN 12 7 - 18 mg/dL 09/10/2014 9:45 PM CDT [facility] [place] CREATININE 0.90 0.60 - 1.30 mg/dL 09/10/2014 9:45 PM CDT [facility] [place] GLUCOSE 358(H) 74 - 106 mg/dL 09/10/2014 9:45 PM [facility] [employer] [facility] TOTAL PROTEIN 8.2 6.4 - 8.2 g/dL 09/10/2014 9:45 PM [facility] ALBUMIN 2.8(L) 3.4 - 5.0 g/dL 09/10/2014 9:45 PM [facility] BILIRUBIN TOTAL 1.5(H) 0.2 - 1.0 mg/dL 09/10/2014 9:45 PM [facility] ALKALINE PHOSPHATASE 134(H) 46 - 116 U/L 09/10/2014 9:45 PM [facility] [employer] [facility] AST 110(H) 15 - 37 U/L 09/10/2014 9:45 PM [facility] ALT 106(H) 30 - 65 U/L 09/10/2014 9:45 PM [facility] GFR >60 >=60 mL/min/1.7 3 sq meter 09/10/2014 9:45 PM [facility] [employer] [facility] Comment: eGFR has not been validated for [...] mL/min/1.7 3 sq meter 09/10/2014 9:45 PM [facility] [employer] [facility] ANION GAP 8(L) 12 - 20 mmol/L 09/10/2014 9:45 PM [facility] [employer] [facility] Blood Collection / Unknown 09/10/2014 9:04 PM CDT 09/10/2014 9:04 PM CDT Critical access hospital [facility] - 09/10/2014 9:45 PM CDT Effective 07/26/2014, the Alkaline Phosphatase test method and reference range have changed. Please take this into consideration when interpreting results prior to or after this date. us Mega Mcelroy DO CHEMISTRY ORDERABLES Final Resu lt [facility] [place] CLIA # [id number] [address] [facility] [address] [place] [address] documented in this encounter Visit Diagnoses Diagnosis Sick Other unknown and unspecified cause of morbidity or mortality documented in this encounter Care Teams Cleat Thrower Relationship Specialty Start Date End Date Sushil Mobley MD [address] [place] [id number] PCP - General Family Practice 08/22/20 documented as of this encounter
[2025-06-22 06:21] LABS: Anion Gap 19.6 (5-19); Blood Urea Nitrogen 14 mg/dL (6-20); Calcium 8.7 mg/dL (8.5-10.5); Carbon Dioxide 24 mmol/L (22-29); Chloride 90 mmol/L (98-107); Creatinine Clr Calc Pharmacy 84.7558; Glucose 407 mg/dL (65-115); Magnesium 2.3 mg/dL (1.7-2.3); Osmolality Calculated 286 mOsm/kg (285-295); Potassium 4.6 mmol/L (3.5-5.1); Sodium 129 mmol/L (136-145)
[2025-06-22] MEDS: insulin glargine 100 units/1 mL 60 UNIT SUBCUT (06:35)
[2025-06-22 06:48] LABS: Thyroid Stimulating Hormone 0.74 uIU/mL (0.27-4.20)
[2025-06-22 07:47] VITALS: BP 117/79; PULSE 100; RESP 18; TEMP 36.3; O2SAT 92
--- NOTE | 2025-06-22 07:48 | PC.NURSE ---
Medication refusal: This nurse attempted to give pt morning dose of Humalog 14 units for a blood sugar of 377. Pt stated, I'm not taking that insulin! When this nurse educated pt on importance of taking the Humalog and that the blood sugar was 377 pt then stated louder, I don't care, I'm not taking that shit!
--- NOTE | 2025-06-22 09:15 | PC.NURSE ---
Medication refusal: This nurse attempted once again trying to give pt her morning dose of Humalog and her 0900 medications. Pt once again refused the Humalog. When this nurse asked pt is she would take her 0900 medications, pt asked this nurse which medications was this nurse referring to and this nurse began to name off 0900 medications from the MAR, pt became loud and stated, I don't take any of those medications and I'm not taking them so find the doctor and figure out where my medications are!
[2025-06-22 09:30] VITALS: PULSE 111; RESP 22; O2SAT 92
--- NOTE | 2025-06-22 09:30 | PC.NURSE ---
Pt Behavior: Pt pulled emergency light in pt bathroom. This nurse answered call light and pt began to yell at this nurse, I need fucking help! This nurse asked pt what she needed help with so this nurse could gather supplies for pt. This pt then stated, Well first off this is covered in shit! while pointing at her brief. This nurse left the room and gathered extra briefs and wipes. This nurse took supplies back to pts bathroom. This nurse asked pt if she needed further assistance while handing her the package of wipes and the clean brief. Pt stated, No! Go!
--- NOTE | 2025-06-22 09:35 | PC.NURSE ---
Pt behavior: Pt pulled emergency light in pt bathroom, SHOE SINGER answered call light. When SHOE SINGER came out of pt room SHOE SINGER stated, Pt said she is going to vijay you for not opening the package of wipes you gave her.
--- NOTE | 2025-06-22 09:45 | PC.NURSE ---
Pt Behavior: This nurse was at the nurse's station when yelling was heard coming from room 251. From the nurse's station it was clearly heard coming from the pts room, Get the fuck out of my room! Get the fuck out right now! This nurse saw EVS worker coming from pts room. This nurse went into pts room and asked, What is wrong? Why are you screaming and cursing at staff? This pt then stated, Get the fuck out of here and fuck off! You didn't want to fucking help me when I was in the bathroom shitting so why the fuck do you want to come in here and help now?! Get the fuck out of here! This nurse stated to pt, She is your house keeper and is trying to make sure your trash is taken out of your room and bathroom and your room and bathroom is clean. Please do not speak to staff this way, we are just trying to help you. Pt stated, I don't fucking care! Get the fuck out of here! At this time Suzy (nurse cafe or restaurant manager) came into the room to speak with pt.
[2025-06-22 10:11] VITALS: BP 117/79; PULSE 100; RESP 18; TEMP 36.3; O2SAT 92
--- NOTE | 2025-06-22 11:18 | PC.NURSE ---
Went into patient's room because I could here her yelling the F--- word at Dr. Enmanuel Garzon who was trying to talk to speak to her. Asked the patient to be respectful of the doctor and staff. Patient states, All I said was get the f---- out of my room how is that disrespectful? Explained that it is disrespectful to talk to the staff that way. Patient is willing to leave AMA
--- NOTE | 2025-06-22 11:38 | PC.NURSE ---
Pt Behavior/AMA: Physician and several staff members attempted to speak with pt regarding her current state of health and the importance of taking her medications while here. Pt began cursing at physician and charge nurse. Pt left AMA.
--- NOTE | 2025-06-22 12:00 | PC.NURSE ---
Called and spoke to Vignesh again to explaining that we had a ride for the patient with car tender and when the Carmen got down to the car she started cussing at the car tender person and they refused to transport her.
--- NOTE | 2025-06-22 12:08 | PC.NURSE ---
1122- Called Vignesh who is listed as patient's emergency contact an asked if he is able to pick patient up? Vignesh states [place] and it would be a couple of hours. I told Vignesh not to worry about it that we would get patient a ride home.
--- NOTE | 2025-06-22 12:12 | PC.NURSE ---
1125 Car Tender Called and a ride set up for the patient. Patient wheel chaired down stairs. Patient continues to yell and cuss at staff.
--- NOTE | 2025-06-22 12:36 | PC.NURSE ---
This nurse was taking patient out for discharge to car tender. The gentle man told this nurse and DOCK WORKER after the patient was sitting in the seat, No, No, there has to be a barrier on the seat. Other people have to sit there . The patient turns to car tender and starts calling him a Bitch. Car tender at that time refused to take the patient and handed the money back. The patient got back in the wheel chair and started yelling, Just go on bitch what are you just sitting there for. Bitch get out of here! This nurse got in front of patient and stated that was inappropriate language and talk to other people. Patient also called the DOCK WORKER a bitch just for coming on the elevator with us. The DOCK WORKER went to get a blanket for the car seat during this time. When the DOCK WORKER came back with blanket this nurse was bringing patient back in. The patient looked at DOCK WORKER, see you took too long and he refused to take me. This nurse informed the DOCK WORKER it was not her fault it was the patients attitude to the car tender. Patient was left in the patient lounge.
--- NOTE | 2025-06-22 13:51 | P.DS_ITS ---
Discharge Providers Date of Admission: 06/21/25 17:16 Date of Discharge: June 22, 2025 Attending Provider at Admission: Maikol Garzon MD Attending Provider at Discharge: Maikol Garzon MD Primary Care Provider: Sushil Mobley MD Diagnoses at Discharge Discharge Diagnosis 1. Acute on chronic systolic CHF (congestive heart failure): Details from hospital stay: Patient was counseled twice that she needs to take her medications at home. Her response was I missed 1 day big work to do yesterday she told me that she skipped days intermittently because she did not like to void a lot of urine Patient refused IV furosemide here in the hospital 2. Hyperglycemia due to diabetes mellitus: 3. Hypomagnesemia: 4. COPD with acute exacerbation: 5. Acute hyponatremia: Other Information Additional DC diagnoses/information: Patient kicked us out of her room and left AMA Reason for Visit Reason for Visit: Can't breath N/V Brief History: Carmen Richards is a 49 year old female came in with 4 days of shortness of breath. She states that she was already short of breath at home on oxygen but reports quitting smoking 2 weeks ago cold turkey from a pack and a half a day. She sta pita she stopped taking her diuretic every day because she got tired peeing a lot. Swelling in the legs worsened and she became short of breath presenting to the ER and seen by Martina RYAN. Patient was diagnosed with acute congestive heart failure exacerbation given 80 of Lasix and is voiding urine now referred for admission. Notably chest x-ray shows pulmonary edema, B natruretic peptide double her baseline and she is requiring more oxygen Hospital Course Hospital Course 49-year-old female had been verbally but not physically abusive to staff in the emergency department. This morning at multidisciplinary rounds I was informed that she had been verbally abusive to nursing staff here on the fl oor and refused all of her medicines this morning. She agreed only to insulin after demanding that she take this accompanied with a large glass of orange juice. She did not take her other medications On discussion with her she is claiming that she took her medicines but nurse reports that she had pulled the meds and tried to administer them more than once and patient had refused. Patient in my presence told that nurse that I do not like you get the fuck out of my room . Counseled patient that being in the hospital does not make her better from her illness but that she needs to take her medicines she told me to stop with the bullshit I told her that we are trying to treat her for her illness from fluid buildup and that she needs to take her medicines and we want to help her but cannot be sworn at. She then told me to get the fuck out of my room Charge nurse reported that abusive behavior was not not acceptable. We asked the patient if she wanted to stay and have treatment but needed to be respectful she said how I being disrespectful, you are being disrespectful to me Patient then said that she would sign out AMA but then refused to sign out but ultimately asked for a ride which was provided to her but then she swore at the cable television program director who then refused to drive her. Physical Exam Narrative: General well-developed female modestly short of breath. She has crackles in the right lower lung field which is dependent laying on her right side she has prolonged history phase CV regular rate and rhythm Discharge Data Studies Completed and Pending Completed Studies During Hospitalization Category Date Time Status XR chest 1V portable [id number] Stat Exams 06/21/25 13:55 Completed Pending at discharge Category Date Time Status Blood Culture Stat Lab 06/21/25 15:35 Results Sputum Culture and Gram Stain Stat Lab 06/21/25 21:35 Results Radiology Impressions Chest X-Ray 06/21/25 13:55 Impression: 1. No change in bibasilar pulmonary opacities. 2. Cardiomegaly and atherosclerosis. Laboratory Results WBC 14.24 10^3/uL (3.29-11.43) H 06/22/25 04:16 RBC 4.96 10^6/uL (3.85-5.65) 06/22/25 04:16 Hgb 15.90 g/dL (11.27-16.99) 06/22/25 04:16 Hct 47.4 % (36-47) H 06/22/25 04:16 MCV 95.6 fl (85-98) 06/22/25 04:16 MCH 32.1 pg (27-33) 06/22/25 04:16 MCHC 33.5 g/dL (30-55) 06/22/25 04:16 RDW 14.6 % (12.1-15.1) 06/22/25 04:16 Plt Count 207 10^3/cmm (157-399) 06/22/25 04:16 MPV 10.8 fL (7.4-10.4) H 06/22/25 04:16 Neut % (Auto) 87.2 % 06/22/25 04:16 Lymph % (Auto) 5.9 % 06/22/25 04:16 Spencer % (Auto) 6.3 % 06/22/25 04:16 Eos % (Auto) 0.0 % 06/22/25 04:16 Baso % (Auto) 0.1 % 06/22/25 04:16 Neut # (Auto) 12.41 10^3/uL (1.8-7.7) H 06/22/25 04:16 Lymph # (Auto) 0.8 10^3/uL (0.8-4.8) 06/22/25 04:16 Spencer # (Auto) 0.9 10^3/uL (0.2-0.9) 06/22/25 04:16 Eos # (Auto) 0.0 10^3/uL (0.0-0.8) 06/22/25 04:16 Baso # (Auto) 0.0 10^3/uL (0.0-0.1) 06/22/25 04:16 Nucleated RBC % (auto) 0 % 06/22/25 04:16 Nucleated RBCs # 0.0 /100WBC 06/22/25 04:16 Specimen Type Venous 06/21/25 15:33 Sample Site Na 06/21/25 15:33 ABG pH 7.51 (7.35-7.45) H 06/21/25 14:18 ABG pCO2 36.8 mmHg (35-45) 06/21/25 14:18 ABG pO2 54.2 mmHg (80.0-100.0) L 06/21/25 14:18 ABG PO2/FiO2 Ratio 258 06/21/25 14:18 ABG HCO3 29.5 mmol/L (22-26) H 06/21/25 14:18 ABG O2 Saturation 91.3 06/21/25 14:18 ABG Base Excess 6.3 mmol/L (-2.0-2.0) H 06/21/25 14:18 Malvin Test N/a 06/21/25 15:33 VBG pH 7.44 (7.32-7.42) H 06/21/25 15:33 VBG pCO2 41.8 mmHg (41-51) 06/21/25 15:33 VBG pO2 90.4 mmHg (25-40) H 06/21/25 15:33 VBG HCO3 28.6 mmol/L (24-28) H 06/21/25 15:33 VBG Base Excess 4.0 mmol/L (-3.0-3.0) H 06/21/25 15:33 VBG Hematocrit 54.5 % (37-47) H 06/21/25 15:33 A-a O2 Gradient 6.5 mmHg (5-10) 06/21/25 14:18 Hematocrit 53.0 % (37-47) H 06/21/25 14:18 Hgb O2 Saturation 88.4 % (95-100) L 06/21/25 14:18 Carboxyhemoglobin 2.6 %THgb (0.4-20.1) 06/21/25 14:18 Methemoglobin 0.6 % (0.4-1.5) 06/21/25 14:18 Total Hemoglobin 17.3 g/dL (12-16) H 06/21/25 14:18 Sodium 130.0 mmol/L (131-143) L 06/21/25 14:18 Potassium 3.4 mmol/L (3.5-5.0) L 06/21/25 14:18 Glucose 285.0 mg/dL (70-115) H 06/21/25 14:18 Ionized Calcium 1.2 mmol/L (1.1-1.4) 06/21/25 14:18 O2 Delivery Device Nc 06/21/25 15:33 O2 Liters/Min 2.0 % 06/21/25 15:33 FiO2 28.0 % 06/21/25 15:33 [employer] Network Installer ID Cak 06/21/25 15:33 Sodium 129 mmol/L (136-145) L 06/22/25 04:16 Potassium 4.6 mmol/L (3.5-5.1) 06/22/25 04:16 Chloride 90 mmol/L (98-107) L 06/22/25 04:16 Carbon Dioxide 24 mmol/L (22-29) 06/22/25 04:16 Anion Gap 19.6 (5-19) H 06/22/25 04:16 BUN 14 mg/dL (6-20) 06/22/25 04:16 Creatinine 0.8 mg/dL (0.5-0.9) 06/22/25 04:16 GFR Calculation 75.6 mL/min (90-130) L 06/22/25 04:16 Glucose 407 mg/dL (65-115) H 06/22/25 04:16 POC Glucose 305 mg/dL (70-110) H 06/22/25 10:50 Estimat Average Glucose 278 06/22/25 04:16 Hemoglobin A1c 11.3 % (4.0-6.0) H 06/22/25 04:16 Calculated Osmolality 286 mOsm/kg (285-295) 06/22/25 04:16 Lactic Acid 2.5 mmol/L (0.5-2.2) H 06/21/25 15:33 Lactic Acid (Sepsis) 3.3 mmol/L (0.5-2.2) H 06/21/25 18:06 Calcium 8.7 mg/dL (8.5-10.5) 06/22/25 04:16 Phosphorus 2.0 mg/dL (2.5-4.5) L 06/22/25 04:16 Magnesium 2.3 mg/dL (1.7-2.3) 06/22/25 04:16 Total Bilirubin 2.8 mg/dL (0.15-1.2) H 06/21/25 14:50 AST 19 U/L (0-32) 06/21/25 14:50 ALT 14 U/L (0-33) 06/21/25 14:50 Alkaline Phosphatase 130 U/L (35-105) H 06/21/25 14:50 Troponin T Baseline 44 ng/L (0-10) H 06/21/25 14:50 Troponin T 120 Minute 38.97 ng/L (0-10) H 06/21/25 16:50 Delta Troponin T -5.03 ABS# (0-10) L 06/21/25 16:50 NT-Pro-B Natriuret Pep 9915 pg/mL (0-125) H 06/21/25 14:50 Total Protein 7.5 g/dL (6.6-8.7) 06/21/25 14:50 Albumin 3.1 g/dL (3.5-5.2) L 06/21/25 14:50 Globulin 4.4 g/dL (1.3-4.6) 06/21/25 14:50 Triglycerides 79 mg/dL (0-150) 06/22/25 04:16 Cholesterol 117 mg/dL (0-200) 06/22/25 04:16 LDL Cholesterol, Calc 83 mg/dL (50-129) 06/22/25 04:16 HDL Cholesterol 18 mg/dL (60-100) L 06/22/25 04:16 LDL/HDL Ratio 4.61 RATIO (0.00-3.22) H 06/22/25 04:16 Cholesterol/HDL Ratio 6.50 mg/dL (0.0-4.40) H 06/22/25 04:16 Procalcitonin 0.14 ng/mL (0-0.5) 06/21/25 14:50 TSH 0.74 uIU/mL (0.27-4.20) 06/22/25 04:16 Urine Color Dark yellow (Yellow) A 06/22/25 00:36 Urine Appearance Clear (CLEAR) 06/22/25 00:36 Urine pH 5.5 (5-7) 06/22/25 00:36 Ur Specific [place] 1.010 (1.005-1.030) 06/22/25 00:36 Urine Protein Negative (Negative) 06/22/25 00:36 Urine Glucose (UA) Trace (Normal) H 06/22/25 00:36 Urine Ketones Negative (Negative) 06/22/25 00:36 Urine Blood Negative (Negative) 06/22/25 00:36 Urine Nitrate Negative (Negative) 06/22/25 00:36 Urine Bilirubin Negative (Negative) 06/22/25 00:36 Urine Urobilinogen 2.0 mg/dL (Negative) H 06/22/25 00:36 Ur Leukocyte Esterase 1+ (Negative) A 06/22/25 00:36 Urine RBC 0-2 /hpf (0-2) 06/22/25 00:36 Urine WBC 6-10 /hpf (0-5) 06/22/25 00:36 Ur Squamous Epith Cells 6-10 /hpf (0-5) 06/22/25 00:36 Amorphous Sediment Not Reportable 06/22/25 00:36 Urine Bacteria None seen /hpf (NONE) 06/22/25 00:36 Hyaline Casts 10.32 /lpf 06/22/25 00:36 Influenza A (PCR) Negative (Negative) 06/21/25 15:09 Influenza Type B (PCR) Negative (Negative) 06/21/25 15:09 RSV (PCR) Negative (Negative) 06/21/25 15:09 SARS-CoV-2 (PCR) Negative (Negative) 06/21/25 15:09 Vitals Last Vital Signs Temp 97.4 F L 06/22/25 10:11 Pulse 100 06/22/25 10:11 Resp 18 06/22/25 10:11 BP 117/79 06/22/25 10:11 Pulse Ox 92 06/22/25 10:11 O2 Del Method Nasal Cannula 06/22/25 10:11 O2 Flow Rate 2 06/22/25 09:30 Discharge Plan Discharge Patient Disposition: Home Condition: Stable Prescriptions: No Action Symbicort 160-4.5 mcg/actuation HFA aerosol inhaler 2 puff INHALATION BID insulin glargine [Lantus Solostar U-100 Insulin] 100 unit/mL (3 mL) insulin pen 60 unit SUBCUT QAM Qty: 60 1RF furosemide 40 mg tablet 40 mg PO DAILY 30 Days Qty: 30 0RF potassium chloride 10 mEq tablet extended release 10 meq PO DAILY Spiriva Respimat 2.5 mcg/actuation mist 1 inh inhalation DAILY venlafaxine 150 mg capsule,extended release 24hr 150 mg PO DAILY Rx Instructions: along with 75mg hd=317nw daily. (DME) Dexcom G7 Sensor Device See Rx Instructions .ROUTE .COMPLEX Qty: 3 3RF Dose Instruction: CHANGE every 10 DAYS DIRECTED Rx Instructions: CHANGE every 10 DAYS DIRECTED venlafaxine 75 mg capsule,extended release 24hr 75 mg PO DAILY Rx Instructions: along with 150mg nw=768pc daily. acetaminophen [Tylenol Extra Strength] 500 mg Tablet 1,000 mg PO Q6H PRN (Reason: Pain) tiotropium bromide [Spiriva with HandiHaler] 18 mcg Capsule, W/Inhalation Device 1 cap INHALATION DAILY Rx Instructions: puncture 1 cap using device; one dose = 2 inhalations atorvastatin 80 mg tablet 80 mg PO BEDTIME acyclovir 400 mg tablet 400 mg PO BID losartan 100 mg tablet 100 mg PO DAILY spironolactone 50 mg tablet 50 mg PO DAILY PRN (Reason: Edema) escitalopram oxalate 20 mg tablet 20 mg PO DAILY levothyroxine 75 mcg Tablet 75 mcg PO DAILY aspirin [Adult Low Dose Aspirin] 81 mg tablet,delayed release (DR/EC) 81 mg PO DAILY Qty: 90 3RF clopidogrel 75 mg tablet 75 mg PO DAILY pantoprazole 40 mg tablet,delayed release (DR/EC) 40 mg PO DAILY nitroglycerin 0.4 mg tablet, sublingual 0.4 mg sublingual PRN PRN (Reason: Chest Pain) oxycodone 10 mg tablet 10 mg PO TID PRN (Reason: Pain) albuterol sulfate 2.5 mg /3 mL (0.083 %) solution for nebulization 2.5 mg continuous nebulization QID PRN (Reason: Shortness Of Breath) albuterol sulfate [Ventolin HFA] 90 mcg/actuation HFA aerosol inhaler 2 puff INHALATION QID Referrals: Sushil Mobley MD [Primary Care Provider, [facility]] Discharge Diet: Usual diet Discharge Activity: Resume usual activity Patient Instructions: Opioid Safety, Patient Portal & Lilly Instructions Discharge Attestations Time Spent in Discharge Care*: greater than 30 min Quality Metrics Clinical Quality Measures [ No reported AMI, CVA or VTE this stay] Coding Level of Care Code Acute Code for Chg Fwd Diagnoses Acute on chronic systolic CHF (congestive heart failure) I50.23 Hyperglycemia due to diabetes mellitus E11.65 Hypomagnesemia E83.42 COPD with acute exacerbation J44.1 Acute hyponatremia E87.1 Major depressive disorder, recurrent severe without psychotic features F33.2 Time Spent (min) 35 Comment Patient left AMA
== END 2025-06-22 11:38 | disposition home or self-care (01) | DRG 291 ==
LOC: ER 16:37 → MEDSURG 18:20
PROVIDERS: Admitting Provider Internal Medicine; Emergency Provider Physician Assistant; PCP Family Medicine; Visit Provider Internal Medicine
DX: I11.0 Hypertensive heart disease with heart failure (principal); I50.23 Acute on chronic systolic (congestive) heart failure; J96.91 Respiratory failure, unspecified with hypoxia; J44.1 Chronic obstructive pulmonary disease with (acute) exacerbation; E87.1 Hypo-osmolality and hyponatremia; I69.954 Hemiplegia and hemiparesis following unspecified cerebrovascular disease affecting left non-dominant side; F33.2 Major depressive disorder, recurrent severe without psychotic features; T50.916A Underdosing of multiple unspecified drugs, medicaments and biological substances, initial encounter; Z91.128 Patient's intentional underdosing of medication regimen for other reason; E11.65 Type 2 diabetes mellitus with hyperglycemia; E83.42 Hypomagnesemia; Z53.29 Procedure and treatment not carried out because of patient's decision for other reasons; I69.928 Other speech and language deficits following unspecified cerebrovascular disease; I44.7 Left bundle-branch block, unspecified; E78.5 Hyperlipidemia, unspecified; I25.10 Atherosclerotic heart disease of native coronary artery without angina pectoris; Z95.5 Presence of coronary angioplasty implant and graft; I25.2 Old myocardial infarction; Z99.81 Dependence on supplemental oxygen; Z87.891 Personal history of nicotine dependence; Z79.51 Long term (current) use of inhaled steroids; Z79.4 Long term (current) use of insulin; Z79.82 Long term (current) use of aspirin; Z79.02 Long term (current) use of antithrombotics/antiplatelets; Z79.891 Long term (current) use of opiate analgesic; Z86.19 Personal history of other infectious and parasitic diseases
CPT/HCPCS: 36415; 36416; 36600; 71045; 80048; 80051; 80053; 80061; 81001; 82330; 82803; 82805; 82962; 83036; 83605; 83735; 83880; 84100; 84145; 84443; 84484; 85025; 87040; 87070; 87205; 87637; 93005; 94640; 94664; 96365; 96367; 96372; 96375; 99285; J0696; J1650; J1815; J1938; J2060; J2919; J3475; J3490; J7626; J7644; J8499; J9999

== ENCOUNTER 2025-06-23 07:50 | Inpatient (IN) | payer MEDICAID, SELFPAY ==
[2024-07-26 12:01] VITALS: BP 129/79; BMI 43.1
[2025-06-23] VITALS (11 sets, daily range): BP systolic 112–134; BP diastolic 69–91; PULSE 103–109; RESP 18–37; TEMP 36.6–36.8; O2SAT 85–98; BMI 32.9
--- OUTSIDE RECORDS SUMMARY | 2025-06-23 07:56 | XMS_ITS | Encounter Summary ---
Author Organization [facility] Address [address] [place] [address] Care Team Providers Care Research Compliance Specialist Name Role Phone Sushil Mobley MD Primary Care Provider [phone] Encounter Details Date Type Department Care Team (Late st Contact Info) Description 09/27/2019 Ancillary Orders [facility] Centralized Scheduling [address] [place] [id number] Mtnv, External Provider [address] [facility] [address] [place] [address] Social History Tobacco Use Types Packs/Day Years [...] on filedocumented in this encounter Care Teams Research Compliance Specialist Relationship Specialty Start Date End Date Sushil Mobley MD [address] [place] [phone] PCP - General Family Practice 08/22/20 documented as of this encounter
--- OUTSIDE RECORDS SUMMARY | 2025-06-23 07:56 | XMS_ITS | Clinical Summary ---
Author Organization [employer] Address [address] [facility] Attn: Epic Prelude ADT [place] [address] Care Team Providers Care Waterproofer Helper Name Role Phone Sushil Mobley MD Primary Care Provider [phone] Allergies Active Allergy Reactions Criticality Noted Date [...] breakfast. 30 Tablet 2 12/05/2024 3:18 PM INCIDENT HANDLER 5 Active atorvastatin (LIPITOR) 40 mg tablet Take 1 Tablet (40 mg) by mouth daily at bedtime. 30 Tablet 2 12/05/2024 3:18 PM INCIDENT HANDLER 5 Active clopidogreL (PLAVIX) 75 mg Tablet Take 1 Tablet (75 mg) by mouth daily. 30 Tablet 2 12/05/2024 3:18 PM INCIDENT HANDLER 5 Active furosemide (LASIX) 20 mg tablet Take 1 Tablet (20 mg) by mouth daily. 30 Tablet 12/05/2024 3:18 PM INCIDENT HANDLER 5 Active insulin glargine (LANTUS) 100 unit/mL pen syringe Inject 25 Units by subcutaneous injection daily with breakfast. 15 mL 5 Active nitroglycerin (NITROSTAT) 0.[address], [address] 1 Tablet (0.4 mg) under tongue every 5 minutes as needed for Chest Pain (Do NOT take more than 3 pills in a row, if chest pain not relived contact your PCP/Public Affairs Manager ERVIN). 25 Tablet 1 12/05/2024 3:18 PM INCIDENT HANDLER Active pantoprazole (PROTONIX) 40 mg Tablet, Delayed Release (E.C.) Take 1 Tablet (40 mg) by mouth daily before breakfast. 30 Tablet 12/05/2024 3:18 PM INCIDENT HANDLER Active Active Problems Problem Noted Date Diagnosed [...] on file Legal Sex Female 2:08 AM INCIDENT HANDLER Gender Identity Not on file Sexual Orientation Not on file Last Filed Vital Signs Vital Sign Reading Time Taken Comments Blood Pressure 104/70 12/05/2024 8:28 AM INCIDENT HANDLER Pulse 81 12/05/2024 8:28 AM INCIDENT HANDLER Temperature 36.5 C (97.7 F) 12/05/2024 8:28 AM INCIDENT HANDLER Respiratory Rate 18 12/05/2024 8:28 AM INCIDENT HANDLER Oxygen Saturation 93% 12/05/2024 8:28 AM INCIDENT HANDLER Inhaled Oxygen Concentration - - Weight 82.6 kg (182 lb 3.2 oz) 12/04/2024 5:00 A M INCIDENT HANDLER Height 157.5 cm (5' 2 ) 12/02/2024 11:11 PM INCIDENT HANDLER Body Mass Index 33.32 12/02/2024 11:11 PM INCIDENT HANDLER Plan of Treatment Health Maintenance Due Date [...] (#1) 2025 Medical Devices Implanted Type Area Web Support Engineer Device Identifier Shelf Expiration Date Model / Serial / Lot Stent Ronny [place] Jose 3.0x15mm Rx [id number] - [id number] Implanted:Qty: 1 on 12/03/2024 by Prince Funes MD at [facility] Stent N/A: Coronary [employer] [id number] 07/31/2027 [id number] 15UX / / [id number] Stent Ronny [place] Jose 4.0x12mm Rx [id number] - [id number] Implanted:Qty: 1 on 12/03/2024 by Prince Funes MD at [facility] Stent N/A: Coronary [employer] [id number] 05/10/2027 [id number] 12UX / / [id number] Stent Ronny [place] Jose 4.0x8mm Rx [id number] - [id number] Implanted:Qty: 1 on 12/03/2024 by Prince Funes MD at [facility] Stent N/A: Coronary [employer] [id number] 04/23/2027 [id number] 08UX / / [id number] Procedures Procedure Name Priority Date/Time Associated Diagnosis Comments HEMOGLOBIN A1C Routine 12/03/2024 2:49 AM INCIDENT HANDLER from Last 3 Months or Most Recently Relevant to Health Maintenance Results * (ABNORMAL) HEMOGLOBIN A1C (12/03/2024 2:49 AM INCIDENT HANDLER) HEMOGLOBIN A1C 12.1(H) <=5.6 % 12/04/2024 8:55 AM INCIDENT HANDLER [facility] EST. AVG GLUCOSE, A1C 301 mg/dL 12/04/2024 8:55 AM INCIDENT HANDLER [facility] Blood Venipuncture / Unknown 12/03/2024 2:49 AM INCIDENT HANDLER 12/03/2024 3:04 AM INCIDENT HANDLER Narrative [facility] - 12/04/2024 8:55 AM INCIDENT HANDLER HGB A1C INTERPRETATION NORMAL: <5.7% PRE-DIABETES: 5.7 - 6.4% DIABETES: 6.5% OR GREATER Alvarado Persaud DO CHEMISTRY ORDERABLES Final Resu lt [facility] CLIA # [id number] [address] [place] [id number] from Last 3 Months or Most Recently Relevant to Health Maintenance Insurance MEDICAID [place] [employer] Advance Directives For more information, please contact: [phone] * Full Code (Latest Code Status on File) Date Activated Date Inactivated Comments 12/03/2024 2:06 AM 12/05/2024 5:37 PM Care Teams Waterproofer Helper Relationship Specialty Start Date End Date Sushil Mobley MD [address] [place] [id number] PCP - General Family Practice 08/22/20
--- OUTSIDE RECORDS SUMMARY | 2025-06-23 07:56 | XMS_ITS | Clinical Summary ---
Author Organization [facility] Address [address] [facility] [address] [place] [address] Phone Care Team Providers Care Tower Attendant Name Role Phone Sushil Mobley MD Primary Care Provider [phone] Social History Tobacco Use Types Packs/Day Years Used Date Smoking Tobacco: Never Assessed Comments Unknown Sex and Gender Information Value Date Recorded Sex Assigned at Not on file Legal Sex Female 9:04 PM CDT Gender Identity Not on file Sexual Orientation Not on file Last Filed Vital Signs Vital Sign Reading Time Taken Comments Blood Pressure - - Pulse 71 11/20/2019 10:47 AM INFORMATION SPECIALIST Temperature - - Respiratory Rate 20 11/20/2019 10:47 AM INFORMATION SPECIALIST Oxygen Saturation 99% 11/20/2019 10:46 AM INFORMATION SPECIALIST Inhaled Oxygen Concentration - - Weight - [...] (#1) [address] [place] [address] Care Teams Tower Attendant Relationship Specialty Start Date End Date Sushil Mobley MD [address] [id number] PCP - General Family Practice 08/22/20
--- OUTSIDE RECORDS SUMMARY | 2025-06-23 07:56 | XMS_ITS | Encounter Summary ---
Author Organization [facility] Address [address] [place] [address] Care Team Providers Care Political Theory Professor Name Role Phone Sushil Mobley MD Primary Care Provider [phone] Encounter Details Date Type Department Care Team (Late st Contact Info) Description 09/17/2014 Ancillary Orders [facility] Laboratory Services [place] [address] [place] [phone] Social History Tobacco Use Types Packs/Day Years [...] on filedocumented in this encounter Care Teams Political Theory Professor Relationship Specialty Start Date End Date Sushil Mobley MD [address] [phone] PCP - General Family Practice 08/22/20 documented as of this encounter
--- OUTSIDE RECORDS SUMMARY | 2025-06-23 07:56 | XMS_ITS | Encounter Summary ---
Author Organization [facility] Address [address] [place] [address] Care Team Providers Care Tugger Operator Name Role Phone Sushil Mobley MD Primary Care Provider [phone] Encounter Details Date Type Department Care Team (Late st Contact Info) Description 09/10/[address] [facility] Laboratory Services [place] [address] [place] [phone] Sick Social History Tobacco Use Types Packs/Day [...] - 4.80 uIU/mL 09/10/2014 9:45 PM CDT [facility]OR[facility]ORY SERVICES [facility] Blood Collection / Unknown 09/10/2014 9:04 PM CDT 09/10/2014 9:04 PM CDT Mega Mcelroy DO CHEMISTRY ORDERABLES Final Resu lt Performing Organization Address City/[facility]/ZIP Co de Phone Number [facility] CLIA # [id number] [address] [place] [address] * (ABNORMAL) HEMOGLOBIN A1C (09/10/2014 9:04 PM CDT) HEMOGLOBIN A1C 8.0(H) 4.5 - 6.2 % 09/10/2014 9:45 PM CDT [facility] [place] EST. AVG GLUCOSE, A1C 183 mg/dL 09/10/2014 9:45 PM CDT [facility] [place] Blood Collection / Unknown 09/10/2014 9:04 PM CDT 09/10/2014 9:04 PM CDT Mega Mcelroy DO CHEMISTRY ORDERABLES Final Resu lt Performing Organization Address [facility]/ZIP Co de Phone Number [facility] CLIA # [id number] [address] [place] [address] * (ABNORMAL) COMPREHENSIVE METABOLIC PANEL (09/10/2014 9:04 PM CDT) SODIUM 134(L) 136 - 145 mmol/L 09/10/2014 9:45 PM CDT [facility] [place] POTASSIUM 4.0 3.5 - 5.1 mmol/L 09/10/2014 9:45 PM CDT [facility] [place] CHLORIDE 98 98 - 107 mmol/L 09/10/2014 9:45 PM CDT [facility] [place] CO2 28 21 - 32 mmol/L 09/10/2014 9:45 PM CDT [facility] [place] CALCIUM 9.1 8.5 - 10.1 mg/dL 09/10/2014 9:45 PM CDT [facility] [place] BUN 12 7 - 18 mg/dL 09/10/2014 9:45 PM CDT [facility] [place] CREATININE 0.90 0.60 - 1.30 mg/dL 09/10/2014 9:45 PM CDT [facility] [place] GLUCOSE 358(H) 74 - 106 mg/dL 09/10/2014 9:45 PM [facility] [employer] [facility] TOTAL PROTEIN 8.2 6.4 - 8.2 g/dL 09/10/2014 9:45 PM [facility] ALBUMIN 2.8(L) 3.4 - 5.0 g/dL 09/10/2014 9:45 PM [facility] BILIRUBIN TOTAL 1.5(H) 0.2 - 1.0 mg/dL 09/10/2014 9:45 PM [facility] ALKALINE PHOSPHATASE 134(H) 46 - 116 U/L 09/10/2014 9:45 PM [facility] [employer] [facility] AST 110(H) 15 - 37 U/L 09/10/2014 9:45 PM [facility] ALT 106(H) 30 - 65 U/L 09/10/2014 9:45 PM [facility] GFR >60 >=60 mL/min/1.7 3 sq meter 09/10/2014 9:45 PM [facility] [employer] [facility] Comment: eGFR has not been validated for [...] mL/min/1.7 3 sq meter 09/10/2014 9:45 PM [facility] [employer] [facility] ANION GAP 8(L) 12 - 20 mmol/L 09/10/2014 9:45 PM [facility] [employer] [facility] Blood Collection / Unknown 09/10/2014 9:04 PM CDT 09/10/2014 9:04 PM CDT [facility] [employer] [facility] - 09/10/2014 9:45 PM CDT Effective 07/26/2014, the Alkaline Phosphatase test method and reference range have changed. Please take this into consideration when interpreting results prior to or after this date. us Mega Mcelroy DO CHEMISTRY ORDERABLES Final Resu lt [facility] [place] CLIA # [id number] [address] [facility] [address] [place] [address] documented in this encounter Visit Diagnoses Diagnosis Sick Other unknown and unspecified cause of morbidity or mortality documented in this encounter Care Teams Tugger Operator Relationship Specialty Start Date End Date Sushil Mobley MD [address] [place] [phone] PCP - General Family Practice 08/22/20 documented as of this encounter
--- OUTSIDE RECORDS SUMMARY | 2025-06-23 07:56 | XMS_ITS | Encounter Summary ---
Author Organization [facility] Address [address] [place] [address] Care Team Providers Care Bench Repair Technician Name Role Phone Sushil Mobley MD Primary Care Provider [phone] Encounter Details Date Type Department Care Team (Late st Contact Info) Description 09/27/2019 Ancillary Orders [facility] Centralized Scheduling [address] [place] [phone] Determinations, Dis Kim Durán [address] [place] [address] COPD (chronic obstructive pulmonary disease) ([facility]) Social History Tobacco Use Types Packs/Day Years [...] AND LATERAL 2 VW (11/20/2019 9:22 AM FARM GENERAL MANAGER) Anatomical Region Laterality Modality Chest Computed Radiogr aphy 11/20/2019 9:22 AM FARM GENERAL MANAGER Impressions 11/20/2019 3:50 PM FARM GENERAL MANAGER IMPRESSION: Please see below. Exam: XR CHEST PA AND LATERAL 2 VW Date/Time of Exam: 11/20/2019 9:22 AM Reason For Exam: See Diagnosis. Diagnosis: COPD (chronic obstructive pulmonary disease). Comparison: None Findings: The heart size is normal. No infiltrates or pleural fluid. Retrosternal calcified granuloma. Thoracic spine degenerative changes. IMPRESSION: 1. No infiltrates. [id number] Narrative Procedure Note Jose G Marquez MD - 11/20/2019 IMPRESSION: Please see below. Exam: XR CHEST PA AND LATERAL 2 VW Date/Time of Exam: 11/20/2019 9:22 AM Reason For Exam: See Diagnosis. Diagnosis: COPD (chronic obstructive pulmonary disease). Comparison: None Findings: The heart size is normal. No infiltrates or pleural fluid. Retrosternal calcified granuloma. Thoracic spine degenerative changes. IMPRESSION: 1. No infiltrates. [id number] us External Provider [facility] DIAGNOSTIC IMAGING ORDERA BLES Final Result documented in this encounter Visit Diagnoses Diagnosis COPD (chronic obstructive pulmonary disease) (CMS/HCC) Chronic airway obstruction, not elsewhere classified COPD (chronic obstructive pulmonary disease) (CMS/HCC) Chronic airway obstruction, not elsewhere classified documented in this encounter Care Teams Bench Repair Technician Relationship Specialty Start Date End Date Sushil Mobley MD [address] [address] PCP - General Family Practice 08/22/20 documented as of this encounter
--- NOTE | 2025-06-23 07:58 | ECG_ITS ---
[facility]: 2025-[facility]23 Pat Name: Carmen Richards Department: Room: Gender: Female Director Of Archives: : 1975 Requested By: Armida Cadet Order Number: [id number] Reading MD: EVANGELIST GARAY Measurements Intervals Ellery Rate: 103 P: 62 WY: 176 QRS: 105 QRSD: 144 T: -12 QT: 379 QTc: 498 Interpretive Statements SINUS TACHYCARDIA WITH OCCASIONAL SUPRAVENTRICULAR PREMATURE COMPLEXES POSSIBLE LEFT ATRIAL ENLARGEMENT [-0.1mV P-WAVE IN V1/V2] RIGHT AXIS DEVIATION [QRS AXIS > 100] INTRAVENTRICULAR CONDUCTION DELAY [130+ ms QRS DURATION] Compared to ECG 06/21/2025 16:02:53 Right-axis deviation now present Left-axis deviation no longer present Electronically Signed On 06-25-2025 13:58:16 CDT by EVANGELIST GARAY [email or web address]
--- NOTE | 2025-06-23 07:59 | XRR_ITS ---
PROCEDURE INFORMATION: Exam: XR Chest Exam date and time: 06/23/2025 8:03 AM Age: 49 years old Clinical indication: Shortness of breath; Additional info: SOB TECHNIQUE: Imaging protocol: Radiologic exam of the chest. Views: 1 view. COMPARISON: CR XR chest 1V portable [id number] 06/21/2025 1:57 PM FINDINGS: Lungs: Right lower lobe consolidation/collapse. Decrease in the left lower lobe consolidation/collapse. Pleural spaces: There is a right pleural effusion. Decrease in the left pleural effusion. Heart/Mediastinum: Unremarkable. No cardiomegaly. Bones/joints: Mild degenerative disease of bilateral acromioclavicular joints. There are mild degenerative changes of the glenohumeral joint. XR/XR chest 1V portable [id number] IMPRESSION: Decrease in the left pleural effusion with left lower lobe consolidation/collapse. No other change.
--- NOTE | 2025-06-23 08:00 | W.ED.SOB ---
HPI - SOB/Dyspnea General: Chief Complaint: Shortness of Breath/Dyspnea Stated Complaint: sob Time Seen by Provider: 06/23/25 07:54 Source: patient and EMS Mode of arrival: EMS Limitations: no limitations History of Present Illness: HPI Narrative: 49-year-old female history of CHF along with COPD recently been admitted here 2 days ago for pneumonia and CHF and COPD exacerbation patient left AMA states since being home she has gotten worse she has not been taking her meds and when EMS arrived she was in the 80s on pulse ox she typically wears 2 L at home she is requiring 4 here is in respiratory distress she denies any fever chest pain Associated symptoms: Deny abdominal pain, chest pain, fever(s), nausea or vomiting Related Data Home Medications ?Medication ?Instructions ?Recorded ?Confirmed budesonide-formoterol HFA 160 2 puff inhalation BID 02/16/20 06/23/25 mcg-4.5 mcg/actuation aerosol inhaler (Symbicort) levothyroxine 75 mcg tablet 75 mcg PO DAILY 06/11/22 06/23/25 potassium chloride 10 mEq 10 meq PO DAILY 05/03/23 06/23/25 tablet,extended release venlafaxine 150 mg 150 mg PO DAILY 11/27/24 06/23/25 capsule,extended release 24 hr albuterol sulfate 2.5 mg/3 mL 2.5 mg continuous nebulization QID 12/14/24 06/23/25 (0.083 %) solution for nebulization PRN Shortness Of Breath albuterol sulfate 90 mcg/actuation 2 puff inhalation QID 12/14/24 06/23/25 aerosol inhaler (Ventolin HFA) clopidogrel 75 mg tablet 75 mg PO DAILY 12/14/24 06/23/25 nitroglycerin 0.4 mg sublingual 0.4 mg sublingual PRN PRN Chest 12/14/24 06/23/25 tablet Pain oxycodone 10 mg tablet 10 mg PO TID PRN Pain 12/14/24 06/23/25 pantoprazole 40 mg tablet,delayed 40 mg PO DAILY 12/14/24 06/23/25 release acetaminophen 500 mg tablet 1,000 mg PO Q6H PRN Pain 12/18/24 06/23/25 (Tylenol Extra Strength) venlafaxine 75 mg capsule,extended 75 mg PO DAILY 12/18/24 06/23/25 release 24 hr acyclovir 400 mg tablet 400 mg PO BID 06/21/25 06/23/25 atorvastatin 80 mg tablet 80 mg PO BEDTIME 06/21/25 06/23/25 escitalopram oxalate 20 mg tablet 20 mg PO DAILY 06/21/25 06/23/25 losartan 100 mg tablet 100 mg PO DAILY 06/21/25 06/23/25 spironolactone 50 mg tablet 50 mg PO DAILY PRN Edema 06/21/25 06/23/25 tiotropium bromide 2.5 1 puff inhalation DAILY 06/23/25 06/23/25 mcg/actuation mist for inhalation (Spiriva Respimat) Previous Rx's ?Medication ?Instructions ?Recorded aspirin 81 mg tablet,delayed 81 mg PO DAILY #90 tabs 06/12/22 release (Adult Low Dose Aspirin) insulin glargine 100 unit/mL (3 60 unit (0.6 mL) SUBCUT QAM #60 mL 07/26/24 mL) subcutaneous pen (Lantus Solostar U-100 Insulin) furosemide 40 mg tablet 40 mg PO DAILY 30 days #30 tabs 01/25/25 blood-glucose sensor ([employer] G7 #3 ea 03/20/25 Sensor device) Allergies Allergy/AdvReac Type Severity Reaction Status Date / Time pregabalin (From Lyrica) Allergy hallucinati Verified 03/27/25 17:17 ons Review of Systems Const: Denies: fever(s), chills, body aches or change in appetite ENMT: Denies: throat pain or dental pain Card: Denies: chest pain Resp: Reports: dyspnea and productive cough GI: Denies: abdominal pain, nausea, vomiting or diarrhea Musc: Denies: neck pain or back pain Skin/Breast: Denies: rash Neuro: Denies: headache(s) PFSH ED PFSH: Medical History Congestive heart failure LBBB (left bundle branch block) CAD (coronary artery disease) Hypoxic respiratory failure CHF (congestive heart failure) Chest pain Dyspnea on exertion Right middle cerebral artery stroke Staph skin infection Left arm pain Transient cerebral ischemia Smoking addiction CVA (cerebral vascular accident) Major depressive disorder, 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, recurrent severe without psychotic features Hyperlipidemia Hypertension Type II diabetes mellitus Asthma COPD (chronic obstructive pulmonary disease) Hepatitis C Acute ischemic stroke COPD (chronic obstructive pulmonary disease) Smoking Left leg paresthesias Arm paresthesia, left Left-sided weakness Surgical History H/O: hysterectomy 1996 History of tonsillectomy Family History Other CAD (coronary artery disease) Cancer Diabetes Family history of premature coronary artery disease Hypertension Lung disease Stroke Social History (Updated 06/21/25 @ 18:42 by Maikol Garzon MD) Smoking and tobacco/nicotine status: former use of tobacco/nicotine Quit status (tobacco/nicotine): has quit using Year quit tobacco: 2024 Former quit date comment: Was smoking a pack and a half a day till 2 weeks ago Second hand smoke exposure: No Alcohol intake: former Substance/Drug Use: former Date of last use: 20 years ago Additional social history: Patient states she is on disability she thinks from medical problem but does not know which one. 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 Pets and animals: Yes Pets & animals: dog(s) Leisure activites: exercise, art, music and reading Sexually active: No Do you think of yourself as: Straight/Heterosexual Current gender identity: Female Linda/Mandaeism: Sabianism Special linda needs: No Agree to transfusion: Yes Female Reproductive History: Para: 2 Spontaneous abortions: No Physical Exam Const: COMMON NORMALS: no acute distress, patient oriented x3 and healthy appearing HENMT: COMMON NORMALS: normocephalic and atraumatic HEAD & SCALP: normocephalic and atraumatic Eye: COMMON NORMALS: conjunctivae normal CONJUNCTIVA: Yes conjunctivae normal Neck/C-Spine: COMMON NORMALS: full ROM and supple Chest: COMMONS NORMALS: normal inspection of the chest Resp: COMMON NORMALS: No retractions and No use of accessory muscles EFFORT & INSPECTION: Yes respiratory distress AUSCULTATION: rales and wheezes Cardio: COMMON NORMALS: regular rhythm and No murmurs present (Cardio) RATE: tachycardic RHYTHM: regular rhythm GI: COMMON NORMALS: Normal to inspection, nondistended, normoactive bowel sounds present, Soft to palpation, non-tender and no masses PALPATION: Yes Soft to palpation Extremity: COMMON NORMALS: normal to inspection and full ROM Neuro: COMMON NORMALS: patient oriented x3, moves all extremities and no focal motor deficits Psych: COMMON NORMALS: mental status grossly normal, Normal thought process present and cooperative THOUGHT PROCESS: Normal thought process present Skin: COMMON NORMALS: no rashes or lesions noted and no wounds GENERAL SKIN EXAM: no rashes or lesions noted Course Vital Signs: Vital signs: Vital Signs Temperature 98.2 F 06/23/25 07:50 Pulse Rate 105 H 06/23/25 09:07 Respiratory Rate 21 H 06/23/25 09:07 Blood Pressure 112/69 06/23/25 09:07 Pulse Oximetry 96 06/23/25 09:07 Oxygen Delivery Me thod Nasal Cannula 06/23/25 08:20 Oxygen Flow Rate 2 06/23/25 08:20 MDM - SOB/Dyspnea Medical Decision Making Patient presents here with shortness of breath likely from CHF along with pneumonia she is requiring oxygen here did give her Lasix along with antibiotic spoke to hospitalist will admit at this time. Medical Records I reviewed the patient's medical records. Lab Data I reviewed the patient's lab results. 06/23/25 08:13 06/23/25 08:13 Labs/Radiology: Radiology Impressions Chest X-Ray 06/23/25 07:59 IMPRESSION: Decrease in the left pleural effusion with left lower lobe consolidation/collapse. No other change. Laboratory Results WBC 15.05 10^3/uL (3.29-11.43) H 06/23/25 08:13 RBC 5.39 10^6/uL (3.85-5.65) 06/23/25 08:13 Hgb 16.80 g/dL (11.27-16.99) 06/23/25 08:13 Hct 51.5 % (36-47) H 06/23/25 08:13 MCV 95.5 fl (85-98) 06/23/25 08:13 MCH 31.2 pg (27-33) 06/23/25 08:13 MCHC 32.6 g/dL (30-55) 06/23/25 08:13 RDW 15.2 % (12.1-15.1) H 06/23/25 08:13 Plt Count 233 10^3/cmm (157-399) 06/23/25 08:13 MPV 10.5 fL (7.4-10.4) H 06/23/25 08:13 Neut % (Auto) 79.6 % 06/23/25 08:13 Lymph % (Auto) 11.6 % 06/23/25 08:13 Adams % (Auto) 8.0 % 06/23/25 08:13 Eos % (Auto) 0.3 % 06/23/25 08:13 Baso % (Auto) 0.2 % 06/23/25 08:13 Neut # (Auto) 11.98 10^3/uL (1.8-7.7) H 06/23/25 08:13 Lymph # (Auto) 1.8 10^3/uL (0.8-4.8) 06/23/25 08:13 Adams # (Auto) 1.2 10^3/uL (0.2-0.9) H 06/23/25 08:13 Eos # (Auto) 0.0 10^3/uL (0.0-0.8) 06/23/25 08:13 Baso # (Auto) 0.0 10^3/uL (0.0-0.1) 06/23/25 08:13 Nucleated RBC % (auto) 0 % 06/23/25 08:13 Nucleated RBCs # 0.0 /100WBC 06/23/25 08:13 Sodium 131 mmol/L (136-145) L 06/23/25 08:13 Potassium 5.0 mmol/L (3.5-5.1) 06/23/25 08:13 Chloride 91 mmol/L (98-107) L 06/23/25 08:13 Carbon Dioxide 30 mmol/L (22-29) H 06/23/25 08:13 Anion Gap 15.0 (5-19) 06/23/25 08:13 BUN 14 mg/dL (6-20) 06/23/25 08:13 Creatinine 0.9 mg/dL (0.5-0.9) 06/23/25 08:13 GFR Calculation 66.0 mL/min (90-130) L 06/23/25 08:13 Glucose 270 mg/dL (65-115) H 06/23/25 08:13 Calculated Osmolality 282 mOsm/kg (285-295) L 06/23/25 08:13 Calcium 9.7 mg/dL (8.5-10.5) 06/23/25 08:13 Total Bilirubin 1.7 mg/dL (0.15-1.2) H 06/23/25 08:13 AST 21 U/L (0-32) 06/23/25 08:13 ALT 14 U/L (0-33) 06/23/25 08:13 Alkaline Phosphatase 142 U/L (35-105) H 06/23/25 08:13 NT-Pro-B Natriuret Pep 8630 pg/mL (0-125) H 06/23/25 08:13 Total Protein 7.6 g/dL (6.6-8.7) 06/23/25 08:13 Albumin 3.1 g/dL (3.5-5.2) L 06/23/25 08:13 Globulin 4.5 g/dL (1.3-4.6) 06/23/25 08:13 All radiology interpretation(s) finalized by discharge EKG Data EKG 1: I personally reviewed and interpreted this EKG as follows: EKG Interpretation Date: 06/23/25 EKG interpretation time: 07:59 Interpretation: sinus tach hr [address] elevation qrs 144 qtc 439 Discharge Plan Discharge Patient Disposition: Admitted As Inpatient Clinical Impression: Community acquired pneumonia, Acute on chronic systolic CHF (congestive heart failure) Condition: Stable Coding Level of Care Code ED Assistant Women[employer] Basketball Coach for Isabel Hernandez
[2025-06-23] MEDS: methylPREDNISolone sod succ 125 mg/2 mL INJ IV (08:16)
--- NOTE | 2025-06-23 08:16 | PC.NURSE ---
antibiotics delayed d/t needing blood cultures drawn
[2025-06-23 08:20] LABS: Hematocrit 51.5 % (36-47); Hemoglobin 16.80 g/dL (11.27-16.99); Mean Corpuscular HGB Conc 32.6 g/dL (30-55); Mean Corpuscular Hemoglobin 31.2 pg (27-33); Mean Corpuscular Volume 95.5 fl (85-98); Nucleated Red Blood Cells % 0 %; Platelet Count 233 10^3/cmm (157-399); Red Blood Count 5.39 10^6/uL (3.85-5.65); White Blood Count 15.05 10^3/uL (3.29-11.43)
[2025-06-23] MEDS: cefTRIAXone 1,000 mg SDV 1000 MG IVP (08:50)
[2025-06-23 08:51] LABS: Alanine Aminotransferase 14 U/L (0-33); Albumin Level 3.1 g/dL (3.5-5.2); Alkaline Phosphatase 142 U/L (35-105); Anion Gap 15.0 (5-19); Aspartate Amino Transferase 21 U/L (0-32); Blood Urea Nitrogen 14 mg/dL (6-20); Calcium 9.7 mg/dL (8.5-10.5); Carbon Dioxide 30 mmol/L (22-29); Chloride 91 mmol/L (98-107); Creatinine Clr Calc Pharmacy 73.2203; Globulin 4.5 g/dL (1.3-4.6); Glucose 270 mg/dL (65-115); NT Pro B Type Natriuretic Pept 8630 pg/mL (0-125); Osmolality Calculated 282 mOsm/kg (285-295); Potassium 5.0 mmol/L (3.5-5.1); Sodium 131 mmol/L (136-145); Total Protein 7.6 g/dL (6.6-8.7)
[2025-06-23] MEDS: FUROsemide 10 mg/mL SDV 10mL 60 MG IVP (09:17)
--- NOTE | 2025-06-23 09:35 | PM.HP ---
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 She returns to the hospital today for complaint of worsening shortness of breath as she has gotten worse. She states she is on 2 L nasal cannula at home. Reports worsening leg swelling. States she is on Lasix at home but takes it when she needs it. She states her EF is 28% and states she is ready to make peace and does not want to be resuscitated. . She does not want to be intubated either. She states she left AMA yesterday and is apologetic for her behavior. Denies nausea vomiting diarrhea at this time. Her main complaint is that she just cannot breathe. I discussed with her regarding using BiPAP which she is okay with that at this time. Medications/Allergies Home Medications ?Medication ?Instructions ?Recorded ?Confirmed ?Last Taken ?Type budesonide-formoterol HFA 160 2 puff inhalation BID 02/16/20 06/23/25 06/20/25 History mcg-4.5 mcg/actuation aerosol inhaler (Symbicort) levothyroxine 75 mcg tablet 75 mcg PO DAILY 06/11/22 06/23/25 06/20/25 History aspirin 81 mg tablet,delayed 81 mg PO DAILY #90 tabs 06/12/22 06/23/25 06/20/25 Rx release (Adult Low Dose Aspirin) potassium chloride 10 mEq 10 meq PO DAILY 05/03/23 06/23/25 06/20/25 History tablet,extended release insulin glargine 100 unit/mL (3 60 unit (0.6 mL) SUBCUT QAM #60 mL 07/26/24 06/23/25 06/20/25 Rx mL) subcutaneous pen (Lantus Solostar U-100 Insulin) venlafaxine 150 mg 150 mg PO DAILY 11/27/24 06/23/25 06/20/25 History capsule,extended release 24 hr albuterol sulfate 2.5 mg/3 mL 2.5 mg continuous nebulization QID 12/14/24 06/23/25 Unknown History (0.083 %) solution for nebulization PRN Shortness Of Breath albuterol sulfate 90 mcg/actuation 2 puff inhalation QID 12/14/24 06/23/25 06/20/25 History aerosol inhaler (Ventolin HFA) clopidogrel 75 mg tablet 75 mg PO DAILY 12/14/24 06/23/25 06/20/25 History nitroglycerin 0.4 mg sublingual 0.4 mg sublingual PRN PRN Chest 12/14/24 06/23/25 Unknown History tablet Pain oxycodone 10 mg tablet 10 mg PO TID PRN Pain 12/14/24 06/23/25 12/17/24 History pantoprazole 40 mg tablet,delayed 40 mg PO DAILY 12/14/24 06/23/25 06/20/25 History release acetaminophen 500 mg tablet 1,000 mg PO Q6H PRN Pain 12/18/24 06/23/25 Unknown History (Tylenol Extra Strength) venlafaxine 75 mg capsule,extended 75 mg PO DAILY 12/18/24 06/23/25 06/20/25 History release 24 hr furosemide 40 mg tablet 40 mg PO DAILY 30 days #30 tabs 01/25/25 06/23/25 06/20/25 Rx blood-glucose sensor ([employer] G7 #3 ea 03/20/25 06/23/25 Unknown Rx Sensor device) acyclovir 400 mg tablet 400 mg PO BID 06/21/25 06/23/25 06/20/25 History atorvastatin 80 mg tablet 80 mg PO BEDTIME 06/21/25 06/23/25 06/20/25 History escitalopram oxalate 20 mg tablet 20 mg PO DAILY 06/21/25 06/23/25 06/20/25 History losartan 100 mg tablet 100 mg PO DAILY 06/21/25 06/23/25 06/20/25 History spironolactone 50 mg tablet 50 mg PO DAILY PRN Edema 06/21/25 06/23/25 Unknown History tiotropium bromide 2.5 1 puff inhalation DAILY 06/23/25 06/23/25 Unknown History mcg/actuation mist for inhalation (Spiriva Respimat) Allergies Allergy/AdvReac Type Severity Reaction Status Date / Time pregabalin (From Lyrica) Allergy hallucinati Verified 03/27/25 17:17 ons PFSH Acute PFSH: Medical History (Updated 06/23/25 @ 09:18 by Armida Cadet MD) Congestive heart failure LBBB (left bundle branch block) CAD (coronary artery disease) Hypoxic respiratory failure CHF (congestive heart failure) Chest pain Dyspnea on exertion Right middle cerebral artery stroke Staph skin infection Left arm pain Transient cerebral ischemia Smoking addiction CVA (cerebral vascular accident) Major depressive disorder, 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, recurrent severe without psychotic features Hyperlipidemia Hypertension Type II diabetes mellitus Asthma COPD (chronic obstructive pulmonary disease) Hepatitis C Acute ischemic stroke COPD (chronic obstructive pulmonary disease) Smoking Left leg paresthesias Arm paresthesia, left Left-sided weakness Surgical History H/O: hysterectomy 1996 History of tonsillectomy Family History Other CAD (coronary artery disease) Cancer Diabetes Family history of premature coronary artery disease Hypertension Lung disease Stroke Social History (Updated 06/21/25 @ 18:42 by Maikol Garzon MD) Smoking and tobacco/nicotine status: former use of tobacco/nicotine Quit status (tobacco/nicotine): has quit using Year quit tobacco: 2024 Former quit date comment: Was smoking a pack and a half a day till 2 weeks ago Second hand smoke exposure: No Alcohol intake: former Substance/Drug Use: former Date of last use: 20 years ago Additional social history: Patient states she is on disability she thinks from medical problem but does not know which one. 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 Pets and animals: Yes Pets & animals: dog(s) Leisure activites: exercise, art, music and reading Sexually active: No Do you think of yourself as: Straight/Heterosexual Current gender identity: Female Linda/Episcopalian: Orthodoxy Special linda needs: No Agree to transfusion: Yes Female Reproductive History: Para: 2 Spontaneous abortions: No Vitals/I&O/Wt Last Vital Signs Temp 98.2 F 06/23/25 07:50 Pulse 105 H 06/23/25 09:07 Resp 21 H 06/23/25 09:07 BP 112/69 06/23/25 09:07 Pulse Ox 96 06/23/25 09:07 O2 Del Method Nasal Cannula 06/23/25 08:20 O2 Flow Rate 2 06/23/25 08:20 Weight last 48 hrs Weight 81.647 kg Physical Exam Narrative: General: Alert oriented x3, patient seen laying in bed appears short of breath at this time on 2 L nasal cannula. HEENT: Normocephalic, atraumatic, EOMI, nasal cannula Cardio: Regular rate rhythm, normal S1-S2 Respiratory: Diffuse rhonchi, mild crackles appreciated at bases GI: Abdomen soft, nontender, bowel sounds + Extremities: Edema present bilateral lower extremities 1-2+. Data 06/23/25 08:13 06/23/25 08:13 Micro: Microbiology 06/23/25 08:40 Blood Culture - Preliminary Blood SPECIMEN COLLECTED 06/23/25 08:37 Blood Culture - Preliminary Blood SPECIMEN COLLECTED A&P Assessment and plan 1. Major depressive disorder, recurrent severe without psychotic features: 2. Generalized anxiety disorder: 3. Congestive heart failure: 4. Acute on chronic systolic CHF (congestive heart failure): 5. Chest pain: 6. Hyperlipidemia: 7. Acute hyponatremia: 8. COPD with acute exacerbation: 9. Community acquired pneumonia: Plan: #Acute on chronic systolic CHF #Left lower lobe pneumonia #Diabetes mellitus type 2, insulin-dependent #Hypothyroidism #COPD exacerbation #Supplemental oxygen dependent #Depression #Leukocytosis #Hyponatremia secondary to hypervolemia - Patient signed out AMA yesterday. She was admitted for possible pneumonia and heart failure. We will continue patient on Lasix 40 IV daily. She takes Lasix 40 orally daily at home. Patient appears to be quite fluid overloaded with bilateral lower extremity edema and crackles at bases of her lungs. She is on 2 L nasal cannula however appears short of breath. She is okay with BiPAP. Will order BiPAP for respiratory support at this time She did receive Lasix 60 IV in the ER Sliding scale insulin moderate dose intensity Continue aspirin atorvastatin Plavix, levothyroxine pantoprazole Continue venlafaxine Hold spironolactone. Continue on losartan 50 daily Heart rate [id number]. We will check EKG Check BNP Check lactic acid She follows with cardiology as an outpatient and last saw them in December 2024. After that she has 3 canceled appointments. Patient does have a old left bundle branch block on EKG. Patient saw her primary care and march at which point she was having chest pain and was advised to go to the nearest ER. Today she states that she has been having on and off chest pain however today it is not present. She states her EF is 28% that she knows of. She states she would like to be DNR/DNI. She states she has made peace with her condition and because her EF is 28% she would like to be DNR. She says I would like to go naturally . Chest x-ray shows pulmonary vascular congestion fluid in the fissure on the right side with pleural effusion bilaterally. (My interpretation), radiology report reads decrease in left frontal effusion with left lower lobe consolidation/collapse. Pneumonia: Continue ceftriaxone azithromycin. Check blood cultures, sputum culture Gram stain Echo shows 32% EF with global left ventricular hypokinesis Check procalcitonin Hyponatremia sodium 131 most likely secondary to hypervolemic state. I expect this to improve with diuresis. DVT prophylaxis: Heparin SQ twice daily DNR/DNI PDMP PDMP Reviewed: Not Reviewed Attestations Medical Necessity Statement*: Greater than 2 midnight stay for management of CHF, pneumonia Diagnoses Major depressive disorder, recurrent severe without psychotic features F33.2 Generalized anxiety disorder F41.1 Congestive heart failure I50.9 Acute on chronic systolic CHF (congestive heart failure) I50.23 Chest pain R07.9 Hyperlipidemia E78.5 Acute hyponatremia E87.1 COPD with acute exacerbation J44.1 Community acquired pneumonia J18.9
[2025-06-23 10:06] LABS: Procalcitonin 0.40 ng/mL (0-0.5); Thyroid Stimulating Hormone 1.96 uIU/mL (0.27-4.20)
[2025-06-23] MEDS: LORazepam 1 MG/0.5 ML injection IVP (10:21)
--- NOTE | 2025-06-23 11:31 | PC.NURSE ---
report called to Carmen on [facility], no further questions.
--- OUTSIDE RECORDS SUMMARY | 2025-06-23 12:08 | XMS_ITS | Clinical Summary ---
Author Organization [employer] Address [address] [facility] Attn: Epic Prelude ADT [place] [address] Care Team Providers Care Machine Gun Mechanic Name Role Phone Sushil Mobley MD Primary Care Provider [phone] Allergies Active Allergy Reactions Criticality Noted Date [...] breakfast. 30 Tablet 2 12/05/2024 3:18 PM CUSTOMER MARKETING INTERN 5 Active atorvastatin (LIPITOR) 40 mg tablet Take 1 Tablet (40 mg) by mouth daily at bedtime. 30 Tablet 2 12/05/2024 3:18 PM CUSTOMER MARKETING INTERN 5 Active clopidogreL (PLAVIX) 75 mg Tablet Take 1 Tablet (75 mg) by mouth daily. 30 Tablet 2 12/05/2024 3:18 PM CUSTOMER MARKETING INTERN 5 Active furosemide (LASIX) 20 mg tablet Take 1 Tablet (20 mg) by mouth daily. 30 Tablet 12/05/2024 3:18 PM CUSTOMER MARKETING INTERN 5 Active insulin glargine (LANTUS) 100 unit/mL pen syringe Inject 25 Units by subcutaneous injection daily with breakfast. 15 mL 5 Active nitroglycerin (NITROSTAT) 0.4 mg Tablet, Sublingual Place 1 Tablet (0.4 mg) under tongue every 5 minutes as needed for Chest Pain (Do NOT take more than 3 pills in a row, if chest pain not relived contact your PCP/Waterproofer Helper ERVIN). 25 Tablet 1 12/05/2024 3:18 PM CUSTOMER MARKETING INTERN Active pantoprazole (PROTONIX) 40 mg Tablet, Delayed Release (E.C.) Take 1 Tablet (40 mg) by mouth daily before breakfast. 30 Tablet 12/05/2024 3:18 PM CUSTOMER MARKETING INTERN Active Active Problems Problem Noted Date Diagnosed [...] on file Legal Sex Female 2:08 AM CUSTOMER MARKETING INTERN Gender Identity Not on file Sexual Orientation Not on file Last Filed Vital Signs Vital Sign Reading Time Taken Comments Blood Pressure 104/70 12/05/2024 8:28 AM CUSTOMER MARKETING INTERN Pulse 81 12/05/2024 8:28 AM CUSTOMER MARKETING INTERN Temperature 36.5 C (97.7 F) 12/05/2024 8:28 AM CUSTOMER MARKETING INTERN Respiratory Rate 18 12/05/2024 8:28 AM CUSTOMER MARKETING INTERN Oxygen Saturation 93% 12/05/2024 8:28 AM CUSTOMER MARKETING INTERN Inhaled Oxygen Concentration - - Weight 82.6 kg (182 lb 3.2 oz) 12/04/2024 5:00 A M CUSTOMER MARKETING INTERN Height 157.5 cm (5' 2 ) 12/02/2024 11:11 PM CUSTOMER MARKETING INTERN Body Mass Index 33.32 12/02/2024 11:11 PM CUSTOMER MARKETING INTERN Plan of Treatment Health Maintenance Due Date [...] (#1) 2025 Medical Devices Implanted Type Area Utility Hand Device Identifier Shelf Expiration Date Model / Serial / Lot Stent Ronny [place] Jose 3.0x15mm Rx [id number] - [id number] Implanted:Qty: 1 on 12/03/2024 by Prince Funes MD at [facility] Stent N/A: Coronary [employer] [id number] 07/31/2027 [id number] 15UX / / [id number] Stent Ronny [place] Jose 4.0x12mm Rx [id number] - [id number] Implanted:Qty: 1 on 12/03/2024 by Prince Funes MD at [facility] Stent N/A: Coronary [employer] [id number] 05/10/2027 [id number] 12UX / / [id number] Stent Ronny [place] Jose 4.0x8mm Rx [id number] - [id number] Implanted:Qty: 1 on 12/03/2024 by Prince Funes MD at [facility] Stent N/A: Coronary [employer] [id number] 04/23/2027 [id number] 08UX / / [id number] Procedures Procedure Name Priority Date/Time Associated Diagnosis Comments HEMOGLOBIN A1C Routine 12/03/2024 2:49 AM CUSTOMER MARKETING INTERN from Last 3 Months or Most Recently Relevant to Health Maintenance Results * (ABNORMAL) HEMOGLOBIN A1C (12/03/2024 2:49 AM CUSTOMER MARKETING INTERN) HEMOGLOBIN A1C 12.1(H) <=5.6 % 12/04/2024 8:55 AM CUSTOMER MARKETING INTERN [facility] EST. AVG GLUCOSE, A1C 301 mg/dL 12/04/2024 8:55 AM CUSTOMER MARKETING INTERN [facility] Blood Venipuncture / Unknown 12/03/2024 2:49 AM CUSTOMER MARKETING INTERN 12/03/2024 3:04 AM CUSTOMER MARKETING INTERN Narrative [facility] - 12/04/2024 8:55 AM CUSTOMER MARKETING INTERN HGB A1C INTERPRETATION NORMAL: <5.7% PRE-DIABETES: 5.7 - 6.4% DIABETES: 6.5% OR GREATER Alvarado Persaud DO CHEMISTRY ORDERABLES Final Resu lt [facility] CLIA # [id number] [address] [place] [address] [id number] from Last 3 Months or Most Recently Relevant to Health Maintenance Insurance MEDICAID [place] [employer] Advance Directives For more information, please contact: [phone] * Full Code (Latest Code Status on File) Date Activated Date Inactivated Comments 12/03/2024 2:06 AM 12/05/2024 5:37 PM Care Teams Machine Gun Mechanic Relationship Specialty Start Date End Date Sushil Mobley MD [address] [place] [id number] PCP - General Family Practice 08/22/20
--- OUTSIDE RECORDS SUMMARY | 2025-06-23 12:08 | XMS_ITS | Encounter Summary ---
Author Organization [facility] Address [address] [place] [address] Care Team Providers Care Harmonic Analyst Name Role Phone Sushil Mobley MD Primary Care Provider [phone] Encounter Details Date Type Department Care Team (Late st Contact Info) Description 09/27/2019 Ancillary Orders [facility] Centralized Scheduling [address] [place] [phone] Determinations, Dis Kim Durán [address] [place] [address] COPD (chronic obstructive pulmonary disease) ([facility]) Social History Tobacco Use Types Packs/Day [...] AND LATERAL 2 VW (11/20/2019 9:22 AM HOG BUYER) Anatomical Region Laterality Modality Chest Computed Radiogr aphy 11/20/2019 9:22 AM HOG BUYER Impressions 11/20/2019 3:50 PM HOG BUYER IMPRESSION: Please see below. Exam: XR CHEST PA AND LATERAL 2 VW Date/Time of Exam: 11/20/2019 9:22 AM Reason For Exam: See Diagnosis. Diagnosis: COPD (chronic obstructive pulmonary disease). Comparison: None Findings: The heart size is normal. No infiltrates or pleural fluid. Retrosternal calcified granuloma. Thoracic spine degenerative changes. IMPRESSION: 1. No infiltrates. [id number] Narrative Procedure Note Jose G Marquez MD - 11/20/2019 IMPRESSION: Please see below. Exam: XR CHEST PA AND LATERAL 2 VW Date/Time of Exam: 11/20/2019 9:22 AM Reason For Exam: See Diagnosis. Diagnosis: COPD (chronic obstructive pulmonary disease). Comparison: None Findings: The heart size is normal. No infiltrates or pleural fluid. Retrosternal calcified granuloma. Thoracic spine degenerative changes. IMPRESSION: 1. No infiltrates. [id number] us External Provider M[employer]v DIAGNOSTIC IMAGING ORDERA BLES Final Result documented in this encounter Visit Diagnoses Diagnosis COPD (chronic obstructive pulmonary disease) (CMS/HCC) Chronic airway obstruction, not elsewhere classified COPD (chronic obstructive pulmonary disease) (CMS/HCC) Chronic airway obstruction, not elsewhere classified documented in this encounter Care Teams Harmonic Analyst Relationship Specialty Start Date End Date Sushil Mobley MD [address] [address] PCP - General Family Practice 08/22/20 documented as of this encounter
--- OUTSIDE RECORDS SUMMARY | 2025-06-23 12:08 | XMS_ITS | Encounter Summary ---
Author Organization [facility] Address [address] [place] [address] Care Team Providers Care Dining Car Server Name Role Phone Sushil Mobley MD Primary Care Provider Encounter Details Date Type Department Care Team (Late st Contact Info) Description 09/10/2014 Ancillary Orders [facility] Laboratory Services [place] [address] [place] [phone] Sick Social History Tobacco Use Types Packs/Day [...] - 4.80 uIU/mL 09/10/2014 9:45 PM CDT [facility] Blood Collection / Unknown 09/10/2014 9:04 PM CDT 09/10/2014 9:04 PM CDT Mega Mcelroy DO CHEMISTRY ORDERABLES Final Resu lt Performing Organization Address City/[facility]/ZIP Co de Phone Number [facility] CLIA # [id number] [address] [place] [address] * (ABNORMAL) HEMOGLOBIN A1C (09/10/2014 9:04 PM CDT) HEMOGLOBIN A1C 8.0(H) 4.5 - 6.2 % 09/10/2014 9:45 PM CDT [facility] [place] EST. AVG GLUCOSE, A1C 183 mg/dL 09/10/2014 9:45 PM CDT [facility] [place] Blood Collection / Unknown 09/10/2014 9:04 PM CDT 09/10/2014 9:04 PM CDT Mega Mcelroy DO CHEMISTRY ORDERABLES Final Resu lt Performing Organization Address [facility]/ZIP Co de Phone Number [facility] CLIA # [id number] [address] [place] [address] * (ABNORMAL) COMPREHENSIVE METABOLIC PANEL (09/10/2014 9:04 PM CDT) SODIUM 134(L) 136 - 145 mmol/L 09/10/2014 9:45 PM CDT [facility] [place] POTASSIUM 4.0 3.5 - 5.1 mmol/L 09/10/2014 9:45 PM CDT [facility] [facility] [place] CHLORIDE 98 98 - 107 mmol/L 09/10/2014 9:45 PM CDT [facility] [place] CO2 28 21 - 32 mmol/L 09/10/2014 9:45 PM CDT [facility] [facility] [place] CALCIUM 9.1 8.5 - 10.1 mg/dL 09/10/2014 9:45 PM CDT [facility] [place] BUN 12 7 - 18 mg/dL 09/10/2014 9:45 PM CDT [facility] [place] CREATININE 0.90 0.60 - 1.30 mg/dL 09/10/2014 9:45 PM CDT [facility] [place] GLUCOSE 358(H) 74 - 106 mg/dL 09/10/2014 9:45 PM [facility] New [employer] [facility] TOTAL PROTEIN 8.2 6.4 - 8.2 g/dL 09/10/2014 9:[address] [facility] ALBUMIN 2.8(L) 3.4 - 5.0 g/dL 09/10/2014 9:[address] [facility] BILIRUBIN TOTAL 1.5(H) 0.2 - 1.0 mg/dL 09/10/2014 9:[address] [facility] ALKALINE PHOSPHATASE 134(H) 46 - 116 U/L 09/10/2014 9:45 PM [facility] New [employer] [facility] AST 110(H) 15 - 37 U/L 09/10/2014 9:[address] [facility] ALT 106(H) 30 - 65 U/L 09/10/2014 9:[address] [facility] GFR >60 >=60 mL/min/1.7 3 sq meter 09/10/2014 9:45 PM [facility] New [employer] [facility] Comment: eGFR has not been validated for [...] mL/min/1.7 3 sq meter 09/10/2014 9:45 PM [facility] New [employer] [facility] ANION GAP 8(L) 12 - 20 mmol/L 09/10/2014 9:45 PM [facility] New [employer] [facility] Blood Collection / Unknown 09/10/2014 9:04 PM CDT 09/10/2014 9:04 PM CDT [facility] New [employer] [facility] - 09/10/2014 9:45 PM CDT Effective 07/26/2014, the Alkaline Phosphatase test method and reference range have changed. Please take this into consideration when interpreting results prior to or after this date. us Mega Mcelroy DO CHEMISTRY ORDERABLES Final Resu lt [facility] [place] CLIA # [id number] [address] [facility] [address] [place] [address] documented in this encounter Visit Diagnoses Diagnosis Sick Other unknown and unspecified cause of morbidity or mortality documented in this encounter Care Teams Dining Car Server Relationship Specialty Start Date End Date Sushil Mobley MD [address] [place] [id number] PCP - General Family Practice 08/22/20 documented as of this encounter
--- OUTSIDE RECORDS SUMMARY | 2025-06-23 12:08 | XMS_ITS | Encounter Summary ---
Author Organization [facility] Address [address] [place] [address] Care Team Providers Care Aitchbone Breaker Name Role Phone Sushil Mobley MD Primary Care Provider [phone] Encounter Details Date Type Department Care Team (Late st Contact Info) Description 09/27/2019 Ancillary Orders [facility] Centralized Scheduling [address] [place] [phone] Mtnv, External Provider [address] [facility] [address] [place] [address] Social History Tobacco Use Types Packs/Day Years [...] on filedocumented in this encounter Care Teams Aitchbone Breaker Relationship Specialty Start Date End Date Sushil Mobley MD [address] [place] [address] [id number] PCP - General Family Practice 08/22/20 documented as of this encounter
--- OUTSIDE RECORDS SUMMARY | 2025-06-23 12:08 | XMS_ITS | Clinical Summary ---
Author Organization [facility] Address [address] [facility] [address] [place] [address] Phone Care Team Providers Care Dish Room Worker Name Role Phone Sushil Mobley MD Primary Care Provider [phone] Social History Tobacco Use Types Packs/Day Years Used Date Smoking Tobacco: Never Assessed Comments Unknown Sex and Gender Information Value Date Recorded Sex Assigned at Not on file Legal Sex Female 9:04 PM CDT Gender Identity Not on file Sexual Orientation Not on file Last Filed Vital Signs Vital Sign Reading Time Taken Comments Blood Pressure - - Pulse 71 11/20/2019 10:47 AM POLICE DETENTION ATTENDANT Temperature - - Respiratory Rate 20 11/20/2019 10:47 AM POLICE DETENTION ATTENDANT Oxygen Saturation 99% 11/20/2019 10:46 AM POLICE DETENTION ATTENDANT Inhaled Oxygen Concentration - - Weight - [...] (#1) [address] [place] [address] Care Teams Dish Room Worker Relationship Specialty Start Date End Date Sushil Mobley MD [address] [phone] PCP - General Family Practice 08/22/20
--- OUTSIDE RECORDS SUMMARY | 2025-06-23 12:08 | XMS_ITS | Encounter Summary ---
Author Organization [facility] Address [address] [place] [address] Care Team Providers Care Director Of Pharmacy Name Role Phone Sushil Mobley MD Primary Care Provider [phone] Encounter Details Date Type Department Care Team (Late st Contact Info) Description 09/17/2014 Ancillary Orders [facility] Laboratory Services [place] [address] [place] [phone] Social History Tobacco Use Types Packs/Day Years [...] on filedocumented in this encounter Care Teams Director Of Pharmacy Relationship Specialty Start Date End Date Sushil Mobley MD [address] [id number] PCP - General Family Practice 08/22/20 documented as of this encounter
--- NOTE | 2025-06-23 12:31 | PC.NURSE ---
Patient when sleeping has drops his heart rate as low as 19. He still denies any symptoms. Informed Dr Layne
--- NOTE | 2025-06-23 12:35 | PC.NURSE ---
Patient has generalized flea bites in various stages of healing that are too numerous to count.
--- NOTE | 2025-06-23 16:08 | PC.NURSE ---
Patient refusing to wear telemetry saying she is tied to the bed . Will not leave NC in place. Patient very uncooperative at times. Educated patient on need for telemetry, using her oxygen and taking her medications as ordered. Patient verbalized understanding however did state I have to pee all the time??? I can't do anything that way. Stressed the importance of medication compliance due to increased morbidity.
[2025-06-23] MEDS: heparin 5,000 unit/mL INJ 1 mL 5000 UNIT SUBCUT (16:25)
[2025-06-23 16:45] LABS: Procalcitonin 0.37 ng/mL (0-0.5)
--- NOTE | 2025-06-23 20:48 | PC.NURSE ---
Notified Dr. Philippe that patient is having generalized pain. Per patient she normally takes oxycodone 10 at home as needed for pain. Discussed this with MD. Received order to do one time dose of patient home pain medication then will need day doctor to add her home pain medications.
[2025-06-24] VITALS (9 sets, daily range): BP systolic 127–147; BP diastolic 62–106; PULSE 102–115; RESP 13–22; TEMP 36.4–36.8; O2SAT 88–95
[2025-06-24] MEDS: guaiFENesin-dextromethorphan UDC 10 mL PO ×3 (01:11→20:58)
[2025-06-24 04:12] LABS: Hematocrit 48.6 % (36-47); Hemoglobin 16.20 g/dL (11.27-16.99); Mean Corpuscular HGB Conc 33.3 g/dL (30-55); Mean Corpuscular Hemoglobin 31.5 pg (27-33); Mean Corpuscular Volume 94.4 fl (85-98); Nucleated Red Blood Cells % 0 %; Platelet Count 203 10^3/cmm (157-399); Red Blood Count 5.15 10^6/uL (3.85-5.65); White Blood Count 18.43 10^3/uL (3.29-11.43)
[2025-06-24] MEDS: heparin 5,000 unit/mL INJ 1 mL 5000 UNIT SUBCUT ×2 (04:22→15:30)
[2025-06-24 04:35] LABS: Alanine Aminotransferase 15 U/L (0-33); Albumin Level 3.1 g/dL (3.5-5.2); Alkaline Phosphatase 147 U/L (35-105); Blood Urea Nitrogen 21 mg/dL (6-20); Calcium 9.2 mg/dL (8.5-10.5); Carbon Dioxide 26 mmol/L (22-29); Chloride 90 mmol/L (98-107); Creatinine Clr Calc Pharmacy 67.5756; Globulin 2.9 g/dL (1.3-4.6); Glucose 335 mg/dL (65-115); Magnesium 1.7 mg/dL (1.7-2.3); Osmolality Calculated 286 mOsm/kg (285-295); Sodium 130 mmol/L (136-145); Total Protein 6.0 g/dL (6.6-8.7)
[2025-06-24 04:37] LABS: Anion Gap 18.9 (5-19); Aspartate Amino Transferase 27 U/L (0-32); Potassium 4.9 mmol/L (3.5-5.1)
[2025-06-24 05:04] LABS: Slide Review Slide Review Perform
[2025-06-24] MEDS: FUROsemide 10 mg/mL SDV 4mL 40 MG IVP (08:50)
[2025-06-24] MEDS: cefTRIAXone 1,000 mg SDV 1000 MG IVP (08:51)
--- NOTE | 2025-06-24 10:12 | PC.NURSE ---
Provider is updated that Carmen Richards she is refusing her Effexor XR this morning - she said that she has not been taking that for about 3 weeks. Provider okay'd and discontinue the medications.
[2025-06-24] MEDS: oxyCODONE-APAP 10-325 mg Tablet 1 TAB PO (10:41)
--- NOTE | 2025-06-24 11:07 | P.PN_ITS ---
Subjective 2 Subjective: Seen this morning. Patient states she is coughing a lot however does feel slightly better. She is requesting cough medicine and pain medication. I do see that overnight hospitalist has placed orders for cough medicine and her home oxycodone. She is on 2 L nasal cannula. Vitals/I&O/Wt Last Vital Signs Temp 97.6 F 06/24/25 04:36 Pulse 106 H 06/24/25 09:09 Resp 20 H 06/24/25 10:41 BP 133/94 06/24/25 04:36 Pulse Ox 94 06/24/25 10:41 O2 Del Method Room Air 06/24/25 09:09 O2 Flow Rate 3 06/24/25 04:36 06/23/25 06/24/25 06/24/25 22:59 06:59 14:59 Intake Total 360 / 610 480 / 1090 480 / 480 Output Total 350 / 350 350 / 700 100 / 100 Balance 10 / 260 130 / 390 380 / 380 Weight last 48 hrs Weight 85.984 kg Weight 85.638 kg Weight 81.647 kg Physical Exam 2 Narrative: General: Alert oriented x3, coughing HEENT: Normocephalic, atraumatic, EOMI, nasal cannula Cardio: Regular rate rhythm, normal S1-S2 Respiratory: Clear to auscultation bilaterally, crackles improved. GI: Abdomen soft, nontender, bowel sounds + Extremities: Edema present bilateral lower extremities trace Urinary Catheter Management: Dave: Cath Placed During This Visit: yes Reason for Continuing Indwelling Catheter: Accurate Measurement of Urinary Output in Critically Ill Patients Urinary Catheter Date of Insertion: 06/23/25 Urinary Catheter Time of Insertion: 17:32 Data 06/24/25 02:54 06/24/25 02:54 Micro: Microbiology 06/23/25 08:40 Blood Culture - Preliminary Blood NEGATIVE TO DATE 06/23/25 08:37 Blood Culture - Preliminary Blood NEGATIVE TO DATE A&P Assessment and plan 1. Major depressive disorder, recurrent severe without psychotic features: 2. Generalized anxiety disorder: 3. Congestive heart failure: 4. Acute on chronic systolic CHF (congestive heart failure): 5. Chest pain: 6. Hyperlipidemia: 7. Acute hyponatremia: 8. COPD with acute exacerbation: 9. Community acquired pneumonia: Plan: #Acute on chronic systolic CHF #Left lower lobe pneumonia #Diabetes mellitus type 2, insulin-dependent #Hypothyroidism #COPD exacerbation #Supplemental oxygen dependent #Depression #Leukocytosis #Hyponatremia secondary to hypervolemia - Patient signed out AMA yesterday. She was admitted for possible pneumonia and heart failure. We will continue patient on Lasix 40 IV daily. She takes Lasix 40 orally daily at home. Patient appears to be quite fluid overloaded with bilateral lower extremity edema and crackles at bases of her lungs. She is on 2 L nasal cannula however appears short of breath. She is okay with BiPAP. Will order BiPAP for respiratory support at this time She did receive Lasix 60 IV in the ER Sliding scale insulin moderate dose intensity Continue aspirin atorvastatin Plavix, levothyroxine pantoprazole Continue venlafaxine Hold spironolactone. Continue on losartan 50 daily Heart rate [id number]. We will check EKG Check BNP Check lactic acid She follows with cardiology as an outpatient and last saw them in December 2024. After that she has 3 canceled appointments. Patient does have a old left bundle branch block on EKG. Patient saw her primary care and march at which point she was having chest pain and was advised to go to the nearest ER. Today she states that she has been having on and off chest pain however today it is not present. She states her EF is 28% that she knows of. She states she would like to be DNR/DNI. She states she has made peace with her condition and because her EF is 28% she would like to be DNR. She says I would like to go naturally . Chest x-ray shows pulmonary vascular congestion fluid in the fissure on the right side with pleural effusion bilaterally. (My interpretation), radiology report reads decrease in left frontal effusion with left lower lobe consolidation/collapse. Pneumonia: Continue ceftriaxone azithromycin. Check blood cultures, sputum culture Gram stain Echo shows 32% EF with global left ventricular hypokinesis Check procalcitonin Hyponatremia sodium 131 most likely secondary to hypervolemic state. I expect this to improve with diuresis. DVT prophylaxis: Heparin SQ twice daily DNR/DNI 06/24/2025 I will continue Lasix 40 IV daily. She is on 2 L nasal cannula. Tachycardia has also improved. She is coughing a lot. Robitussin was ordered by night hospitalist. We will continue at this time as as needed. Continue ceftriaxone azithromycin. White count 18,000. Patient afebrile overnight. Sodium 130, creatinine 1.0. Glucose 335 this morning. Will restart patient's home Lantus at 30 units daily. Pseudohyponatremia. Check CT chest without contrast today. Check limited echo Will add Solu-Medrol 40 daily. PDMP PDMP Reviewed: Not Reviewed Attestations 2 Medical Necessity Statement*: Requires continued hospitalization for COPD exacerbation, pneumonia, heart failure. Diagnoses Major depressive disorder, recurrent severe without psychotic features F33.2 Generalized anxiety disorder F41.1 Congestive heart failure I50.9 Acute on chronic systolic CHF (congestive heart failure) I50.23 Chest pain R07.9 Hyperlipidemia E78.5 Acute hyponatremia E87.1 COPD with acute exacerbation J44.1 Community acquired pneumonia J18.9
--- NOTE | 2025-06-24 11:11 | USCV_ITS ---
Carmen Richards Age: 49 Gender: F : 1975 Exam Date: 06/24/2025 18:55 Ordering Phys: Julia Layne MD Technologist: Pavel Mcelroy [place] [facility] [place]: heart failure BP: 133 / 94 HR: Rhythm: Sinus Technical Quality: Adequate MEASUREMENTS (Male / Female) Normal Values 2D ECHO LV Diastolic Diameter PLAX 5.0 cm 4.2 - 5.9 / 3.9 - 5.3 cm IVS Diastolic Thickness 1.1 cm 0.6 - 1.0 / 0.6 - 0.9 cm IVS Systolic Thickness 1.0 cm LVPW Diastolic Thickness 1.4 cm 0.6 - 1.0 / 0.6 - 0.9 cm LVPW Systolic Thickness 1.5 cm LVOT Diameter 2.0 cm LV Ejection Fraction 2D Teich 15.4 % LV Ejection Fraction MOD 4C 33.2 % LV Ejection Fraction MOD 2C 25.6 % LV Ejection Fraction 2C AL 25.3 % LA Diameter 4.1 cm RA Systolic Volume 4C AL 28.7 ml RA Systolic Volume 4C MOD 29.0 ml LA Sys Volume AL 75.8 cm cubed LA Sys Volume Index AL 38.4 cm cubed/m squared Aorta at Sinotubular Diameter 1.9 cm IVC Diameter 2.0 cm M-MODE LA Ao Ratio MM 1.3 AV Cusp Separation MM 1.7 cm FINDINGS Left Ventricle Right Ventricle Right Atrium Left Atrium Mitral Valve Aortic Valve Tricuspid Valve Pulmonic Valve Pericardium Aorta IVC CONCLUSIONS Limited echocardiogram performed to assess LV systolic function. LV systolic function is severely reduced with EF of 30-35%. Severe global hypokinesis. Compared to prior echocardiogram from 04/2025, no significant changes are seen. Giovanni Rosas MD (Electronically Signed) Final Date: 25 June 2025 08:50 S
--- NOTE | 2025-06-24 11:11 | CTR_ITS ---
PROCEDURE INFORMATION: Exam: CT Chest Without Contrast; Diagnostic Exam date and time: 06/24/2025 2:32 PM Age: 49 years old Clinical indication: Shortness of breath; Additional info: Pneumonia TECHNIQUE: Imaging protocol: Diagnostic computed tomography of the chest without contrast. Radiation optimization: All CT scans at this facility use at least one of these dose optimization techniques: automated exposure control; mA and/or kV adjustment per patient size (includes targeted exams where dose is matched to clinical indication); or iterative reconstruction. COMPARISON: CR (CHEST, ) 06/23/2025 8:03 AM RADIATION DOSE METRICS: Total DLP (mGy-cm): 560.78 FINDINGS: Lungs: Patchy consolidation in the right lower lobe is present consistent with pneumonia. Some compressive atelectasis of the posteroinferior right hepatic lobe is also noted. Pleural spaces: The moderate right pleural effusion is present. Heart: The heart size is within normal limits. There is no pericardial effusion. There are coronary artery atherosclerotic changes present. Lymph nodes: Unremarkable. No enlarged lymph nodes. Vasculature: Mild aortic calcifications are seen without aneurysm or dissection. Spleen: There are multiple splenic granulomatous calcifications. Bones/joints: There is no acute fracture, lytic, or blastic lesion. Soft tissues: The abdominal viscera are otherwise normal to the extent seen. CT/CT chest con [id number] IMPRESSION: 1. Right lower lobe pneumonia and atelectasis. 2. Moderate right pleural effusion. 3. Old splenic granulomatous change.
[2025-06-24] MEDS: methylPREDNISolone sod succ 40 mg/mL INJ IVP (11:51)
[2025-06-24] MEDS: insulin glargine 100 units/1 mL 30 UNIT SUBCUT (11:53)
[2025-06-25] VITALS (14 sets, daily range): BP systolic 124–143; BP diastolic 68–90; PULSE 88–108; RESP 14–24; TEMP 36.1–36.9; O2SAT 89–98
[2025-06-25] MEDS: guaiFENesin-dextromethorphan UDC 10 mL PO ×3 (01:56→21:35)
[2025-06-25] MEDS: heparin 5,000 unit/mL INJ 1 mL 5000 UNIT SUBCUT ×2 (04:24→14:52)
[2025-06-25 05:05] LABS: Hematocrit 47.8 % (36-47); Hemoglobin 15.60 g/dL (11.27-16.99); Mean Corpuscular HGB Conc 32.6 g/dL (30-55); Mean Corpuscular Hemoglobin 31.0 pg (27-33); Mean Corpuscular Volume 95.0 fl (85-98); Nucleated Red Blood Cells % 0 %; Platelet Count 224 10^3/cmm (157-399); Red Blood Count 5.03 10^6/uL (3.85-5.65); White Blood Count 14.39 10^3/uL (3.29-11.43)
[2025-06-25 05:39] LABS: Alanine Aminotransferase 22 U/L (0-33); Albumin Level 2.5 g/dL (3.5-5.2); Alkaline Phosphatase 175 U/L (35-105); Anion Gap 14.4 (5-19); Aspartate Amino Transferase 54 U/L (0-32); Blood Urea Nitrogen 22 mg/dL (6-20); Calcium 9.2 mg/dL (8.5-10.5); Carbon Dioxide 28 mmol/L (22-29); Chloride 93 mmol/L (98-107); Creatinine Clr Calc Pharmacy 73.3684; Globulin 4.4 g/dL (1.3-4.6); Glucose 241 mg/dL (65-115); Osmolality Calculated 283 mOsm/kg (285-295); Potassium 4.4 mmol/L (3.5-5.1); Sodium 131 mmol/L (136-145); Total Protein 6.9 g/dL (6.6-8.7)
[2025-06-25] MEDS: insulin glargine 100 units/1 mL 30 UNIT SUBCUT (08:12)
[2025-06-25] MEDS: FUROsemide 10 mg/mL SDV 4mL 40 MG IVP ×2 (08:13→17:53)
[2025-06-25] MEDS: cefTRIAXone 1,000 mg SDV 1000 MG IVP (08:13)
[2025-06-25 08:57] LABS: Iron 28 ug/dL (37-145); Total Iron Binding Capacity 245 mcg/dl; Unsaturated Iron Binding 217 ug/dL (112-347)
[2025-06-25 09:12] LABS: Procalcitonin 0.32 ng/mL (0-0.5); Vitamin B12 1128 pg/mL (232-1245)
--- NOTE | 2025-06-25 09:29 | PC.NURSE ---
Provider is contacted about Carmen Richards I see that you changed her lantus to 50 units I had already given her the 30 units that was ordered prior, so do you want me to give an additional 20 units to make 50 total? Per provider 50mg total. An one time order is entered for the additional 20 units to total 50 units for this morning. Pharmacy is contacted.
[2025-06-25] MEDS: oxyCODONE-APAP 5-325 mg Tablet 1 TAB PO (09:55)
[2025-06-25] MEDS: insulin glargine 100 units/1 mL 20 UNIT SUBCUT (09:55)
[2025-06-25 12:10] LABS: MRSA PCR OZH (swab) NOT DETECTED (Not Detecte)
--- NOTE | 2025-06-25 14:10 | P.PN_ITS ---
Subjective 2 Subjective: Hospital course, labs appreciated. On examination patient was laying in bed with head of the bed elevated 30 degrees. Complaining of difficulty in breathing. Currently on 2 L saturating 89%. Denies any nausea, vomiting, headache. Vitals/I&O/Wt Last Vital Signs Temp 98.1 F 06/25/25 07:14 Pulse 108 H 06/25/25 13:16 Resp 18 06/25/25 13:08 BP 129/87 06/25/25 07:14 Pulse Ox 92 06/25/25 13:08 O2 Del Method Nasal Cannula 06/25/25 13:08 O2 Flow Rate 2 06/25/25 13:08 06/24/25 06/25/25 06/25/25 22:59 06:59 14:59 Intake Total 1100 / 1820 760 / 760 Output Total 350 / 1900 300 / 2200 1450 / 1450 Balance 750 / -80 -300 / -380 -690 / -690 Weight last 48 hrs Weight 81.964 kg Weight 85.984 kg Physical Exam 2 Narrative: General: Alert oriented x3, coughing HEENT: Normocephalic, atraumatic, EOMI, nasal cannula Cardio: Regular rate rhythm, normal S1-S2 Respiratory: Clear to auscultation bilaterally, crackles improved. GI: Abdomen soft, nontender, bowel sounds + Extremities: Edema present bilateral lower extremities trace Urinary Catheter Management: Dave: Cath Placed During This Visit: yes Reason for Continuing Indwelling Catheter: Accurate Measurement of Urinary Output in Critically Ill Patients Urinary Catheter Date of Insertion: 06/23/25 Urinary Catheter Time of Insertion: 17:32 Data 06/25/25 04:32 06/25/25 04:32 A&P Assessment and plan 1. Acute on chronic respiratory failure with hypoxia: Most likely in setting of congestive heart failure along with right lower lobe, community-acquired pneumonia and COPD exacerbation. Oxygen supplementation keeping saturation over 90%. Aggressive pulmonary toilet. 2. 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 Echocardiogram similar to back in April. Fluid restriction to less than 1500 cc. Aggressive IV diuresis with Lasix 40 mg twice daily. Target 1 L net negative. Strict input output charting, daily weights. Dave catheterization. 3. Community acquired pneumonia of right lower lobe of lung: Seen on CT chest. Check sputum culture, MRSA swab. For now continue with oral azithromycin to finish a 3-day course, IV ceftriaxone. If MRSA swab positive will add vancomycin. Monitor for aspiration. 4. COPD with acute exacerbation: Add ipratropium, Xopenex every 6 hour along with Pulmicort twice daily. Hold off on steroids given hyperglycemia. 5. Acute hyponatremia: Most likely in setting of hypervolemic hyponatremia. Diuresis as above. Monitor daily. 6. Hyperglycemia due to diabetes mellitus: A1c 11. Patient takes glargine 60 units every morning at home. Increase Lantus to 50 units daily. Continue with insulin sliding scale. Uptitrate as per target fasting blood sugar of less than 130. 7. Hyperlipidemia: 8. Major depressive disorder, recurrent severe without psychotic features: 9. Generalized anxiety disorder: Plan: Carb consistent cardiac diet. Fluid restriction to less than 1500 cc. Heparin for DVT prophylaxis. Protonix for PUD prophylaxis DNR/DNI PDMP PDMP Reviewed: Not Reviewed Attestations 2 Medical Necessity Statement*: Requires further hospitalization for management of acute hypoxic respiratory failure in setting of CHF exacerbation, right left lower lobe community-acquired pneumonia Diagnoses Acute on chronic respiratory failure with hypoxia J96.21 Chronicity: acute on chronic Acute on chronic combined systolic and diastolic congestive heart failure I50.43 Heart failure type: combined systolic and diastolic Heart failure chronicity: acute on chronic Community acquired pneumonia of right lower lobe of lung J18.9 Laterality: right Lung location: lower lobe of lung COPD with acute exacerbation J44.1 Acute hyponatremia E87.1 Hyperglycemia due to diabetes mellitus E11.65 Hyperlipidemia E78.5 Major depressive disorder, recurrent severe without psychotic features F33.2 Generalized anxiety disorder F41.1
--- NOTE | 2025-06-25 21:00 | ECG_ITS ---
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 Measurements Intervals [place] Rate: 96 P: 48 [place]: 173 QRS: 59 QRSD: 118 T: 123 QT: 374 QTc: 474 Interpretive Statements SINUS RHYTHM WITH OCCASIONAL VENTRICULAR PREMATURE COMPLEXES POSSIBLE LEFT ATRIAL ENLARGEMENT [-0.1mV P-WAVE IN V1/V2] POSSIBLE ANTERIOR MYOCARDIAL INFARCTION , OF INDETERMINATE AGE [30 ms Q WAVE IN V3/V4, OR R < 0.2 mV IN V4] Diffuse nonspecific T wave changes Compared to ECG 06/23/2025 07:59:41 Ventricular premature complex(es) now present Myocardial infarct finding now present Sinus tachycardia no longer present Right-axis deviation no longer present Intraventricular conduction delay no longer present Electronically Signed On 06-26-2025 23:04:01 CDT by Jean-Paul Santana M.D. [email or web address] [id number]
--- NOTE | 2025-06-25 21:13 | PC.NURSE ---
Upon taking patients BG, patient endorsed having chest heaviness more prominent with inhalation. Dr. Oakley made aware discussed fluid status and respiratory status. Received orders to place troponin and EKG series as well as have patient receive a breathing treatment. RT was at bedside doing treatment during this situation.
--- NOTE | 2025-06-25 22:28 | ECG_ITS ---
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 Measurements Intervals [place] Rate: 87 P: 48 [place]: 169 QRS: 89 QRSD: 101 T: 225 QT: 382 QTc: 460 Interpretive Statements SINUS RHYTHM WITH OCCASIONAL VENTRICULAR PREMATURE COMPLEXES POSSIBLE LEFT ATRIAL ENLARGEMENT [-0.1mV P-WAVE IN V1/V2] MODERATE T-WAVE ABNORMALITY, CONSIDER LATERAL ISCHEMIA [-0.1+ mV T-WAVE IN I/aVL/V5/V6] Compared to ECG 06/25/2025 21:07:48 T-wave abnormality now present Possible ischemia now present Myocardial infarct finding no longer present Electronically Signed On 06-27-2025 09:28:33 CDT by Jean-Paul Santana M.D. [id number]
[2025-06-25 22:34] LABS: Troponin(5th) Baseline 41 ng/L (0-10)
[2025-06-26] VITALS (15 sets, daily range): BP systolic 122–141; BP diastolic 70–85; PULSE 91–104; RESP 14–24; TEMP 36.2–36.9; O2SAT 90–94
[2025-06-26 00:13] LABS: Troponin 5 2HR 39.16 ng/L (0-10)
[2025-06-26 00:20] LABS: Troponin 5 2HR Delta -1.84 ABS# (0-10)
--- NOTE | 2025-06-26 03:00 | ECG_ITS ---
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 Measurements Intervals [place] Rate: 105 P: 60 [place]: 172 QRS: 87 QRSD: 115 T: -29 QT: 358 QTc: 475 Interpretive Statements SINUS TACHYCARDIA WITH OCCASIONAL SUPRAVENTRICULAR PREMATURE COMPLEXES POSSIBLE LEFT ATRIAL ENLARGEMENT [-0.1mV P-WAVE IN V1/V2] POSSIBLE ANTERIOR MYOCARDIAL INFARCTION , OF INDETERMINATE AGE [30 ms Q WAVE IN V3/V4, OR R < 0.2 mV IN V4] Compared to ECG 06/25/2025 22:28:31 Myocardial infarct finding now present Sinus rhythm no longer present Ventricular premature complex(es) no longer present T-wave abnormality no longer present Possible ischemia no longer present Electronically Signed On 06-27-2025 09:28:08 CDT by Jean-Paul Santana M.D. [id number]
[2025-06-26] MEDS: heparin 5,000 unit/mL INJ 1 mL 5000 UNIT SUBCUT ×2 (03:54→16:10)
[2025-06-26] MEDS: guaiFENesin-dextromethorphan UDC 10 mL PO ×2 (03:55→20:03)
[2025-06-26] MEDS: oxyCODONE-APAP 5-325 mg Tablet 1 TAB PO (03:55)
[2025-06-26 03:56] LABS: Hematocrit 46.7 % (36-47); Hemoglobin 15.60 g/dL (11.27-16.99); Mean Corpuscular HGB Conc 33.4 g/dL (30-55); Mean Corpuscular Hemoglobin 31.8 pg (27-33); Mean Corpuscular Volume 95.1 fl (85-98); Nucleated Red Blood Cells % 0 %; Platelet Count 212 10^3/cmm (157-399); Red Blood Count 4.91 10^6/uL (3.85-5.65); White Blood Count 12.16 10^3/uL (3.29-11.43)
[2025-06-26 04:17] LABS: Troponin 5 6HR 37.21 ng/L (0-10)
[2025-06-26 04:21] LABS: Alanine Aminotransferase 24 U/L (0-33); Albumin Level 2.5 g/dL (3.5-5.2); Alkaline Phosphatase 200 U/L (35-105); Anion Gap 14.4 (5-19); Aspartate Amino Transferase 52 U/L (0-32); Blood Urea Nitrogen 19 mg/dL (6-20); Calcium 8.9 mg/dL (8.5-10.5); Carbon Dioxide 34 mmol/L (22-29); Chloride 93 mmol/L (98-107); Creatinine Clr Calc Pharmacy 73.3684; Globulin 4.0 g/dL (1.3-4.6); Glucose 91 mg/dL (65-115); Osmolality Calculated 288 mOsm/kg (285-295); Potassium 3.4 mmol/L (3.5-5.1); Sodium 138 mmol/L (136-145); Total Protein 6.5 g/dL (6.6-8.7); Troponin 5 6HR Delta -3.79 ng/L (0-12)
[2025-06-26 04:24] LABS: Magnesium 1.5 mg/dL (1.7-2.3)
--- NOTE | 2025-06-26 07:15 | PC.NURSE ---
Notified Dr. Lackey that patient has potassium of 3.4 and magnesium of 1.5. Received orders to give 80 meq and 1 gm of magnesium.
[2025-06-26] MEDS: cefTRIAXone 1,000 mg SDV 1000 MG IVP (08:36)
[2025-06-26] MEDS: FUROsemide 10 mg/mL SDV 4mL 40 MG IVP ×2 (08:36→17:54)
[2025-06-26] MEDS: insulin glargine 100 units/1 mL 50 UNIT SUBCUT (08:37)
[2025-06-26] MEDS: magnesium sulfate premix 1 GM/100 ML PIGGYBACK IV (08:40)
--- NOTE | 2025-06-26 12:09 | P.PN_ITS ---
Subjective 2 Subjective: No acute vents overnight. Patient states she is feeling better today. Able to breathe better. Laying down at 30 degrees and saturating 94 to 94% on 2 L today. Denies any nausea, vomiting, headache. Has not ambulated in room yet. Vitals/I&O/Wt Last Vital Signs Temp 97.4 F L 06/26/25 11:18 Pulse 98 06/26/25 11:18 Resp 20 H 06/26/25 11:18 BP 141/84 06/26/25 11:18 Pulse Ox 92 06/26/25 11:18 O2 Del Method Nasal Cannula 06/26/25 11:18 O2 Flow Rate 2 06/26/25 11:18 06/25/25 06/26/25 06/26/25 22:59 06:59 14:59 Intake Total 911 / 1671 340 / 340 Output Total 2950 / 4400 400 / 4800 1525 / 1525 Balance -2039 / -2729 -400 / -3129 -1185 / -1185 Weight last 48 hrs Weight 80.286 kg Weight 81.964 kg Physical Exam 2 Narrative: General: Alert oriented x3, no acute distress HEENT: Normocephalic, atraumatic, EOMI, nasal cannula Cardio: Regular rate rhythm, normal S1-S2 Respiratory: Clear to auscultation bilaterally, crackles improved. GI: Abdomen soft, nontender, bowel sounds + Extremities: Edema present bilateral lower extremities trace Urinary Catheter Management: Dave: Cath Placed During This Visit: yes Reason for Continuing Indwelling Catheter: Accurate Measurement of Urinary Output in Critically Ill Patients Urinary Catheter Date of Insertion: 06/23/25 Urinary Catheter Time of Insertion: 17:32 Data 06/26/25 03:45 06/26/25 03:45 Micro: Microbiology 06/25/25 21:39 Gram Stain - Final Sputum - Expectorated Sputum A&P Assessment and plan 1. Acute on chronic respiratory failure with hypoxia: Most likely in setting of congestive heart failure along with right lower lobe, community-acquired pneumonia and COPD exacerbation. Oxygen supplementation keeping saturation over 90%. Aggressive pulmonary toilet. 2. Acute on chronic combined systolic and diastolic congestive heart failure: Limited echocardiogram done this hospitalization shows an EF of 30 to 35% with severe LV global LV hypokinesia. Echocardiogram similar to back in April. Fluid restriction to less than 1500 cc. Aggressive IV diuresis with Lasix 40 mg twice daily. Target 1 L net negative. Strict input output charting, daily weights. Dave catheterization. 3. Community acquired pneumonia of right lower lobe of lung: Seen on CT chest. Check sputum culture, MRSA swab. For now continue with oral azithromycin to finish a 3-day course, IV ceftriaxone. If MRSA swab positive will add vancomycin. Monitor for aspiration. 4. COPD with acute exacerbation: Add ipratropium, Xopenex every 6 hour along with Pulmicort twice daily. Hold off on steroids given hyperglycemia. 5. Acute hyponatremia: Most likely in setting of hypervolemic hyponatremia. Diuresis as above. Monitor daily. 6. Hyperglycemia due to diabetes mellitus: A1c 11. Patient takes glargine 60 units every morning at home. Increase Lantus to 50 units daily. Continue with insulin sliding scale. Uptitrate as per target fasting blood sugar of less than 130. 7. Hyperlipidemia: 8. Major depressive disorder, recurrent severe without psychotic features: 9. Generalized anxiety disorder: Plan: Carb consistent cardiac diet. Fluid restriction to less than 1500 cc. Heparin for DVT prophylaxis. Protonix for PUD prophylaxis DNR/DNI Plan for the day: Continue with fluid restriction to 1500 cc. IV Lasix 40 mg twice daily. Repeat BMP in afternoon. If creatinine remains stable without worsening of uremia will repeat the dose in the afternoon otherwise can hold. Oxygen supplementation keeping saturation over 90%. Goal blood pressure less than 140/90 mmHg. Will uptitrate antihypertensive accordingly. Ambulate. Out of bed to chair. Continue with oral azithromycin to finish a 3-day course for atypical coverage continue with IV ceftriaxone to finish a 5-day course. MRSA swab negative. PDMP PDMP Reviewed: Not Reviewed Attestations 2 Medical Necessity Statement*: Requires further hospitalization for management of hypoxic respiratory failure in setting of congestive heart failure as patient requires further diuresis, electrolyte monitoring, community-acquired pneumonia Diagnoses Acute on chronic respiratory failure with hypoxia J96.21 Chronicity: acute on chronic Acute on chronic combined systolic and diastolic congestive heart failure I50.43 Heart failure chronicity: acute on chronic Heart failure type: combined systolic and diastolic Community acquired pneumonia of right lower lobe of lung J18.9 Laterality: right Lung location: lower lobe of lung COPD with acute exacerbation J44.1 Acute hyponatremia E87.1 Hyperglycemia due to diabetes mellitus E11.65 Hyperlipidemia E78.5 Major depressive disorder, recurrent severe without psychotic features F33.2 Generalized anxiety disorder F41.1
--- NOTE | 2025-06-26 14:02 | PC.NURSE ---
Patient ambulated from patient room to shower room and back, total of 350 feet.
[2025-06-26 15:58] LABS: Anion Gap 13.7 (5-19); Blood Urea Nitrogen 20 mg/dL (6-20); Calcium 8.7 mg/dL (8.5-10.5); Carbon Dioxide 30 mmol/L (22-29); Chloride 93 mmol/L (98-107); Creatinine Clr Calc Pharmacy 72.5848; Glucose 169 mg/dL (65-115); Osmolality Calculated 283 mOsm/kg (285-295); Potassium 3.7 mmol/L (3.5-5.1); Sodium 133 mmol/L (136-145)
--- NOTE | 2025-06-26 23:56 | ECG_ITS ---
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 Measurements Intervals [place] Rate: 94 P: 50 [place]: 172 QRS: 76 QRSD: 108 T: 25 QT: 381 QTc: 478 Interpretive Statements SINUS RHYTHM WITH OCCASIONAL VENTRICULAR PREMATURE COMPLEXES POSSIBLE LEFT ATRIAL ENLARGEMENT [-0.1mV P-WAVE IN V1/V2] MODERATE T-WAVE ABNORMALITY, CONSIDER LATERAL ISCHEMIA [-0.1+ mV T-WAVE IN I/aVL/V5/V6] Compared to ECG 06/26/2025 04:07:35 Ventricular premature complex(es) now present T-wave abnormality now present Possible ischemia now present Sinus tachycardia no longer present Myocardial infarct finding no longer present Electronically Signed On 06-27-2025 09:18:26 CDT by Jean-Paul Santana M.D. [id number] [id number]
[2025-06-27] VITALS (11 sets, daily range): BP systolic 107–159; BP diastolic 68–88; PULSE 88–101; RESP 18–24; TEMP 36.3–36.8; O2SAT 90–96; BMI 33.2
[2025-06-27] MEDS: heparin 5,000 unit/mL INJ 1 mL 5000 UNIT SUBCUT (03:36)
[2025-06-27 04:14] LABS: Hematocrit 47.3 % (36-47); Hemoglobin 15.60 g/dL (11.27-16.99); Mean Corpuscular HGB Conc 33.0 g/dL (30-55); Mean Corpuscular Hemoglobin 31.6 pg (27-33); Mean Corpuscular Volume 95.7 fl (85-98); Nucleated Red Blood Cells % 0 %; Platelet Count 215 10^3/cmm (157-399); Red Blood Count 4.94 10^6/uL (3.85-5.65); White Blood Count 9.75 10^3/uL (3.29-11.43)
[2025-06-27 04:37] LABS: Alanine Aminotransferase 32 U/L (0-33); Albumin Level 2.5 g/dL (3.5-5.2); Alkaline Phosphatase 266 U/L (35-105); Anion Gap 12.8 (5-19); Aspartate Amino Transferase 68 U/L (0-32); Blood Urea Nitrogen 16 mg/dL (6-20); Calcium 8.5 mg/dL (8.5-10.5); Carbon Dioxide 35 mmol/L (22-29); Chloride 92 mmol/L (98-107); Creatinine Clr Calc Pharmacy 81.6579; Globulin 4.0 g/dL (1.3-4.6); Glucose 106 mg/dL (65-115); Osmolality Calculated 284 mOsm/kg (285-295); Potassium 3.8 mmol/L (3.5-5.1); Sodium 136 mmol/L (136-145); Total Protein 6.5 g/dL (6.6-8.7)
[2025-06-27 04:48] LABS: Magnesium 1.8 mg/dL (1.7-2.3)
[2025-06-27] MEDS: insulin glargine 100 units/1 mL 50 UNIT SUBCUT (07:39)
--- NOTE | 2025-06-27 08:45 | PC.NURSE ---
patient in need of IV upon entering room to attempt IV insertion patient reported she thinks she may be going home to day and requested we contact the provider to make sure that it is needed. provider contacted orders received ok to leave IV out
--- NOTE | 2025-06-27 10:06 | PC.NURSE ---
Patient refusing to have IV replaced at this time. Dr Lackey is aware.
--- NOTE | 2025-06-27 10:24 | PC.NURSE ---
Received ok from Dr Lackey to leave out IV access.
--- NOTE | 2025-06-27 11:50 | P.PN_ITS ---
Subjective 2 Subjective: No acute events overnight. Patient states she is feeling a lot better. Back to her baseline for supplementation. Today able to lay down flatter. Denies any nausea, vomiting, headache. Denies any chest pain. Still having cough. Vitals/I&O/Wt Last Vital Signs Temp 97.9 F 06/27/25 11:18 Pulse 95 06/27/25 11:18 Resp 20 H 06/27/25 11:18 BP 135/72 06/27/25 11:18 Pulse Ox 93 06/27/25 11:18 O2 Del Method Nasal Cannula 06/27/25 11:18 O2 Flow Rate 2 06/27/25 11:18 06/26/25 06/27/25 06/27/25 22:59 06:59 14:59 Intake Total 120 / 680 240 / 240 Output Total 1000 / 2525 1600 / 4125 Balance -880 / -1845 -1600 / -3445 240 / 240 Weight last 48 hrs Weight 82.355 kg Weight 80.286 kg Physical Exam 2 Narrative: General: Alert oriented x3, no acute distress HEENT: Normocephalic, atraumatic, EOMI, nasal cannula Cardio: Regular rate rhythm, normal S1-S2 Respiratory: Clear to auscultation bilaterally, crackles improved. GI: Abdomen soft, nontender, bowel sounds + Extremities: Edema present bilateral lower extremities trace Urinary Catheter Management: Dave: Cath Placed During This Visit: yes, but has since been removed by the nurse Reason for Continuing Indwelling Catheter: Decision to DC Catheter Urinary Catheter Date of Insertion: 06/23/25 Urinary Catheter Time of Insertion: 17:32 Date Urinary Catheter Removed: 06/27/25 Time Urinary Catheter Discontinued: 03:50 Data 06/27/25 03:35 06/27/25 03:35 Micro: Microbiology 06/25/25 21:39 Gram Stain - Final Sputum - Expectorated Sputum Sputum Culture - Preliminary A&P Assessment and plan 1. Acute on chronic respiratory failure with hypoxia: Most likely in setting of congestive heart failure along with right lower lobe, community-acquired pneumonia and COPD exacerbation. Oxygen supplementation keeping saturation over 90%. Aggressive pulmonary toilet. 2. Acute on chronic combined systolic and diastolic congestive heart failure: Limited echocardiogram done this hospitalization shows an EF of 30 to 35% with severe LV global LV hypokinesia. Echocardiogram similar to back in April. Fluid restriction to less than 1500 cc. Aggressive IV diuresis with Lasix 40 mg twice daily. Target 1 L net negative. Strict input output charting, daily weights. Dave catheterization. 3. Community acquired pneumonia of right lower lobe of lung: Seen on CT chest. Check sputum culture, MRSA swab. For now continue with oral azithromycin to finish a 3-day course, IV ceftriaxone. If MRSA swab positive will add vancomycin. Monitor for aspiration. 4. COPD with acute exacerbation: Add ipratropium, Xopenex every 6 hour along with Pulmicort twice daily. Hold off on steroids given hyperglycemia. 5. Acute hyponatremia: Most likely in setting of hypervolemic hyponatremia. Diuresis as above. Monitor daily. 6. Hyperglycemia due to diabetes mellitus: A1c 11. Patient takes glargine 60 units every morning at home. Increase Lantus to 50 units daily. Continue with insulin sliding scale. Uptitrate as per target fasting blood sugar of less than 130. 7. Hyperlipidemia: 8. Major depressive disorder, recurrent severe without psychotic features: 9. Generalized anxiety disorder: Plan: Carb consistent cardiac diet. Fluid restriction to less than 1500 cc. Heparin for DVT prophylaxis. Protonix for PUD prophylaxis DNR/DNI Plan for the day: Monitor intake and output. Continue with fluid restriction. Switch from IV Lasix to Bumex 1 mg oral twice daily. Continue with current dose of insulin with Lantus at 50 units and insulin sliding scale at low-dose protocol. Sputum culture results pending. IV line unfortunately got displaced. For now we will switch from oral ceftriaxone to oral Augmentin twice daily and Levaquin once daily. MRSA swab negative. Monitor BMP daily. Will replace potassium accordingly. PDMP PDMP Reviewed: Not Reviewed Attestations 2 Medical Necessity Statement*: Requires further hospitalization for management of hypoxic respiratory failure in setting of congestive heart failure as patient requires further diuresis, electrolyte monitoring, community-acquired pneumonia Diagnoses Acute on chronic respiratory failure with hypoxia J96.21 Chronicity: acute on chronic Acute on chronic combined systolic and diastolic congestive heart failure I50.43 Heart failure chronicity: acute on chronic Heart failure type: combined systolic and diastolic Community acquired pneumonia of right lower lobe of lung J18.9 Laterality: right Lung location: lower lobe of lung COPD with acute exacerbation J44.1 Acute hyponatremia E87.1 Hyperglycemia due to diabetes mellitus E11.65 Hyperlipidemia E78.5 Major depressive disorder, recurrent severe without psychotic features F33.2 Generalized anxiety disorder F41.1
--- NOTE | 2025-06-27 16:52 | PC.NURSE ---
Patient had a dip in her blood sugar to 61. She was symptomatic. (nausea, diaphoretic, dizzy). Patient was given pudding per her request. Blood sugar up to 73. Provided 2nd pudding. Patient is awake and alert. Assisted patient up to BSC. Patient stable at this time. Informed Dr Lackey. Patient reports feeling some better at this time.
--- NOTE | 2025-06-27 19:24 | PC.NURSE ---
Patient requesting something to help with sleep for the night. Contacted Dr. Oakley, given order for Hydroxyzine 25mg PO ONCE.
--- NOTE | 2025-06-27 20:53 | PC.NURSE ---
Patient refusing tele and vital sign monitoring at this time. Requesting that we do not bother her , until time for lab draw in the morning. Educated patient on need for monitoring during hospital stay. Notified hospitalist of refusal.
[2025-06-28 04:17] LABS: Magnesium 1.6 mg/dL (1.7-2.3)
[2025-06-28 06:53] VITALS: BP 140/83; PULSE 88; RESP 15; TEMP 36.4; O2SAT 94
--- NOTE | 2025-06-28 06:53 | PC.NURSE ---
Patient refusing care this morning to include telemetry, accuchecks, etc. I just want to be left alone so I can sleep.
[2025-06-28 07:02] VITALS: RESP 20
[2025-06-28] MEDS: oxyCODONE-APAP 5-325 mg Tablet 1 TAB PO (07:02)
--- NOTE | 2025-06-28 07:59 | PM.DCS ---
Discharge Providers Date of Admission: 06/23/25 12:06 Date of Discharge: June 28, 2025 Attending Provider at Admission: Julia Layne MD Attending Provider at Discharge: Delio Lackey MD Primary Care Provider: Sushil Mobley MD Diagnoses at Discharge Discharge Diagnosis 1. Acute on chronic respiratory failure with hypoxia: 2. Acute on chronic combined systolic and diastolic congestive heart failure: 3. Community acquired pneumonia of right lower lobe of lun. COPD with acute exacerbation: 5. Acute hyponatremia: 6. Hyperglycemia due to diabetes mellitus: 7. Hyperlipidemia: 8. Generalized anxiety disorder: Reason for Visit Reason for Visit: sob Brief History: Per HPI: Carmen Richards is a 49 year old female With past medical history of congestive heart failure, coronary disease, right middle cerebral artery stroke in the past, major depression, hyperlipidemia, hypertension, type 2 diabetes mellitus, COPD/asthma recently admitted to the hospital at which point she left AMA on 06/22/2025. She returns to the hospital today for complaint of worsening shortness of breath as she has gotten worse. She states she is on 2 L nasal cannula at home. Reports worsening leg swelling. States she is on Lasix at home but takes it when she needs it. She states her EF is 28% and states she is ready to make peace and does not want to be resuscitated. . She does not want to be intubated either. She states she left AMA yesterday and is apologetic for her behavior. Denies nausea vomiting diarrhea at this time. Her main complaint is that she just cannot breathe. I discussed with her regarding using BiPAP which she is okay with that at this time. Hospital Course Hospital Course Patient was admitted to the hospital further evaluation and management of hypoxic respiratory failure in setting of CHF and community-acquired pneumonia. She was started on IV antibiotics, aggressive IV diuresis. Patient responded well to the treatment is an overall around 7 L negative by discharge. She is back to her baseline oxygen supplementation. Patient was counseled in detail regarding lifestyle modification with congestive heart failure. She is not discharged hemodynamically stable condition on oral Bumex 1 mg twice daily. She is to take oral Augmentin and Levaquin for 3 more days admitted for pneumonia. Physical Exam Narrative: General: Alert oriented x3, no acute distress HEENT: Normocephalic, atraumatic, EOMI, nasal cannula Cardio: Regular rate rhythm, normal S1-S2 Respiratory: Clear to auscultation bilaterally, crackles improved. GI: Abdomen soft, nontender, bowel sounds + Extremities: Edema present bilateral lower extremities trace Urinary Catheter Management: Dave: Cath Placed During This Visit: yes, but has since been removed by the nurse Reason for Continuing Indwelling Catheter: Decision to DC Catheter Urinary Catheter Date of Insertion: 06/23/25 Urinary Catheter Time of Insertion: 17:32 Date Urinary Catheter Removed: 06/27/25 Time Urinary Catheter Discontinued: 03:50 Discharge Data Studies Completed and Pending Completed Studies During Hospitalization Category Date Time Status CT chest wo con [id number] Urgent Cat Scan 06/24/25 11:11 Completed XR chest 1V portable [id number] Stat Exams 06/23/25 07:59 Completed CV. echo limited [id number] Urgent Ultrasound 06/24/25 11:11 Completed Pending at discharge Category Date Time Status Blood Culture Stat Lab 06/23/25 08:40 Results Comprehensive Metabolic Panel Routine Lab 06/28/25 07:58 Ordered Sputum Culture and Gram Stain Stat Lab 06/25/25 21:39 Results Radiology Impressions Chest X-Ray 06/23/25 07:59 IMPRESSION: Decrease in the left pleural effusion with left lower lobe consolidation/collapse. No other change. Chest CT 06/24/25 11:11 IMPRESSION: 1. Right lower lobe pneumonia and atelectasis. 2. Moderate right pleural effusion. 3. Old splenic granulomatous change. Laboratory Results WBC 9.75 10^3/uL (3.29-11.43) 06/27/25 03:35 RBC 4.94 10^6/uL (3.85-5.65) 06/27/25 03:35 Hgb 15.60 g/dL (11.27-16.99) 06/27/25 03:35 Hct 47.3 % (36-47) H 06/27/25 03:35 MCV 95.7 fl (85-98) 06/27/25 03:35 MCH 31.6 pg (27-33) 06/27/25 03:35 MCHC 33.0 g/dL (30-55) 06/27/25 03:35 RDW 15.1 % (12.1-15.1) 06/27/25 03:35 Plt Count 215 10^3/cmm (157-399) 06/27/25 03:35 MPV 10.0 fL (7.4-10.4) 06/27/25 03:35 Neut % (Auto) 74.7 % 06/27/25 03:35 Lymph % (Auto) 14.6 % 06/27/25 03:35 [place] % (Auto) 9.4 % 06/27/25 03:35 Eos % (Auto) 0.9 % 06/27/25 03:35 Baso % (Auto) 0.1 % 06/27/25 03:35 Neut # (Auto) 7.28 10^3/uL (1.8-7.7) 06/27/25 03:35 Lymph # (Auto) 1.4 10^3/uL (0.8-4.8) 06/27/25 03:35 [place] # (Auto) 0.9 10^3/uL (0.2-0.9) 06/27/25 03:35 Eos # (Auto) 0.1 10^3/uL (0.0-0.8) 06/27/25 03:35 Baso # (Auto) 0.0 10^3/uL (0.0-0.1) 06/27/25 03:35 Nucleated RBC % (auto) 0 % 06/27/25 03:35 Nucleated RBCs # 0.0 /100WBC 06/27/25 03:35 Sodium 136 mmol/L (136-145) 06/27/25 03:35 Potassium 3.8 mmol/L (3.5-5.1) 06/27/25 03:35 Chloride 92 mmol/L (98-107) L 06/27/25 03:35 Carbon Dioxide 35 mmol/L (22-29) H 06/27/25 03:35 Anion Gap 12.8 (5-19) 06/27/25 03:35 BUN 16 mg/dL (6-20) 06/27/25 03:35 Creatinine 0.8 mg/dL (0.5-0.9) 06/27/25 03:35 GFR Calculation 75.6 mL/min (90-130) L 06/27/25 03:35 Glucose 106 mg/dL (65-115) 06/27/25 03:35 POC Glucose 121 mg/dL (70-110) H 06/27/25 20:09 Calculated Osmolality 284 mOsm/kg (285-295) L 06/27/25 03:35 Calcium 8.5 mg/dL (8.5-10.5) 06/27/25 03:35 Magnesium 1.6 mg/dL (1.7-2.3) L 06/28/25 03:50 Iron 28 ug/dL (37-145) L 06/25/25 04:32 TIBC 245 mcg/dl 06/25/25 04:32 % Saturation 11.4 % (20-50) L 06/25/25 04:32 Unsat Iron Binding 217 ug/dL (112-347) 06/25/25 04:32 Total Bilirubin 0.6 mg/dL (0.15-1.2) 06/27/25 03:35 AST 68 U/L (0-32) H 06/27/25 03:35 ALT 32 U/L (0-33) 06/27/25 03:35 Alkaline Phosphatase 266 U/L (35-105) H 06/27/25 03:35 Troponin T Baseline 41 ng/L (0-10) H 06/25/25 21:47 Troponin T 120 Minute 39.16 ng/L (0-10) H 06/25/25 23:35 Delta Troponin T -1.84 ABS# (0-10) L 06/25/25 23:35 Troponin T Hi Sens 6Hr 37.21 ng/L (0-10) H 06/26/25 03:45 Troponin T Hi Sens 6Hr Delta -3.79 ng/L (0-12) L 06/26/25 03:45 NT-Pro-B Natriuret Pep 8630 pg/mL (0-125) H 06/23/25 08:13 Total Protein 6.5 g/dL (6.6-8.7) L 06/27/25 03:35 Albumin 2.5 g/dL (3.5-5.2) L 06/27/25 03:35 Globulin 4.0 g/dL (1.3-4.6) 06/27/25 03:35 Vitamin B12 1128 pg/mL (232-1245) 06/25/25 04:32 Folate 4.4 ng/mL (4.8-37.3) L 06/26/25 03:45 Procalcitonin 0.32 ng/mL (0-0.5) 06/25/25 04:32 TSH 1.96 uIU/mL (0.27-4.20) 06/23/25 08:13 Nasal MRSA (PCR) Not detected (Not Detecte) 06/25/25 10:00 Vitals Last Vital Signs Temp 97.6 F 06/28/25 06:53 Pulse 88 06/28/25 06:53 Resp 20 H 06/28/25 07:02 BP 140/83 06/28/25 06:53 Pulse Ox 94 06/28/25 06:53 O2 Del Method Room Air 06/27/25 19:52 O2 Flow Rate 2 06/27/25 16:00 Discharge Plan Discharge Patient Disposition: Home Condition: Stable Prescriptions: New bumetanide 1 mg Tablet 1 mg PO BID Qty: 60 0RF amoxicillin-pot clavulanate 875-125 mg Tablet 1 tab PO BID Qty: 6 0RF losartan 25 mg tablet 25 mg PO DAILY Qty: 30 0RF levofloxacin 750 mg tablet 750 mg PO Q24H 3 Days Qty: 3 0RF Continued Symbicort 160-4.5 mcg/actuation HFA aerosol inhaler 2 puff INHALATION BID insulin glargine [Lantus Solostar U-100 Insulin] 100 unit/mL (3 mL) insulin pen 60 unit SUBCUT QAM Qty: 60 1RF potassium chloride 10 mEq tablet extended release 10 meq PO DAILY venlafaxine 150 mg capsule,extended release 24hr 150 mg PO DAILY Rx Instructions: along with 75mg fx=884ef daily. (DME) DexDiscera G7 Sensor Device See Rx Instructions .ROUTE .COMPLEX Qty: 3 3RF Dose Instruction: CHANGE every 10 DAYS DIRECTED Rx Instructions: CHANGE every 10 DAYS DIRECTED venlafaxine 75 mg capsule,extended release 24hr 75 mg PO DAILY Rx Instructions: along with 150mg ly=892vu daily. acetaminophen [Tylenol Extra Strength] 500 mg Tablet 1,000 mg PO Q6H PRN (Reason: Pain) atorvastatin 80 mg tablet 80 mg PO BEDTIME escitalopram oxalate 20 mg tablet 20 mg PO DAILY Spiriva Respimat 2.5 mcg/actuation mist 1 puff INHALATION DAILY levothyroxine 75 mcg Tablet 75 mcg PO DAILY aspirin [Adult Low Dose Aspirin] 81 mg tablet,delayed release (DR/EC) 81 mg PO DAILY Qty: 90 3RF clopidogrel 75 mg tablet 75 mg PO DAILY pantoprazole 40 mg tablet,delayed release (DR/EC) 40 mg PO DAILY nitroglycerin 0.4 mg tablet, sublingual 0.4 mg sublingual PRN PRN (Reason: Chest Pain) oxycodone 10 mg tablet 10 mg PO TID PRN (Reason: Pain) albuterol sulfate 2.5 mg /3 mL (0.083 %) solution for nebulization 2.5 mg continuous nebulization QID PRN (Reason: Shortness Of Breath) albuterol sulfate [Ventolin HFA] 90 mcg/actuation HFA aerosol inhaler 2 puff INHALATION QID Changed spironolactone 50 mg tablet 25 mg PO DAILY Qty: 30 0RF Discontinued furosemide 40 mg tablet 40 mg PO DAILY 30 Days Qty: 30 0RF acyclovir 400 mg tablet 400 mg PO BID losartan 100 mg tablet 100 mg PO DAILY Discharge Order = DC NOW: Discharge Order (Routine); Ordered 06/28/25 Ordered By: Delio Lackey Referrals: Sushil Mobley MD [Primary Care Provider, [facility]] - 07/02/25 3:30 pm Discharge Diet: Cardiac Discharge Activity: Resume usual activity and Increase activity as tolerated Patient Instructions: Bumetanide (By mouth) (Bumex), Amoxicillin (By mouth), Losartan (By mouth) (Cozaar, Arbli), Levofloxacin (By mouth) (Levaquin, Levaquin Leva-norma), Community Acquired Pneumonia (DC), Diabetic Hyperglycemia (DC), CHF Stoplight, COPD Stoplight, Opioid Safety, Patient Portal & Lilly Instructions Activity Restrictions/Additional Instructions: Restrict fluid intake to less than 1500 cc, salt intake to less than 2 g daily. Advised to check his weight daily at home. Is advised that weight today would be the dry weight and if body weight increases by around 5 pounds, patient is to take an extra dose of Bumex daily till body weight comes down to weight today. If not able to come down to dry body weight in 1 week, then is to call cardiology office for further recommendations. Patient was counseled in detail to take medications regularly as prescribed. Discharge Attestations Time Spent in Discharge Care*: greater than 30 min Specific Discharge Activities: educating patient, educating and/or supporting family/caregiver, discussing with pcp/other providers, discussing with shelter case manager/social workers/dc planners, documenting/other paperwork and evaluating patient/reviewing data Status at Discharge: Cognitive status at discharge: cognitively intact, Behavioral status at discharge: cooperative and can be uncooperative, Functional status at discharge: independent ambulation, Overall status at discharge: patient is back to baseline Quality Metrics Clinical Quality Measures [ No reported AMI, CVA or VTE this stay] Coding Level of Care Code 36841 Total time (in minutes) for Discharge: 65 Diagnoses Acute on chronic respiratory failure with hypoxia J96.21 Chronicity: acute on chronic Acute on chronic combined systolic and diastolic congestive heart failure I50.43 Heart failure chronicity: acute on chronic Heart failure type: combined systolic and diastolic Community acquired pneumonia of right lower lobe of lung J18.9 Laterality: right Lung location: lower lobe of lung COPD with acute exacerbation J44.1 Acute hyponatremia E87.1 Hyperglycemia due to diabetes mellitus E11.65 Hyperlipidemia E78.5 Major depressive disorder, recurrent severe without psychotic features F33.2 Generalized anxiety disorder F41.1
[2025-06-28 08:32] LABS: Alanine Aminotransferase 28 U/L (0-33); Albumin Level 2.3 g/dL (3.5-5.2); Alkaline Phosphatase 232 U/L (35-105); Aspartate Amino Transferase 56 U/L (0-32); Blood Urea Nitrogen 12 mg/dL (6-20); Calcium 8.5 mg/dL (8.5-10.5); Carbon Dioxide 33 mmol/L (22-29); Chloride 93 mmol/L (98-107); Creatinine Clr Calc Pharmacy 92.2336; Globulin 3.8 g/dL (1.3-4.6); Glucose 95 mg/dL (65-115); Osmolality Calculated 280 mOsm/kg (285-295); Sodium 135 mmol/L (136-145); Total Protein 6.1 g/dL (6.6-8.7)
[2025-06-28 08:35] LABS: Anion Gap 12.3 (5-19); Potassium 3.3 mmol/L (3.5-5.1)
--- NOTE | 2025-06-28 09:00 | PC.NURSE ---
Patient refusing to have IV replaced. IV Magnesium not given. Dr Lackey is aware.
--- NOTE | 2025-06-28 10:28 | PC.NURSE ---
Patient discharged to home. Instruction provided regarding follow up information with new medictions with changes. Patient verbalized understanding. Stated understanding however She will not be back . CHF stoplight given and explained prior to discharge. Patient stated, I will follow it.' MD aware that patient had been refusing care at times.
== END 2025-06-28 10:28 | disposition home or self-care (01) | DRG 193 ==
LOC: ER 09:20 → MEDSURG 10:18 → ER 12:06 → CSU 12:07
PROVIDERS: Family Medicine; Admitting Provider Internal Medicine; Emergency Provider Emergency Medicine; PCP Family Medicine; Visit Provider Student in an Organized Health Care Education/Training Program
DX: J18.9 Pneumonia, unspecified organism (principal); I50.43 Acute on chronic combined systolic (congestive) and diastolic (congestive) heart failure; J96.01 Acute respiratory failure with hypoxia; F33.2 Major depressive disorder, recurrent severe without psychotic features; J44.1 Chronic obstructive pulmonary disease with (acute) exacerbation; E87.1 Hypo-osmolality and hyponatremia; J44.0 Chronic obstructive pulmonary disease with (acute) lower respiratory infection; I11.0 Hypertensive heart disease with heart failure; I25.10 Atherosclerotic heart disease of native coronary artery without angina pectoris; E03.9 Hypothyroidism, unspecified; F41.1 Generalized anxiety disorder; E11.65 Type 2 diabetes mellitus with hyperglycemia; I10 Essential (primary) hypertension; E78.5 Hyperlipidemia, unspecified; Z79.4 Long term (current) use of insulin; Z99.81 Dependence on supplemental oxygen; Z91.148 Patient's other noncompliance with medication regimen for other reason; Z79.890 Hormone replacement therapy; Z79.2 Long term (current) use of antibiotics; Z79.02 Long term (current) use of antithrombotics/antiplatelets; Z79.899 Other long term (current) drug therapy; Z79.82 Long term (current) use of aspirin; Z88.8 Allergy status to other drugs, medicaments and biological substances; Z86.19 Personal history of other infectious and parasitic diseases; Z90.710 Acquired absence of both cervix and uterus; Z87.891 Personal history of nicotine dependence; Z86.73 Personal history of transient ischemic attack (TIA), and cerebral infarction without residual deficits
CPT/HCPCS: 36415; 36416; 51702; 71045; 71250; 80048; 80053; 82607; 82746; 82962; 83540; 83550; 83735; 83880; 84145; 84443; 84484; 85025; 87040; 87070; 87205; 93005; 93308; 94640; 96372; 99285; J0456; J0696; J1644; J1815; J1938; J2060; J2919; J3475; J7050; J7613; J7614; J7626; J7644; J9999; Q0144

== ENCOUNTER 2025-08-07 12:00 | Inpatient (IN) | payer MEDICAID, SELFPAY ==
[2024-07-26 12:01] VITALS: BP 129/79; BMI 43.1
[2025-08-07] VITALS (7 sets, daily range): BP systolic 153–157; BP diastolic 92–104; PULSE 91–112; RESP 17–24; TEMP 36.7–36.9; O2SAT 91–96; BMI 31.2
--- NOTE | 2025-08-07 12:03 | XR_ITS ---
WS: [id number] XR chest 1V portable [id number] REASON FOR EXAM: dyspnea/cough FINDINGS: Large right pleural effusion. Presumed atelectasis of the right lower lobe. Progression of pleural effusion from previous examination 06/23/2025. There is cardiomegaly and mild central pulmonary venous congestion. XR/XR chest 1V portable [id number] IMPRESSION: Large right pleural effusion. Progressive from the previous examination.
--- NOTE | 2025-08-07 12:10 | ECG_ITS ---
[facility] Test Date: 2025-08-07 Pat Name: Carmen Richards Department: Room: Gender: Female [employer] Administrator: : 1975 Requested By: Colton Michael Order Number: [id number] Jeanine MD: Jean-Paul Santana M.D. Measurements Intervals [place] Rate: 112 P: 75 UT: 161 QRS: 119 QRSD: 152 T: -31 QT: 371 QTc: 508 Interpretive Statements SINUS TACHYCARDIA RIGHT AXIS DEVIATION [QRS AXIS > 100] INTRAVENTRICULAR CONDUCTION DELAY [130+ ms QRS DURATION] Compared to ECG 06/27/2025 00:17:41 Right-axis deviation now present Intraventricular conduction delay now present Sinus rhythm no longer present Ventricular premature complex(es) no longer present T-wave abnormality no longer present Possible ischemia no longer present Electronically Signed On 08-07-2025 17:43:34 CDT by Jean-Paul Santana M.D. [email or web address]
[2025-08-07 12:19] LABS: Hematocrit 50.0 % (36-47); Hemoglobin 16.70 g/dL (11.27-16.99); Mean Corpuscular HGB Conc 33.4 g/dL (30-55); Mean Corpuscular Hemoglobin 31.7 pg (27-33); Mean Corpuscular Volume 94.9 fl (85-98); Nucleated Red Blood Cells % 0 %; Platelet Count 226 10^3/cmm (157-399); Red Blood Count 5.27 10^6/uL (3.85-5.65); White Blood Count 10.42 10^3/uL (3.29-11.43)
[2025-08-07 12:36] LABS: Troponin(5th) Baseline 37 ng/L (0-10)
[2025-08-07 12:45] LABS: Alanine Aminotransferase 12 U/L (0-33); Albumin Level 3.0 g/dL (3.5-5.2); Alkaline Phosphatase 170 U/L (35-105); Blood Urea Nitrogen 9 mg/dL (6-20); Calcium 9.0 mg/dL (8.5-10.5); Carbon Dioxide 24 mmol/L (22-29); Chloride 95 mmol/L (98-107); Creatinine Clr Calc Pharmacy 106.9705; Globulin 4.8 g/dL (1.3-4.6); Glucose 311 mg/dL (65-115); Osmolality Calculated 282 mOsm/kg (285-295); Sodium 131 mmol/L (136-145); Total Protein 7.8 g/dL (6.6-8.7)
[2025-08-07 12:48] LABS: Anion Gap 15.9 (5-19); Aspartate Amino Transferase 40 U/L (0-32); Potassium 3.9 mmol/L (3.5-5.1)
--- NOTE | 2025-08-07 12:57 | W.ED.SOB ---
HPI - SOB/Dyspnea General: Chief Complaint: Shortness of Breath/Dyspnea Stated Complaint: SOB Time Seen by Provider: 08/07/25 12:03 History of Present Illness: HPI Narrative: 49-year-old female presents emergency room via EMS complaining of shortness of breath for the last week. Patient is normally on 2 L oxygen by nasal cannula. She is recently was hospitalized for pneumonia. She is complaining of moderately productive cough she has audible wheezing she denies any hemoptysis no chest pain. Patient awake alert and oriented denies any abdominal pain. She has tried nebulizers at home with no significant relief she does have a history of COPD and CHF. Associated symptoms: Reports chest congestion; Deny abdominal pain, chest pain or fever(s) Related Data Home Medications ?Medication ?Instructions ?Recorded ?Confirmed budesonide-formoterol HFA 160 2 puff inhalation BID 02/16/20 08/07/25 mcg-4.5 mcg/actuation aerosol inhaler (Symbicort) levothyroxine 75 mcg tablet 75 mcg PO QAM 06/11/22 08/07/25 potassium chloride 10 mEq 20 meq PO DAILY 05/03/23 08/07/25 tablet,extended release albuterol sulfate 2.5 mg/3 mL 2.5 mg continuous nebulization QID 12/14/24 08/07/25 (0.083 %) solution for nebulization PRN Shortness Of Breath albuterol sulfate 90 mcg/actuation 2 puff inhalation QID 12/14/24 08/07/25 aerosol inhaler (Ventolin HFA) clopidogrel 75 mg tablet 75 mg PO QAM 12/14/24 08/07/25 nitroglycerin 0.4 mg sublingual 0.4 mg sublingual PRN PRN Chest 12/14/24 08/07/25 tablet Pain oxycodone 10 mg tablet 10 mg PO TID PRN Pain 12/14/24 08/07/25 pantoprazole 40 mg tablet,delayed 40 mg PO DAILY 12/14/24 08/07/25 release acetaminophen 500 mg tablet 1,000 mg PO Q6H PRN Pain 12/18/24 08/07/25 (Tylenol Extra Strength) atorvastatin 80 mg tablet 80 mg PO BEDTIME 06/21/25 08/07/25 escitalopram oxalate 20 mg tablet 20 mg PO QAM 06/21/25 08/07/25 tiotropium bromide 2.5 1 puff inhalation DAILY 06/23/25 08/07/25 mcg/actuation mist for inhalation (Spiriva Respimat) acyclovir 400 mg tablet 400 mg PO BID 08/07/25 08/07/25 aspirin 81 mg tablet,delayed 81 mg PO QAM 08/07/25 08/07/25 release (Adult Low Dose Aspirin) insulin lispro 100 unit/mL 10 unit SUBCUT .TID PER SS 08/07/25 08/07/25 subcutaneous pen lactulose 10 gram/15 mL oral 15 ml PO DAILY PRN Constipation 08/07/25 08/07/25 solution promethazine-DM 6.25 mg-15 mg/5 mL 10 ml PO Q4H PRN Cough 08/07/25 08/07/25 oral syrup Previous Rx's ?Medication ?Instructions ?Recorded insulin glargine 100 unit/mL (3 60 unit (0.6 mL) SUBCUT QAM #60 mL 07/26/24 mL) subcutaneous pen (Lantus Solostar U-100 Insulin) blood-glucose sensor (Tupalo G7 #3 ea 03/20/25 Sensor device) bumetanide 1 mg tablet 1 mg PO BID #60 tabs 06/28/25 spironolactone 50 mg tablet 25 mg (1/2 x 50 mg) PO DAILY Edema 06/28/25 #30 tabs Allergies Allergy/AdvReac Type Severity Reaction Status Date / Time pregabalin (From Lyrica) Allergy hallucinati Verified 03/27/25 17:17 ons Review of Systems Const: Denies: fever(s) or chills Card: Denies: chest pain Resp: Reports: dyspnea, productive cough, wheezing and chest congestion GI: Denies: abdominal pain : Denies: dysuria, urinary frequency or urinary urgency Musc: Denies: neck pain or back pain Skin/Breast: Denies: rash PFSH ED PFSH: Medical History Type II diabetes mellitus Acute on chronic respiratory failure with hypoxia 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 LBBB (left bundle branch block) CAD (coronary artery disease) CHF (congestive heart failure) Chest pain Dyspnea on exertion Right middle cerebral artery stroke Staph skin infection Left arm pain Transient cerebral ischemia Smoking addiction CVA (cerebral vascular accident) Major depressive disorder, 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, recurrent severe without psychotic features Hyperlipidemia Hypertension Asthma COPD (chronic obstructive pulmonary disease) Hepatitis C Acute ischemic stroke COPD (chronic obstructive pulmonary disease) Smoking Left leg paresthesias Arm paresthesia, left Left-sided weakness Surgical History H/O: hysterectomy 1997 History of tonsillectomy Family History Other CAD (coronary artery disease) Cancer Diabetes Family history of premature coronary artery disease Hypertension Lung disease Stroke Social History Smoking and tobacco/nicotine status: former use of tobacco/nicotine Quit status (tobacco/nicotine): has quit using Year quit tobacco: 2024 Former quit date comment: Was smoking a pack and a half a day till 2 weeks ago Second hand smoke exposure: No Alcohol intake: former Substance/Drug Use: former Date of last use: 20 years ago Additional social history: Patient states she is on disability she thinks from medical problem but does not know which one. 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 Pets and animals: Yes Pets & animals: dog(s) Leisure activites: exercise, art, music and reading Sexually active: No Do you think of yourself as: Straight/Heterosexual Current gender identity: Female Linda/Druze: [facility] Special linda needs: No Agree to transfusion: Yes Female Reproductive History: Para: 2 Spontaneous abortions: No Physical Exam Const: GENERAL APPEARANCE: cooperative ORIENTATION/CONSCIOUSNESS: Yes awake, Yes oriented to person, Yes oriented to place and Yes oriented to time HENMT: COMMON NORMALS: normocephalic, atraumatic and hearing grossly normal bilaterally HEAD & SCALP: normocephalic and atraumatic Resp: EFFORT & INSPECTION: Yes tachypneic and Yes uses accessory muscles AUSCULTATION: rhonchi and wheezes OTHER: Diminished breath sounds left base Cardio: COMMON NORMALS: regular rate, regular rhythm and No murmurs present (Cardio) RATE: regular rate RHYTHM: regular rhythm GI: COMMON NORMALS: Soft to palpation and No hepatosplenomegaly present AUSCULTATION: Yes normoactive bowel sounds PALPATION: Yes Soft to palpation, No Tenderness to palpation present (GI), No Guarding due to palpation present (GI) and Yes No hepatosplenomegaly present Extremity: COMMON NORMALS: normal to inspection, capillary refill normal, no clubbing, cyanosis or edema, no calf tenderness and no pedal edema Neuro: SENSORIUM/ORIENTATION: Yes oriented to person, Yes oriented to place and Yes oriented to time Skin: COMMON NORMALS: no rashes or lesions noted GENERAL SKIN EXAM: no rashes or lesions noted Course Vital Signs: Vital signs: Vital Signs Temperature 96.9 F L 08/09/25 07:41 Pulse Rate 92 08/09/25 15:46 Respiratory Rate 11 L 08/09/25 15:46 Blood Pressure 93/64 08/09/25 15:46 Pulse Oximetry 96 08/09/25 15:46 Oxygen Delivery Me thod Nasal Cannula 08/09/25 14:15 Oxygen Flow Rate 3 08/09/25 14:15 MDM - SOB/Dyspnea Medical Decision Making Large right pleural effusion appears to be fluid overloaded with congestive heart failure suspect she may also little underlying pneumonia. Discussed with hospitalist orders written for admission. Initiated diuresis. Medical Records I reviewed the patient's medical records. Lab Data I reviewed the patient's lab results. 08/09/25 03:07 08/09/25 03:07 Labs/Radiology: Radiology Impressions Chest X-Ray 08/07/25 12:03 IMPRESSION: Large right pleural effusion. Progressive from the previous examination. Chest CT 08/08/25 18:55 IMPRESSION: 1. Large RIGHT pleural effusion resulting in compressive atelectasis of the RIGHT lung and medial displacement. Consider right-sided chest tube versus ultrasound-guided thoracentesis. 2. No LEFT pleural effusion. 3. Mild cardiomegaly. 4. Mild soft tissue anasarca. 5. Cholelithiasis without acute cholecystitis. Laboratory Results WBC 10.42 10^3/uL (3.29-11.43) 08/07/25 11:55 RBC 5.27 10^6/uL (3.85-5.65) 08/07/25 11:55 Hgb 16.70 g/dL (11.27-16.99) 08/07/25 11:55 Hct 50.0 % (36-47) H 08/07/25 11:55 MCV 94.9 fl (85-98) 08/07/25 11:55 MCH 31.7 pg (27-33) 08/07/25 11:55 MCHC 33.4 g/dL (30-55) 08/07/25 11:55 RDW 14.1 % (12.1-15.1) 08/07/25 11:55 Plt Count 226 10^3/cmm (157-399) 08/07/25 11:55 MPV 10.3 fL (7.4-10.4) 08/07/25 11:55 Neut % (Auto) 60.1 % 08/07/25 11:55 Lymph % (Auto) 29.7 % 08/07/25 11:55 [place] % (Auto) 8.0 % 08/07/25 11:55 Eos % (Auto) 1.2 % 08/07/25 11:55 Baso % (Auto) 0.7 % 08/07/25 11:55 Neut # (Auto) 6.28 10^3/uL (1.8-7.7) 08/07/25 11:55 Lymph # (Auto) 3.1 10^3/uL (0.8-4.8) 08/07/25 11:55 [place] # (Auto) 0.8 10^3/uL (0.2-0.9) 08/07/25 11:55 Eos # (Auto) 0.1 10^3/uL (0.0-0.8) 08/07/25 11:55 Baso # (Auto) 0.1 10^3/uL (0.0-0.1) 08/07/25 11:55 Nucleated RBC % (auto) 0 % 08/07/25 11:55 Nucleated RBCs # 0.0 /100WBC 08/07/25 11:55 ESR 85 mm/hr (0-15) H 08/07/25 11:55 Sodium 131 mmol/L (136-145) L 08/07/25 11:55 Potassium 3.9 mmol/L (3.5-5.1) 08/07/25 11:55 Chloride 95 mmol/L (98-107) L 08/07/25 11:55 Carbon Dioxide 24 mmol/L (22-29) 08/07/25 11:55 Anion Gap 15.9 (5-19) 08/07/25 11:55 BUN 9 mg/dL (6-20) 08/07/25 11:55 Creatinine 0.6 mg/dL (0.5-0.9) 08/07/25 11:55 GFR Calculation 105.4 mL/min (90-130) 08/07/25 11:55 Glucose 311 mg/dL (65-115) H 08/07/25 11:55 Calculated Osmolality 282 mOsm/kg (285-295) L 08/07/25 11:55 Lactic Acid 1.3 mmol/L (0.5-2.2) 08/07/25 14:20 Calcium 9.0 mg/dL (8.5-10.5) 08/07/25 11:55 Phosphorus 3.1 mg/dL (2.5-4.5) 08/07/25 11:55 Magnesium 1.7 mg/dL (1.7-2.3) 08/07/25 11:55 Total Bilirubin 0.9 mg/dL (0.15-1.2) 08/07/25 11:55 AST 40 U/L (0-32) H 08/07/25 11:55 ALT 12 U/L (0-33) 08/07/25 11:55 Alkaline Phosphatase 170 U/L (35-105) H 08/07/25 11:55 Troponin T Baseline 37 ng/L (0-10) H 08/07/25 11:55 Troponin T 120 Minute 38.14 ng/L (0-10) H 08/07/25 14:13 Delta Troponin T 1.14 ABS# (0-10) 08/07/25 14:13 NT-Pro-B Natriuret Pep 5328 pg/mL (0-125) H 08/07/25 11:55 Total Protein 7.8 g/dL (6.6-8.7) 08/07/25 11:55 Albumin 3.0 g/dL (3.5-5.2) L 08/07/25 11:55 Globulin 4.8 g/dL (1.3-4.6) H 08/07/25 11:55 Procalcitonin 0.06 ng/mL (0-0.5) 08/07/25 11:55 TSH 1.49 uIU/mL (0.27-4.20) 08/07/25 11:55 Urine Color Dark yellow (Yellow) A 08/07/25 13:41 Urine Appearance Cloudy (CLEAR) A 08/07/25 13:41 Urine pH 6.0 (5-7) 08/07/25 13:41 Ur Specific [place] 1.022 (1.005-1.030) 08/07/25 13:41 Urine Protein 2+ (Negative) A 08/07/25 13:41 Urine Glucose (UA) 1+ (Normal) H 08/07/25 13:41 Urine Ketones Negative (Negative) 08/07/25 13:41 Urine Blood Negative (Negative) 08/07/25 13:41 Urine Nitrate Negative (Negative) 08/07/25 13:41 Urine Bilirubin 2+ (Negative) H 08/07/25 13:41 Urine Urobilinogen 4.0 mg/dL (Negative) H 08/07/25 13:41 Ur Leukocyte Esterase Trace (Negative) A 08/07/25 13:41 Urine RBC 0-2 /hpf (0-2) 08/07/25 13:41 Urine WBC 6-10 /hpf (0-5) 08/07/25 13:41 Ur Squamous Epith Cells 21-50 /hpf (0-5) H 08/07/25 13:41 Amorphous Sediment Not Reportable 08/07/25 13:41 Urine Bacteria 1+ /hpf (NONE) H 08/07/25 13:41 Hyaline Casts 4.95 /lpf 08/07/25 13:41 All radiology interpretation(s) finalized by discharge EKG Data EKG 1: Interpretation: EKG 916 2025-10-31. Sinus tachycardia rate of 112 TN interval 161 QTc 508 intraventricular conduction delay. Compared to EKG 06/27/2025 EKG 2: Interpretation: EKG 08/07/2025 [address] changes does have some T wave inversions with ST depression in V5 and 6 this is new from EKG done earlier today. EKG 3: Interpretation: EKG 08/07/2025 1748. Sinus tachycardia rate 108 TN interval [address] depression and T wave inversion noted in ER earlier EKG resolved. Discharge Plan Discharge Patient Disposition: Admitted As Inpatient Admit Provider: Gay Valles Clinical Impression: COPD with acute exacerbation, Community acquired pneumonia of right lower lobe of lung, Acute on chronic systolic CHF (congestive heart failure) Condition: Stable Coding Level of Care Code ED Shipping Agent for Isabel Hernandez
--- OUTSIDE RECORDS SUMMARY | 2025-08-07 12:58 | XMS_ITS | Encounter Summary ---
Author Organization [facility] Address [address] [place] [address] Care Team Providers Care Clothespin Drier Operator Name Role Phone Sushil Mobley MD Primary Care Provider [phone] Encounter Details Date Type Department Care Team (Late st Contact Info) Description 09/27/2019 Ancillary Orders [facility] Centralized Scheduling [address] [place] [id number] Determinations, Dis Kim Durán [address] [place] [address] COPD (chronic obstructive pulmonary disease) ([facility]) Social History Tobacco Use Types Packs/Day [...] AND LATERAL 2 VW (11/20/2019 9:22 AM WASTE MANAGEMENT SPECIALIST) Anatomical Region Laterality Modality Chest Computed Radiogr aphy 11/20/2019 9:22 AM WASTE MANAGEMENT SPECIALIST Impressions 11/20/2019 3:50 PM WASTE MANAGEMENT SPECIALIST IMPRESSION: Please see below. Exam: XR CHEST PA AND LATERAL 2 VW Date/Time of Exam: 11/20/2019 9:22 AM Reason For Exam: See Diagnosis. Diagnosis: COPD (chronic obstructive pulmonary disease). Comparison: None Findings: The heart size is normal. No infiltrates or pleural fluid. Retrosternal calcified granuloma. Thoracic spine degenerative changes. IMPRESSION: 1. No infiltrates. [id number] Narrative Procedure Note Jose G Marquez MD - 11/20/2019 IMPRESSION: Please see below. Exam: XR CHEST PA AND LATERAL 2 VW Date/Time of Exam: 11/20/2019 9:22 AM Reason For Exam: See Diagnosis. Diagnosis: COPD (chronic obstructive pulmonary disease). Comparison: None Findings: The heart size is normal. No infiltrates or pleural fluid. Retrosternal calcified granuloma. Thoracic spine degenerative changes. IMPRESSION: 1. No infiltrates. [id number] us External Provider Mtnv DIAGNOSTIC IMAGING ORDERA BLES Final Result documented in this encounter Visit Diagnoses Diagnosis COPD (chronic obstructive pulmonary disease) (CMS/HCC) Chronic airway obstruction, not elsewhere classified COPD (chronic obstructive pulmonary disease) (CMS/HCC) Chronic airway obstruction, not elsewhere classified documented in this encounter Care Teams Clothespin Drier Operator Relationship Specialty Start Date End Date Sushil Mobley MD [address] [address] PCP - General Family Practice 08/22/20 documented as of this encounter
--- OUTSIDE RECORDS SUMMARY | 2025-08-07 12:58 | XMS_ITS | Clinical Summary ---
Author Organization [facility] Address [address] [place] [address] Phone Care Team Providers Care Care Professionals Name Role Phone Sushil Mobley MD Primary Care Provider [phone] Social History Tobacco Use Types Packs/Day Years Used Date Smoking Tobacco: Never Assessed Comments Unknown Sex and Gender Information Value Date Recorded Sex Assigned at Not on file Legal Sex Female 9:04 PM CDT Gender Identity Not on file Sexual Orientation Not on file Last Filed Vital Signs Vital Sign Reading Time Taken Comments Blood Pressure - - Pulse 71 11/20/2019 10:47 AM FIELD ACCOUNT DIRECTOR Temperature - - Respiratory Rate 20 11/20/2019 10:47 AM FIELD ACCOUNT DIRECTOR Oxygen Saturation 99% 11/20/2019 10:46 AM FIELD ACCOUNT DIRECTOR Inhaled Oxygen Concentration - - Weight - [...] (#1) [address] [place] [address] Care Teams Care Professionals Relationship Specialty Start Date End Date Sushil Mobley MD [address] [id number] PCP - General Family Practice 08/22/20
--- OUTSIDE RECORDS SUMMARY | 2025-08-07 12:58 | XMS_ITS | Clinical Summary ---
Author Organization [facility] Address [address] [facility] Attn: Epic Prelude ADT [place] [address] Care Team Providers Care Clinical Staff Educator Name Role Phone Sushil Mobley MD Primary Care Provider [phone] Allergies Active Allergy Reactions Criticality Noted Date [...] breakfast. 30 Tablet 2 12/05/2024 3:18 PM PORTABLE TRACKMAN 5 Active atorvastatin (LIPITOR) 40 mg tablet Take 1 Tablet (40 mg) by mouth daily at bedtime. 30 Tablet 2 12/05/2024 3:18 PM PORTABLE TRACKMAN 5 Active clopidogreL (PLAVIX) 75 mg Tablet Take 1 Tablet (75 mg) by mouth daily. 30 Tablet 2 12/05/2024 3:18 PM PORTABLE TRACKMAN 5 Active furosemide (LASIX) 20 mg tablet Take 1 Tablet (20 mg) by mouth daily. 30 Tablet 12/05/2024 3:18 PM PORTABLE TRACKMAN 5 Active insulin glargine (LANTUS) 100 unit/mL pen syringe Inject 25 Units by subcutaneous injection daily with breakfast. 15 mL 5 Active nitroglycerin (NITROSTAT) 0.4 mg Tablet, Sublingual Place 1 Tablet (0.4 mg) under tongue every 5 minutes as needed for Chest Pain (Do NOT take more than 3 pills in a row, if chest pain not relived contact your PCP/Shingle Shearing Machine Operator ERVIN). 25 Tablet 1 12/05/2024 3:18 PM PORTABLE TRACKMAN Active pantoprazole (PROTONIX) 40 mg Tablet, Delayed Release (E.C.) Take 1 Tablet (40 mg) by mouth daily before breakfast. 30 Tablet 12/05/2024 3:18 PM PORTABLE TRACKMAN Active Active Problems Problem Noted Date Diagnosed [...] Encounters Date Type Department Care Team Description 07/25/2025 External Device Data ST[facility] ABSTRACTION Provider, Abstract 07/03/2025 External Device Data STL ABSTRACTION Provider, Abstract 06/27/2025 External Device Data ST[facility] ABSTRACTION Provider, Abstract 05/15/2025 External Device Data ST[facility] ABSTRACTION Provider, Abstract from Last 3 Months Social History Tobacco Use Types Packs/Day Years Used Date Smoking Tobacco: Never Assessed Feeling Safe Answer Date Recorded Are you in a relationship wi th someone who hurts you emotionally and/or physically? No 12/02/2024 Comments Unknown Sex and Gender Information Value Date Recorded Sex Assigned at Not on file Legal Sex Female 2:08 AM PORTABLE TRACKMAN Gender Identity Not on file Sexual Orientation Not on file Last Filed Vital Signs Vital Sign Reading Time Taken Comments Blood Pressure 104/70 12/05/2024 8:28 AM PORTABLE TRACKMAN Pulse 81 12/05/2024 8:28 AM PORTABLE TRACKMAN Temperature 36.5 C (97.7 F) 12/05/2024 8:28 AM PORTABLE TRACKMAN Respiratory Rate 18 12/05/2024 8:28 AM PORTABLE TRACKMAN Oxygen Saturation 93% 12/05/2024 8:28 AM PORTABLE TRACKMAN Inhaled Oxygen Concentration - - Weight 82.6 kg (182 lb 3.2 oz) 12/04/2024 5:00 A M PORTABLE TRACKMAN Height 157.5 cm (5' 2 ) 12/02/2024 11:11 PM PORTABLE TRACKMAN Body Mass Index 33.32 12/02/2024 11:11 PM PORTABLE TRACKMAN Plan of Treatment Health Maintenance Due Date [...] (#1) 2025 Medical Devices Implanted Type Area Aluminum Boat Inspector Device Identifier Shelf Expiration Date Model / Serial / Lot Stent Ronny [place] Jose 3.0x15mm Rx [id number] - [id number] Implanted:Qty: 1 on 12/03/2024 by Prince Funes MD at [facility] Stent N/A: Coronary [employer] [id number] 07/31/2027 [id number] 15UX / / [id number] Stent [place] Jose 4.0x12mm Rx [id number] - [id number] Implanted:Qty: 1 on 12/03/2024 by Prince Funes MD at [facility] Stent N/A: Coronary [employer] [id number] 05/10/2027 [id number] 12UX / / [id number] Stent Ronny [place] Jose 4.0x8mm Rx [id number] - [id number] Implanted:Qty: 1 on 12/03/2024 by Prince Funes MD at [facility] Stent N/A: Coronary [employer] [id number] 04/23/2027 [id number] 08UX / / [id number] Procedures Procedure Name Priority Date/Time Associated Diagnosis Comments HEMOGLOBIN A1C Routine 12/03/2024 2:49 AM PORTABLE TRACKMAN from Last 3 Months or Most Recently Relevant to Health Maintenance Results * (ABNORMAL) HEMOGLOBIN A1C (12/03/2024 2:49 AM PORTABLE TRACKMAN) HEMOGLOBIN A1C 12.1(H) <=5.6 % 12/04/2024 8:55 AM PORTABLE TRACKMAN [facility] EST. AVG GLUCOSE, A1C 301 mg/dL 12/04/2024 8:55 AM PORTABLE TRACKMAN [facility] Blood Venipuncture / Unknown 12/03/2024 2:49 AM PORTABLE TRACKMAN 12/03/2024 3:04 AM PORTABLE TRACKMAN Narrative [facility] - 12/04/2024 8:55 AM PORTABLE TRACKMAN HGB A1C INTERPRETATION NORMAL: <5.7% PRE-DIABETES: 5.7 - 6.4% DIABETES: 6.5% OR GREATER us Alvarado Persaud DO CHEMISTRY ORDERABLES Final Resu lt [facility] CLIA # [id number] [address] [address] [place] [address] from Last 3 Months or Most Recently Relevant to Health Maintenance Insurance MEDICAID [place] [employer] Advance Directives For more information, please contact: [phone] * Full Code (Latest Code Status on File) Date Activated Date Inactivated Comments 12/03/2024 2:06 AM 12/05/2024 5:37 PM Care Teams Clinical Staff Educator Relationship Specialty Start Date End Date Sushil Mobley MD [address] [address] PCP - General Family Practice 08/22/20
--- OUTSIDE RECORDS SUMMARY | 2025-08-07 12:58 | XMS_ITS | Encounter Summary ---
Author Organization [facility] Address [address] [place] [address] Care Team Providers Care State Manager Name Role Phone Sushil Mobley MD Primary Care Provider [phone] Encounter Details Date Type Department Care Team (Late st Contact Info) Description 09/17/[address] [facility] Laboratory Services [place] [address] [place] [id number] Social History Tobacco Use Types Packs/Day Years [...] on filedocumented in this encounter Care Teams State Manager Relationship Specialty Start Date End Date Sushil Mobley MD [address] [id number] PCP - General Family Practice 08/22/20 documented as of this encounter
--- OUTSIDE RECORDS SUMMARY | 2025-08-07 12:58 | XMS_ITS | Encounter Summary ---
Author Organization [facility] Address [address] [place] [address] Care Team Providers Care Financial Controller Name Role Phone Sushil Mobley MD Primary Care Provider [phone] Encounter Details Date Type Department Care Team (Late st Contact Info) Description 09/10/2014 Ancillary Orders [facility] Laboratory Services [place] [address] [place] [phone] Sick Social History Tobacco Use Types Packs/Day [...] uIU/mL 09/10/2014 9:45 PM CDT [facility] LABORATORY SERVICES [facility] Blood Collection / Unknown 09/10/2014 9:04 PM CDT 09/10/2014 9:04 PM CDT Mega Mcelroy DO CHEMISTRY ORDERABLES Final Resu lt Performing Organization Address City/[facility]/ZIP Co de Phone Number [facility] CLIA # [id number] [address] [place] [address] * (ABNORMAL) HEMOGLOBIN A1C (09/10/2014 9:04 PM CDT) HEMOGLOBIN A1C 8.0(H) 4.5 - 6.2 % 09/10/2014 9:45 PM CDT [facility] [place] EST. AVG GLUCOSE, A1C 183 mg/dL 09/10/2014 9:45 PM CDT [facility] [place] Blood Collection / Unknown 09/10/2014 9:04 PM CDT 09/10/2014 9:04 PM CDT Mega Mcelroy DO CHEMISTRY ORDERABLES Final Resu lt Performing Organization Address [facility]/ZIP Co de Phone Number [facility] CLIA # [id number] [address] [place] [phone] * (ABNORMAL) COMPREHENSIVE METABOLIC PANEL (09/10/2014 9:04 PM CDT) SODIUM 134(L) 136 - 145 mmol/L 09/10/2014 9:45 PM CDT [facility] [place] POTASSIUM 4.0 3.5 - 5.1 mmol/L 09/10/2014 9:45 PM CDT [facility] [employer] [facility] - [place] CHLORIDE 98 98 - 107 mmol/L 09/10/2014 9:45 PM CDT [facility] [place] CO2 28 21 - 32 mmol/L 09/10/2014 9:45 PM CDT [facility] [employer] [facility] [place] CALCIUM 9.1 8.5 - 10.1 mg/dL 09/10/2014 9:45 PM CDT [facility] [place] BUN 12 7 - 18 mg/dL 09/10/2014 9:45 PM CDT [facility] [place] CREATININE 0.90 0.60 - 1.30 mg/dL 09/10/2014 9:45 PM CDT [facility] [place] GLUCOSE 358(H) 74 - 106 mg/dL 09/10/2014 9:45 PM [facility] [employer] [facility] TOTAL PROTEIN 8.2 6.4 - 8.2 g/dL 09/10/2014 9:45 PM [facility] ALBUMIN 2.8(L) 3.4 - 5.0 g/dL 09/10/2014 9:45 PM [facility] BILIRUBIN TOTAL 1.5(H) 0.2 - 1.0 mg/dL 09/10/2014 9:45 PM [facility] ALKALINE PHOSPHATASE 134(H) 46 - 116 U/L 09/10/2014 9:45 PM [facility] [employer] [facility] AST 110(H) 15 - 37 U/L 09/10/2014 9:45 PM [facility] ALT 106(H) 30 - 65 U/L 09/10/2014 9:45 PM [facility] GFR >60 >=60 mL/min/1.7 3 sq meter 09/10/2014 9:45 PM [facility] [employer] [facility] Comment: eGFR has not been validated for [...] mL/min/1.7 3 sq meter 09/10/2014 9:45 PM [facility] [employer] [facility] ANION GAP 8(L) 12 - 20 mmol/L 09/10/2014 9:45 PM [facility] [employer] [facility] Blood Collection / Unknown 09/10/2014 9:04 PM CDT 09/10/2014 9:04 PM CDT [facility] [employer] [facility] - 09/10/2014 9:45 PM CDT Effective 07/26/2014, the Alkaline Phosphatase test method and reference range have changed. Please take this into consideration when interpreting results prior to or after this date. us Mega Mcelroy DO CHEMISTRY ORDERABLES Final Resu lt [facility] [place] CLIA # [id number] [address] [facility] [address] [place] [address] documented in this encounter Visit Diagnoses Diagnosis Sick Other unknown and unspecified cause of morbidity or mortality documented in this encounter Care Teams Financial Controller Relationship Specialty Start Date End Date Sushil Mobley MD [address] [place] [id number] PCP - General Family Practice 08/22/20 documented as of this encounter
--- OUTSIDE RECORDS SUMMARY | 2025-08-07 12:58 | XMS_ITS | Encounter Summary ---
Author Organization [facility] Address [address] [place] [address] Care Team Providers Care Retail Department Manager Name Role Phone Sushil Mobley MD Primary Care Provider [phone] Encounter Details Date Type Department Care Team (Late st Contact Info) Description 09/27/2019 Ancillary Orders [facility] Centralized Scheduling [address] [place] [phone] Mtnv, External Provider [address] [facility] [address] [place] [address] Social History Tobacco Use Types Packs/Day Years [...] on filedocumented in this encounter Care Teams Retail Department Manager Relationship Specialty Start Date End Date Sushil Mobley MD [address] [id number] PCP - General Family Practice 08/22/20 documented as of this encounter
[2025-08-07 13:56] LABS: Glucose Urine UA 1+ (Normal); Nitrate Urine Negative (Negative); Specific Gravity, Urine 1.022 (1.005-1.030)
[2025-08-07 14:01] LABS: Add Urine Microscopic? YES
--- NOTE | 2025-08-07 14:03 | ECG_ITS ---
[facility] Test Date: 2025-08-07 Pat Name: Carmen Richards Department: Room: Gender: Female Laundry Sorter: : 1975 Requested By: Colton Michael Order Number: [id number] Jeanine MD: Jean-Paul Santana M.D. Measurements Intervals [place] Rate: 99 P: 48 HI: 169 QRS: 106 QRSD: 94 T: 0 QT: 354 QTc: 456 Interpretive Statements SINUS RHYTHM RIGHT AXIS DEVIATION [QRS AXIS > 100] ST DEVIATION AND MODERATE T-WAVE ABNORMALITY, CONSIDER LATERAL ISCHEMIA [-0.1+ mV T-WAVE IN I/aVL/V5/V6] Compared to ECG 08/07/2025 12:10:13 T-wave abnormality now present Possible ischemia now present Sinus tachycardia no longer present Intraventricular conduction delay no longer present Electronically Signed On 08-07-2025 17:56:56 CDT by Jean-Paul Santana M.D. [email or web address]
[2025-08-07 14:13] LABS: UA Slide Review UA Slide Review Perf
[2025-08-07 14:37] LABS: Troponin 5 2HR 38.14 ng/L (0-10); Troponin 5 2HR Delta 1.14 ABS# (0-10)
[2025-08-07] MEDS: LORazepam 1 MG/0.5 ML injection IVP (14:39)
[2025-08-07 14:52] LABS: NT Pro B Type Natriuretic Pept 5328 pg/mL (0-125)
[2025-08-07 15:10] LABS: Lactic Sepsis W/Reflex 1.3 mmol/L (0.5-2.2)
--- NOTE | 2025-08-07 15:24 | PM.HP ---
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 As per the documentation she left AMA because she was not feeling well and later came with apologetic behavior. He also mentioned in the previous note that she does not want to be resuscitated or intubated. She was managed as a case of acute congestive failure community-acquired pneumonia with antibiotics and aggressive diuresis. She later on was discharged after stabilization Today she presented again with shortness of breath that has been ongoing from the last 4 to 5 days. The patient also reported having a sick contact and some upper respiratory tract like infection from the last 3 to 4 days and also reported having mild fevers in the last couple of few days.. She did not report any worsening of her lower leg swellings, PND or any orthopnea. She uses at baseline 3 pillows which did not increase from the last couple of days. She is compliant with her medications Patient did not report any chest heaviness, chest pain, cold settings, diaphoresis, syncope or presyncope or any palpitations. Ex-smoker and nonalcoholic Goals of care were discussed with the patient and the patient preferred natural . Review of Systems General: Reports: 10 or more systems reviewed and unremarkable except in HPI and below Medications/Allergies Home Medications ?Medication ?Instructions ?Recorded ?Confirmed ?Last Taken ?Type budesonide-formoterol HFA 160 2 puff inhalation BID 02/16/20 08/07/25 08/07/25 History mcg-4.5 mcg/actuation aerosol inhaler (Symbicort) levothyroxine 75 mcg tablet 75 mcg PO QAM 06/11/22 08/07/25 08/07/25 History potassium chloride 10 mEq 20 meq PO DAILY 05/03/23 08/07/25 08/07/25 History tablet,extended release insulin glargine 100 unit/mL (3 60 unit (0.6 mL) SUBCUT QAM #60 mL 07/26/24 08/07/25 08/07/25 Rx mL) subcutaneous pen (Lantus Solostar U-100 Insulin) albuterol sulfate 2.5 mg/3 mL 2.5 mg continuous nebulization QID 12/14/24 08/07/25 Unknown History (0.083 %) solution for nebulization PRN Shortness Of Breath albuterol sulfate 90 mcg/actuation 2 puff inhalation QID 12/14/24 08/07/25 08/07/25 History aerosol inhaler (Ventolin HFA) clopidogrel 75 mg tablet 75 mg PO QAM 12/14/24 08/07/25 08/07/25 History nitroglycerin 0.4 mg sublingual 0.4 mg sublingual PRN PRN Chest 12/14/24 08/07/25 Unknown History tablet Pain oxycodone 10 mg tablet 10 mg PO TID PRN Pain 12/14/24 08/07/25 08/07/25 History pantoprazole 40 mg tablet,delayed 40 mg PO DAILY 12/14/24 08/07/25 08/07/25 History release acetaminophen 500 mg tablet 1,000 mg PO Q6H PRN Pain 12/18/24 08/07/25 Unknown History (Tylenol Extra Strength) blood-glucose sensor ([employer] G7 #3 ea 03/20/25 08/07/25 Unknown Rx Sensor device) atorvastatin 80 mg tablet 80 mg PO BEDTIME 06/21/25 08/07/25 08/06/25 History escitalopram oxalate 20 mg tablet 20 mg PO QAM 06/21/25 08/07/25 08/07/25 History tiotropium bromide 2.5 1 puff inhalation DAILY 06/23/25 08/07/25 08/07/25 History mcg/actuation mist for inhalation (Spiriva Respimat) bumetanide 1 mg tablet 1 mg PO BID #60 tabs 06/28/25 08/07/25 08/07/25 Rx spironolactone 50 mg tablet 25 mg (1/2 x 50 mg) PO DAILY Edema 06/28/25 08/07/25 08/07/25 Rx #30 tabs acyclovir 400 mg tablet 400 mg PO BID 08/07/25 08/07/25 08/07/25 History aspirin 81 mg tablet,delayed 81 mg PO QAM 08/07/25 08/07/25 08/07/25 History release (Adult Low Dose Aspirin) insulin lispro 100 unit/mL 10 unit SUBCUT .TID PER SS 08/07/25 08/07/25 Unknown History subcutaneous pen lactulose 10 gram/15 mL oral 15 ml PO DAILY PRN Constipation 08/07/25 08/07/25 Unknown History solution promethazine-DM 6.25 mg-15 mg/5 mL 10 ml PO Q4H PRN Cough 08/07/25 08/07/25 Unknown History oral syrup Allergies Allergy/AdvReac Type Severity Reaction Status Date / Time pregabalin (From Lyrica) Allergy hallucinati Verified 03/27/25 17:17 ons PFSH Acute PFSH: Medical History (Updated 08/07/25 @ 18:54 by Gay Valles MD) Type II diabetes mellitus Acute on chronic respiratory failure with hypoxia 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 LBBB (left bundle branch block) CAD (coronary artery disease) CHF (congestive heart failure) Chest pain Dyspnea on exertion Right middle cerebral artery stroke Staph skin infection Left arm pain Transient cerebral ischemia Smoking addiction CVA (cerebral vascular accident) Major depressive disorder, 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, recurrent severe without psychotic features Hyperlipidemia Hypertension Asthma COPD (chronic obstructive pulmonary disease) Hepatitis C Acute ischemic stroke COPD (chronic obstructive pulmonary disease) Smoking Left leg paresthesias Arm paresthesia, left Left-sided weakness Surgical History H/O: hysterectomy 1997 History of tonsillectomy Family History Other CAD (coronary artery disease) Cancer Diabetes Family history of premature coronary artery disease Hypertension Lung disease Stroke Social History Smoking and tobacco/nicotine status: former use of tobacco/nicotine Quit status (tobacco/nicotine): has quit using Year quit tobacco: 2024 Former quit date comment: Was smoking a pack and a half a day till 2 weeks ago Second hand smoke exposure: No Alcohol intake: former Substance/Drug Use: former Date of last use: 20 years ago Additional social history: Patient states she is on disability she thinks from medical problem but does not know which one. 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 Pets and animals: Yes Pets & animals: dog(s) Leisure activites: exercise, art, music and reading Sexually active: No Do you think of yourself as: Straight/Heterosexual Current gender identity: Female Linda/Restoration: Yarsanism Special linda needs: No Agree to transfusion: Yes Female Reproductive History: Para: 2 Spontaneous abortions: No Vitals/I&O/Wt Last Vital Signs Temp 98.0 F 08/07/25 12:03 Pulse 101 H 08/07/25 14:43 Resp 22 H 08/07/25 14:43 BP 155/100 08/07/25 12:03 Pulse Ox 93 08/07/25 14:43 O2 Del Method Nasal Cannula 08/07/25 14:43 O2 Flow Rate 3 08/07/25 14:43 Weight last 48 hrs Weight 77.564 kg Physical Exam Narrative: General: Alert and oriented, lying comfortably without any distresswith mild distress requiring oxygen through nasal cannula 2 to 3 L and saturating above 98% HEENT: Normocephalic, atraumatic, grossly unremarkable exam Cardio: normal rate rhythm, normal S1-S2 without any murmurs, rubs, or gallops and JVD normal Respiratory: normal vascular breathing with reduced air entry at the right lower zone on auscultation with mild wheezes diffusely heard, no inspiratory or expiratory crackles/crepitations or stridor observed GI: Abdomen soft, nontender, nondistended, normoactive bowel sounds present all 4 quadrants, Neuro: intact cranial nerves motor and sensory and cerebellar/coordination function without any focal neurological deficit Behavior: Appropriate and cooperative Extremities: Adequate palpable pulses, mild trace edema Skin: grossly unremarkable exam Data 08/07/25 11:55 08/07/25 11:55 Micro: Microbiology 08/07/25 14:20 Blood Culture - Preliminary Blood SPECIMEN COLLECTED 08/07/25 14:27 Blood Culture - Preliminary Blood SPECIMEN COLLECTED A&P Assessment and plan 1. Pleural effusion: CT chest Pulmonology consult after CT chest Oxygen therapy as per protocol DuoNebs Incentive spirometry 2. COPD with acute exacerbation: Start patient on ceftriaxone and azithromycin Respiratory viral panel Oxygen therapy as protocol Prednisone 40 mg daily for total 5 days DuoNebs as scheduled, albuterol instead of albuterol since the patient is tachycardic Pro-Lc is negative and WBCs are not raised 3. Acute on chronic respiratory failure with hypoxia: Patient presented with acute shortness of breath preceded after viral illness from the last 3 to 4 days associated with sputum production Patient could have an element of congestive heart failure but seems to be in euvolemia Large right-sided pleural effusion with element of right lower lobe atelectasis and may add to her difficulty in breathing and hypoxia CT chest Since the patient previous CT chest in June showed right lower lobe pneumonia with moderate pleural effusion and atelectasis which has increased relatively After CT chest to consider compugraph operator consultation for possible thoracocentesis and further management 4. Acute on chronic systolic CHF (congestive heart failure): delta troponins are not significant Regular EKG monitoring Telemetry monitoring Resume home medications Aspirin atorvastatin clopidogrel Spironolactone 25 mg daily Intake and output monitoring 40 mg of IV Lasix daily 5. Diabetes mellitus: Patient takes 60 units of insulin Lantus in the morning, to reduce to 20 units as inpatient and high-dose sliding scale with adequate monitoring 6. Hyperlipidemia: Continue statins at home dose 7. Smoking addiction: Education on emphasis on continuation of abstinence from smoking has been advised to the patient 8. Generalized anxiety disorder: Continue home dose of escitalopram 20 mg in the morning 9. Hypertension: consider adding lisinopril if the blood pressure is not controlled 10. Asthma: Continue DuoNebs Oxygen therapy as per protocol Oxygen monitoring Antibiotics and steroids PDMP PDMP Reviewed: Not Reviewed Attestations Medical Necessity Statement*: The patient will require more than 2 midnights stay for the management of acute hypoxemic respiratory failure from multifactorial reasons, and large right-sided pleural effusion/COPD asthma exacerbation/acute on congestive heart failure Time Spent in Patient Care: 16 - 35 minutes (>than 50% of time spent in counselling and/or direct pt care on unit). Critical Care Time: The high probability of a clinically significant, sudden or life threatening deterioration, as referenced in this documentation, required my full and direct attention, intervention and personal management. The critical care time shown is in addition to time spent performing any reported separately billable procedures and includes the following: [x] Data and vital sign review and interpretation [x] Patient assessment, examination and intervention [x] Medication orders and management [x] Patient/Family updates as able [x] Care Coordination and Documentation. Other Attestations: Patient condition has been discussed at length with the patient/family, I have independently reviewed the chart labs imaging/diagnostics/EKG. the goals of care and code status with the patient/family/NOK/legal industrial relations representative, and documented accordingly. The patient/family has been informed about the current condition and further plan of care. Agreed with the plan of care and understood without any language barrier. Every effort was made to ensure accuracy of health services coordinator. Any obvious errors or omissions should be clarified with the author of the document. Coding Level of Care Code Critical Care >/= 30 minutes Diagnoses Pleural effusion J90 COPD with acute exacerbation J44.1 Acute on chronic respiratory failure with hypoxia J96.21 Chronicity: acute on chronic Acute on chronic systolic CHF (congestive heart failure) I50.23 Diabetes mellitus E11.9 Hyperlipidemia E78.5 Smoking addiction F17.200 Generalized anxiety disorder F41.1 Hypertension I10 Asthma J45.909
[2025-08-07 15:50] LABS: Magnesium 1.7 mg/dL (1.7-2.3); Procalcitonin 0.06 ng/mL (0-0.5); Thyroid Stimulating Hormone 1.49 uIU/mL (0.27-4.20)
[2025-08-07] MEDS: FUROsemide 10 mg/mL SDV 4mL 40 MG IVP (16:39)
--- NOTE | 2025-08-07 17:48 | ECG_ITS ---
[facility] Date: 2025-08-07 Pat Name: Carmen Richards Department: Room: 112 Gender: Female Forensic Computer Examiner: PATTY: 1975 Requested By: Gay Valles Order Number: [id number] Jeanine MD: Jean-Paul Santana M.D. Measurements Intervals [place] Rate: 108 P: 81 VA: 170 QRS: 93 QRSD: 154 T: -6 QT: 388 QTc: 521 Interpretive Statements SINUS TACHYCARDIA BORDERLINE RIGHT AXIS DEVIATION [QRS AXIS > 90] INTRAVENTRICULAR CONDUCTION DELAY [130+ ms QRS DURATION] Compared to ECG 08/07/2025 15:05:24 Intraventricular conduction delay now present Sinus rhythm no longer present T-wave abnormality no longer present Possible ischemia no longer present Electronically Signed On 08-08-2025 23:40:49 CDT by Jean-Paul Santana M.D. [id number]
[2025-08-07 18:29] LABS: Troponin 5 6HR 43.22 ng/L (0-10); Troponin 5 6HR Delta 6.22 ng/L (0-12)
[2025-08-07] MEDS: cefTRIAXone 1,000 mg SDV 1000 MG IVP (20:47)
[2025-08-07] MEDS: insulin glargine 100 units/1 mL 20 UNIT SUBCUT (20:47)
[2025-08-08] VITALS (10 sets, daily range): BP systolic 94–126; BP diastolic 69–80; PULSE 72–107; RESP 15–32; TEMP 36.6–36.8; O2SAT 90–95
[2025-08-08 04:05] LABS: Hematocrit 48.2 % (36-47); Hemoglobin 15.60 g/dL (11.27-16.99); Mean Corpuscular HGB Conc 32.4 g/dL (30-55); Mean Corpuscular Hemoglobin 31.3 pg (27-33); Mean Corpuscular Volume 96.6 fl (85-98); Nucleated Red Blood Cells % 0 %; Platelet Count 196 10^3/cmm (157-399); Red Blood Count 4.99 10^6/uL (3.85-5.65); White Blood Count 9.20 10^3/uL (3.29-11.43)
[2025-08-08 04:23] LABS: Alanine Aminotransferase 10 U/L (0-33); Albumin Level 2.5 g/dL (3.5-5.2); Alkaline Phosphatase 144 U/L (35-105); Anion Gap 14.5 (5-19); Aspartate Amino Transferase 23 U/L (0-32); Blood Urea Nitrogen 8 mg/dL (6-20); Calcium 8.5 mg/dL (8.5-10.5); Carbon Dioxide 26 mmol/L (22-29); Chloride 96 mmol/L (98-107); Creatinine Clr Calc Pharmacy 107.9238; Globulin 4.4 g/dL (1.3-4.6); Glucose 163 mg/dL (65-115); Osmolality Calculated 278 mOsm/kg (285-295); Potassium 3.5 mmol/L (3.5-5.1); Sodium 133 mmol/L (136-145); Total Protein 6.9 g/dL (6.6-8.7)
[2025-08-08] MEDS: FUROsemide 10 mg/mL SDV 4mL 40 MG IVP (09:37)
--- NOTE | 2025-08-08 10:07 | PC.CHAP ---
Pastoral Care Encounter/Spiritual Assessment Type of Contact [] Declined physician visit [] Patient/Family/Request visit [] Outpatient visit [] Follow-up visit [] Physician referral [] Code/Alert [x] Routine visit [] Staff referral [] Actively dying [] Patient sleeping [] Family support [] [] Out of room [] Palliative care [] [] Receiving care in room [] Pre-surgical visit [] Trauma [] Long length of stay [] ICU visit [] Other: Relational/Emotional Strength [x] Patient feels connected with others/family/visitors/staff [] Distress [] Loneliness/isolation [] Abandonment Spirituality of Patient [x] Person of Linda [] Attends Hoahaoism of their Linda [x] Believes in Prayer [] Reads Bible or Tenriism materials [] There are Spiritual issues to be addressed Telecommunications Professional Interventions [x] Prayer [x] Active listening [] Non-anxious presence [x] Spiritual/emotional support [] Crisis/trauma care [] Spiritual counseling [] Bereavement support [] Provided bereavement packet [] Provided Bible/devotional materials [] Provided toy/stuffed animal, coloring book to patient or family member [] Provided Communion [] Anointing/[place] [] Salvation [x] Completed spiritual assessment [] Other: Impact on Illness or Injury [] Angry [] Fearful [] Anxious [] Often cries [] Exhaustion [] Unable to work [] Unable to attend druze [] Unable to walk/stand [] Unable to read [] Unable to drive [] Unable to eat/drink [] Unable to sleep [] Unable to be with family [] Patient intubated [] Other: Summary Time spent with patient 5 min
[2025-08-08 11:02] LABS: Coronavirus 229E,HKU1,NL63,OC4 Not Detected (NOT DETECT); Parainfluenza Virus Type 1 Not Detected (NOT DETECT); Parainfluenza Virus Type 2 Not Detected (NOT DETECT); Parainfluenza Virus Type 3 Not Detected (NOT DETECT); Parainfluenza Virus Type 4 Not Detected (NOT DETECT); SARS-COV-2 Not Detected (NOT DETECT)
[2025-08-08] MEDS: ondansetron 2 mg/ML SDV 2 mL 4 MG IVP (11:17)
--- NOTE | 2025-08-08 15:42 | PM.PN ---
Subjective Subjective: Patient was seen in the morning, currently feeling better however still requiring oxygen 2 to 3 L and able to speak full sentences. Voiced no other complaints Patient CT scan of the chest was done which showed large right-sided pleural effusion that required drainage with underlying atelectasis. No mass was reported on the scan Vitals/I&O/Wt Last Vital Signs Temp 98.2 F 08/08/25 07:20 Pulse 101 H 08/08/25 15:08 Resp 20 H 08/08/25 15:08 BP 94/72 08/08/25 07:20 Pulse Ox 92 08/08/25 15:08 O2 Del Method Nasal Cannula 08/08/25 15:08 O2 Flow Rate 3 08/08/25 15:08 08/08/25 08/08/25 08/08/25 06:59 14:59 22:59 Intake Total 1090 / 1090 Output Total 1200 / 1200 Balance -110 / -110 Weight last 48 hrs Weight 77.791 kg Weight 77.791 kg Weight 78.925 kg Weight 77.564 kg Physical Exam Narrative: General: Alert and oriented, lying comfortably with mild distress however relatively better than yesterday requiring oxygen through nasal cannula 2 to 3 L per minute through nasal cannula HEENT: Normocephalic, atraumatic, grossly unremarkable exam Cardio: normal rate rhythm, normal S1-S2 without any murmurs, rubs, or gallops and JVD normal Respiratory: normal vascular breathing with reduced air entry at the right right lung up to mid upper zone on auscultation with mild wheezes diffusely heard, no inspiratory or expiratory crackles/crepitations or stridor observed GI: Abdomen soft, nontender, nondistended, normoactive bowel sounds present all 4 quadrants, Neuro: intact cranial nerves motor and sensory and cerebellar/coordination function without any focal neurological deficit Behavior: Appropriate and cooperative Extremities: Adequate palpable pulses, mild trace edema Skin: grossly unremarkable exam Data 08/08/25 03:50 08/08/25 03:50 Micro: Microbiology 08/07/25 14:27 Blood Culture - Preliminary Blood NEGATIVE TO DATE 08/07/25 14:20 Blood Culture - Preliminary Blood NEGATIVE TO DATE A&P Assessment and plan 1. Pleural effusion: CT chest showed large pleural effusion that required drainage. There is mild atelectasis underlying. IR onboard for USG drainage, and to hold aspirin/plavix until 08/10/2026. Oxygen therapy as per protocol DuoNebs Incentive spirometry 2. COPD with acute exacerbation: keep ceftriaxone and azithromycin Respiratory viral panel negative so far Oxygen therapy as protocol Prednisone 40 mg daily for total 5 days DuoNebs as scheduled, levo albuterol instead of albuterol since the patient is tachycardic Pro-Lc is negative and WBCs are not raised 3. Heart failure with reduced ejection fraction: delta troponins are not significant Regular EKG monitoring Telemetry monitoring Resume home medications Aspirin atorvastatin clopidogrel Spironolactone 25 mg daily Intake and output monitoring 40 oral Lasix daily and avoid when the blood pressure systolic is less than 100mmhg 4. Acute on chronic respiratory failure with hypoxia: Secondary to large right-sided pleural effusion with underlying atelectasis seen on the CT chest and likely COPD exacerbation Unrelated to acute congestive heart failure since the patient is euvolemic. Ultrasound-guided thoracocentesis by the IR to be done, hold aspirin and clopidogrel for 48 hours, if patient needs further intervention or escalation then to consider consulting interventional supervisor webbing 5. Diabetes mellitus: Patient takes 60 units of insulin Lantus in the morning, to reduce to 20 units as inpatient and high-dose sliding scale with adequate monitoring 6. Hyperlipidemia: Continue statins at home dose 7. Smoking addiction: Education on emphasis on continuation of abstinence from smoking has been advised to the patient 8. Generalized anxiety disorder: Continue home dose of escitalopram 20 mg in the morning 9. Hypertension: lisinopril if the blood pressure is not controlled 10. Asthma: Continue DuoNebs with levo albuterol and ipratropium since the patient is tachycardic Oxygen therapy as per protocol Oxygen monitoring PDMP PDMP Reviewed: Not Reviewed Attestations Medical Necessity Statement*: The patient will require more than 2 midnights stay for the management of acute hypoxemic respiratory failure from multifactorial reasons, and large right-sided pleural effusion/COPD asthma exacerbation/heart failure with reduced ejection fraction Time Spent in Patient Care: 16 - 35 minutes (>than 50% of time spent in counselling and/or direct pt care on unit). Critical Care Time: The high probability of a clinically significant, sudden or life threatening deterioration, as referenced in this documentation, required my full and direct attention, intervention and personal management. The critical care time shown is in addition to time spent performing any reported separately billable procedures and includes the following: [x] Data and vital sign review and interpretation [x] Patient assessment, examination and intervention [x] Medication orders and management [x] Patient/Family updates as able [x] Care Coordination and Documentation. Critical Care Time (min): 35 Other Attestations: Patient condition has been discussed at length with the patient/family, I have independently reviewed the chart labs imaging/diagnostics/EKG. the goals of care and code status with the patient/family/NOK/legal environmental marketing representative, and documented accordingly. The patient/family has been informed about the current condition and further plan of care. Agreed with the plan of care and understood without any language barrier. Every effort was made to ensure accuracy of lunchroom food service supervisor. Any obvious errors or omissions should be clarified with the author of the document. Coding Level of Care Code Critical Care >/= 30 minutes Diagnoses Pleural effusion J90 COPD with acute exacerbation J44.1 Heart failure with reduced ejection fraction I50.20 Acute on chronic respiratory failure with hypoxia J96.21 Chronicity: acute on chronic Diabetes mellitus E11.9 Hyperlipidemia E78.5 Smoking addiction F17.200 Generalized anxiety disorder F41.1 Hypertension I10 Asthma J45.909
--- NOTE | 2025-08-08 18:55 | CT_ITS ---
WS: [id number] CT chest wo con [id number] HISTORY: Right-sided and large pleural effusion TECHNIQUE: Axial imaging performed through the thorax. Coronal and sagittal reformats are submitted. All CT scans at [facility] use at least one of these dose optimization techniques: automated exposure control; mA and/or kV adjustment per patient size (includes targeted exams where dose is matched to clinical indication); or iterative reconstruction. CONTRAST: None DLP: 546.86 mGy.cm COMPARISON: Prior chest CT 06/24/2025, radiograph 08/07/2025 Lungs and central airway: Large RIGHT pleural effusion causing compressive atelectasis of the majority of the RIGHT lung. Aerated RIGHT lung is being compressed medially. There is interstitial stranding within the aerated lung which is probably edema. LEFT lung is hyperinflated. No left-sided mass. There is a 3 mm nodule at the LEFT lung base. Pleura: Large RIGHT pleural effusion. Without IV contrast cannot evaluate the pleura well for nodules or pleural thickening. Heart and pericardium: Mild cardiomegaly. No pericardial effusion. Mediastinum and fernandez: Small mediastinal and hilar lymph nodes. Some of these lymph nodes contain calcification. Vessels: Mild atherosclerosis aorta. Normal size pulmonary artery. Chest wall and lower neck: No soft tissue masses. Upper abdomen: Cholelithiasis. No evidence for acute cholecystitis by CT. No adrenal mass. Supra renal aortic calcification. Visualized liver is unremarkable without IV contrast. There are a few small lymph nodes along the gastrohepatic ligament. Mild soft tissue anasarca. Osseous structures: No destructive process. CT/CT chest wo con [id number] IMPRESSION: 1. Large RIGHT pleural effusion resulting in compressive atelectasis of the RI GHT lung and medial displacement. Consider right-sided chest tube versus ultras ound-guided thoracentesis. 2. No LEFT pleural effusion. 3. Mild cardiomegaly. 4. Mild soft tissue anasarca. 5. Cholelithiasis without acute cholecystitis.
[2025-08-08] MEDS: insulin glargine 100 units/1 mL 20 UNIT SUBCUT (21:45)
[2025-08-08] MEDS: cefTRIAXone 1,000 mg SDV 1000 MG IVP (21:45)
[2025-08-09] VITALS (16 sets, daily range): BP systolic 93–125; BP diastolic 59–76; PULSE 92–108; RESP 11–31; TEMP 36.1–36.8; O2SAT 88–96
[2025-08-09] MEDS: oxyCODONE 5 mg IR Tab/Cap 10 MG PO ×2 (01:31→13:12)
[2025-08-09] MEDS: FUROsemide 10 mg/mL SDV 4mL 40 MG IVP (02:53)
[2025-08-09 03:29] LABS: Hematocrit 50.0 % (36-47); Hemoglobin 16.20 g/dL (11.27-16.99); Mean Corpuscular HGB Conc 32.4 g/dL (30-55); Mean Corpuscular Hemoglobin 31.2 pg (27-33); Mean Corpuscular Volume 96.3 fl (85-98); Nucleated Red Blood Cells % 0 %; Platelet Count 225 10^3/cmm (157-399); Red Blood Count 5.19 10^6/uL (3.85-5.65); White Blood Count 9.10 10^3/uL (3.29-11.43)
[2025-08-09 03:47] LABS: Alanine Aminotransferase 11 U/L (0-33); Albumin Level 2.9 g/dL (3.5-5.2); Alkaline Phosphatase 167 U/L (35-105); Anion Gap 15.0 (5-19); Aspartate Amino Transferase 20 U/L (0-32); Blood Urea Nitrogen 10 mg/dL (6-20); Calcium 8.9 mg/dL (8.5-10.5); Carbon Dioxide 29 mmol/L (22-29); Chloride 95 mmol/L (98-107); Creatinine Clr Calc Pharmacy 80.3471; Globulin 5.0 g/dL (1.3-4.6); Glucose 150 mg/dL (65-115); Osmolality Calculated 282 mOsm/kg (285-295); Potassium 4.0 mmol/L (3.5-5.1); Sodium 135 mmol/L (136-145); Total Protein 7.9 g/dL (6.6-8.7)
--- NOTE | 2025-08-09 03:49 | PC.NURSE ---
Patient was having pain 7/10. Hydromorphone was taken to patient, patient stated that she would prefer to have her home dose of oxycodone 10mg q8hr or TID instead of hydromorphone. Dr Garzon notified and new orders placed. Patient sounded very wheezy and lungs sounded wet. Dr Garzon notified and new order for lasix 40mg IVP was placed.
--- NOTE | 2025-08-09 09:03 | P.PN_ITS ---
Subjective 2 Subjective: the patient was seen in the morning and doing well voiced no complains stable at 3-4L NC O2 supplementation, able to complete sentences. informed about the procedure for tomorrow and agreeing at the moment for it Vitals/I&O/Wt Last Vital Signs Temp 96.9 F L 08/09/25 07:41 Pulse 92 08/09/25 07:57 Resp 20 H 08/09/25 07:57 BP 104/59 08/09/25 07:41 Pulse Ox 93 08/09/25 07:57 O2 Del Method Nasal Cannula 08/09/25 07:57 O2 Flow Rate 3 08/09/25 07:57 08/08/25 08/09/25 08/09/25 22:59 06:59 14:59 Intake Total 360 / 1450 240 / 1690 240 / 240 Output Total 250 / 1450 450 / 450 Balance 360 / 250 -10 / 240 -210 / -210 Weight last 48 hrs Weight 76.204 kg Weight 77.791 kg Weight 77.791 kg Weight 78.925 kg Weight 77.564 kg Physical Exam 2 Narrative: General: Alert and oriented, lying comfortably without any distress, relatively better than yesterday requiring oxygen through nasal cannula 2 to 3 L per minute HEENT: Normocephalic, atraumatic, grossly unremarkable exam Cardio: normal rate rhythm, normal S1-S2 without any murmurs, rubs, or gallops and JVD normal, appears euvolemic Respiratory: normal vascular breathing with reduced air entry at the right right lung up to mid upper zone on auscultation with mild wheezes diffusely heard more on the left side, no inspiratory or expiratory crackles/crepitations or stridor observed GI: Abdomen soft, nontender, nondistended, normoactive bowel sounds present all 4 quadrants, Neuro: intact cranial nerves motor and sensory and cerebellar/coordination function without any focal neurological deficit Behavior: Appropriate and cooperative Extremities: Adequate palpable pulses, mild trace edema stable since admission Skin: grossly unremarkable exam Data 08/09/25 03:07 08/09/25 03:07 Micro: Microbiology 08/07/25 14:27 Blood Culture - Preliminary Blood NEGATIVE TO DATE 08/07/25 14:20 Blood Culture - Preliminary Blood NEGATIVE TO DATE A&P Assessment and plan 1. Pleural effusion: CT chest showed large pleural effusion that required drainage. There is mild atelectasis underlying. IR onboard for USG drainage, and to hold aspirin/plavix until 08/10/2026. Oxygen therapy as per protocol DuoNebs Incentive spirometry 2. COPD with acute exacerbation: keep ceftriaxone and azithromycin Respiratory viral panel negative so far, blood cultures no growth Oxygen therapy as protocol Prednisone 40 mg daily for total 5 days DuoNebs as scheduled, levo albuterol instead of albuterol since the patient is tachycardic Pro-Lc is negative and WBCs are not raised 3. Heart failure with reduced ejection fraction: delta troponins are not significant echo: 06/24/25: EF of 30-35%. Regular EKG monitoring Telemetry monitoring Resume home medications Aspirin atorvastatin clopidogrel Spironolactone 25 mg daily Intake and output monitoring 40 oral Lasix daily and avoid when the blood pressure systolic is less than 100mmhg 4. Acute on chronic respiratory failure with hypoxia: Secondary to large right-sided pleural effusion with underlying atelectasis seen on the CT chest and likely COPD exacerbation Unrelated to acute congestive heart failure since the patient is euvolemic. Ultrasound-guided thoracocentesis by the IR to be done, hold aspirin and clopidogrel for 48 hours, if patient needs further intervention or escalation then to consider consulting interventional player services representative 5. Diabetes mellitus: Patient takes 60 units of insulin Lantus in the morning, to give 20 units as inpatient and high-dose sliding scale with adequate monitoring 6. Hyperlipidemia: Continue statins at home dose 7. Smoking addiction: Education on emphasis on continuation of abstinence from smoking has been advised to the patient 8. Generalized anxiety disorder: Continue home dose of escitalopram 20 mg in the morning 9. Hypertension: Currently hold lisinopril since the patient blood pressure is stable and in normal range 10. Asthma: Continue DuoNebs with levo albuterol and ipratropium, to avoid tachycardia Oxygen therapy as per protocol Oxygen monitoring PDMP PDMP Reviewed: Not Reviewed Attestations 2 Medical Necessity Statement*: The patient will require more than 2 midnights stay for the management of acute hypoxemic respiratory failure from multifactorial reasons, and large right-sided pleural effusion more likely /COPD asthma exacerbation/ less likely to be acute CHF Time Spent in Patient Care: 16 - 35 minutes (>than 50% of time sp ent in counselling and/or direct pt care on unit) . Critical Care Time: The high probability of a clinically significant, sudden or life threatening deterioration, as referenced in this documentation, required my full and direct attention, intervention and personal management. The critical care time shown is in addition to time spent performing any reported separately billable procedures and includes the following: [x] Data and vital sign review and interpretation [x ] Patient assessment, examination and intervention [x] Medication orders and management [x] Patient/Family updates as able [x] Care Coordination and Documentation. Critical Care Time (min): 35 Critical Care Time (min): 35 Other Attestations: Patient condition has been discussed at length with the patient/family, I have independently reviewed the chart labs imaging/diagnostics/EKG. the goals of care and code status with the patient/family/NOK/legal customer retention representative, and documented accordingly. The patient/family has been informed about the current condition and further plan of care. Agreed with the plan of care and understood without any language barrier. Every effort was made to ensure accuracy of pathology secretary/transcriptionist. Any obvious errors or omissions should be clarified with the author of the document. Coding Level of Care Code Critical Care >/= 30 minutes Diagnoses Pleural effusion J90 COPD with acute exacerbation J44.1 Heart failure with reduced ejection fraction I50.20 Acute on chronic respiratory failure with hypoxia J96.21 Chronicity: acute on chronic Diabetes mellitus E11.9 Hyperlipidemia E78.5 Smoking addiction F17.200 Generalized anxiety disorder F41.1 Hypertension I10 Asthma J45.909
[2025-08-09] MEDS: cefTRIAXone 1,000 mg SDV 1000 MG IVP (16:53)
[2025-08-09] MEDS: insulin glargine 100 units/1 mL 20 UNIT SUBCUT (21:25)
[2025-08-10] VITALS (59 sets, daily range): BP systolic 82–123; BP diastolic 49–97; PULSE 65–102; RESP 7–42; TEMP 35.8–36.8; O2SAT 83–100
[2025-08-10] MEDS: oxyCODONE 5 mg IR Tab/Cap 10 MG PO ×2 (00:25→14:40)
[2025-08-10 04:06] LABS: Hematocrit 44.0 % (36-47); Hemoglobin 14.30 g/dL (11.27-16.99); Mean Corpuscular HGB Conc 32.5 g/dL (30-55); Mean Corpuscular Hemoglobin 31.3 pg (27-33); Mean Corpuscular Volume 96.3 fl (85-98); Nucleated Red Blood Cells % 0 %; Platelet Count 220 10^3/cmm (157-399); Red Blood Count 4.57 10^6/uL (3.85-5.65); White Blood Count 8.05 10^3/uL (3.29-11.43)
[2025-08-10 04:34] LABS: Alanine Aminotransferase 9 U/L (0-33); Albumin Level 2.5 g/dL (3.5-5.2); Alkaline Phosphatase 136 U/L (35-105); Anion Gap 14.1 (5-19); Aspartate Amino Transferase 15 U/L (0-32); Blood Urea Nitrogen 14 mg/dL (6-20); Calcium 9.3 mg/dL (8.5-10.5); Carbon Dioxide 29 mmol/L (22-29); Chloride 95 mmol/L (98-107); Creatinine Clr Calc Pharmacy 79.8706; Globulin 4.4 g/dL (1.3-4.6); Glucose 249 mg/dL (65-115); Osmolality Calculated 287 mOsm/kg (285-295); Potassium 4.1 mmol/L (3.5-5.1); Sodium 134 mmol/L (136-145); Total Protein 6.9 g/dL (6.6-8.7)
[2025-08-10 11:46] LABS: INR 1.02 (0.8-1.2); Prothrombin Time 14.10 SECONDS (12.1-14.9)
--- NOTE | 2025-08-10 12:08 | US_ITS ---
WS: [id number] ULTRASOUND-GUIDED THORACENTESIS CLINICAL INFORMATION: RIGHT SIDE PLEURAL EFFUSION PROCEDURE: Informed consent: The risks, benefits, and alternatives of the procedure were discussed with the patient. Verbal and written consent was obtained. Timeout: A timeout was performed to confirm the correct patient, procedure, and site. Site: RIGHT Preparation: A suitable skin site was identified. The patient was prepped and draped in usual sterile fashion. Lidocaine 1% was used for local anesthesia. Catheter: 4 [place] One-Step catheter. Fluid Volume: 1000 ml Color: Brownish-yellow Discarded safely. Sent to the laboratory for analysis. Complications: None. / thoracentesis [id number] IMPRESSION: Uncomplicated ultrasound-guided RIGHT thoracentesis.
--- NOTE | 2025-08-10 13:05 | P.PN_ITS ---
Subjective 2 Subjective: the patient was seen in the morning and doing well voiced no complains stable at 3-4L NC O2 supplementation, able to complete sentences. Today patient is for procedure, ultrasound-guided thoracocentesis, explained to the patient and already coordinated with the radiologist and confirmed. PT/INR in normal range, Plavix and aspirin held since 48 hours Vitals/I&O/Wt Last Vital Signs Temp 97.4 F L 08/10/25 11:30 Pulse 98 08/10/25 11:30 Resp 16 08/10/25 11:30 BP 107/73 08/10/25 11:30 Pulse Ox 91 08/10/25 11:30 O2 Del Method Nasal Cannula 08/10/25 11:30 O2 Flow Rate 4 08/10/25 11:16 08/09/25 08/10/25 08/10/25 22:59 06:59 14:59 Intake Total 480 / 1210 300 / 1510 370 / 370 Output Total 700 / 1900 200 / 2100 Balance -220 / -690 100 / -590 370 / 370 Weight last 48 hrs Weight 75.251 kg Weight 76.884 kg Weight 76.204 kg Physical Exam 2 Narrative: General: Alert and oriented, lying comfortably without any distress, relatively better than yesterday requiring oxygen through nasal cannula 2 to 3 L per minute HEENT: Normocephalic, atraumatic, grossly unremarkable exam Cardio: normal rate rhythm, normal S1-S2 without any murmurs, rubs, or gallops and JVD normal, appears euvolemic Respiratory: normal vascular breathing with reduced air entry at the right right lung up to mid upper zone on auscultation without wheezes, no inspiratory or expiratory crackles/crepitations or stridor observed GI: Abdomen soft, nontender, nondistended, normoactive bowel sounds present all 4 quadrants, Neuro: intact cranial nerves motor and sensory and cerebellar/coordination function without any focal neurological deficit Behavior: Appropriate and cooperative Extremities: Adequate palpable pulses, mild trace edema stable since admission Skin: grossly unremarkable exam Data 08/10/25 03:45 08/10/25 03:45 A&P Assessment and plan 1. Pleural effusion: CT chest showed large pleural effusion that required drainage. There is mild atelectasis underlying. IR onboard for USG drainage today 08/10/2024, and to hold aspirin/plavix until 08/10/2026. Ordered pleural fluid analysis postdrainage Oxygen therapy as per protocol DuoNebs Incentive spirometry 2. COPD with acute exacerbation: keep ceftriaxone for 5 to 7 days and azithromycin for total 3 days Respiratory viral panel negative so far, blood cultures no growth Oxygen therapy as protocol Prednisone 40 mg daily for total 5 days DuoNebs as scheduled, levo albuterol instead of albuterol since the patient is tachycardic Pro-Lc is negative and WBCs are not raised 3. Heart failure with reduced ejection fraction: delta troponins are not significant echo: 06/24/25: EF of 30-35%. Regular EKG monitoring Continue telemetry monitoring Resume home medications Aspirin atorvastatin clopidogrel Spironolactone 25 mg daily Intake and output monitoring 40 oral Lasix daily and avoid when the blood pressure systolic is less than 100mmhg 4. Acute on chronic respiratory failure with hypoxia: Secondary to large right-sided pleural effusion with underlying atelectasis seen on the CT chest and likely COPD exacerbation Unrelated to acute congestive heart failure since the patient is euvolemic. Ultrasound-guided thoracocentesis by the IR to be done, hold aspirin and clopidogrel for 48 hours, if patient needs further intervention or escalation then to consider consulting interventional culture room worker 5. Diabetes mellitus: Patient takes 60 units of insulin Lantus in the morning, continue 20 units as inpatient and high-dose sliding scale with adequate monitoring 6. Hyperlipidemia: Continue statins at home dose 7. Smoking addiction: Education on emphasis on continuation of abstinence from smoking has been advised to the patient 8. Generalized anxiety disorder: Continue home dose of escitalopram 20 mg in the morning 9. Hypertension: Currently hold lisinopril since the patient blood pressure is stable and in normal range 10. Asthma: Continue DuoNebs with levo albuterol and ipratropium, to avoid tachycardia Oxygen therapy as per protocol Oxygen monitoring PDMP PDMP Reviewed: Not Reviewed Attestations 2 Medical Necessity Statement*: The patient will require more than 2 midnights stay for the management of acute hypoxemic respiratory failure from multifactorial reasons, and large right-sided pleural effusion more likely /COPD asthma exacerbation/ less likely to be acute CHF Time Spent in Patient Care: 16 - 35 minutes (>than 50% of time sp ent in counselling and/or direct pt care on unit) . Critical Care Time: The high probability of a clinically significant, sudden or life threatening deterioration, as referenced in this documentation, required my full and direct attention, intervention and personal management. The critical care time shown is in addition to time spent performing any reported separately billable procedures and includes the following: [x] Data and vital sign review and interpretation [x ] Patient assessment, examination and intervention [x] Medication orders and management [x] Patient/Family updates as able [x] Care Coordination and Documentation. Critical Care Time (min): 35 Other Attestations: Patient condition has been discussed at length with the patient/family, I have independently reviewed the chart labs imaging/diagnostics/EKG. the goals of care and code status with the patient/family/NOK/legal videotape sales representative, and documented accordingly. The patient/family has been informed about the current condition and further plan of care. Agreed with the plan of care and understood without any language barrier. Every effort was made to ensure accuracy of fabrication department supervisor. Any obvious errors or omissions should be clarified with the author of the document. Coding Level of Care Code Critical Care >/= 30 minutes Diagnoses Pleural effusion J90 COPD with acute exacerbation J44.1 Heart failure with reduced ejection fraction I50.20 Acute on chronic respiratory failure with hypoxia J96.21 Chronicity: acute on chronic Diabetes mellitus E11.9 Hyperlipidemia E78.5 Smoking addiction F17.200 Generalized anxiety disorder F41.1 Hypertension I10 Asthma J45.909
--- NOTE | 2025-08-10 14:15 | XR_ITS ---
WS: [id number] XR chest 1V portable [id number] REASON FOR EXAM: post op thoracentesis FINDINGS: Significant reduction in the right pleural effusion volume compared to 08/07/2025. moderate residual remaining. No pneumothorax. No other interval change or new finding. XR/XR chest 1V portable [id number] IMPRESSION: Post right thoracentesis as above.
[2025-08-10 17:14] LABS: Body Fluid Polynuclear #Cells 0.913; Monocytes # Body Fluid 1.444; Mononuclear WBC Body Fluid % 61.300 %; Polynuclear WBC Body Fluid % 38.700 %
[2025-08-10 17:29] LABS: Apprearance, Body Fluid CLOUDY; Color, Body Fluid AMBER
[2025-08-10 17:30] LABS: Cyto Order Verification Order Verified
[2025-08-10 17:31] LABS: Fluid Laterality RIGHT PLEURAL FLUID
[2025-08-10] MEDS: cefTRIAXone 1,000 mg SDV 1000 MG IVP (19:29)
[2025-08-10] MEDS: insulin glargine 100 units/1 mL 20 UNIT SUBCUT (19:30)
[2025-08-11] VITALS (22 sets, daily range): BP systolic 91–110; BP diastolic 56–71; PULSE 71–86; RESP 10–26; TEMP 35.7–37.1; O2SAT 89–96; BMI 31.0
[2025-08-11] MEDS: oxyCODONE 5 mg IR Tab/Cap 10 MG PO ×3 (00:03→20:19)
--- NOTE | 2025-08-11 10:53 | PM.PN ---
Subjective Subjective: Patient s/p thoracocentesis, 08/10/2025 Patient had ultrasound-guided thoracocentesis and approximately 1 L of brownish-yellowish fluid was removed Postprocedure chest x-ray unremarkable for any pneumothorax or procedure complications with remarkable resolution of the right-sided pleural effusion The patient stable and currently feeling better voice no complaints Vitals/I&O/Wt Last Vital Signs Temp 96.2 F L 08/11/25 03:17 Pulse 71 08/11/25 08:04 Resp 17 08/11/25 08:00 BP 98/71 08/11/25 08:00 Pulse Ox 93 08/11/25 08:04 O2 Del Method Nasal Cannula 08/11/25 08:04 O2 Flow Rate 2 08/11/25 08:04 08/10/25 08/11/25 08/11/25 22:59 06:59 14:59 Intake Total 480 / 850 200 / 200 Output Total 1400 / 1400 Balance -920 / -550 200 / 200 Weight last 48 hrs Weight 77.02 kg Weight 77.02 kg Weight 75.251 kg Weight 76.884 kg Physical Exam Narrative: General: Alert and oriented, lying comfortably without any distress, relatively better than yesterday requiring oxygen through nasal cannula 2 to 3 L per minute HEENT: Normocephalic, atraumatic, grossly unremarkable exam Cardio: normal rate rhythm, normal S1-S2 without any murmurs, rubs, or gallops and JVD normal, appears euvolemic Respiratory: normal vascular breathing with reduced air entry at the right right lung at bases and relatively improved air entry at the middle and upper zone, without wheezes, no inspiratory or expiratory crackles/crepitations or stridor observed GI: Abdomen soft, nontender, nondistended, normoactive bowel sounds present all 4 quadrants, Neuro: intact cranial nerves motor and sensory and cerebellar/coordination function without any focal neurological deficit Behavior: Appropriate and cooperative Extremities: Adequate palpable pulses, mild trace edema stable since admission Skin: grossly unremarkable exam Data 08/10/25 03:45 08/10/25 03:45 Micro: Microbiology 08/10/25 16:30 Gram Stain - Preliminary Pleural Fluid A&P Assessment and plan 1. Pleural effusion: S/p 1 L of pleural fluid drainage on 08/10/2025, Aspirin and Plavix resumed Pleural fluid analysis showed, -Pleural fluid total protein/serum total protein: 0.5 and pleural fluid LDH divided by serum LDH >0.6, the findings correlate with transudative pathology most likely parapneumonic effusion. - Continue antibiotic therapy With ceftriaxone, already completed 3 days of azithromycin. -Follow-up Gram stain and fungal smear from pleural fluid -Blood cultures to date negative -oxygen therapy as per protocol DuoNebs Incentive spirometry 2. COPD with acute exacerbation: keep ceftriaxone for 5 to 7 days and azithromycin completed for total 3 days Respiratory viral panel negative so far, blood cultures no growth Oxygen therapy as protocol Prednisone 40 mg daily for total 5 days DuoNebs as scheduled, levo albuterol instead of albuterol since the patient is tachycardic Pro-Lc is negative and WBCs are not raised 3. Heart failure with reduced ejection fraction: delta troponins are not significant echo: 06/24/25: EF of 30-35%. Regular EKG monitoring Continue telemetry monitoring Resume home medications Aspirin atorvastatin clopidogrel Spironolactone 25 mg daily Intake and output monitoring 40 oral Lasix daily and avoid when the blood pressure systolic is less than 100mmhg 4. Acute on chronic respiratory failure with hypoxia: Secondary to large right-sided pleural effusion with underlying atelectasis seen on the CT chest and likely COPD exacerbation s/p drainage and suggestive of parapneumonic effusion/exudative in nature, currently improving Unrelated to acute congestive heart failure since the patient is euvolemic. Follow-up pleural fluid Gram stain and cultures 5. Diabetes mellitus: Patient takes 60 units of insulin Lantus in the morning, Increase glargine to 22 units from 20 to optimize further blood glucose levels, and high-dose sliding scale with adequate monitoring 6. Hyperlipidemia: Continue statins at home dose 7. Smoking addiction: Education on emphasis on continuation of abstinence from smoking has been advised to the patient 8. Generalized anxiety disorder: Continue home dose of escitalopram 20 mg in the morning 9. Hypertension: Currently hold lisinopril since the patient blood pressure is stable and in normal range 10. Asthma: Continue DuoNebs with levo albuterol and ipratropium, to avoid tachycardia Oxygen therapy as per protocol Oxygen monitoring PDMP PDMP Reviewed: Not Reviewed Attestations Medical Necessity Statement*: The patient will require more than 2 midnights stay for the management of acute hypoxemic respiratory failure from multifactorial reasons, and large right-sided pleural effusion s/p thoracocentesis, also likely /COPD asthma exacerbation/ less likely to be acute CHF Time Spent in Patient Care: 16 - 35 minutes (>than 50% of time spent in counselling and/or direct pt care on unit). Other Attestations: Patient condition has been discussed at length with the patient/family, I have independently reviewed the chart labs imaging/diagnostics/EKG. the goals of care and code status with the patient/family/NOK/legal cash applications representative, and documented accordingly. The patient/family has been informed about the current condition and further plan of care. Agreed with the plan of care and understood without any language barrier. Every effort was made to ensure accuracy of e commerce merchandising coordinator. Any obvious errors or omissions should be clarified with the author of the document. Coding Level of Care Code 11221 Diagnoses Pleural effusion J90 COPD with acute exacerbation J44.1 Heart failure with reduced ejection fraction I50.20 Acute on chronic respiratory failure with hypoxia J96.21 Chronicity: acute on chronic Diabetes mellitus E11.9 Hyperlipidemia E78.5 Smoking addiction F17.200 Generalized anxiety disorder F41.1 Hypertension I10 Asthma J45.909
[2025-08-11] MEDS: insulin glargine 100 units/1 mL 22 UNIT SUBCUT (20:04)
[2025-08-11] MEDS: cefTRIAXone 1,000 mg SDV 1000 MG IVP (20:04)
[2025-08-12] VITALS (9 sets, daily range): BP systolic 102–117; BP diastolic 58–71; PULSE 76–80; RESP 11–21; TEMP 36.4–37; O2SAT 90–95
--- NOTE | 2025-08-12 00:27 | PC.NURSE ---
patient told me upon 8pm vitals that if she was sleeping at 12am vitals DO NOT wake her up for a blood pressure
[2025-08-12 04:54] LABS: Hematocrit 41.0 % (36-47); Hemoglobin 13.00 g/dL (11.27-16.99); Mean Corpuscular HGB Conc 31.7 g/dL (30-55); Mean Corpuscular Hemoglobin 30.8 pg (27-33); Mean Corpuscular Volume 97.2 fl (85-98); Nucleated Red Blood Cells % 0 %; Platelet Count 194 10^3/cmm (157-399); Red Blood Count 4.22 10^6/uL (3.85-5.65); White Blood Count 8.71 10^3/uL (3.29-11.43)
[2025-08-12 05:22] LABS: Alanine Aminotransferase 8 U/L (0-33); Albumin Level 2.4 g/dL (3.5-5.2); Alkaline Phosphatase 137 U/L (35-105); Anion Gap 13.9 (5-19); Aspartate Amino Transferase 15 U/L (0-32); Blood Urea Nitrogen 20 mg/dL (6-20); Calcium 9.0 mg/dL (8.5-10.5); Carbon Dioxide 29 mmol/L (22-29); Chloride 96 mmol/L (98-107); Creatinine Clr Calc Pharmacy 80.2042; Globulin 4.2 g/dL (1.3-4.6); Glucose 236 mg/dL (65-115); Osmolality Calculated 290 mOsm/kg (285-295); Potassium 3.9 mmol/L (3.5-5.1); Sodium 135 mmol/L (136-145); Total Protein 6.6 g/dL (6.6-8.7)
[2025-08-12] MEDS: oxyCODONE 5 mg IR Tab/Cap 10 MG PO (06:16)
--- NOTE | 2025-08-12 12:23 | P.DS_ITS ---
Discharge Providers Date of Admission: 08/07/25 15:44 Date of Discharge: August 12, 2025 Attending Provider at Admission: Gay Valles MD Attending Provider at Discharge: Gay Valles MD Primary Care Provider: Sushil Mobley MD Diagnoses at Discharge Discharge Diagnosis 1. Pleural effusion: 2. COPD with acute exacerbation: 3. Heart failure with reduced ejection fraction: 4. Acute on chronic respiratory failure with hypoxia: 5. Diabetes mellitus: 6. Hyperlipidemia: 7. Smoking addiction: 8. Generalized anxiety disorder: 9. Hypertension: 10. 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 As per the documentation she left AMA because she was not feeling well and later came with apologetic behavior. He also mentioned in the previous note that she does not want to be resuscitated or intubated. She was managed as a case of acute congestive failure community-acquired pneumonia with antibiotics and aggressive diuresis. She later on was discharged after stabilization Today she presented again with shortness of breath that has been ongoing from the last 4 to 5 days. The patient also reported having a sick contact and some upper respiratory tract like infection from the last 3 to 4 days and also reported having mild fevers in the last couple of few days.. She did not report any worsening of her lower leg swellings, PND or any orthopnea. She uses at baseline 3 pillows which did not increase from the last couple of days. She is compliant with her medications Patient did not report any chest heaviness, chest pain, cold settings, diaphoresis, syncope or presyncope or any palpitations. Ex-smoker and nonalcoholic Goals of care were discussed with the patient and the patient preferred natural . Hospital Course Hospital Course During her hospital stay the patient underwent further investigation with CT chest which showed right-sided large pleural effusion and she was also treated with antibiotics with ceftriaxone and azithromycin considering her underlying comorbidity of COPD and currently is smoking. She also received steroids during her hospital stay as DuoNebs were given she improved with DuoNebs. Pro-Lc was negative. Respiratory viral panel was also negative. For her right-sided large pleural effusion she underwent ultrasound-guided thoracocentesis and showed exudative pleural effusion based on the lights criteria. Gram stain prelim was negative. Blood cultures did not show growth till date. She received oxygen therapy as per protocol and after thoracocentesis her oxygen requirement and shortness of breath improved. Her baseline comorbidities were also managed during her hospital stay without any complication. Her hospital stay was uncomplicated. She had a history of heart failure with ejection fraction of 30 to 35%. We resumed her home medications and based on the heart rate and blood pressure patient was started on carvedilol 12.5 mg twice daily which she tolerated well. The patient has been provided with pulmonology and primary care physician follow-up to further review the results of pleural fluid analysis path and fungal culture. Patient also been informed about her plan of care and the need of follow-ups. Her contact details has been taken and to follow the results as outpatient, and to relay any changes afterwards postdischarge based on the results that will be followed. Patient condition has been discussed at length with the patient/family, I have independently reviewed the chart labs imaging/diagnostics/EKG. the goals of care and code status with the patient/family/NOK/legal termite control representative, and documented accordingly. The patient/family has been informed about the current condition and further plan of care. Agreed with the plan of care and understood without any language barrier. Every effort was made to ensure accuracy of articulation officer. Any obvious errors or omissions should be clarified with the author of the document. Physical Exam Narrative: General: Alert and oriented, lying comfortably without any distress, relatively better requiring oxygen through nasal cannula 2 to 3 L per minute, speaking in full sentences HEENT: Normocephalic, atraumatic, grossly unremarkable exam Cardio: normal rate rhythm, normal S1-S2 without any murmurs, rubs, or gallops and JVD normal, appears euvolemic Respiratory: normal vascular breathing with reduced air entry at the right right lung at bases and relatively improved air entry at the middle and upper zone, without wheezes, no inspiratory or expiratory crackles/crepitations or stridor observed GI: Abdomen soft, nontender, nondistended, normoactive bowel sounds present all 4 quadrants, Neuro: intact cranial nerves motor and sensory and cerebellar/coordination function without any focal neurological deficit Behavior: Appropriate and cooperative Extremities: Adequate palpable pulses, mild trace edema stable since admission Skin: grossly unremarkable exam Discharge Data Studies Completed and Pending Completed Studies During Hospitalization Category Date Time Status CT chest wo con [id number] Routine Cat Scan 08/08/25 18:55 Completed XR chest 1V portable [id number] Stat Exams 08/07/25 12:03 Completed XR chest 1V portable [id number] Stat Exams 08/10/25 14:15 Completed US thoracentesis [id number] Routine Ultrasound 08/10/25 12:08 Completed Pending at discharge Category Date Time Status Amylase, Pleural Fluid Routine Lab 08/10/25 16:30 Received Anaerobic Culture Routine Lab 08/10/25 16:30 Results Blood Culture Stat Lab 08/07/25 14:20 Results Body Fluid Culture & GS Routine Lab 08/10/25 16:30 Results Fungal Culture not HR/SK/BL Routine Lab 08/10/25 16:30 Received Cytology [PTH] Routine Pth 08/10/25 16:30 Received Radiology Impressions Chest CT 08/08/25 18:55 IMPRESSION: 1. Large RIGHT pleural effusion resulting in compressive atelectasis of the RIGHT lung and medial displacement. Consider right-sided chest tube versus ultrasound-guided thoracentesis. 2. No LEFT pleural effusion. 3. Mild cardiomegaly. 4. Mild soft tissue anasarca. 5. Cholelithiasis without acute cholecystitis. Thoracentesis Ultrasound 08/10/25 12:08 IMPRESSION: Uncomplicated ultrasound-guided RIGHT thoracentesis. Chest X-Ray 08/10/25 14:15 IMPRESSION: Post right thoracentesis as above. Laboratory Results WBC 8.71 10^3/uL (3.29-11.43) 08/12/25 03:05 RBC 4.22 10^6/uL (3.85-5.65) 08/12/25 03:05 Hgb 13.00 g/dL (11.27-16.99) 08/12/25 03:05 Hct 41.0 % (36-47) 08/12/25 03:05 MCV 97.2 fl (85-98) 08/12/25 03:05 MCH 30.8 pg (27-33) 08/12/25 03:05 MCHC 31.7 g/dL (30-55) 08/12/25 03:05 RDW 13.5 % (12.1-15.1) 08/12/25 03:05 Plt Count 194 10^3/cmm (157-399) 08/12/25 03:05 MPV 10.2 fL (7.4-10.4) 08/12/25 03:05 Neut % (Auto) 73.3 % 08/12/25 03:05 Lymph % (Auto) 15.3 % 08/12/25 03:05 [place] % (Auto) 11.1 % 08/12/25 03:05 Eos % (Auto) 0.0 % 08/12/25 03:05 Baso % (Auto) 0.1 % 08/12/25 03:05 Neut # (Auto) 6.38 10^3/uL (1.8-7.7) 08/12/25 03:05 Lymph # (Auto) 1.3 10^3/uL (0.8-4.8) 08/12/25 03:05 [place] # (Auto) 1.0 10^3/uL (0.2-0.9) H 08/12/25 03:05 Eos # (Auto) 0.0 10^3/uL (0.0-0.8) 08/12/25 03:05 Baso # (Auto) 0.0 10^3/uL (0.0-0.1) 08/12/25 03:05 Nucleated RBC % (auto) 0 % 08/12/25 03:05 Nucleated RBCs # 0.0 /100WBC 08/12/25 03:05 ESR 85 mm/hr (0-15) H 08/07/25 11:55 PT 14.10 SECONDS (12.1-14.9) 08/10/25 11:28 INR 1.02 (0.8-1.2) 08/10/25 11:28 Sodium 135 mmol/L (136-145) L 08/12/25 03:05 Potassium 3.9 mmol/L (3.5-5.1) 08/12/25 03:05 Chloride 96 mmol/L (98-107) L 08/12/25 03:05 Carbon Dioxide 29 mmol/L (22-29) 08/12/25 03:05 Anion Gap 13.9 (5-19) 08/12/25 03:05 BUN 20 mg/dL (6-20) 08/12/25 03:05 Creatinine 0.8 mg/dL (0.5-0.9) 08/12/25 03:05 GFR Calculation 75.6 mL/min (90-130) L 08/12/25 03:05 Glucose 236 mg/dL (65-115) H 08/12/25 03:05 POC Glucose 236 mg/dL (70-110) H 08/12/25 06:10 Calculated Osmolality 290 mOsm/kg (285-295) 08/12/25 03:05 Lactic Acid 1.3 mmol/L (0.5-2.2) 08/07/25 14:20 Calcium 9.0 mg/dL (8.5-10.5) 08/12/25 03:05 Phosphorus 3.1 mg/dL (2.5-4.5) 08/07/25 11:55 Magnesium 1.7 mg/dL (1.7-2.3) 08/07/25 11:55 Total Bilirubin 0.2 mg/dL (0.15-1.2) 08/12/25 03:05 AST 15 U/L (0-32) 08/12/25 03:05 ALT 8 U/L (0-33) 08/12/25 03:05 Alkaline Phosphatase 137 U/L (35-105) H 08/12/25 03:05 Lactate Dehydrogenase 113 U/L (135-214) L 08/10/25 03:45 Troponin T Baseline 37 ng/L (0-10) H 08/07/25 11:55 Troponin T 120 Minute 38.14 ng/L (0-10) H 08/07/25 14:13 Delta Troponin T 1.14 ABS# (0-10) 08/07/25 14:13 Troponin T Hi Sens 6Hr 43.22 ng/L (0-10) H 08/07/25 17:43 Troponin T Hi Sens 6Hr Delta 6.22 ng/L (0-12) 08/07/25 17:43 NT-Pro-B Natriuret Pep 5328 pg/mL (0-125) H 08/07/25 11:55 Total Protein 6.6 g/dL (6.6-8.7) 08/12/25 03:05 Albumin 2.4 g/dL (3.5-5.2) L 08/12/25 03:05 Globulin 4.2 g/dL (1.3-4.6) 08/12/25 03:05 Procalcitonin 0.06 ng/mL (0-0.5) 08/07/25 11:55 TSH 1.49 uIU/mL (0.27-4.20) 08/07/25 11:55 Urine Color Dark yellow (Yellow) A 08/07/25 13:41 Urine Appearance Cloudy (CLEAR) A 08/07/25 13:41 Urine pH 6.0 (5-7) 08/07/25 13:41 Ur Specific [place] 1.022 (1.005-1.030) 08/07/25 13:41 Urine Protein 2+ (Negative) A 08/07/25 13:41 Urine Glucose (UA) 1+ (Normal) H 08/07/25 13:41 Urine Ketones Negative (Negative) 08/07/25 13:41 Urine Blood Negative (Negative) 08/07/25 13:41 Urine Nitrate Negative (Negative) 08/07/25 13:41 Urine Bilirubin 2+ (Negative) H 08/07/25 13:41 Urine Urobilinogen 4.0 mg/dL (Negative) H 08/07/25 13:41 Ur Leukocyte Esterase Trace (Negative) A 08/07/25 13:41 Urine RBC 0-2 /hpf (0-2) 08/07/25 13:41 Urine WBC 6-10 /hpf (0-5) 08/07/25 13:41 Ur Squamous Epith Cells 21-50 /hpf (0-5) H 08/07/25 13:41 Amorphous Sediment Not Reportable 08/07/25 13:41 Urine Bacteria 1+ /hpf (NONE) H 08/07/25 13:41 Hyaline Casts 4.95 /lpf 08/07/25 13:41 Fluid Color Lori 08/10/25 16:30 Fluid Appearance Cloudy 08/10/25 16:30 Fluid pH 7.0 08/10/25 16:30 Fluid WBC 2357 /uL 08/10/25 16:30 Fluid RBC 10.000 10^3/uL 08/10/25 16:30 Fld Polynuclear WBCs # 0.913 08/10/25 16:30 Fld Polynuclear WBCs % 38.700 % 08/10/25 16:30 Fl Mononucl WBCs #(Auto) 1.444 08/10/25 16:30 Fl Mononuclear % Auto 61.300 % 08/10/25 16:30 Fld Crystal Laterality Right pleural fluid 08/10/25 16:30 Fluid Glucose 161.0 mg/dL 08/10/25 16:30 Fluid Albumin 1.7 g/dL 08/10/25 16:30 Fluid LDH 158 U/L 08/10/25 16:30 Fluid Triglycerides 27 mg/dL (0-150) 08/10/25 16:30 Pleural Total Protein 3.5 g/dL 08/10/25 16:30 Adenovirus (PCR) Not detected (NOT DETECT) 08/08/25 08:07 C. pneumoniae DNA (PCR) Not detected (NOT DETECT) 08/08/25 08:07 Coronavirus 229E (PCR) Not detected (NOT DETECT) 08/08/25 08:07 Human Metapneumovir PCR Not detected (NOT DETECT) 08/08/25 08:07 Influenza A (H1) PCR Not detected (NOT DETECT) 08/08/25 08:07 Influ A (H1/09) PCR Not detected (NOT DETECT) 08/08/25 08:07 Influenza A (H3) PCR Not detected (NOT DETECT) 08/08/25 08:07 Influenza Type A (PCR) Not detected (NOT DETECT) 08/08/25 08:07 Influenza Type B (PCR) Not detected (NOT DETECT) 08/08/25 08:07 M. pneumoniae (PCR) Not detected (NOT DETECT) 08/08/25 08:07 Parainfluenza 1 (PCR) Not detected (NOT DETECT) 08/08/25 08:07 Parainfluenza 2 (PCR) Not detected (NOT DETECT) 08/08/25 08:07 Parainfluenza 3 (PCR) Not detected (NOT DETECT) 08/08/25 08:07 Parainfluenza 4 (PCR) Not detected (NOT DETECT) 08/08/25 08:07 RSV Type A (PCR) Not detected (NOT DETECT) 08/08/25 08:07 RSV Type B (PCR) Not detected (NOT DETECT) 08/08/25 08:07 Entero/Rhino (PCR) Not detected (NOT DETECT) 08/08/25 08:07 SARS-CoV-2 (PCR) Not detected (NOT DETECT) 08/08/25 08:07 Vitals Last Vital Signs Temp 98.6 F 08/12/25 11:19 Pulse 76 08/12/25 11:19 Resp 15 08/12/25 11:19 BP 107/71 08/12/25 11:19 Pulse Ox 95 08/12/25 11:19 O2 Del Method Nasal Cannula 08/12/25 08:38 O2 Flow Rate 2 08/12/25 08:38 Discharge Plan Discharge Patient Disposition: Home Condition: Stable Prescriptions: New carvedilol 12.5 mg Tablet 12.5 mg PO BID 60 Days Qty: 120 0RF prednisone 20 mg Tablet 40 mg PO DAILY 2 Days Qty: 4 0RF levofloxacin 750 mg tablet 750 mg PO DAILY 10 Days Qty: 10 0RF Continued insulin glargine [Lantus Solostar U-100 Insulin] 100 unit/mL (3 mL) insulin pen 60 unit SUBCUT QAM Qty: 60 1RF (DME) Dexcom G7 Sensor Device See Rx Instructions .ROUTE .COMPLEX Qty: 3 3RF Dose Instruction: CHANGE every 10 DAYS DIRECTED Rx Instructions: CHANGE every 10 DAYS DIRECTED acetaminophen [Tylenol Extra Strength] 500 mg Tablet 1,000 mg PO Q6H PRN (Reason: Pain) atorvastatin 80 mg tablet 80 mg PO BEDTIME escitalopram oxalate 20 mg tablet 20 mg PO QAM Spiriva Respimat 2.5 mcg/actuation mist 1 puff INHALATION DAILY bumetanide 1 mg Tablet 1 mg PO BID Qty: 60 0RF spironolactone 50 mg tablet 25 mg PO DAILY Qty: 30 0RF insulin lispro 100 unit/mL insulin pen 10 unit SUBCUT .TID PER SS aspirin [Adult Low Dose Aspirin] 81 mg tablet,delayed release (DR/EC) 81 mg PO QAM promethazine-DM 6.25-15 mg/5 mL syrup 10 ml PO Q4H PRN (Reason: Cough) lactulose 10 gram/15 mL solution 15 ml PO DAILY PRN (Reason: Constipation) levothyroxine 75 mcg Tablet 75 mcg PO QAM clopidogrel 75 mg tablet 75 mg PO QAM pantoprazole 40 mg tablet,delayed release (DR/EC) 40 mg PO DAILY nitroglycerin 0.4 mg tablet, sublingual 0.4 mg sublingual PRN PRN (Reason: Chest Pain) oxycodone 10 mg tablet 10 mg PO TID PRN (Reason: Pain) albuterol sulfate 2.5 mg /3 mL (0.083 %) solution for nebulization 2.5 mg continuous nebulization QID PRN (Reason: Shortness Of Breath) albuterol sulfate [Ventolin HFA] 90 mcg/actuation HFA aerosol inhaler 2 puff INHALATION QID Discontinued potassium chloride 10 mEq tablet extended release 20 meq PO DAILY acyclovir 400 mg tablet 400 mg PO BID No Action Symbicort 160-4.5 mcg/actuation HFA aerosol inhaler 2 puff INHALATION BID Discharge Order = DC NOW: Discharge Order (Routine); Ordered 08/12/25 Ordered By: Gay Valles Referrals: Chasidy Yan MD [Physician, Pulmonology] Referral Note: We have notified your physician's clinic of the need for a follow-up appointment to be scheduled. If you have not heard from them within the next 2 business days, please call them directly. Sushil Mobley MD [Primary Care Provider, [facility]] - 08/16/25 8:40 am Referral Note: Currently follow s/p discharge and also the pending labs for the patient in microbiology and need of any changes required to be implemented accordingly Discharge Diet: Advance as tolerated, Cardiac, Diabetic, Low Salt and Low Cholesterol Discharge Activity: Resume usual activity, Increase activity as tolerated and Limit activity as instructed Patient Instructions: Prednisone (By mouth), Levofloxacin (By mouth) (Levaquin, Levaquin Leva-norma), Carvedilol (By mouth), Heart Failure (DC), Pleural Effusion (DC), Hypertension (DC), COPD Stoplight, Opioid Safety, Patient Portal & Lilly Instructions Discharge Attestations Time Spent in Discharge Care*: greater than 30 min Specific Discharge Activities: educating patient, educating and/or supporting family/caregiver, discussing with pcp/other providers, discussing with telephonic nurse case manager/social workers/dc planners, documenting/other paperwork and evaluating patient/reviewing data Time Spent in Smoking Cessation: 3 to 10 minutes Status at Discharge: Cognitive status at discharge: cognitively intact , Behavioral status at discharge: cooperative and can be uncooperative , Functional status at discharge: independent ambulation , Overall status at discharge: patient is back to baseline Quality Metrics Clinical Quality Measures [ No reported AMI, CVA or VTE this stay] Coding Level of Care Code 95283 Diagnoses Pleural effusion J90 COPD with acute exacerbation J44.1 Heart failure with reduced ejection fraction I50.20 Acute on chronic respiratory failure with hypoxia J96.21 Chronicity: acute on chronic Diabetes mellitus E11.9 Hyperlipidemia E78.5 Smoking addiction F17.200 Generalized anxiety disorder F41.1 Hypertension I10 Asthma J45.909
== END 2025-08-12 11:56 | disposition home or self-care (01) | DRG 291 ==
LOC: ER 14:50 → CSU 15:45
PROVIDERS: Admitting Provider Student in an Organized Health Care Education/Training Program; Emergency Provider Family Medicine; PCP Family Medicine; Visit Provider Student in an Organized Health Care Education/Training Program
DX: I11.0 Hypertensive heart disease with heart failure (principal); I50.23 Acute on chronic systolic (congestive) heart failure; J96.21 Acute and chronic respiratory failure with hypoxia; J90 Pleural effusion, not elsewhere classified; F44.1 Dissociative fugue; E11.9 Type 2 diabetes mellitus without complications; E78.5 Hyperlipidemia, unspecified; F17.200 Nicotine dependence, unspecified, uncomplicated; F41.1 Generalized anxiety disorder; I25.10 Atherosclerotic heart disease of native coronary artery without angina pectoris; F32.9 Major depressive disorder, single episode, unspecified; Z86.73 Personal history of transient ischemic attack (TIA), and cerebral infarction without residual deficits; Z79.82 Long term (current) use of aspirin; Z79.02 Long term (current) use of antithrombotics/antiplatelets; Z79.4 Long term (current) use of insulin
CPT/HCPCS: 32555; 36415; 36416; 71045; 71250; 80053; 80503; 81001; 82042; 82150; 82945; 82962; 83605; 83615; 83735; 83880; 83986; 84100; 84145; 84157; 84443; 84478; 84484; 85025; 85610; 85651; 87040; 87070; 87075; 87102; 87205; 87206; 87486; 87581; 87633; 88112; 89050; 93005; 94640; 96372; 96374; 96375; 99285; J0456; J0696; J1650; J1815; J1938; J2060; J2405; J7050; J7512; J7614; J7644; J9999

== ENCOUNTER → 2025-08-20 14:18 | Outpatient (BNVA) | payer MEDICAID, SELFPAY ==
[2024-07-26 12:01] VITALS: BP 129/79; BMI 43.1
== END ==
PROVIDERS: PCP Family Medicine; Referring Provider Student in an Organized Health Care Education/Training Program; Visit Provider Internal Medicine
DX: Z09 Encounter for follow-up examination after completed treatment for conditions other than malignant neoplasm (principal); J44.9 Chronic obstructive pulmonary disease, unspecified; J90 Pleural effusion, not elsewhere classified; F17.210 Nicotine dependence, cigarettes, uncomplicated; J98.11 Atelectasis
CPT/HCPCS: 71046; 99204; 99495

== ENCOUNTER → 2025-08-23 14:34 | Outpatient (BNVA) | payer MEDICAID, SELFPAY ==
[2024-07-26 12:01] VITALS: BP 129/79; BMI 43.1
== END ==
PROVIDERS: PCP Family Medicine; Visit Provider Internal Medicine
DX: I11.0 Hypertensive heart disease with heart failure (principal); I50.9 Heart failure, unspecified; Z87.891 Personal history of nicotine dependence
CPT/HCPCS: 99214

== ENCOUNTER → 2025-08-27 11:30 | Day surgery (SDC) | payer MEDICAID, SELFPAY ==
[2024-07-26 12:01] VITALS: BP 129/79; BMI 43.1
[2025-08-27 11:40] VITALS: BP 58/46; PULSE 71; RESP 20; TEMP 36.2; O2SAT 90; BMI 28.8
--- NOTE | 2025-08-27 12:30 | SUR.OPER ---
Upon arrival to for pt c/o dizziness and lethargy x 2-3 days. pt having difficulty staying awake sitting in bed and speech is slurred, although I am unsure of her baseline as noted previous strokes. BP 58/46, O2 90% on room air, all vitals documented. Dr. Lambert assessed pt. and informed her the thoracentesis would not be done today due to hypotension. Pt was put on O2 2% per nasal cannula. Pt's PCP Sushil Mobley was called and informed of pt status, Dr. Mobley instructed this nurse to take pt to ED. Report given to ED charge nurse POLY Orozco by phone, and to POLY Almonte upon arrival to ED.
--- NOTE | 2025-08-28 18:38 | P.TS_ITS ---
Transfer Summary Providers Date of Discharge/Transfer: 09/07/25 Attending Provider at Transfer: Chasidy Yan MD Primary Care Provider: Sushil Mobley MD Transfer Plans: Anticipated date of transfer: 09/07/25 . Reason for Visit Reason for Visit J90 Brief History: Carmen Richards is a 49 year old female with past medical history of congestive heart failure with last known EF of 35%, CAD post PCI, type 2 diabetes mellitus, recurrent right-sided effusion for which she undergoes thoracentesis, COPD, right MCA stroke, depression, hyperlipidemia, hypertension who had presented to the radiology department today for right-sided thoracentesis and was found to have significant hypotension with blood pressures down to 60 systolic and so was transferred to the ER. In the ER patient is receiving 2 L of IV fluid bolus, received central line and is on Levophed of 8. Patient examination of drowsy, waking up to verbal stimulus. Is able to have conversation but in a garbled voice. States she has been having dizziness and has been falling for last 2 days. Denies any nausea, vomiting, diarrhea, difficulty breathing, cough, fever. She is not able to help any further with her history taking. On review it seems on 08/23 Entresto was added to her medication list after cardiology follow-up. She states she started taking that medication 2 days ago. Hospital Course Hospital Course Patient was transferred to tertiary center for further evaluation and management of complex pleural effusion with concern for empyema as per recommendation from pulmonary team. Please refer to my progress note which already has an addendum regarding the details of transfer from 08/28 for further details. TS Data Recent Clincial Data Last Vital Signs Temp 97.1 F L 08/27/25 11:40 Pulse 71 08/27/25 11:40 Resp 20 H 08/27/25 11:40 BP 58/46 08/27/25 11:40 Pulse Ox 90 08/27/25 11:40 O2 Del Method Room Air 08/27/25 11:40 Vitals Last Vital Signs Temp 97.1 F L 08/27/25 11:40 Pulse 71 08/27/25 11:40 Resp 20 H 08/27/25 11:40 BP 58/46 08/27/25 11:40 Pulse Ox 90 08/27/25 11:40 O2 Del Method Room Air 08/27/25 11:40 TS Medications Medications Allergies pregabalin (From Lyrica) Allergy (Verified 08/27/25 11:56) hallucinations Home Medications budesonide-formoterol HFA 160 mcg-4.5 mcg/actuation aerosol inhaler (Symbicort) 2 puff inhalation BID 02/16/20 [History Confirmed 08/28/25] levothyroxine 75 mcg tablet 75 mcg PO QAM 06/11/22 [History Confirmed 08/28/25] albuterol sulfate 2.5 mg/3 mL (0.083 %) solution for nebulization 2.5 mg continuous nebulization QID PRN Shortness Of Breath 12/14/24 [History Confirmed 08/28/25] albuterol sulfate 90 mcg/actuation aerosol inhaler (Ventolin HFA) 2 puff inhalation QID 12/14/24 [History Confirmed 08/28/25] nitroglycerin 0.4 mg sublingual tablet 0.4 mg sublingual PRN PRN Chest Pain 12/14/24 [History Confirmed 08/28/25] oxycodone 10 mg tablet 10 mg PO TID PRN Pain 12/14/24 [History Confirmed 08/28/25] pantoprazole 40 mg tablet,delayed release 40 mg PO DAILY 12/14/24 [History Confirmed 08/28/25] acetaminophen 500 mg tablet (Tylenol Extra Strength) 1,000 mg PO Q6H PRN Pain 12/18/24 [History Confirmed 08/28/25] blood-glucose sensor ([employer] G7 Sensor device) #3 ea 03/20/25 [Rx Confirmed 08/28/25] atorvastatin 80 mg tablet 80 mg PO BEDTIME 06/21/25 [History Confirmed 08/28/25] escitalopram oxalate 20 mg tablet 20 mg PO QAM 06/21/25 [History Confirmed 08/28/25] tiotropium bromide 2.5 mcg/actuation mist for inhalation (Spiriva Respimat) 1 puff inhalation DAILY 06/23/25 [History Confirmed 08/28/25] bumetanide 1 mg tablet 1 mg PO BID #60 tabs 06/28/25 [Rx Confirmed 08/28/25] insulin lispro 100 unit/mL subcutaneous pen 10 unit SUBCUT .TID PER SS 08/07/25 [History Confirmed 08/28/25] lactulose 10 gram/15 mL oral solution 15 ml PO DAILY PRN Constipation 08/07/25 [History Confirmed 08/28/25] carvedilol 12.5 mg tablet 12.5 mg PO BID 60 days #120 tabs 08/23/25 [Rx Confirmed 08/28/25] sacubitril 24 mg-valsartan 26 mg tablet (Entresto) 1 tab PO BID #180 tabs 08/23/25 [Rx Confirmed 08/28/25] aspirin 81 mg tablet 81 mg PO DAILY 08/27/25 [History Confirmed 08/28/25] clopidogrel 75 mg tablet 75 mg PO DAILY 08/27/25 [History Confirmed 08/28/25] acyclovir 400 mg tablet 400 mg PO BID 08/28/25 [History Confirmed 08/28/25] insulin glargine 100 unit/mL (3 mL) subcutaneous pen (Lantus Solostar U-100 Insulin) 20 unit SUBCUT QAM 08/28/25 [History Confirmed 08/28/25] potassium chloride 10 mEq tablet,extended release 20 meq PO DAILY 08/28/25 [History Confirmed 08/28/25] promethazine-DM 6.25 mg-15 mg/5 mL oral syrup 10 ml PO Q4H PRN Cough 08/28/25 [History Confirmed 08/28/25] Discharge Plan Discharge Patient Disposition: Home Condition: Stable Prescriptions: No Action Symbicort 160-4.5 mcg/actuation HFA aerosol inhaler 2 puff INHALATION BID carvedilol 12.5 mg tablet 12.5 mg PO BID 60 Days Qty: 120 0RF sacubitril-valsartan [Entresto] 24-26 mg tablet 1 tab PO BID Qty: 180 3RF (DME) Dexcom G7 Sensor Device See Rx Instructions .ROUTE .COMPLEX Qty: 3 3RF Dose Instruction: CHANGE every 10 DAYS DIRECTED Rx Instructions: CHANGE every 10 DAYS DIRECTED acetaminophen [Tylenol Extra Strength] 500 mg Tablet 1,000 mg PO Q6H PRN (Reason: Pain) atorvastatin 80 mg tablet 80 mg PO BEDTIME escitalopram oxalate 20 mg tablet 20 mg PO QAM Spiriva Respimat 2.5 mcg/actuation mist 1 puff INHALATION DAILY bumetanide 1 mg Tablet 1 mg PO BID Qty: 60 0RF insulin lispro 100 unit/mL insulin pen 10 unit SUBCUT .TID PER SS lactulose 10 gram/15 mL solution 15 ml PO DAILY PRN (Reason: Constipation) levothyroxine 75 mcg Tablet 75 mcg PO QAM pantoprazole 40 mg tablet,delayed release (DR/EC) 40 mg PO DAILY nitroglycerin 0.4 mg tablet, sublingual 0.4 mg sublingual PRN PRN (Reason: Chest Pain) oxycodone 10 mg tablet 10 mg PO TID PRN (Reason: Pain) albuterol sulfate 2.5 mg /3 mL (0.083 %) solution for nebulization 2.5 mg continuous nebulization QID PRN (Reason: Shortness Of Breath) albuterol sulfate [Ventolin HFA] 90 mcg/actuation HFA aerosol inhaler 2 puff INHALATION QID clopidogrel 75 mg tablet 75 mg PO DAILY aspirin 81 mg Tablet 81 mg PO DAILY promethazine-DM 6.25-15 mg/5 mL syrup 10 ml PO Q4H PRN (Reason: Cough) acyclovir 400 mg tablet 400 mg PO BID insulin glargine [Lantus Solostar U-100 Insulin] 100 unit/mL (3 mL) insulin pen 20 unit SUBCUT QAM potassium chloride 10 mEq tablet extended release 20 meq PO DAILY Print Language: Algerian Transfer Attestations Time Spent in Transfer Care: other Status at Transfer: Cognitive status at transfer: cognitively intact ; Behavioral status at transfer: cooperative and can be uncooperative ; Quality Metrics Clinical Quality Measures [ No reported AMI, CVA or VTE this stay] Coding Level of Care Code Acute Code for Chg Mary
== END | disposition home or self-care (01) ==
PROVIDERS: Radiology Diagnostic Radiology; PCP Family Medicine; Visit Provider Internal Medicine
DX: Z53.8 Procedure and treatment not carried out for other reasons (principal)

== ENCOUNTER 2025-08-27 12:17 | Inpatient (IN) | payer MEDICAID, SELFPAY ==
[2024-07-26 12:01] VITALS: BP 129/79; BMI 43.1
[2025-08-27] VITALS (34 sets, daily range): BP systolic 60–126; BP diastolic 42–78; PULSE 72–82; RESP 9–23; TEMP 36.4–36.9; O2SAT 91–99
--- OUTSIDE RECORDS SUMMARY | 2025-08-27 12:22 | XMS_ITS | Encounter Summary ---
Author Organization [facility] Address [address] [place] [address] Care Team Providers Care Vp Marketing Name Role Phone Sushil Mobley MD Primary Care Provider [phone] Encounter Details Date Type Department Care Team (Late st Contact Info) Description 09/27/2019 Ancillary Orders [facility] Centralized Scheduling [address] [place] [id number] Mtnv, External Provider [address] [address] [place] [address] Social History Tobacco Use Types Packs/Day Years [...] on filedocumented in this encounter Care Teams Vp Marketing Relationship Specialty Start Date End Date Sushil Mobley MD [address] [place] [address] [id number] PCP - General Family Practice 08/22/20 documented as of this encounter
--- OUTSIDE RECORDS SUMMARY | 2025-08-27 12:22 | XMS_ITS | Encounter Summary ---
[facility] Organization [facility] Address [address] [place] [address] Care Team Providers Care Boiler Inspector Name Role Phone Sushil Mobley MD Primary Care Provider Encounter Details Date Type Department Care Team (Late st Contact Info) Description 09/10/2014 Ancillary Orders [facility] Laboratory Services [place] [address] [place] [phone] Sick Social History Tobacco Use Types Packs/Day [...] - 4.80 uIU/mL 09/10/2014 9:45 PM CDT [facility] Blood Collection / Unknown 09/10/2014 9:04 PM CDT 09/10/2014 9:04 PM CDT Mega Mcelroy DO CHEMISTRY ORDERABLES Final Resu lt Performing Organization Address City/[facility]/ZIP Co de Phone Number [facility] CLIA # [id number] [address] [place] [address] * (ABNORMAL) HEMOGLOBIN A1C (09/10/2014 9:04 PM CDT) HEMOGLOBIN A1C 8.0(H) 4.5 - 6.2 % 09/10/2014 9:45 PM CDT [facility] [place] EST. AVG GLUCOSE, A1C 183 mg/dL 09/10/2014 9:45 PM CDT [facility] [place] Blood Collection / Unknown 09/10/2014 9:04 PM CDT 09/10/2014 9:04 PM CDT Mega Mcelroy DO CHEMISTRY ORDERABLES Final Resu lt Performing Organization Address [facility]/ZIP Co de Phone Number [facility] CLIA # [id number] [address] [place] [address] * (ABNORMAL) COMPREHENSIVE METABOLIC PANEL (09/10/2014 9:04 PM CDT) SODIUM 134(L) 136 - 145 mmol/L 09/10/2014 9:45 PM CDT [facility] [place] POTASSIUM 4.0 3.5 - 5.1 mmol/L 09/10/2014 9:45 PM CDT [facility] [place] CHLORIDE 98 98 - 107 mmol/L 09/10/2014 9:45 PM CDT [facility] [place] CO2 28 21 - 32 mmol/L 09/10/2014 9:45 PM CDT [facility] [place] CALCIUM 9.1 8.5 - 10.1 mg/dL 09/10/2014 9:45 PM CDT [facility] [place] BUN 12 7 - 18 mg/dL 09/10/2014 9:45 PM CDT [facility] [place] CREATININE 0.90 0.60 - 1.30 mg/dL 09/10/2014 9:45 PM CDT [facility] [place] GLUCOSE 358(H) 74 - 106 mg/dL 09/10/2014 9:45 PM [facility] [employer] [facility] TOTAL PROTEIN 8.2 6.4 - 8.2 g/dL 09/10/2014 9:45 PM [facility] ALBUMIN 2.8(L) 3.4 - 5.0 g/dL 09/10/2014 9:45 PM [facility] BILIRUBIN TOTAL 1.5(H) 0.2 - 1.0 mg/dL 09/10/2014 9:45 PM [facility] ALKALINE PHOSPHATASE 134(H) 46 - 116 U/L 09/10/2014 9:45 PM [facility] [employer] [facility] AST 110(H) 15 - 37 U/L 09/10/2014 9:45 PM [facility] ALT 106(H) 30 - 65 U/L 09/10/2014 9:45 PM [facility] GFR >60 >=60 mL/min/1.7 3 sq meter 09/10/2014 9:45 PM [facility] [employer] [facility] Comment: eGFR has not been validated [...] mL/min/1.7 3 sq meter 09/10/2014 9:45 PM [facility] [employer] [facility] ANION GAP 8(L) 12 - 20 mmol/L 09/10/2014 9:45 PM [facility] [employer] [facility] Blood Collection / Unknown 09/10/2014 9:04 PM CDT 09/10/2014 9:04 PM CDT [facility] [employer] [facility] - 09/10/2014 9:45 PM CDT Effective 07/26/2014, the Alkaline Phosphatase test method and reference range have changed. Please take this into consideration when interpreting results prior to or after this date. us Mega Mcelroy DO CHEMISTRY ORDERABLES Final Resu lt [facility] [place] CLIA # [id number] [address] [facility] [address] [place] [address] documented in this encounter Visit Diagnoses Diagnosis Sick Other unknown and unspecified cause of morbidity or mortality documented in this encounter Care Teams Boiler Inspector Relationship Specialty Start Date End Date Sushil Mobley MD [address] [place] [id number] PCP - General Family Practice 08/22/20 documented as of this encounter
--- OUTSIDE RECORDS SUMMARY | 2025-08-27 12:22 | XMS_ITS | Clinical Summary ---
Author Organization [facility] Address [address] [facility] Attn: Epic Prelude ADT [place] [address] Care Team Providers Care Board Catcher Name Role Phone Sushil Mobley MD Primary Care Provider [phone] Allergies Active Allergy Reactions Criticality Noted Date [...] breakfast. 30 Tablet 2 12/05/2024 3:18 PM ROOF SERVICE TECHNICIAN 5 Active atorvastatin (LIPITOR) 40 mg tablet Take 1 Tablet (40 mg) by mouth daily at bedtime. 30 Tablet 2 12/05/2024 3:18 PM ROOF SERVICE TECHNICIAN 5 Active clopidogreL (PLAVIX) 75 mg Tablet Take 1 Tablet (75 mg) by mouth daily. 30 Tablet 2 12/05/2024 3:18 PM ROOF SERVICE TECHNICIAN 5 Active furosemide (LASIX) 20 mg tablet Take 1 Tablet (20 mg) by mouth daily. 30 Tablet 12/05/2024 3:18 PM ROOF SERVICE TECHNICIAN 5 Active insulin glargine (LANTUS) 100 unit/mL pen syringe Inject 25 Units by subcutaneous injection daily with breakfast. 15 mL 5 Active nitroglycerin (NITROSTAT) 0.[address], [address] 1 Tablet (0.4 mg) under tongue every 5 minutes as needed for Chest Pain (Do NOT take more than 3 pills in a row, if chest pain not relived contact your PCP/Administrative Support Assistant ERVIN). 25 Tablet 1 12/05/2024 3:18 PM ROOF SERVICE TECHNICIAN Active pantoprazole (PROTONIX) 40 mg Tablet, Delayed Release (E.C.) Take 1 Tablet (40 mg) by mouth daily before breakfast. 30 Tablet 12/05/2024 3:18 PM ROOF SERVICE TECHNICIAN Active Active Problems Problem Noted Date Diagnosed [...] Encounters Date Type Department Care Team Description 08/14/2025 External Device Data STL ABSTRACTION Provider, Abstract 07/25/2025 External Device Data STL ABSTRACTION Provider, [...] on file Legal Sex Female 2:08 AM ROOF SERVICE TECHNICIAN Gender Identity Not on file Sexual Orientation Not on file Last Filed Vital Signs Vital Sign Reading Time Taken Comments Blood Pressure 104/70 12/05/2024 8:28 AM ROOF SERVICE TECHNICIAN Pulse 81 12/05/2024 8:28 AM ROOF SERVICE TECHNICIAN Temperature 36.5 C (97.7 F) 12/05/2024 8:28 AM ROOF SERVICE TECHNICIAN Respiratory Rate 18 12/05/2024 8:28 AM ROOF SERVICE TECHNICIAN Oxygen Saturation 93% 12/05/2024 8:28 AM ROOF SERVICE TECHNICIAN Inhaled Oxygen Concentration - - Weight 82.6 kg (182 lb 3.2 oz) 12/04/2024 5:00 A M ROOF SERVICE TECHNICIAN Height 157.5 cm (5' 2 ) 12/02/2024 11:11 PM ROOF SERVICE TECHNICIAN Body Mass Index 33.32 12/02/2024 11:11 PM ROOF SERVICE TECHNICIAN Plan of Treatment Health Maintenance Due Date [...] (#1) 2025 Medical Devices Implanted Type Area Top Hat Body Maker Device Identifier Shelf Expiration Date Model / Serial / Lot Stent [place] Haakon Jose 3.0x15mm Rx [id number] - [id number] Implanted:Qty: 1 on 12/03/2024 by Prince Funes MD at [facility] Stent N/A: Coronary [employer] [id number] 07/31/2027 [id number] 15UX / / [id number] Stent Ronny Haakon Jose 4.0x12mm Rx [id number] - [id number] Implanted:Qty: 1 on 12/03/2024 by Prince Funes MD at [facility] Stent N/A: Coronary [employer] [id number] 05/10/2027 [id number] 12UX / / [id number] Stent [place] Haakon Jose 4.0x8mm Rx [id number] - [id number] Implanted:Qty: 1 on 12/03/2024 by Prince Funes MD at [facility] Stent N/A: Coronary [employer] [id number] 04/23/2027 [id number] 08UX / / [id number] Procedures Procedure Name Priority Date/Time Associated Diagnosis Comments HEMOGLOBIN A1C Routine 12/03/2024 2:49 AM ROOF SERVICE TECHNICIAN from Last 3 Months or Most Recently Relevant to Health Maintenance Results * (ABNORMAL) HEMOGLOBIN A1C (12/03/2024 2:49 AM ROOF SERVICE TECHNICIAN) HEMOGLOBIN A1C 12.1(H) <=5.6 % 12/04/2024 8:55 AM ROOF SERVICE TECHNICIAN [facility] EST. AVG GLUCOSE, A1C 301 mg/dL 12/04/2024 8:55 AM ROOF SERVICE TECHNICIAN [facility] Blood Venipuncture / Unknown 12/03/2024 2:49 AM ROOF SERVICE TECHNICIAN 12/03/2024 3:04 AM ROOF SERVICE TECHNICIAN Narrative [facility] - 12/04/2024 8:55 AM ROOF SERVICE TECHNICIAN HGB A1C INTERPRETATION NORMAL: <5.7% PRE-DIABETES: 5.7 - 6.4% DIABETES: 6.5% OR GREATER us Alvarado Persaud DO CHEMISTRY ORDERABLES Final Resu lt [facility] CLIA # [id number] [address] [address] [place] [address] from Last 3 Months or Most Recently Relevant to Health Maintenance Insurance MEDICAID [place] [employer] Advance Directives For more information, please contact: [phone] * Full Code (Latest Code Status on File) Date Activated Date Inactivated Comments 12/03/2024 2:06 AM 12/05/2024 5:37 PM Care Teams Board Catcher Relationship Specialty Start Date End Date Sushil Mobley MD [address] [address] PCP - General Family Practice 08/22/20
--- OUTSIDE RECORDS SUMMARY | 2025-08-27 12:22 | XMS_ITS | Encounter Summary ---
Author Organization [facility] Address [address] [place] [address] Care Team Providers Care Hand Hardener Name Role Phone Sushil Mobley MD Primary Care Provider [phone] Encounter Details Date Type Department Care Team (Late st Contact Info) Description 09/17/2014 Ancillary Orders [facility] Laboratory Services [place] [address] [place] [phone] Social History Tobacco Use Types Packs/Day Years [...] on filedocumented in this encounter Care Teams Hand Hardener Relationship Specialty Start Date End Date Sushil Mobley MD [address] [id number] PCP - General Family Practice 08/22/20 documented as of this encounter
--- OUTSIDE RECORDS SUMMARY | 2025-08-27 12:22 | XMS_ITS | Clinical Summary ---
Author Organization Debbie Zelaya [facility] Address [address] [facility] [address] [place] [address] Phone Care Team Providers Care Volunteer Specialist Name Role Phone Sushil Mobley MD Primary Care Provider [phone] Social History Tobacco Use Types Packs/Day Years Used Date Smoking Tobacco: Never Assessed Comments Unknown Sex and Gender Information Value Date Recorded Sex Assigned at Not on file Legal Sex Female 9:04 PM CDT Gender Identity Not on file Sexual Orientation Not on file Last Filed Vital Signs Vital Sign Reading Time Taken Comments Blood Pressure - - Pulse 71 11/20/2019 10:47 AM ORTHO TECH Temperature - - Respiratory Rate 20 11/20/2019 10:47 AM ORTHO TECH Oxygen Saturation 99% 11/20/2019 10:46 AM ORTHO TECH Inhaled Oxygen Concentration - - Weight - [...] (#1) [address] [place] [address] Care Teams Volunteer Specialist Relationship Specialty Start Date End Date Sushil Mobley MD [address] [id number] PCP - General Family Practice 08/22/20
--- OUTSIDE RECORDS SUMMARY | 2025-08-27 12:22 | XMS_ITS | Encounter Summary ---
Author Organization [facility] Address [address] [place] [address] Care Team Providers Care Parts Clerk Plant Maintenance Name Role Phone Sushil Mobley MD Primary Care Provider [phone] Encounter Details Date Type Department Care Team (Late st Contact Info) Description 09/27/2019 Ancillary Orders [facility] Centralized Scheduling [address] [place] [phone] Determinations, Dis Kim Durán [address] [place] [address] COPD (chronic obstructive pulmonary disease) ([facility]) Social History Tobacco Use Types Packs/Day Years [...] AND LATERAL 2 VW (11/20/2019 9:22 AM RIBBON INKER) Anatomical Region Laterality Modality Chest Computed Radiogr aphy 11/20/2019 9:22 AM RIBBON INKER Impressions 11/20/2019 3:50 PM RIBBON INKER IMPRESSION: Please see below. Exam: XR CHEST PA AND LATERAL 2 VW Date/Time of Exam: 11/20/2019 9:22 AM Reason For Exam: See Diagnosis. Diagnosis: COPD (chronic obstructive pulmonary disease). Comparison: None Findings: The heart size is normal. No infiltrates or pleural fluid. Retrosternal calcified granuloma. Thoracic spine degenerative changes. IMPRESSION: 1. No infiltrates. [id number] Narrative Procedure Note Jose G Marquez MD - 11/20/2019 IMPRESSION: Please see below. Exam: XR CHEST PA AND LATERAL 2 VW Date/Time of Exam: 11/20/2019 9:22 AM Reason For Exam: See Diagnosis. Diagnosis: COPD (chronic obstructive pulmonary disease). Comparison: None Findings: The heart size is normal. No infiltrates or pleural fluid. Retrosternal calcified granuloma. Thoracic spine degenerative changes. IMPRESSION: 1. No infiltrates. [id number] us External Provider [facility] ORDERA BLES Final Result documented in this encounter Visit Diagnoses Diagnosis COPD (chronic obstructive pulmonary disease) Chronic airway obstruction, not elsewhere classified COPD (chronic obstructive pulmonary disease) Chronic airway obstruction, not elsewhere classified documented in this encounter Care Teams Parts Clerk Plant Maintenance Relationship Specialty Start Date End Date Sushil Mobley MD [address] [place] [address] PCP - General Family Practice 08/22/20 documented as of this encounter
--- NOTE | 2025-08-27 12:24 | XR_ITS ---
WS: [id number] Portable AP semiupright chest, 08/27/2025 Clinical Data: Hypotension Comparison: Two-view chest, 08/20/2025 Findings: No nodules or masses are seen. The right pleural effusion has diminished. There is no left pleural effusion. The heart is normal. The pulmonary vascularity is not increased. No pneumonia or pneumothorax is seen. Monitor leads are on the chest wall. XR/XR chest 1V portable [id number] Impression: Decrease in right pleural effusion.
--- NOTE | 2025-08-27 12:57 | ECG_ITS ---
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 Measurements Intervals [place] Rate: 74 P: 48 KS: 192 QRS: 59 QRSD: 103 T: 214 QT: 403 QTc: 448 Interpretive Statements SINUS RHYTHM MODERATE T-WAVE ABNORMALITY, CONSIDER ANTERIOR ISCHEMIA [-0.1+ mV T-WAVE IN V3/V4] Compared to ECG 08/07/2025 17:48:03 T-wave abnormality now present Possible ischemia now present Sinus tachycardia no longer present Intraventricular conduction delay no longer present Electronically Signed On 08-27-2025 23:26:32 CDT by Jean-Paul Santana M.D. [email or web address]
[2025-08-27 13:45] LABS: Hematocrit 45.2 % (36-47); Hemoglobin 14.60 g/dL (11.27-16.99); Mean Corpuscular HGB Conc 32.3 g/dL (30-55); Mean Corpuscular Hemoglobin 30.8 pg (27-33); Mean Corpuscular Volume 95.4 fl (85-98); Nucleated Red Blood Cells % 0 %; Platelet Count 340 10^3/cmm (157-399); Red Blood Count 4.74 10^6/uL (3.85-5.65); White Blood Count 10.87 10^3/uL (3.29-11.43)
[2025-08-27 13:54] LABS: Alanine Aminotransferase 11 U/L (0-33); Albumin Level 2.5 g/dL (3.5-5.2); Alkaline Phosphatase 152 U/L (35-105); Anion Gap 15.4 (5-19); Aspartate Amino Transferase 13 U/L (0-32); Blood Urea Nitrogen 13 mg/dL (6-20); Calcium 8.5 mg/dL (8.5-10.5); Carbon Dioxide 28 mmol/L (22-29); Chloride 89 mmol/L (98-107); Creatinine Clr Calc Pharmacy 49.3135; Globulin 4.4 g/dL (1.3-4.6); Glucose 277 mg/dL (65-115); Lactic Sepsis W/Reflex 2.1 mmol/L (0.5-2.2); Osmolality Calculated 278 mOsm/kg (285-295); Potassium 3.4 mmol/L (3.5-5.1); Sodium 129 mmol/L (136-145); Total Protein 6.9 g/dL (6.6-8.7)
--- NOTE | 2025-08-27 14:04 | XR_ITS ---
WS: [id number] Portable AP supine chest, 08/27/2025, 1355 hours Clinical Data: CENTRAL LINE Comparison: Portable chest, 08/27/2025, 1236 hours Findings: There is a right internal jugular venous catheter which has been inserted. No pneumothorax is seen. The catheter ends at the caval atrial junction. XR/XR chest 1V portable [id number] Impression: Insertion of right internal jugular venous catheter.
--- NOTE | 2025-08-27 15:05 | W.ED.GENADLT ---
HPI - General Adult General: Chief complaint: General Medical Stated complaint: Dizzy low blood pressure x3days Time Seen by Provider: 08/27/25 12:22 History of Present Illness: 49-year-old female who presents to the emergency room with complaints of weakness shortness of breath. Patient was supposed to have a thoracentesis today and outpatient when she got further prepping her found her blood pressure in the 50s over 30s with oxygen sats in the 70s. She reports recently having her blood pressure medicine increased she also taken some oxycodone in preparation for the procedure. They did not do her thoracentesis today. Patient recently been hospitalized for pneumonia had a large right pleural effusion at that time. Pleural effusion is smaller today than it was previously. She denies fever sweats or chills. She is not normally on oxygen at home no chest pain at this time. Associated symptoms: Reports dyspnea; Deny chest pain or rash Related Data Home Medications ?Medication ?Instructions ?Recorded ?Confirmed budesonide-formoterol HFA 160 2 puff inhalation BID 02/16/20 08/27/25 mcg-4.5 mcg/actuation aerosol inhaler (Symbicort) levothyroxine 75 mcg tablet 75 mcg PO QAM 06/11/22 08/27/25 albuterol sulfate 2.5 mg/3 mL 2.5 mg continuous nebulization QID 12/14/24 08/27/25 (0.083 %) solution for nebulization PRN Shortness Of Breath albuterol sulfate 90 mcg/actuation 2 puff inhalation QID 12/14/24 08/27/25 aerosol inhaler (Ventolin HFA) nitroglycerin 0.4 mg sublingual 0.4 mg sublingual PRN PRN Chest 12/14/24 08/27/25 tablet Pain oxycodone 10 mg tablet 10 mg PO TID PRN Pain 12/14/24 08/27/25 pantoprazole 40 mg tablet,delayed 40 mg PO DAILY 12/14/24 08/27/25 release acetaminophen 500 mg tablet 1,000 mg PO Q6H PRN Pain 12/18/24 08/27/25 (Tylenol Extra Strength) atorvastatin 80 mg tablet 80 mg PO BEDTIME 06/21/25 08/27/25 escitalopram oxalate 20 mg tablet 20 mg PO QAM 06/21/25 08/27/25 tiotropium bromide 2.5 1 puff inhalation DAILY 06/23/25 08/27/25 mcg/actuation mist for inhalation (Spiriva Respimat) insulin lispro 100 unit/mL 10 unit SUBCUT .TID PER SS 08/07/25 08/27/25 subcutaneous pen lactulose 10 gram/15 mL oral 15 ml PO DAILY PRN Constipation 08/07/25 08/27/25 solution aspirin 81 mg tablet 81 mg PO DAILY 08/27/25 08/27/25 clopidogrel 75 mg tablet 75 mg PO DAILY 08/27/25 08/27/25 Previous Rx's ?Medication ?Instructions ?Recorded insulin glargine 100 unit/mL (3 60 unit (0.6 mL) SUBCUT QAM #60 mL 07/26/24 mL) subcutaneous pen (Lantus Solostar U-100 Insulin) blood-glucose sensor (Whisper G7 #3 ea 03/20/25 Sensor device) bumetanide 1 mg tablet 1 mg PO BID #60 tabs 06/28/25 carvedilol 12.5 mg tablet 12.5 mg PO BID 60 days #120 tabs 08/23/25 sacubitril 24 mg-valsartan 26 mg 1 tab PO BID #180 tabs 08/23/25 tablet (Entresto) Allergies Allergy/AdvReac Type Severity Reaction Status Date / Time pregabalin (From Lyrica) Allergy hallucinati Verified 08/27/25 11:56 ons Review of Systems Const: Denies: fever(s) or chills Card: Denies: chest pain Resp: Reports: dyspnea and non-productive cough GI: Denies: abdominal pain : Denies: dysuria, urinary frequency or urinary urgency Musc: Denies: neck pain or back pain Skin/Breast: Denies: rash PFSH ED PFSH: Medical History Pleural effusion, right Type II diabetes mellitus Acute on chronic respiratory failure with hypoxia 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 LBBB (left bundle branch block) CAD (coronary artery disease) CHF (congestive heart failure) Chest pain Dyspnea on exertion Right middle cerebral artery stroke Staph skin infection Left arm pain Transient cerebral ischemia Smoking addiction CVA (cerebral vascular accident) Major depressive disorder, 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, recurrent severe without psychotic features Hyperlipidemia Hypertension Asthma COPD (chronic obstructive pulmonary disease) Hepatitis C Acute ischemic stroke COPD (chronic obstructive pulmonary disease) Smoking Left leg paresthesias Arm paresthesia, left Left-sided weakness Surgical History H/O: hysterectomy 1996 History of tonsillectomy Family History Other CAD (coronary artery disease) Cancer Diabetes Family history of premature coronary artery disease Hypertension Lung disease Stroke Social History Smoking and tobacco/nicotine status: former use of tobacco/nicotine Quit status (tobacco/nicotine): has quit using Year quit tobacco: 2024 Former quit date comment: Was smoking a pack and a half a day till 2 weeks ago Second hand smoke exposure: No Alcohol intake: former Substance/Drug Use: former Date of last use: 20 years ago Additional social history: Patient states she is on disability she thinks from medical problem but does not know which one. 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 Pets and animals: Yes Pets & animals: dog(s) Leisure activites: exercise, art, music and reading Sexually active: No Do you think of yourself as: Straight/Heterosexual Current gender identity: Female Linda/Yarsanism: Restorationism Special linda needs: No Agree to transfusion: Yes Female Reproductive History: Para: 2 Spontaneous abortions: No Physical Exam Const: GENERAL APPEARANCE: cooperative ORIENTATION/CONSCIOUSNESS: Yes awake HENMT: COMMON NORMALS: normocephalic, atraumatic and hearing grossly normal bilaterally HEAD & SCALP: normocephalic and atraumatic Resp: COMMON NORMALS: normal respiratory effort, No retractions and No use of accessory muscles AUSCULTATION: rhonchi and diminished lung sounds Cardio: COMMON NORMALS: regular rate, regular rhythm and No murmurs present (Cardio) RATE: regular rate RHYTHM: regular rhythm GI: COMMON NORMALS: Soft to palpation and No hepatosplenomegaly present AUSCULTATION: Yes normoactive bowel sounds PALPATION: Yes Soft to palpation, No Tenderness to palpation present (GI), No Guarding due to palpation present (GI) and Yes No hepatosplenomegaly present Extremity: COMMON NORMALS: normal to inspection, capillary refill normal, no clubbing, cyanosis or edema, no calf tenderness and no pedal edema Skin: COMMON NORMALS: no rashes or lesions noted GENERAL SKIN EXAM: no rashes or lesions noted Procedures Central Line Placement Right IJ: Time Out Performed: Yes Patient Placed on Monitor/Pulse Ox: Yes MD Prep: mask, gown and gloves Central Line Prep: Chlorhexidine scrub Local Anesthetic: lidocaine 1% Amount of anesthesia used (mL): 5 Ultrasound Used for Placement: Yes Central Line Lumen Inserted: triple Post Procedure: sutured in place, good blood return, all ports aspirated, flushed, capped and sterile dressing applied Post Procedure X-Ray: tip of catheter in good position and no pneumothorax seen Patient Tolerated Procedure: well Course Vital Signs: Vital signs: Vital Signs Pulse Rate 74 08/27/25 16:36 Respiratory Rate 18 08/27/25 12:38 Blood Pressure 126/73 08/27/25 16:36 Pulse Oximetry 99 08/27/25 16:36 Oxygen Delivery Me thod Nasal Cannula 08/27/25 15:15 Oxygen Flow Rate 2 08/27/25 15:15 [facility] - General Adult Medical Decision Making Patient hypotensive mildly bradycardic. She did not improve with fluid bolus she was given 30 mL/kg her lactic acid is normal her white count is normal. Labs reviewed is found to chart UA negative. Alk phos slightly elevated 152 other liver functions are normal creatinine 1.3 BUN 13 mildly hyponatremic 129 chest x-ray reviewed by myself shows persistent pleural effusion smaller than the one on August 20. Dave is being placed she has had a central line placed because you are unable to maintain peripheral vascular access. She has been started on Levophed for pressure support will admit to the ICU. Discussed with hospitalist. Medical Records I reviewed the patient's medical records. Lab Data I reviewed the patient's lab results. 08/27/25 13:16 08/27/25 13:16 Radiology Impressions Thoracentesis Ultrasound 08/27/25 15:14 IMPRESSION: 1. RIGHT thoracentesis yielding 100 cc of fluid. 2. Chest radiograph to follow to evaluate for pneumothorax. 3. RIGHT pleural effusion is markedly loculated and septated which is new since 08/10/2025. Chest X-Ray 08/27/25 16:02 IMPRESSION: 1. No pneumothorax status post RIGHT thoracentesis. 2. Small loculated RIGHT pleural effusion. 3. RIGHT IJ line in good position. Laboratory Results WBC 10.87 10^3/uL (3.29-11.43) 08/27/25 13:16 RBC 4.74 10^6/uL (3.85-5.65) 08/27/25 13:16 Hgb 14.60 g/dL (11.27-16.99) 08/27/25 13:16 Hct 45.2 % (36-47) 08/27/25 13:16 MCV 95.4 fl (85-98) 08/27/25 13:16 MCH 30.8 pg (27-33) 08/27/25 13:16 MCHC 32.3 g/dL (30-55) 08/27/25 13:16 RDW 13.8 % (12.1-15.1) 08/27/25 13:16 Plt Count 340 10^3/cmm (157-399) 08/27/25 13:16 MPV 9.8 fL (7.4-10.4) 08/27/25 13:16 Neut % (Auto) 72.5 % 08/27/25 13:16 Lymph % (Auto) 19.1 % 08/27/25 13:16 Calloway % (Auto) 6.2 % 08/27/25 13:16 Eos % (Auto) 1.4 % 08/27/25 13:16 Baso % (Auto) 0.4 % 08/27/25 13:16 Neut # (Auto) 7.89 10^3/uL (1.8-7.7) H 08/27/25 13:16 Lymph # (Auto) 2.1 10^3/uL (0.8-4.8) 08/27/25 13:16 Calloway # (Auto) 0.7 10^3/uL (0.2-0.9) 08/27/25 13:16 Eos # (Auto) 0.2 10^3/uL (0.0-0.8) 08/27/25 13:16 Baso # (Auto) 0.0 10^3/uL (0.0-0.1) 08/27/25 13:16 Nucleated RBC % (auto) 0 % 08/27/25 13:16 Nucleated RBCs # 0.0 /100WBC 08/27/25 13:16 Differential Comment Yes 08/27/25 16:05 D-Dimer 6.71 ug/mLFEU (0-0.59) H 08/27/25 13:16 Sodium 129 mmol/L (136-145) L 08/27/25 13:16 Potassium 3.4 mmol/L (3.5-5.1) L 08/27/25 13:16 Chloride 89 mmol/L (98-107) L 08/27/25 13:16 Carbon Dioxide 28 mmol/L (22-29) 08/27/25 13:16 Anion Gap 15.4 (5-19) 08/27/25 13:16 BUN 13 mg/dL (6-20) 08/27/25 13:16 Creatinine 1.3 mg/dL (0.5-0.9) H 08/27/25 13:16 GFR Calculation 43.2 mL/min (90-130) L 08/27/25 13:16 Glucose 277 mg/dL (65-115) H 08/27/25 13:16 Calculated Osmolality 278 mOsm/kg (285-295) L 08/27/25 13:16 Lactic Acid 2.1 mmol/L (0.5-2.2) 08/27/25 13:16 Lactic Acid (Sepsis) 1.9 mmol/L (0.5-2.2) 08/27/25 15:52 Calcium 8.5 mg/dL (8.5-10.5) 08/27/25 13:16 Total Bilirubin 0.8 mg/dL (0.15-1.2) 08/27/25 13:16 AST 13 U/L (0-32) 08/27/25 13:16 ALT 11 U/L (0-33) 08/27/25 13:16 Alkaline Phosphatase 152 U/L (35-105) H 08/27/25 13:16 Total Protein 6.9 g/dL (6.6-8.7) 08/27/25 13:16 Albumin 2.5 g/dL (3.5-5.2) L 08/27/25 13:16 Globulin 4.4 g/dL (1.3-4.6) 08/27/25 13:16 Urine Color [place] (Yellow) A 08/27/25 15:21 Urine Appearance Clear (CLEAR) 08/27/25 15:21 Urine pH 5.5 (5-7) 08/27/25 15:21 Ur Specific Parachute 1.024 (1.005-1.030) 08/27/25 15:21 Urine Protein 1+ (Negative) A 08/27/25 15:21 Urine Glucose (UA) Trace (Normal) H 08/27/25 15:21 Urine Ketones Trace (Negative) 08/27/25 15:21 Urine Blood Negative (Negative) 08/27/25 15:21 Urine Nitrate Positive (Negative) A 08/27/25 15:21 Urine Bilirubin 2+ (Negative) H 08/27/25 15:21 Urine Urobilinogen 1.0 mg/dL (Negative) 08/27/25 15:21 Ur Leukocyte Esterase Trace (Negative) A 08/27/25 15:21 Urine RBC Rare /hpf (0-2) 08/27/25 15:21 Urine WBC Rare /hpf (0-5) 08/27/25 15:21 Ur Squamous Epith Cells None /hpf (0-5) 08/27/25 15:21 Amorphous Sediment Not Reportable 08/27/25 15:21 Urine Bacteria None /hpf (NONE) 08/27/25 15:21 Ur Random Sodium 25 mmol/L 08/27/25 15:21 Ur Random Potassium 41 mmol/L 08/27/25 15:21 Ur Random Chloride 23 mmol/L 08/27/25 15:21 Fluid Color Lori 08/27/25 16:05 Fluid Appearance Cloudy 08/27/25 16:05 Fluid Specific Grav 1.027 08/27/25 16:05 Fluid pH 7.5 08/27/25 16:05 Fluid WBC 1847 /uL 08/27/25 16:05 Fluid RBC 3.000 10^3/uL 08/27/25 16:05 Fld Polynuclear WBCs # 0.891 08/27/25 16:05 Fld Polynuclear WBCs % 48.300 % 08/27/25 16:05 Fl Mononucl WBCs #(Auto) 0.956 08/27/25 16:05 Fl Mononuclear % Auto 51.700 % 08/27/25 16:05 Fld Crystal Laterality Right pleural fluid 08/27/25 16:05 Urine Opiates Screen Negative ng/mL (Negative) 08/27/25 15:21 Ur Barbiturates Screen Negative ng/mL (Negative) 08/27/25 15:21 Ur Phencyclidine Scrn Negative ng/mL (Negative) 08/27/25 15:21 Ur Amphetamines Screen Positive ng/mL (Negative) H 08/27/25 15:21 U Benzodiazepines Scrn Negative ng/mL (Negative) 08/27/25 15:21 Urine Cocaine Screen Negative ng/mL (Negative) 08/27/25 15:21 U Marijuana (THC) Screen Negative ng/mL (Negative) 08/27/25 15:21 All radiology interpretation(s) finalized by discharge Critical Care Time Critical Care Time: Critical Care Time: Yes Total Critical Care Time: 40 Attestation: The high probability of a clinically significant, sudden or life threatening deterioration of the patient's cardiovascular respiratory system(s) required my full and direct attention, intervention and personal management. The critical care time is as shown. This time is in addition to time spent performing any reported procedures but includes the following: [x] Data and vital sign review and interpretation [x] Patient assessment, examination and intervention [x] Documentation [x] Medication orders and management Discharge Plan Discharge Patient Disposition: Admitted As Inpatient Admit Provider: Delio Lackey Clinical Impression: Hypotension, Pleural effusion, right, Hyponatremia Condition: Stable Coding Level of Care Code ED Handbag Framer for Isabel Hernandez
[2025-08-27] MEDS: norepinephrine 4 MG/250 ML BAG 30 MG IV (15:08)
--- NOTE | 2025-08-27 15:13 | PM.HP ---
Providers/Chief Complaint Primary Care Provider: Sushil Mobley MD Chief Complaint: Dizzy low blood pressure x3days History of Present Illness Carmen Richards is a 49 year old female with past medical history of congestive heart failure with last known EF of 35%, CAD post PCI, type 2 diabetes mellitus, recurrent right-sided effusion for which she undergoes thoracentesis, COPD, right MCA stroke, depression, hyperlipidemia, hypertension who had presented to the radiology department today for right-sided thoracentesis and was found to have significant hypotension with blood pressures down to 60 systolic and so was transferred to the ER. In the ER patient is receiving 2 L of IV fluid bolus, received central line and is on Levophed of 8. Patient examination of drowsy, waking up to verbal stimulus. Is able to have conversation but in a garbled voice. States she has been having dizziness and has been falling for last 2 days. Denies any nausea, vomiting, diarrhea, difficulty breathing, cough, fever. She is not able to help any further with her history taking. On review it seems on 08/23 Entresto was added to her medication list after cardiology follow-up. She states she started taking that medication 2 days ago. Review of Systems General: Reports: 10 or more systems reviewed and unremarkable except in HPI and below Const: Denies: fever(s), chills, body aches, change in appetite, change in weight, malaise, night sweats, diaphoresis, change in sleep pattern, daytime sleepiness or snoring Eyes: Denies: change in vision, blurry vision, photophobia, eye discomfort or eye discharge ENMT: Denies: throat pain, enlarged tonsils, hoarseness, mouth pain, oral sores, dry mouth, tinnitus, nasal congestion or post nasal drip Card: Denies: chest pain, palpitations, irregular heart rhythm, edema, swelling of feet/ankles, lightheadedness, syncope, pre-syncope, dyspnea on exertion, orthopnea, leg pain with exertion or acrocyanosis Resp: Denies: dyspnea, productive cough, non-productive cough, wheezing, stridor, pain on inspiration, change in phlegm color, hemoptysis or chest congestion GI: Denies: abdominal pain, nausea, vomiting, hematemesis, coffee ground emesis, dysphagia, heartburn, diarrhea, constipation, bloating, GI cramping, change in bowel habits, pain on defecation, hematochezia or melena : Denies: flank pain, dysuria, urinary frequency, urinary urgency, urinary hesitancy, nocturia or hematuria Musc: Denies: neck pain, back pain, extremity pain, joint pain, joint swelling, joint redness, joint stiffness or limited range of motion Neuro: Denies: headache(s), numbness in extremities, weakness in extremities, sensory changes, lack of coordination, difficulty walking, frequent falls, dizziness, vertigo, confusion, Slurred speech present, difficulty communicating thoughts or seizure-like activity Psych: Denies: anxiety, depression, mood swings, panic attacks, hopelessness or irritability Endo: Denies: polyuria, polydipsia, tired all the time, cold intolerance, excessive sweating, flushing or heat intolerance Dick/Lymph: Denies: easy bruising or easy bleeding All/Imm: Denies: tongue swelling, facial swelling or acute wheezing Medications/Allergies Home Medications ?Medication ?Instructions ?Recorded ?Confirmed ?Last Taken ?Type budesonide-formoterol HFA 160 2 puff inhalation BID 02/16/20 08/27/25 08/27/25 History mcg-4.5 mcg/actuation aerosol inhaler (Symbicort) levothyroxine 75 mcg tablet 75 mcg PO QAM 06/11/22 08/27/25 08/27/25 History insulin glargine 100 unit/mL (3 60 unit (0.6 mL) SUBCUT QAM #60 mL 07/26/24 08/27/25 08/27/25 Rx mL) subcutaneous pen (Lantus Solostar U-100 Insulin) albuterol sulfate 2.5 mg/3 mL 2.5 mg continuous nebulization QID 12/14/24 08/27/25 08/26/25 History (0.083 %) solution for nebulization PRN Shortness Of Breath albuterol sulfate 90 mcg/actuation 2 puff inhalation QID 12/14/24 08/27/25 08/26/25 History aerosol inhaler (Ventolin HFA) nitroglycerin 0.4 mg sublingual 0.4 mg sublingual PRN PRN Chest 12/14/24 08/27/25 2 Months Ago History tablet Pain ~06/27/25 oxycodone 10 mg tablet 10 mg PO TID PRN Pain 12/14/24 08/27/25 08/27/25 History pantoprazole 40 mg tablet,delayed 40 mg PO DAILY 12/14/24 08/27/25 08/27/25 History release acetaminophen 500 mg tablet 1,000 mg PO Q6H PRN Pain 12/18/24 08/27/25 08/27/25 History (Tylenol Extra Strength) blood-glucose sensor (Dexcom G7 #3 ea 03/20/25 08/20/25 Unknown Rx Sensor device) atorvastatin 80 mg tablet 80 mg PO BEDTIME 06/21/25 08/27/25 08/26/25 History escitalopram oxalate 20 mg tablet 20 mg PO QAM 06/21/25 08/27/25 08/27/25 History tiotropium bromide 2.5 1 puff inhalation DAILY 06/23/25 08/27/25 08/27/25 History mcg/actuation mist for inhalation (Spiriva Respimat) bumetanide 1 mg tablet 1 mg PO BID #60 tabs 06/28/25 08/27/25 08/27/25 Rx insulin lispro 100 unit/mL 10 unit SUBCUT .TID PER SS 08/07/25 08/27/25 08/27/25 History subcutaneous pen lactulose 10 gram/15 mL oral 15 ml PO DAILY PRN Constipation 08/07/25 08/27/25 3 Days Ago History solution ~08/24/25 carvedilol 12.5 mg tablet 12.5 mg PO BID 60 days #120 tabs 08/23/25 08/27/25 08/27/25 Rx sacubitril 24 mg-valsartan 26 mg 1 tab PO BID #180 tabs 08/23/25 08/27/25 08/27/25 Rx tablet (Entresto) aspirin 81 mg tablet 81 mg PO DAILY 08/27/25 08/27/25 08/21/25 History clopidogrel 75 mg tablet 75 mg PO DAILY 08/27/25 08/27/25 08/21/25 History Allergies Allergy/AdvReac Type Severity Reaction Status Date / Time pregabalin (From Lyrica) Allergy hallucinati Verified 08/27/25 11:56 ons PFSH Acute PFSH: Medical History (Updated 08/27/25 @ 15:40 by Delio Lackey MD) Pleural effusion, right Type II diabetes mellitus Acute on chronic respiratory failure with hypoxia 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 LBBB (left bundle branch block) CAD (coronary artery disease) CHF (congestive heart failure) Chest pain Dyspnea on exertion Right middle cerebral artery stroke Staph skin infection Left arm pain Transient cerebral ischemia Smoking addiction CVA (cerebral vascular accident) Major depressive disorder, 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, recurrent severe without psychotic features Hyperlipidemia Hypertension Asthma COPD (chronic obstructive pulmonary disease) Hepatitis C Acute ischemic stroke COPD (chronic obstructive pulmonary disease) Smoking Left leg paresthesias Arm paresthesia, left Left-sided weakness Surgical History H/O: hysterectomy 1996 History of tonsillectomy Family History Other CAD (coronary artery disease) Cancer Diabetes Family history of premature coronary artery disease Hypertension Lung disease Stroke Social History Smoking and tobacco/nicotine status: former use of tobacco/nicotine Quit status (tobacco/nicotine): has quit using Year quit tobacco: 2024 Former quit date comment: Was smoking a pack and a half a day till 2 weeks ago Second hand smoke exposure: No Alcohol intake: former Substance/Drug Use: former Date of last use: 20 years ago Additional social history: Patient states she is on disability she thinks from medical problem but does not know which one. 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 Pets and animals: Yes Pets & animals: dog(s) Leisure activites: exercise, art, music and reading Sexually active: No Do you think of yourself as: Straight/Heterosexual Current gender identity: Female Linda/Mormon: Lutheran Special linda needs: No Agree to transfusion: Yes Female Reproductive History: Para: 2 Spontaneous abortions: No Vitals/I&O/Wt Last Vital Signs Pulse 72 08/27/25 14:41 Resp 18 08/27/25 12:38 BP 62/45 08/27/25 14:41 Pulse Ox 94 08/27/25 14:41 O2 Del Method Nasal Cannula 08/27/25 14:41 O2 Flow Rate 2 08/27/25 14:41 08/27/25 08/27/25 08/27/25 06:59 14:59 22:59 Intake Total 1000 / 1000 Balance 1000 / 1000 Weight last 48 hrs Weight 73.936 kg Physical Exam Narrative: General: No acute distress, AO x 2 to 3, drowsy HEENT: PERRLA, pupils bilaterally equal and reactive Chest: Bronchial breath sounds over lung stokes, no added sounds, decreased air entry in right lower zone CVS: S1-S2 regular, soft pansystolic murmur at apex, no tachycardia, no gallops, no rubs Abdomen: Soft, nontender, no organomegaly, bowel sounds present Neuro: No focal deficits, no facial deformity, Data 08/27/25 13:16 08/27/25 13:16 Micro: Microbiology 08/27/25 14:06 Blood Culture - Preliminary Blood SPECIMEN COLLECTED 08/27/25 13:40 Blood Culture - Preliminary Blood SPECIMEN COLLECTED A&P Assessment and plan 1. Cardiogenic shock: Most likely in setting of recently added Entresto 2 days prior to presentation. Though unlikely but for now cannot rule out in setting of possible infection. Patient does have right-sided pleural effusion for which she receives thoracentesis. Cannot rule out empyema. Though patient does not have leukocytosis. Target mean artery pressure over 65. Wean Levophed accordingly. Already receiving 2 L of IV fluid bolus. Will be careful with any further fluid boluses given her history with a EF of 35%. Start on NS at 50 cc/h for now. Patient would most likely need Cheetah examination once in ICU. Check blood culture, urinalysis, urine culture, urine drug screen, cortisol level. Check D-dimer. Will request for thoracentesis. Will request not to remove more than 500 cc of fluid given shock. Can give 1 bag of albumin after thoracentesis. Hold antihypertensive for now. 2. Heart failure with reduced ejection fraction: Last known EF of 3035% with dilated and hypokinetic RV, mild MR, mild TR. So far patient euvolemic. Will continue to monitor. 3. Left carotid stenosis: Given drowsiness and garbled voice with possible dysarthria for now we will check CT head. Patient has a history of right MCA stroke. Symptoms could be in setting of hypotension. Continue with home dose of aspirin, statin. Appreciate recent A1c, lipid panel. 4. Hyperlipidemia: 5. Type II diabetes mellitus: History of uncontrolled type 2 diabetes mellitus. Continue with sliding scale. Will add Lantus depending on blood sugars in next 24 hours. Patient will have decreased oral intake given drowsiness for now. Takes 60 units of Lantus, 10 units of lispro 3 times daily for now. 6. Acute hyponatremia: Sodium down to 129. Getting IV fluids. Repeat BMP in 3 hours. Check urine lites. 7. COPD (chronic obstructive pulmonary disease): No exacerbation for now. DuoNeb as needed. 8. Pleural effusion, right: Plan: Full code N.p.o. for now. Will start on carb consistent diet once more awake. Protonix OPD prophylaxis Heparin 5000 every 12 hourly DVT prophylaxis PDMP PDMP Reviewed: Not Reviewed Attestations Medical Necessity Statement*: Admission for more than 2 midnights for management of cardiogenic shock in setting of recently adjusted antihypertensive in a patient with history of congestive systolic heart failure Critical Care Time: The high probability of a clinically significant, sudden or life threatening deterioration of the patient's [cardiac, ID] system(s) required my full and direct attention, intervention and personal management. The critical care time is as shown. This time is in addition to time spent performing any reported procedures but includes the following: [x] Data and vital sign review and interpretation [x] Patient assessment, examination and intervention [x] Documentation [x] Medication orders and management Coding Level of Care Code Critical Care >/= 30 minutes Critical care time (in minutes): 70 The high probability of a clinically significant, sudden or life threatening deterioration, as referenced in this documentation, required my full and direct attention, intervention and personal management. The critical care time shown is in addition to time spent performing any reported separately billable procedures and includes the following: [x] Data and vital sign review and interpretation [x] Patient assessment, examination and intervention [x] Medication orders and management [x] Patient/Family updates as able [x] Care Coordination and Documentation. Diagnoses Cardiogenic shock R57.0 Heart failure with reduced ejection fraction I50.20 Left carotid stenosis I65.22 Hyperlipidemia E78.5 Type II diabetes mellitus E11.9 Acute hyponatremia E87.1 COPD (chronic obstructive pulmonary disease) J44.9 Pleural effusion, right J90
--- NOTE | 2025-08-27 15:14 | US_ITS ---
WS: [id number] ULTRASOUND-GUIDED THORACENTESIS, RIGHT HISTORY: right pleural effusion Procedure, risks, and complications were explained to the patient. With the patient in an upright position, the skin over the RIGHT posterior thorax was cleansed with ChloraPrep and anesthetized with 1% buffered lidocaine. A 5 Iraqi Yueh needle is inserted into the pleural fluid without complication. Approximately 100 cc of dark yellow pleural fluid is removed without difficulty. Pleural fluid specimen was collected for analysis. The right-sided pleural effusion contains multiple loculations and septations. This is a new finding since 08/10/2025. Pleural effusion at that time was simple and layering. / thoracentesis [id number] IMPRESSION: 1. RIGHT thoracentesis yielding 100 cc of fluid. 2. Chest radiograph to follow to evaluate for pneumothorax. 3. RIGHT pleural effusion is markedly loculated and septated which is new sinc e 08/10/2025.
[2025-08-27 15:16] LABS: Reflex Lactate Order REFLEX LACTIC ORDERD
[2025-08-27 15:30] LABS: Glucose Urine UA Trace (Normal); Nitrate Urine Positive (Negative); Specific Gravity, Urine 1.024 (1.005-1.030)
[2025-08-27 15:37] LABS: PCP Screen Urine Negative (Negative)
--- NOTE | 2025-08-27 15:39 | CTR_ITS ---
PROCEDURE INFORMATION: Exam: CT Head Without Contrast Exam date and time: 08/27/2025 4:47 PM Age: 49 years old Clinical indication: Other: Shock, drowsy, dysarthria; Patient was being prepped for thoracentesis in ops, BP was 50/30's, o2 dropped to 70s. Patient is not normally on o2. Placed patient on 2 L nc. Patient reports she took oxycodone this morning. States her mouth is dry and thats why her speech is slow. Patient appears lethargic. TECHNIQUE: Imaging protocol: Computed tomography of the head without contrast. Radiation optimization: All CT scans at this facility use at least one of these dose optimization techniques: automated exposure control; mA and/or kV adjustment per patient size (includes targeted exams where dose is matched to clinical indication); or iterative reconstruction. COMPARISON: CT angio headneck* [id number] 09/23/2022 8:16 AM RADIATION DOSE METRICS: Total DLP (mGy-cm): 183.98 FINDINGS: Brain: Focal encephalomalacia in the left frontal lobe consistent with old infarct. No intra-axial hemorrhage. No masses or midline shift. Mild chronic microangiopathic white matter changes. Cerebral ventricles: No ventriculomegaly. Paranasal sinuses: Visualized sinuses are unremarkable. No fluid levels. Mastoid air cells: Visualized mastoid air cells are well aerated. Bones: Unremarkable. No acute fracture. Soft tissues: Unremarkable. CT/CT head wo con* [id number] IMPRESSION: 1. No acute intracranial abnormality. 2. Focal encephalomalacia in the left frontal lobe consistent with old infarct.
--- NOTE | 2025-08-27 16:02 | XR_ITS ---
WS: [id number] PORTABLE CHEST HISTORY: POST THORACENTESIS, RIGHT COMPARISON: 08/27/2025, 08/20/2025 No pneumothorax status post thoracentesis. Previously described RIGHT pleural effusion has decreased in size as compared to 08/20/2025. There is a loculated pleural effusion as was also noted on a recent ultrasound. Mild hyperexpansion. Interstitial thickening is probably edema. No consolidation or pneumonia identified. RIGHT central line has been placed since 08/20/2025. Cardiac size: Normal. Mediastinum/Aorta: Mild atherosclerosis aorta. No osseous abnormality seen. XR/XR chest 1V portable [id number] IMPRESSION: 1. No pneumothorax status post RIGHT thoracentesis. 2. Small loculated RIGHT pleural effusion. 3. RIGHT IJ line in good position.
[2025-08-27 16:21] LABS: Apprearance, Body Fluid CLOUDY; Color, Body Fluid AMBER; Cyto Order Verification No Order; Fluid Laterality RIGHT PLEURAL FLUID; PATH Referral YES
[2025-08-27 16:28] LABS: Body Fluid Polynuclear #Cells 0.891; Monocytes # Body Fluid 0.956; Mononuclear WBC Body Fluid % 51.700 %; Polynuclear WBC Body Fluid % 48.300 %
[2025-08-27 16:32] LABS: Add Urine Microscopic? YES; UA Manual Slide Review YES; UA Slide Review UA Slide Review Perf
[2025-08-27 16:50] LABS: Potassium, Radom Urine 41 mmol/L; Urine Random Chloride 23 mmol/L; Urine Random Sodium 25 mmol/L
[2025-08-27 16:55] LABS: Lactic Acid level (Lactate) 1.9 mmol/L (0.5-2.2)
[2025-08-27 17:07] LABS: Anion Gap 16.0 (5-19); Blood Urea Nitrogen 15 mg/dL (6-20); Calcium 8.0 mg/dL (8.5-10.5); Carbon Dioxide 24 mmol/L (22-29); Chloride 94 mmol/L (98-107); Creatinine Clr Calc Pharmacy 53.4229; Glucose 225 mg/dL (65-115); Osmolality Calculated 278 mOsm/kg (285-295); Potassium 4.0 mmol/L (3.5-5.1); Sodium 130 mmol/L (136-145)
[2025-08-27] MEDS: piperacillin-tazobactam 3.375 GM in sodium chloride 0.9% (plus) 50 ML IV ×2 (17:37→23:05)
[2025-08-27] MEDS: heparin 5,000 unit/mL INJ 1 mL 5000 UNIT SUBCUT (17:41)
[2025-08-27 18:19] LABS: Fluid Alkaline Phos. 60 IU/L
--- NOTE | 2025-08-27 22:19 | PM.CONSULT ---
Providers/Reason For Consult Consulting Physician/Specialty*: Dr. 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 She underwent further investigation with CT chest which showed right-sided large pleural effusion and she was also treated with antibiotics with ceftriaxone and azithromycin considering her underlying comorbidity of COPD and currently is smoking. She had a history of heart failure with ejection fraction of 30 to 35%. For her right-sided large pleural effusion, last admission, she underwent ultrasound-guided thoracocentesis and showed exudative pleural effusion based on the lights criteria. 1000 mL was removed. Gram stain prelim was negative. Blood cultures did not show growth This admission she was scheduled for another thoracentesis but had only 100 mL removed. Ultrasound showed large septations and complicated pleural effusion per Dr. Pam Lambert. Incidentally she was found to be hypotensive and had to be sent to the ER where she was placed on pressors and is currently in the ER. Medical History: - Congestive Heart Failure diagnosed in August of last year - Chronic Obstructive Pulmonary Disease (COPD) - Pneumonia treated in the past year Social History: - Smoking: Quit three months ago Review of Systems General: Reports: 10 or more systems reviewed and unremarkable except in HPI and below Medications/Allergies Home Medications ?Medication ?Instructions ?Recorded ?Confirmed ?Last Taken ?Type budesonide-formoterol HFA 160 2 puff inhalation BID 02/16/20 08/28/25 08/27/25 09:00 History mcg-4.5 mcg/actuation aerosol inhaler (Symbicort) levothyroxine 75 mcg tablet 75 mcg PO QAM 06/11/22 08/28/25 08/27/25 07:00 History albuterol sulfate 2.5 mg/3 mL 2.5 mg continuous nebulization QID 12/14/24 08/28/25 08/26/25 History (0.083 %) solution for nebulization PRN Shortness Of Breath albuterol sulfate 90 mcg/actuation 2 puff inhalation QID 12/14/24 08/28/25 08/26/25 History aerosol inhaler (Ventolin HFA) nitroglycerin 0.4 mg sublingual 0.4 mg sublingual PRN PRN Chest 12/14/24 08/28/25 2 Months Ago History tablet Pain ~06/27/25 oxycodone 10 mg tablet 10 mg PO TID PRN Pain 12/14/24 08/28/25 08/27/25 History pantoprazole 40 mg tablet,delayed 40 mg PO DAILY 12/14/24 08/28/25 08/27/25 History release acetaminophen 500 mg tablet 1,000 mg PO Q6H PRN Pain 12/18/24 08/28/25 08/27/25 History (Tylenol Extra Strength) blood-glucose sensor (Urban Ladder G7 #3 ea 03/20/25 08/28/25 Unknown Rx Sensor device) atorvastatin 80 mg tablet 80 mg PO BEDTIME 06/21/25 08/28/25 08/26/25 19:00 History escitalopram oxalate 20 mg tablet 20 mg PO QAM 06/21/25 08/28/25 08/27/25 History tiotropium bromide 2.5 1 puff inhalation DAILY 06/23/25 08/28/25 08/27/25 History mcg/actuation mist for inhalation (Spiriva Respimat) bumetanide 1 mg tablet 1 mg PO BID #60 tabs 06/28/25 08/28/25 08/27/25 08:00 Rx insulin lispro 100 unit/mL 10 unit SUBCUT .TID PER SS 08/07/25 08/28/25 08/27/25 07:00 History subcutaneous pen lactulose 10 gram/15 mL oral 15 ml PO DAILY PRN Constipation 08/07/25 08/28/25 3 Days Ago History solution ~08/24/25 carvedilol 12.5 mg tablet 12.5 mg PO BID 60 days #120 tabs 08/23/25 08/28/25 08/27/25 09:00 Rx sacubitril 24 mg-valsartan 26 mg 1 tab PO BID #180 tabs 08/23/25 08/28/25 08/27/25 09:00 Rx tablet (Entresto) aspirin 81 mg tablet 81 mg PO DAILY 08/27/25 08/28/25 08/27/25 08:00 History clopidogrel 75 mg tablet 75 mg PO DAILY 08/27/25 08/28/25 08/27/25 History acyclovir 400 mg tablet 400 mg PO BID 08/28/25 08/28/25 08/27/25 08:00 History insulin glargine 100 unit/mL (3 20 unit SUBCUT QAM 08/28/25 08/28/25 08/27/25 08:00 History mL) subcutaneous pen (Lantus Solostar U-100 Insulin) potassium chloride 10 mEq 20 meq PO DAILY 08/28/25 08/28/25 08/27/25 History tablet,extended release promethazine-DM 6.25 mg-15 mg/5 mL 10 ml PO Q4H PRN Cough 08/28/25 08/28/25 08/27/25 10:00 History oral syrup Allergies Allergy/AdvReac Type Severity Reaction Status Date / Time pregabalin (From Lyrica) Allergy hallucinati Verified 08/27/25 11:56 ons Current Medications Generic Name Dose Route Start Last Admin Trade Name Freq PRN Reason Stop Dose Admin Albuterol/Ipratropium 3 ml 08/27/25 20:00 08/27/25 20:27 Ipratropium-Albuterol 3 Ml Neb INHALATION 3 ml QID.RESPIRATORY ALLISON Administration Atorvastatin Calcium 80 mg 08/27/25 21:00 08/27/25 21:43 Atorvastatin 40 Mg Tablet PO 80 mg BEDTIME ALLISON Administration Budesonide 0.5 mg 08/27/25 20:30 08/27/25 20:28 Budesonide 0.5 Mg/2 Ml Neb INHALATION 0.5 mg BID.RESPIRATORY ALLISON Administration Docusate Sodium 100 mg 08/27/25 17:13 08/27/25 17:41 Docusate Sodium 100 Mg Capsule PO 100 mg BID ALLISON Administration Heparin Sodium (Porcine) 5,000 unit 08/27/25 18:00 08/27/25 17:41 Heparin 5,000 Unit/Ml Inj 1 Ml SUBCUT 5,000 unit Q12H ALLISON Administration Norepinephrine Bitartrate 4 mg in 250 mls @ 0 mls/hr 08/27/25 15:00 08/27/25 19:44 Levophed IV 4 mcg/min .Q0M ALLISON 15 mls/hr Protocol Titration Per Protocol Sodium Chloride 1,000 mls @ 50 mls/hr 08/27/25 17:13 08/27/25 17:44 Sodium Chloride 0.9% IV 50 mls/hr .Q20H ALLISON Administration PFSH Acute PFSH: Medical History (Updated 08/28/25 @ 12:48 by Delio Lackey MD) Obesity Hypoalbuminemia Septic shock Pleural effusion, right Type II diabetes mellitus Acute on chronic respiratory failure with hypoxia 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 LBBB (left bundle branch block) CAD (coronary artery disease) CHF (congestive heart failure) Chest pain Dyspnea on exertion Right middle cerebral artery stroke Staph skin infection Left arm pain Transient cerebral ischemia Smoking addiction CVA (cerebral vascular accident) Major depressive disorder, 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, recurrent severe without psychotic features Hyperlipidemia Hypertension Asthma COPD (chronic obstructive pulmonary disease) Hepatitis C Acute ischemic stroke COPD (chronic obstructive pulmonary disease) Smoking Left leg paresthesias Arm paresthesia, left Left-sided weakness Surgical History H/O: hysterectomy 1996 History of tonsillectomy Family History Other CAD (coronary artery disease) Cancer Diabetes Family history of premature coronary artery disease Hypertension Lung disease Stroke Social History Smoking and tobacco/nicotine status: former use of tobacco/nicotine Quit status (tobacco/nicotine): has quit using Year quit tobacco: 2024 Former quit date comment: Was smoking a pack and a half a day till 2 weeks ago Second hand smoke exposure: No Alcohol intake: former Substance/Drug Use: former Date of last use: 20 years ago Additional social history: Patient states she is on disability she thinks from medical problem but does not know which one. 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 Pets and animals: Yes Pets & animals: dog(s) Leisure activites: exercise, art, music and reading Sexually active: No Do you think of yourself as: Straight/Heterosexual Current gender identity: Female Linda/Jainism: Amish Special linda needs: No Agree to transfusion: Yes Female Reproductive History: Para: 2 Spontaneous abortions: No Vitals/I&O/Wt Last Vital Signs Temp 97.7 F 08/27/25 21:12 Pulse 78 08/27/25 20:32 Resp 16 08/27/25 20:32 BP 89/62 08/27/25 20:00 Pulse Ox 96 08/27/25 20:32 O2 Del Method Nasal Cannula 08/27/25 20:32 O2 Flow Rate 2 08/27/25 20:32 08/27/25 08/27/25 08/27/25 06:59 14:59 22:59 Intake Total 1000 / 1000 2407.705 / 3407.705 Balance 1000 / 1000 2407.705 / 3407.705 Weight last 48 hrs Weight 171 lb 14.4 oz Weight 163 lb Physical Exam Narrative: per RN General: alert, NAD obese with O2 on HEENT: conj clear, EOMI, PERRL Neck: supple Pulmonary: Crackles heard right more than left. Cardiovascular: rrr, nl s1s2, no mrg Abdomen: soft, nt, nd, no r/g, Extremities: pulses +, 1+ edema Agree with above exam Data 08/28/25 04:22 08/28/25 04:22 Micro: Microbiology 08/27/25 14:06 Blood Culture - Preliminary Blood SPECIMEN COLLECTED 08/27/25 13:40 Blood Culture - Preliminary Blood SPECIMEN COLLECTED A&P Assessment and plan 1. Pleural effusion, right: 2. Septic shock: 3. Hypoalbuminemia: 4. Obesity: Plan: This is a 49-year-old female past medical history of chronic congestive heart failure with pleural effusion right-sided large presents this admission to the ER with increased shortness of breath and hypotension while she was getting a thoracentesis done. Patient was given 4 L of IV fluids in the ER and currently running NS 50 mL/h. Levophed started initially at 8 and now at 4 maps running around 70. Urine output in the last few hours has been 750 mL/h # Large right complicated pleural effusion-differential includes due to chronic congestive heart failure but this admission chest x-ray shows bulging right pleural effusion that is suspicious for a complicated empyema versus pleural peel development. I agree with Zosyn. Cultures have been sent from blood as well as awaiting pleural fluid cultures and analysis. I will add vancomycin 1 g IV twice daily at this time and consider ID consult in morning. I suspect that it might be a complicated pleural effusion that might need decortication. I have ordered a CT scan of the chest for early tomorrow morning. If it looks worse I will touch base with Dr. Murillo and discuss perhaps a thoracic surgery consult and [place] or [place]. She is very complicated and would be considered high risk for any procedures such as decortication. I agree with chest tube in the morning. I reviewed the chest x-ray and explained findings to the patient. Follow-up on pleural fluid cytology. Reviewed pleural fluid analysis showing a pH of 7.5 hide neutrophils LDH of 415 which is higher than last time at 158. Also total protein serum is 6.9 but total protein and fluid protein is 4.2 meets criteria for exudative pleural effusion. # Suspicion for stroke and has left carotid stenosis. CT head ordered. patient has a prior history of stroke right MCA. She is on aspirin and statin, Plavix for now since she might undergo procedures tomorrow morning. # Acute on chronic congestive heart failure/cardiogenic shock-patient is EF is 35% checked in June. Will repeat echocardiogram again. Will stop NS running tonight at 50 mL/h. Recommend restriction of fluids and only using Levophed drip for now. Also will order an BNP # Septic shock versus cardiogenic shock. Unclear to me at this time which is more dominant. Will get an echocardiogram in the morning but for now we will treat for septic shock and continue vancomycin and Zosyn. Await cultures to de-escalate. Reassessment has been completed. She has received 4 L of IV fluid bolus via ER. # Acute hyponatremia. Most likely is hypovolemic although congestive heart failure could cause this as well. Await echocardiogram. # Hypoalbuminemia # COPD group E-continue current inhalers # Positive for methamphetamine-watch for withdrawals. 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 Will await for echo in the morning # Ex-smoker # Chronic respiratory failure # Obesity Critical care time spent reviewing complex labs/imaging data, discussion with family regarding goals of care, excluding any procedures performed. Total time spent more than 60 minutes Telemedicine Consent Patient seen today via Telemedicine by agreement and consent of patient.? Telemedicine technology used during the visit includes audio and, as available, review of images.? The patient encounter is appropriate and reasonable under the circumstances given the patient?s particular presentation at this time.? The patient has been advised of the potential risks and limitations of this mode of treatment (including but not limited to the absence of in-person examination) and has agreed to be treated in a remote fashion in spite of them.? Any, and all, of the patient?s/patient?s family?s questions on this issue have been answered and I have made no promises or guarantees to the patient. The patient has also been advised to contact this office for worsening conditions or problems, and seek emergency medical treatment and/or call 911 if the patient deems either necessary PDMP PDMP Reviewed: Not Reviewed Coding Level of Care Code Critical Care >/= 30 minutes Diagnoses Pleural effusion, right J90 Septic shock A41.9; R65.21 Hypoalbuminemia E88.09 Obesity E66.9
--- NOTE | 2025-08-27 22:48 | PC.NURSE ---
Dr Yan, telehealth visit. Gave verbal orders for Chest CT without contrast, Echocardiogram, discontinue normal saline, and 1gram of Vancomycin IV BID with pharmacy to dose. Fluid stopped and orders placed. See MAR
[2025-08-27] MEDS: vancomycin 1,750 MG/350 ML PIGGYBACK 200 MG IV (23:05)
[2025-08-28] VITALS (45 sets, daily range): BP systolic 73–124; BP diastolic 55–81; PULSE 75–82; RESP 6–25; TEMP 36.6–37; O2SAT 92–99
--- NOTE | 2025-08-28 00:19 | PC.NURSE ---
Addendum entered by AYANA Barros 08/28/25 00:53: Still awaiting a response from provider but added AC&HS accuchecks to patients worklist. Original Note: Upon reading patients H&P, noticed patient has a history of uncontrolled DM Type 2. Patient currently has no insulin or accucheck orders. Blood glucose checked. Reading of 301. Hospitalist, notified at 0014. Awaiting response from provider on how to proceed for potential insulin and accucheck orders.
--- NOTE | 2025-08-28 01:21 | PC.NURSE ---
gave orders for low dose protocol sliding scale insulin with ACHS accuchecks. Orders placed. See MAR
[2025-08-28 04:49] LABS: Hematocrit 41.8 % (36-47); Hemoglobin 13.50 g/dL (11.27-16.99); Mean Corpuscular HGB Conc 32.3 g/dL (30-55); Mean Corpuscular Hemoglobin 30.5 pg (27-33); Mean Corpuscular Volume 94.6 fl (85-98); Nucleated Red Blood Cells % 0 %; Platelet Count 329 10^3/cmm (157-399); Red Blood Count 4.42 10^6/uL (3.85-5.65); White Blood Count 8.33 10^3/uL (3.29-11.43)
[2025-08-28 05:01] LABS: Alanine Aminotransferase 8 U/L (0-33); Albumin Level 2.2 g/dL (3.5-5.2); Alkaline Phosphatase 122 U/L (35-105); Anion Gap 13.1 (5-19); Aspartate Amino Transferase 12 U/L (0-32); Blood Urea Nitrogen 14 mg/dL (6-20); Calcium 8.0 mg/dL (8.5-10.5); Carbon Dioxide 26 mmol/L (22-29); Chloride 99 mmol/L (98-107); Creatinine Clr Calc Pharmacy 73.1157; Globulin 4.0 g/dL (1.3-4.6); Glucose 273 mg/dL (65-115); Magnesium 1.5 mg/dL (1.7-2.3); Osmolality Calculated 290 mOsm/kg (285-295); Potassium 3.1 mmol/L (3.5-5.1); Sodium 135 mmol/L (136-145); Total Protein 6.2 g/dL (6.6-8.7)
[2025-08-28] MEDS: heparin 5,000 unit/mL INJ 1 mL 5000 UNIT SUBCUT (05:46)
[2025-08-28] MEDS: norepinephrine 4 MG/250 ML BAG 7.5 MG IV (05:50)
--- OUTSIDE RECORDS SUMMARY | 2025-08-28 06:29 | XMS_ITS | Encounter Summary ---
Author Organization [facility] Address [address] [place] [address] Care Team Providers Care Help Desk Agent Name Role Phone Sushil Mobley MD Primary Care Provider [phone] Encounter Details Date Type Department Care Team (Late st Contact Info) Description 09/27/2019 Ancillary Orders [facility] Centralized Scheduling [address] [place] [id number] Mtnv, External Provider [address] [facility] [address] [place] [address] Social History Tobacco Use Types Packs/Day Years [...] on filedocumented in this encounter Care Teams Help Desk Agent Relationship Specialty Start Date End Date Sushil Mobley MD [address] [place] [id number] PCP - General Family Practice 08/22/20 documented as of this encounter
--- OUTSIDE RECORDS SUMMARY | 2025-08-28 06:29 | XMS_ITS | Encounter Summary ---
Author Organization [facility] Address [address] [place] [address] Care Team Providers Care Logistics Lead Name Role Phone Sushil Mobley MD Primary Care Provider [phone] Encounter Details Date Type Department Care Team (Late st Contact Info) Description 09/17/2014 Ancillary Orders [facility] [place] [address] [place] [phone] Social History Tobacco Use Types Packs/Day Years [...] on filedocumented in this encounter Care Teams Logistics Lead Relationship Specialty Start Date End Date Sushil Mobley MD [address] [id number] PCP - General Family Practice 08/22/20 documented as of this encounter
--- OUTSIDE RECORDS SUMMARY | 2025-08-28 06:30 | XMS_ITS | Clinical Summary ---
Author Organization [facility] Address [address] [facility] [address] [place] [address] Phone Care Team Providers Care Shoddy Mill Worker Name Role Phone Sushil Mobley MD Primary Care Provider [phone] Social History Tobacco Use Types Packs/Day Years Used Date Smoking Tobacco: Never Assessed Comments Unknown Sex and Gender Information Value Date Recorded Sex Assigned at Not on file Legal Sex Female 9:04 PM CDT Gender Identity Not on file Sexual Orientation Not on file Last Filed Vital Signs Vital Sign Reading Time Taken Comments Blood Pressure - - Pulse 71 11/20/2019 10:47 AM IMPLEMENTATION SPECIALIST Temperature - - Respiratory Rate 20 11/20/2019 10:47 AM IMPLEMENTATION SPECIALIST Oxygen Saturation 99% 11/20/2019 10:46 AM IMPLEMENTATION SPECIALIST Inhaled Oxygen Concentration - - Weight [...] (#1) [address] [place] [address] Care Teams Shoddy Mill Worker Relationship Specialty Start Date End Date Sushil Mobley MD [address] [id number] PCP - General Family Practice 08/22/20
--- OUTSIDE RECORDS SUMMARY | 2025-08-28 06:30 | XMS_ITS | Clinical Summary ---
Author Organization [facility] Address [address] [facility] Attn: Epic Prelude ADT [place] [address] Care Team Providers Care Central Office Repairer Supervisor Name Role Phone Sushil Mobley MD Primary Care Provider [phone] Allergies Active Allergy Reactions Criticality Noted Date [...] breakfast. 30 Tablet 2 12/05/2024 3:18 PM POST CLOSING SPECIALIST 5 Active atorvastatin (LIPITOR) 40 mg tablet Take 1 Tablet (40 mg) by mouth daily at bedtime. 30 Tablet 2 12/05/2024 3:18 PM POST CLOSING SPECIALIST 5 Active clopidogreL (PLAVIX) 75 mg Tablet Take 1 Tablet (75 mg) by mouth daily. 30 Tablet 2 12/05/2024 3:18 PM POST CLOSING SPECIALIST 5 Active furosemide (LASIX) 20 mg tablet Take 1 Tablet (20 mg) by mouth daily. 30 Tablet 12/05/2024 3:18 PM POST CLOSING SPECIALIST 5 Active insulin glargine (LANTUS) 100 unit/mL pen syringe Inject 25 Units by subcutaneous injection daily with breakfast. 15 mL 5 Active nitroglycerin (NITROSTAT) 0.[address], [address] 1 Tablet (0.4 mg) under tongue every 5 minutes as needed for Chest Pain (Do NOT take more than 3 pills in a row, if chest pain not relived contact your PCP/Physical Security Engineer EVRIN). 25 Tablet 1 12/05/2024 3:18 PM POST CLOSING SPECIALIST Active pantoprazole (PROTONIX) 40 mg Tablet, Delayed Release (E.C.) Take 1 Tablet (40 mg) by mouth daily before breakfast. 30 Tablet 12/05/2024 3:18 PM POST CLOSING SPECIALIST Active Active Problems Problem Noted Date Diagnosed [...] on file Legal Sex Female 2:08 AM POST CLOSING SPECIALIST Gender Identity Not on file Sexual Orientation Not on file Last Filed Vital Signs Vital Sign Reading Time Taken Comments Blood Pressure 104/70 12/05/2024 8:28 AM POST CLOSING SPECIALIST Pulse 81 12/05/2024 8:28 AM POST CLOSING SPECIALIST Temperature 36.5 C (97.7 F) 12/05/2024 8:28 AM POST CLOSING SPECIALIST Respiratory Rate 18 12/05/2024 8:28 AM POST CLOSING SPECIALIST Oxygen Saturation 93% 12/05/2024 8:28 AM POST CLOSING SPECIALIST Inhaled Oxygen Concentration - - Weight 82.6 kg (182 lb 3.2 oz) 12/04/2024 5:00 A M POST CLOSING SPECIALIST Height 157.5 cm (5' 2 ) 12/02/2024 11:11 PM POST CLOSING SPECIALIST Body Mass Index 33.32 12/02/2024 11:11 PM POST CLOSING SPECIALIST Plan of Treatment Health Maintenance Due Date [...] (#1) 2025 Medical Devices Implanted Type Area Paediatric Physiotherapist Device Identifier Shelf Expiration Date Model / Serial / Lot Stent [place] 3.0x15mm Rx [id number] - [id number] Implanted:Qty: 1 on 12/03/2024 by Prince Funes MD at [facility] Stent N/A: Coronary [employer] [id number] 07/31/2027 [id number] 15UX / / [id number] Stent [place] 4.0x12mm Rx [id number] - [id number] Implanted:Qty: 1 on 12/03/2024 by Prince Funes MD at [facility] Stent N/A: Coronary [employer] [id number] 05/10/2027 [id number] 12UX / / [id number] Stent [place] 4.0x8mm Rx [id number] - [id number] Implanted:Qty: 1 on 12/03/2024 by Prince Funes MD at [facility] Stent N/A: Coronary [employer] [id number] 04/23/2027 [id number] 08UX / / [id number] Procedures Procedure Name Priority Date/Time Associated Diagnosis Comments HEMOGLOBIN A1C Routine 12/03/2024 2:49 AM POST CLOSING SPECIALIST from Last 3 Months or Most Recently Relevant to Health Maintenance Results * (ABNORMAL) HEMOGLOBIN A1C (12/03/2024 2:49 AM POST CLOSING SPECIALIST) HEMOGLOBIN A1C 12.1(H) <=5.6 % 12/04/2024 8:55 AM POST CLOSING SPECIALIST [facility] EST. AVG GLUCOSE, A1C 301 mg/dL 12/04/2024 8:55 AM POST CLOSING SPECIALIST [facility] Blood Venipuncture / Unknown 12/03/2024 2:49 AM POST CLOSING SPECIALIST 12/03/2024 3:04 AM POST CLOSING SPECIALIST Narrative [facility] - 12/04/2024 8:55 AM POST CLOSING SPECIALIST HGB A1C INTERPRETATION NORMAL: <5.7% PRE-DIABETES: 5.7 - 6.4% DIABETES: 6.5% OR GREATER us Alvarado Persaud DO CHEMISTRY ORDERABLES Final Resu lt [facility] CLIA # [id number] [address] [address] [place] [address] from Last 3 Months or Most Recently Relevant to Health Maintenance Insurance MEDICAID [place] [employer] Advance Directives For more information, please contact: [phone] * Full Code (Latest Code Status on File) Date Activated Date Inactivated Comments 12/03/2024 2:06 AM 12/05/2024 5:37 PM Care Teams Central Office Repairer Supervisor Relationship Specialty Start Date End Date Sushil Mobley MD [address] [address] PCP - General Family Practice 08/22/20
--- OUTSIDE RECORDS SUMMARY | 2025-08-28 06:30 | XMS_ITS | Encounter Summary ---
Author Organization [facility] Address [address] [place] [address] Care Team Providers Care Client Development Manager Name Role Phone Sushil Mobley MD Primary Care Provider [phone] Encounter Details Date Type Department Care Team (Late st Contact Info) Description 09/10/2014 Ancillary Orders [facility] Laboratory Services [place] [address] [place] [id number] Sick Social History Tobacco Use Types Packs/Day [...] - 4.80 uIU/mL 09/10/2014 9:45 PM CDT [facility] LABORATORY SERVICES [facility] Blood Collection / Unknown 09/10/2014 9:04 PM CDT 09/10/2014 9:04 PM CDT Mega Mcelroy DO CHEMISTRY ORDERABLES Final Resu lt Performing Organization Address City/[facility]/ZIP Co de Phone Number [facility] CLIA # [id number] [address] [place] [address] * (ABNORMAL) HEMOGLOBIN A1C (09/10/2014 9:04 PM CDT) HEMOGLOBIN A1C 8.0(H) 4.5 - 6.2 % 09/10/2014 9:45 PM CDT [employer] LAB[facility]ATORY SERVICES - [place] EST. AVG GLUCOSE, A1C 183 mg/dL 09/10/2014 9:45 PM CDT [employer] [facility] - [place] Blood Collection / Unknown 09/10/2014 9:04 PM CDT 09/10/2014 9:04 PM CDT Mega Mcelroy DO CHEMISTRY ORDERABLES Final Resu lt Performing Organization Address [facility]/ZIP Co de Phone Number [facility] CLIA # [id number] [address] [place] [id number] * (ABNORMAL) COMPREHENSIVE METABOLIC PANEL (09/10/2014 9:04 PM CDT) SODIUM 134(L) 136 - 145 mmol/L 09/10/2014 9:45 PM CDT [employer] [facility] - [place] POTASSIUM 4.0 3.5 - 5.1 mmol/L 09/10/2014 9:45 PM CDT [facility] [employer] [facility] - [place] CHLORIDE 98 98 - 107 mmol/L 09/10/2014 9:45 PM CDT [employer] [facility] [place] CO2 28 21 - 32 mmol/L 09/10/2014 9:45 PM CDT [facility] [place] CALCIUM 9.1 8.5 - 10.1 mg/dL 09/10/2014 9:45 PM CDT [employer] [facility] [place] BUN 12 7 - 18 mg/dL 09/10/2014 9:45 PM CDT [employer] [facility] [place] CREATININE 0.90 0.60 - 1.30 mg/dL 09/10/2014 9:45 PM CDT [employer] [facility] [place] GLUCOSE 358(H) 74 - 106 mg/dL 09/10/2014 9:45 PM [facility] [employer] [facility] TOTAL PROTEIN 8.2 6.4 - 8.2 g/dL 09/10/2014 9:45 PM [facility] ALBUMIN 2.8(L) 3.4 - 5.0 g/dL 09/10/2014 9:45 PM [facility] BILIRUBIN TOTAL 1.5(H) 0.2 - 1.0 mg/dL 09/10/2014 9:45 PM [facility] ALKALINE PHOSPHATASE 134(H) 46 - 116 U/L 09/10/2014 9:45 PM [facility] [employer] [facility] AST 110(H) 15 - 37 U/L 09/10/2014 9:45 PM [facility] ALT 106(H) 30 - 65 U/L 09/10/2014 9:45 PM [facility] GFR >60 >=60 mL/min/1.7 3 sq meter 09/10/2014 9:45 PM [facility] [employer] [facility] Comment: eGFR has not been validated for [...] 3 sq meter 09/10/2014 9:45 PM [facility] [employer] [facility] ANION GAP 8(L) 12 - 20 mmol/L 09/10/2014 9:45 PM [facility] [employer] [facility] Blood Collection / Unknown 09/10/2014 9:04 PM CDT 09/10/2014 9:04 PM CDT [facility] [employer] [facility] - 09/10/2014 9:45 PM CDT Effective 07/26/2014, the Alkaline Phosphatase test method and reference range have changed. Please take this into consideration when interpreting results prior to or after this date. us Mega Mcelroy DO CHEMISTRY ORDERABLES Final Resu lt [facility] - [place] CLIA # [id number] [address] [facility] [address] [place] [address] documented in this encounter Visit Diagnoses Diagnosis Sick Other unknown and unspecified cause of morbidity or mortality documented in this encounter Care Teams Client Development Manager Relationship Specialty Start Date End Date Sushil Mobley MD [address] [place] [id number] PCP - General Family Practice 08/22/20 documented as of this encounter
--- OUTSIDE RECORDS SUMMARY | 2025-08-28 06:30 | XMS_ITS | Encounter Summary ---
Author Organization [facility] Address [address] [place] [address] Care Team Providers Care Cassandra Architect Name Role Phone Sushil Mobley MD Primary Care Provider [phone] Encounter Details Date Type Department Care Team (Late st Contact Info) Description 09/27/2019 Ancillary Orders [facility] Centralized Scheduling [address] [place] [phone] Determinations, Dis Kim Durán [address] [place] [address] COPD (chronic obstructive pulmonary disease) ([facility]) Social History Tobacco Use Types Packs/Day Years [...] AND LATERAL 2 VW (11/20/2019 9:22 AM INTERNET E COMMERCE SPECIALIST) Anatomical Region Laterality Modality Chest Computed Radiogr aphy 11/20/2019 9:22 AM INTERNET E COMMERCE SPECIALIST Impressions 11/20/2019 3:50 PM INTERNET E COMMERCE SPECIALIST IMPRESSION: Please see below. Exam: XR CHEST PA AND LATERAL 2 VW Date/Time of Exam: 11/20/2019 9:22 AM Reason For Exam: See Diagnosis. Diagnosis: COPD (chronic obstructive pulmonary disease). Comparison: None Findings: The heart size is normal. No infiltrates or pleural fluid. Retrosternal calcified granuloma. Thoracic spine degenerative changes. IMPRESSION: 1. No infiltrates. [id number] Narrative Procedure Note Jose G Marquez MD - 11/20/2019 IMPRESSION: Please see below. Exam: XR CHEST PA AND LATERAL 2 VW Date/Time of Exam: 11/20/2019 9:22 AM Reason For Exam: See Diagnosis. Diagnosis: COPD (chronic obstructive pulmonary disease). Comparison: None Findings: The heart size is normal. No infiltrates or pleural fluid. Retrosternal calcified granuloma. Thoracic spine degenerative changes. IMPRESSION: 1. No infiltrates. [id number] us External Provider [employer] DI[facility]NOSTIC [facility]AG[facility] ORDERA BLES Final Result documented in this encounter Visit Diagnoses Diagnosis COPD (chronic obstructive pulmonary disease) Chronic airway obstruction, not elsewhere classified COPD (chronic obstructive pulmonary disease) Chronic airway obstruction, not elsewhere classified documented in this encounter Care Teams Cassandra Architect Relationship Specialty Start Date End Date Sushil Mobley MD [address] [place] [id number] PCP - General Family Practice 08/22/20 documented as of this encounter
--- NOTE | 2025-08-28 07:26 | PHA.VACGOAL ---
Vancomycin Goal - Goal Vancomycin Goal:: 15-20 mg/L Vancomycin Indication:: Other - Therapy Current therapy:: Pip/Tazo Day of therpy:: Day []of [] . Actual body weight (kg): 170 lb - Data Labs: WBC 8.33 10^3/uL (3.29-11.43) 08/28/25 04:22 RBC 4.42 10^6/uL (3.85-5.65) 08/28/25 04:22 Hgb 13.50 g/dL (11.27-16.99) 08/28/25 04:22 Hct 41.8 % (36-47) 08/28/25 04:22 MCV 94.6 fl (85-98) 08/28/25 04:22 MCH 30.5 pg (27-33) 08/28/25 04:22 MCHC 32.3 g/dL (30-55) 08/28/25 04:22 RDW 13.9 % (12.1-15.1) 08/28/25 04:22 Sodium 135 mmol/L (136-145) L 08/28/25 04:22 Potassium 3.1 mmol/L (3.5-5.1) L 08/28/25 04:22 Chloride 99 mmol/L (98-107) 08/28/25 04:22 Carbon Dioxide 26 mmol/L (22-29) 08/28/25 04:22 Anion Gap 13.1 (5-19) 08/28/25 04:22 BUN 14 mg/dL (6-20) 08/28/25 04:22 Creatinine 0.9 mg/dL (0.5-0.9) 08/28/25 04:22 GFR Calculation 66.0 mL/min (90-130) L 08/28/25 04:22 Last dialysis session:: N/A Treatment plan:: new consult Regimen:: LOADING DOSE OF 1750 MG X 1. MAINTENANCE DOSE OF 1000 MG Q12H PER DOSING PROTOCOL Follow up:: WILL CONTINUE TO MONITOR AND FOLLOW UP DAILY
[2025-08-28] MEDS: piperacillin-tazobactam 3.375 GM in sodium chloride 0.9% (plus) 50 ML IV ×2 (08:00→15:52)
--- NOTE | 2025-08-28 08:00 | CT_ITS ---
WS: [id number] CT CHEST TECHNIQUE: Noncontrast CT of the chest with coronal and sagittal reformatted images. CLINICAL INFORMATION: right pleural effusion complicated COMPARISON: CT chest 08/08/2025 DLP: 446.[address] scans at [facility] use at least one of these dose optimization techniques: automated exposure control; mA and/or kV adjustment per patient size (includes targeted exams where dose is matched to clinical indication); or iterative reconstruction. FINDINGS: Prior thoracentesis. Again seen is the loculated RIGHT pleural effusion with septations seen on the ultrasound from yesterday. Moderate size RIGHT pleural effusion with partial consolidation RIGHT lower lobe. Air bronchograms RIGHT lower lobe. Tiny LEFT pleural effusion with LEFT basilar atelectasis. Chronic emphysematous changes. No pneumothorax. RIGHT IJ catheter. Contrast not administered. Aortic calcification. Coronary calcification. No other significant interval changes. Small esophageal hiatal hernia. Adrenal glands are normal. Few normal sized calcified mediastinal lymph nodes. No axillary lymphadenopathy. Thoracic kyphosis. CT/CT chest con [id number] IMPRESSION: 1. Moderate RIGHT pleural effusion with septations. Bandlike septations seen i n the the RIGHT lower effusion. 2. Air bronchograms and partial consolidation RIGHT lower lobe and RIGHT middl e lobe. 3. Trace LEFT pleural fluid. 4. No pneumothorax.
[2025-08-28] MEDS: albumin 25 G/100 ML BAG 60 G IV ×2 (10:29→17:55)
[2025-08-28] MEDS: magnesium sulfate premix 2 GM/50 ML PIGGYBACK IV (10:35)
[2025-08-28] MEDS: insulin glargine 100 units/1 mL 30 UNIT SUBCUT (10:42)
--- NOTE | 2025-08-28 12:47 | P.PN_ITS ---
Subjective 2 Subjective: Overnight patient has remained on Levophed of 2-4. Currently on 4 today morning. More awake than yesterday. Mean arterial pressure around 65. Denies any nausea, vomiting, headache. States dizziness is not there for now. Remains on 2 L of oxygen supplementation. Vitals/I&O/Wt Last Vital Signs Temp 98 F 08/28/25 12:00 Pulse 76 08/28/25 12:00 Resp 16 08/28/25 12:00 BP 110/81 08/28/25 12:00 Pulse Ox 94 08/28/25 12:00 O2 Del Method Nasal Cannula 08/28/25 11:37 O2 Flow Rate 2 08/28/25 11:37 08/27/25 08/28/25 08/28/25 22:59 06:59 14:59 Intake Total 2654.372 / 3654.372 560.375 / 4214.747 224.75 / 224.75 Output Total 950 / 950 Balance 2654.372 / 3654.372 -389.625 / 3264.747 224.75 / 224.75 Weight last 48 hrs Weight 77.111 kg Weight 77.973 kg Weight 73.936 kg Physical Exam 2 Narrative: General: No acute distress, AO x 3 HEENT: PERRLA, pupils bilaterally equal and reactive Chest: Bronchial breath sounds over lung stokes, no added sounds, decreased air entry in right lower zone CVS: S1-S2 regular, soft pansystolic murmur at apex, no tachycardia, no gallops, no rubs Abdomen: Soft, nontender, no organomegaly, bowel sounds present Neuro: No focal deficits, no facial deformity, Urinary Catheter Management: Dave: Cath Placed During This Visit: no Reason for Continuing Indwelling Catheter: Accurate Measurement of Urinary Output in Critically Ill Patients Data 08/28/25 04:22 08/28/25 04:22 Micro: Microbiology 08/27/25 16:05 Gram Stain - Final Pleural Fluid Anaerobic Culture - Preliminary Body Fluid Culture - Preliminary 08/27/25 14:06 Blood Culture - Preliminary Blood SPECIMEN COLLECTED 08/27/25 13:40 Blood Culture - Preliminary Blood SPECIMEN COLLECTED A&P Assessment and plan 1. Cardiogenic shock: Most likely in setting of recently added Entresto 2 days prior to presentation. Though unlikely but for now cannot rule out in setting of possible infection. Patient does have right-sided pleural effusion for which she receives thoracentesis. Cannot rule out empyema. Though patient does not have leukocytosis. Target mean artery pressure over 65. Wean Levophed accordingly. Plan for Cheetah exam to evaluate for fluid responsiveness. If patient is fluid responsive will plan for 500 cc of fluid bolus after which continue NS at 50 cc/h. Follow-up blood culture, pleural fluid culture, urine culture. Appreciate cortisol level. IV albumin every 8 hourly. Strict input output charting. 2. Loculated pleural effusion: Appreciate ultrasound thorax. Concern for loculated pleural effusion. Confirmed on CT chest. Pleural studies shows positive lights criteria. Consistent with transudative. Follow-up fluid culture. Appreciate pulmonary recommendations. Requesting transfer to a tertiary center where decortication/VATS procedure could be done or cardiothoracic surgery is available. 3. Heart failure with reduced ejection fraction: Repeat echocardiogram shows EF of 30 to 35%. Similar to previous studies with moderate LV hypokinesia. So far patient euvolemic. Will continue to monitor. 4. Left carotid stenosis: Given drowsiness and garbled voice with possible dysarthria for now we will check CT head. Patient has a history of right MCA stroke. Symptoms could be in setting of hypotension. Continue with home dose of aspirin, statin. Appreciate recent A1c, lipid panel. 5. Hyperlipidemia: 6. Type II diabetes mellitus: History of uncontrolled type 2 diabetes mellitus. Continue with sliding scale. Will add Lantus depending on blood sugars in next 24 hours. Patient will have decreased oral intake given drowsiness for now. Takes 60 units of Lantus, 10 units of lispro 3 times daily for now. 7. Acute hyponatremia: Improving. Up to 135. Repeat BMP in afternoon. 8. COPD (chronic obstructive pulmonary disease): No exacerbation for now. DuoNeb as needed. Plan: Full code Carb consistent diet Protonix OPD prophylaxis Heparin 5000 every 12 hourly DVT prophylaxis PDMP PDMP Reviewed: Not Reviewed Attestations 2 Medical Necessity Statement*: Requires further hospitalization for management of cardiogenic shock as patient remains on Levophed, complicated loculated right-sided pleural effusion as patient requires chest tube versus decortication Critical Care Time: The high probability of a clinically significant, sudden or life threatening deterioration of the patient's [cardiac, pulmonary] system(s) required my full and direct attention, intervention and personal management. The critical care time is as shown. This time is in addition to time spent performing any reported procedures but includes the following: [x] Data and vital sign review and interpretation [x] Patient assessment, examination and intervention [x] Documentation [x] Medication orders and management Critical Care Time (min): 70 Coding Level of Care Code Critical Care >/= 30 minutes Critical care time (in minutes): 70 The high probability of a clinically significant, sudden or life threatening deterioration, as referenced in this documentation, required my full and direct attention, intervention and personal management. The critical care time shown is in addition to time spent performing any reported separately billable procedures and includes the following: [x] Data and vital sign review and interpretation [x ] Patient assessment, examination and intervention [x] Medication orders and management [x] Patient/Family updates as able [x] Care Coordination and Documentation. Diagnoses Cardiogenic shock R57.0 Loculated pleural effusion J90 Heart failure with reduced ejection fraction I50.20 Left carotid stenosis I65.22 Hyperlipidemia E78.5 Type II diabetes mellitus E11.9 Acute hyponatremia E87.1 COPD (chronic obstructive pulmonary disease) J44.9
--- NOTE | 2025-08-28 13:01 | P.PN_ITS ---
Subjective 2 Subjective: 49 yo female with past medical history o f congestive heart failure, chronic respiratory failure 3 L of oxygen and on activity, coronary disease, right middle cerebral artery stroke in the past, major depression, hyperlipidemia, hypertension, type 2 diabetes mellitus, COPD/asthma recently admitted to the hospital for acute congestive failure community-acquired pneumonia with antibiotics and aggressive diuresis. She underwent further investigation with CT chest which showed right-sided large pleural effusion and she was also treated with antibiotics with ceftriaxone and azithromycin considering her underlying comorbidity of COPD and currently is smoking. She had a history of heart failure with ejection fraction of 30 to 35%. For her right-sided large pleural effusion, last admission, she underwent ultrasound-guided thoracocentesis and showed exudative pleural effusion based on the lights criteria. 1000 mL was removed. Gram stain prelim was negative. Blood cultures did not show growth This admission she was scheduled for another thoracentesis but had only 100 mL removed. Ultrasound showed large septations and complicated pleural effusion per Dr. Pam Lambert. Incidentally she was found to be hypotensive and had to be sent to the ER where she was placed on pressors and is currently in the ER. Medical History: - Congestive Heart Failure diagnosed in August of last year - Chronic Obstructive Pulmonary Disease (COPD) - Pneumonia treated in the past year Social History: - Smoking: Quit three months ago 08/28/2026-wakes up easily has been takin g intake well. NICOM positive. On 2 L nasal cannula back to her baseline. On 2 mics of levo. Making good urine about 1000 mL out. Vitals/I&O/Wt Last Vital Signs Temp 98 F 08/28/25 12:00 Pulse 76 08/28/25 12:00 Resp 16 08/28/25 12:00 BP 110/81 08/28/25 12:00 Pulse Ox 94 08/28/25 12:00 O2 Del Method Nasal Cannula 08/28/25 11:37 O2 Flow Rate 2 08/28/25 11:37 08/27/25 08/28/25 08/28/25 22:59 06:59 14:59 Intake Total 2654.372 / 3654.372 560.375 / 4214.747 224.75 / 224.75 Output Total 950 / 950 Balance 2654.372 / 3654.372 -389.625 / 3264.747 224.75 / 224.75 Weight last 48 hrs Weight 170 lb Weight 171 lb 14.4 oz Weight 163 lb Physical Exam 2 Narrative: per RN General: alert, NAD obese with O2 on HEENT: conj clear, EOMI, PERRL Neck: supple Pulmonary: some inspiratory wheeze heard Extremities: pulses +, 1+ edema Agree with above exam Urinary Catheter Management: Dave: Cath Placed During This Visit: no Reason for Continuing Indwelling Catheter: Accurate Measurement of Urinary Output in Critically Ill Patients Data 08/28/25 04:22 08/28/25 04:22 Micro: Microbiology 08/27/25 16:05 Gram Stain - Final Pleural Fluid Anaerobic Culture - Preliminary Body Fluid Culture - Preliminary 08/27/25 14:06 Blood Culture - Preliminary Blood SPECIMEN COLLECTED 08/27/25 13:40 Blood Culture - Preliminary Blood SPECIMEN COLLECTED A&P Assessment and plan 1. Pleural effusion, right: 2. Acute on chronic respiratory failure with hypoxia: 3. Loculated pleural effusion: Plan: This is a 49-year-old female past medical history of chronic congestive heart failure with pleural effusion right-sided large presents this admission to the ER with increased shortness of breath and hypotension while she was getting a thoracentesis done. Patient was given 4 L of IV fluids in the ER and currently running NS 50 mL/h. Levophed started initially at 8 and now at 4 maps running around 70. Urine output in the last few hours has been 750 mL/h # Large right complicated pleural effusion-chest x-ray shows bulging right pleural effusion that is suspicious for a complicated empyema versus pleural peel development. Continue Zosyn and vancomycin. Cultures have been sent from blood as well as awaiting pleural fluid cultures and analysis. Follow-up on pleural fluid cytology. Reviewed pleural fluid analysis showing a pH of 7.5 hide neutrophils LDH of 415 which is higher than last time at 158. Also total protein serum is 6.9 but total protein and fluid protein is 4.2 meets criteria for exudative pleural effusion. 08/28/2026 Discussed case after reviewing CT chest personally myself and explained to the patient as well as Dr. Murillo. She has a very complicated pleural effusion with some thick peel around her right lung. Case discussed case at length that she might need decortication but due to her multiple medical problems and the fact that she has cardiomyopathy she would be considered high risk and therefore better served at a higher level of care where thoracic surgery is available. She prefers going to [facility]. We will arrange that for her today. # Suspicion for stroke and has left carotid stenosis. CT head ordered. patient has a prior history of stroke right MCA. She is on aspirin and statin, Plavix for now # Acute on chronic congestive heart failure/cardiogenic shock-patient is EF is 35% checked in June. Recommend restriction of fluids and only using Levophed drip for now-currently running at 2. Keep maps above 65. Good urine output monitor closely. # Septic shock versus cardiogenic shock. Echocardiogram reviewed. EF slightly improved from last time 35 to 40%. Most likely is in septic shock at this time. Cardiogenic shock ruled out # Acute hyponatremia. Sodium continuing to improve. Today is 135 # Hypoalbuminemia # COPD group E-continue current inhalers # Positive for methamphetamine-watch for withdrawals. May need CIWA protocol # Ex-smoker # Chronic respiratory failure # Obesity Critical care time spent reviewing complex labs/imaging data, discussion with family regarding goals of care, excluding any procedures performed. Total time spent more than 60 minutes Telemedicine Consent Patient seen today via Telemedicine by agreement and consent of patient.? Telemedicine technology used during the visit includes audio and, as available, review of images.? The patient encounter is appropriate and reasonable under the circumstances given the patient?s particular presentation at this time.? The patient has been advised of the potential risks and limitations of this mode of treatment (including but not limited to the absence of in-person examination) and has agreed to be treated in a remote fashion in spite of them.? Any, and all, of the patient?s/patient?s family?s questions on this issue have been answered and I have made no promises or guarantees to the patient. The patient has also been advised to contact this office for worsening conditions or problems, and seek emergency medical treatment and/or call 911 if the patient deems either necessary PDMP PDMP Reviewed: Not Reviewed Attestations 2 Medical Necessity Statement*: On pressors awaiting transfer to [facility] Coding Level of Care Code Critical Care >/= 30 minutes Diagnoses Pleural effusion, right J90 Acute on chronic respiratory failure with hypoxia J96.21 Chronicity: acute on chronic Loculated pleural effusion J90
--- NOTE | 2025-08-28 13:03 | P.PN_ITS ---
Vitals/I&O/Wt Last Vital Signs Temp 98 F 08/28/25 12:00 Pulse 76 08/28/25 12:00 Resp 16 08/28/25 12:00 BP 110/81 08/28/25 12:00 Pulse Ox 94 08/28/25 12:00 O2 Del Method Nasal Cannula 08/28/25 11:37 O2 Flow Rate 2 08/28/25 11:37 08/27/25 08/28/25 08/28/25 22:59 06:59 14:59 Intake Total 2654.372 / 3654.372 560.375 / 4214.747 224.75 / 224.75 Output Total 950 / 950 Balance 2654.372 / 3654.372 -389.625 / 3264.747 224.75 / 224.75 Weight last 48 hrs Weight 170 lb Weight 171 lb 14.4 oz Weight 163 lb Physical Exam 2 Urinary Catheter Management: Dave: Cath Placed During This Visit: no Reason for Continuing Indwelling Catheter: Accurate Measurement of Urinary Output in Critically Ill Patients Data 08/28/25 04:22 08/28/25 04:22 Micro: Microbiology 08/27/25 16:05 Gram Stain - Final Pleural Fluid Anaerobic Culture - Preliminary Body Fluid Culture - Preliminary 08/27/25 14:06 Blood Culture - Preliminary Blood SPECIMEN COLLECTED 08/27/25 13:40 Blood Culture - Preliminary Blood SPECIMEN COLLECTED A&P Assessment and plan Plan: Patient has been invited to go to [facility] PDMP PDMP Reviewed: Not Reviewed Coding Level of Care Code Acute Code for Chg Fwd
--- NOTE | 2025-08-28 16:27 | PC.NURSE ---
Heparin held per Dr. Fernandez verbal order
[2025-08-28] MEDS: morphine 4 mg/mL SDV 1 mL 2 MG IVP (18:17)
--- NOTE | 2025-08-28 22:35 | USCV_ITS ---
Carmen Richards Age: 49 Gender: F : 1975 Exam Date: 08/28/2025 09:45 Ordering Phys: Chasidy Yan MD Technologist: Exam Location: [facility] Indication: cardo shock BP: / HR: Rhythm: Sinus Technical Quality: Adequate MEASUREMENTS (Male / Female) Normal Values 2D ECHO LV Diastolic Diameter PLAX 4.5 cm 4.2 - 5.9 / 3.9 - 5.3 cm IVS Diastolic Thickness 1.1 cm 0.6 - 1.0 / 0.6 - 0.9 cm IVS Systolic Thickness 1.5 cm LVPW Diastolic Thickness 1.6 cm 0.6 - 1.0 / 0.6 - 0.9 cm LVPW Systolic Thickness 1.2 cm LVOT Diameter 2.2 cm LV Ejection Fraction 2D Teich 42.1 % LV Ejection Fraction MOD 4C 43.7 % LV Ejection Fraction MOD 2C 51.8 % LV Ejection Fraction 2C AL 53.1 % LA Diameter 3.7 cm RA Systolic Volume 4C AL 44.9 ml RA Systolic Volume 4C MOD 44.3 ml LA Sys Volume AL 61.9 cm cubed LA Sys Volume Index AL 33.7 cm cubed/m squared Aorta at Sinotubular Diameter 3.0 cm FINDINGS Left Ventricle Right Ventricle Right Atrium Left Atrium IA Septum Mitral Valve Aortic Valve Tricuspid Valve Pulmonic Valve Pericardium Aorta IVC CONCLUSIONS Limited echocardiogram performed to assess LV systolic function. LV systolic function is moderately reduced with EF of 35 to 40%. Moderate global hypokinesis. Compared to prior echocardiogram from 06/24/2025, LV systolic function has improved slightly now. Giovanni Rosas MD (Electronically Signed) Final Date: 28 August 2025 11:10 S
[2025-08-31 05:28] LABS: Amylase, Pleural Fluid 13 U/L
[2025-08-31 15:14] LABS: Methylenedioxyamphetamine negative; Methylenedioxyethylamphetamine negative
== END 2025-08-28 18:53 | disposition short-term general hospital (02) | DRG 871 ==
LOC: ER 15:14 → ICU 16:55
PROVIDERS: Admitting Provider Student in an Organized Health Care Education/Training Program; Emergency Provider Family Medicine; PCP Family Medicine; Visit Provider Student in an Organized Health Care Education/Training Program
DX: A41.9 Sepsis, unspecified organism (principal); I50.23 Acute on chronic systolic (congestive) heart failure; J86.9 Pyothorax without fistula; J96.21 Acute and chronic respiratory failure with hypoxia; J18.9 Pneumonia, unspecified organism; R57.0 Cardiogenic shock; R65.21 Severe sepsis with septic shock; J90 Pleural effusion, not elsewhere classified; F33.2 Major depressive disorder, recurrent severe without psychotic features; J44.0 Chronic obstructive pulmonary disease with (acute) lower respiratory infection; E87.1 Hypo-osmolality and hyponatremia; I11.0 Hypertensive heart disease with heart failure; I25.10 Atherosclerotic heart disease of native coronary artery without angina pectoris; E78.5 Hyperlipidemia, unspecified; E11.9 Type 2 diabetes mellitus without complications; F17.210 Nicotine dependence, cigarettes, uncomplicated; E88.09 Other disorders of plasma-protein metabolism, not elsewhere classified; F15.90 Other stimulant use, unspecified, uncomplicated; E66.9 Obesity, unspecified; I65.22 Occlusion and stenosis of left carotid artery; Z68.30 Body mass index [BMI] 30.0-30.9, adult; Z99.81 Dependence on supplemental oxygen; Z86.73 Personal history of transient ischemic attack (TIA), and cerebral infarction without residual deficits; Z86.19 Personal history of other infectious and parasitic diseases
CPT/HCPCS: 32555; 36415; 36416; 36592; 70450; 71045; 71250; 80048; 80053; 80306; 80324; 80359; 80503; 81001; 82042; 82150; 82436; 82465; 82533; 82945; 82962; 83605; 83615; 83735; 83986; 84075; 84100; 84133; 84157; 84300; 84315; 84478; 84560; 85025; 85378; 87015; 87040; 87070; 87075; 87102; 87116; 87205; 87206; 87801; 89050; 93005; 93308; 94640; 94664; 96372; J1644; J1815; J2270; J2543; J3372; J3475; J7030; J7626; J9999; P9046; P9047